=== PATIENT | female | born 1945 | race Caucasian/White ===

== ENCOUNTER 2019-05-12 12:49 | Emergency (ER) | payer MEDICARE, MEDICAID, SELFPAY ==
[2019-05-12 12:55] VITALS: BP 156/82; PULSE 95; RESP 18; TEMP 36.6; O2SAT 99; BMI 17.7
--- NOTE | 2019-05-12 12:56 | ED_ITS ---
Entered by Misty Chavez, acting as scribe for Alek Carrizales DO HPI - Extremity Injury (Lower) General: Chief Complaint: Extremity Injury, Lower Stated Complaint: hip pain Time Seen by Provider: 05/12/19 12:55 Source: patient Mode of arrival: ambulatory Limitations: no limitations History of Present Illness: HPI Narrative: 74 yo Female presents to ED with c omplaint of right hip pain. Pt states that she has had a few falls during the winter. Pt states that her pain started 3-4 months ago. Pt states that her pain is in her lower back down to her knee. Pt states that she is not on blood thinners. MD complaint: hip injury Onset (ago): month(s) (3) Injury: Right: hip and knee Place: home Relieving factors: nothing Exacerbating factors: nothing Context: fall Other symptoms: none Review of Systems General: Reports: 10 or more systems reviewed and unremarkable except in HPI and below Const: Reports: body aches; Denies: fever or chills Eyes: Denies: change in vision, blurry vision or blind spots ENMT: Denies: throat pain, enlarged tonsils, painful swallowing, hoarseness or mouth pain Card: Denies: chest pain, palpitations, irregular heart rhythm, edema or sw elling of feet/ankles Resp: Denies: shortness of breath, productive cough or non-productive cough GI: Denies: abdominal pain, nausea or vomiting : Denies: flank pain, difficulty urinating, painful urination or urinary frequency Musc: Reports: back pain, extremity pain and joint pain; Denies: neck pain, extremity swelling, joint swelling or redness Skin/Breast: Denies: rash, itching or redness Neuro: Denies: headache, numbness in extremities or weakness in extremities Endo: Denies: excessive urination, excessive thirst or tired all the time Zaid/Lymph: Denies: easy bruising or easy bleeding PFSH ED PFSH: Statuses (acute, chronic, etc) shown below reflect problem list status as previously entered and may not be historically accurate Surgical History History of breast biopsy (Acute) History of heart artery stent (Acute) History of hysterectomy (Acute) Social History (Reviewed 05/12/19 @ 13:43 by MERCEDEZ Fitch Smoking and tobacco status: current every day smoker Physical Exam Const: COMMON NORMALS: no apparent distress, average body habitus, oriented x3, no limitations, healthy appearing, alert and well nourished HENMT: COMMON NORMALS: normocephalic, head/scalp atraumatic, hearing grossly normal bilaterally, external ears normal, EAC's normal, TM's normal bilaterally, external nose normal, nasal mucous membranes and turbinates normal, moist oral mucous membranes, oropharynx normal, dentition normal and gingiva normal HEAD & SCALP: normocephalic and atraumatic NOSE: external nose normal and nasal mucous membranes and turbinates normal EXTERNAL EAR: Yes external ears normal EXTERNAL AUDITORY CANAL: EAC's normal TYMPANIC MEMBRANE: TM's normal bilaterally Eye: COMMON NORMALS: PERRL, EOMs intact bilaterally, conjunctivae normal, no scleral icterus, no papilledema, normal visual batres by confrontation and fundi normal bilaterally CONJUNCTIVA: Yes conjunctivae normal PUPIL: Yes PERRL DIRECT OPHTHALMOSCOPY: Yes no papilledema and Yes fundi normal bilaterally Neck/C-Spine: COMMON NORMALS: full ROM, no lymphadenopathy, supple, no meni ngeal signs, no JVD, thyroid normal and no carotid bruits THYROID: thyroid normal Chest: COMMONS NORMALS: inspection of chest normal and palpation of chest normal Resp: COMMON NORMALS: normal respiratory effort, no retractions, no use of accessory muscles, clear to auscultation bilaterally and percussion normal AUSCULTATION: clear to auscultation bilaterally PERCUSSION: percussion normal Cardio: COMMON NORMALS: no JVD, regular rate, regular rhythm, S1 normal heart sound, S2 normal heart sound, no gallops, no clicks, no murmurs, no rub and peripheral pulses 2+ throughout RATE: regular rate RHYTHM: regular rhythm HEART SOUNDS: S1 normal and S2 normal PERIPHERAL PULSES: pulses 2+ throughout GI: COMMON NORMALS: normal to inspection, nondistended, normoactive bowel sounds, soft to palpation, non-tender, no hepatosplenomegaly, no masses and no bruits PALPATION: Yes soft and Yes no hepatosplenomegaly : COMMON NORMALS: Yes no CVA tenderness and Yes external appearance normal BLADDER/KIDNEY EXAM: Yes no CVA tenderness Back/Pelvis: COMMON NORMALS: no CVA tenderness, thoracic and lumbar spine normal to inspection, no thoracic nor lumbar tenderness, thoraco-lumbar ROM normal and straight leg raise negative bilaterally Extremity: COMMON NORMALS: full ROM, normal capillary refill, no joint enlargement, no clubbing, cyanosis or edema, no calf tenderness and no pedal edema; negative for normal to inspection GENERAL: Yes normal exam except as noted and Yes weight-bearing difficulty RIGHT LOWER EXTREMITY: Yes hip joint (tenderness) Neuro: COMMON NORMALS: oriented x3 SENSORIUM/ORIENTATION: Yes alert MENINGEAL SIGNS: Yes no meningeal signs Skin: COMMON NORMALS: no rashes or lesions noted, no wounds, skin turgor normal, no jaundice, no petechiae and no mottling GENERAL SKIN EXAM: no rashes or lesions noted and turgor normal Course Vital Signs: Vital signs: Vital Signs Temperature 97.9 F 05/12/19 12:55 Pulse Rate 86 05/12/19 13:00 Respiratory Rate 18 05/12/19 12:55 Blood Pressure 156/82 05/12/19 12:55 Pulse Oximetry 99 05/12/19 12:55 MDM - Extremity Injury (Lower) Imaging Data^: Pelvis: My impression: subacute right pubic rami fx Coding Level of Care Code ED 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
[2019-05-12 13:00] VITALS: PULSE 86
--- NOTE | 2019-05-12 13:02 | XRR_ITS ---
PROCEDURE INFORMATION: Exam: XR Right Femur Exam date and time: 05/12/2019 1:39 PM Age: 74 years old Clinical indication: Pain; Hip; Right; Additional info: Falls TECHNIQUE: Imaging protocol: XR Right femur. Views: 2 views. COMPARISON: CT examination abdomen and pelvis 06/29/2018 FINDINGS: Bones/joints: Last there is generalized osteopenia present. Irregular decreased bone density is seen in the anterior ramus of the right pubic bone this finding appears different than prior examination. Consideration for localized pathologic bone lesion should be ruled out. Consider nuclear medicine bone scan is recommended. No acute fracture. Soft tissues: Unremarkable. XR/XR femur RT min 2V* [id number] IMPRESSION: Lytic appearing bone changes in the right pubic bone rule out pathologic process nuclear medicine bone scan is recommended Otherwise negative examination
--- NOTE | 2019-05-12 13:02 | XRR_ITS ---
PROCEDURE INFORMATION: Exam: XR Lumbosacral Spine, 2 or 3 Views Exam date and time: 05/12/2019 1:37 PM Age: 74 years old Clinical indication: Low back pain; Additional info: Falls TECHNIQUE: Imaging protocol: XR of the lumbosacral spine, 2 or 3 views. COMPARISON: CTA Abdomen/Pelvis [id number] 06/29/2018 1:33 PM FINDINGS: Vertebrae: There is decreased vertebral height, and sclerotic densities present in the L1 vertebral body. Sclerotic densities also seen S1 vertebral body. These findings were present on prior examination and appears similar. There is generalized osteopenia and osteoarthritis seen. No acute bone abnormalities is seen. Soft tissues: The aorta is calcified there is aneurysmal dilatation of the aorta anterior to L2 and L3 vertebral body. The aorta at this level measures 32.7 mm. This finding was documented on prior CT examination and appears similar. A calyceal stone is seen in the central collecting system of the right kidney measuring 9 mm x 9 mm this finding was stable since prior. XR/XR lumbar spine 2-3V* [id number] IMPRESSION: 1. Compression fractures and sclerotic density L1 vertebral body 2. Sclerotic densities S1 vertebral body 3. Calcified abdominal aorta with proximal abdominal aortic aneurysm stable since prior 4. There is a calcified right kidney 9 mm caliceal stone stable since prior 5. Osteopenia and osteoarthritis of the lumbar spine.
--- NOTE | 2019-05-12 13:02 | XRR_ITS ---
PROCEDURE INFORMATION: Exam: XR Pelvis Exam date and time: 05/12/2019 1:31 PM Age: 74 years old Clinical indication: Pelvic pain; Additional info: Falls TECHNIQUE: Imaging protocol: XR pelvis. Views: 1 or 2 view. COMPARISON: CTA Abdomen/Pelvis [id number] 06/29/2018 1:33 PM FINDINGS: Bones/joints: Laminectomy defect Dom lower lumbar spine. No acute fracture. Chronic sclerotic density is seen in the greater trochanter of the left hip Soft tissues: Unremarkable. XR/XR pelvis 1-2V* [id number] IMPRESSION: No acute findings. Laminectomy defect lower lumbar spine
[2019-05-12] MEDS: HYDROcodone-acetaminophen 5-325 mg Tablet 1 TAB PO (13:53)
[2019-05-12 13:55] VITALS: BP 173/76; PULSE 90; RESP 16; TEMP 36.6; O2SAT 98
== END 2019-05-12 14:01 | disposition home or self-care (01) ==
PROVIDERS: Emergency Provider Family Medicine; Family Provider Family Medicine; PCP Family Medicine
DX: S32.591A Other specified fracture of right pubis, initial encounter for closed fracture (principal); W19.XXXA Unspecified fall, initial encounter; Y92.009 Unspecified place in unspecified non-institutional (private) residence as the place of occurrence of the external cause; F17.210 Nicotine dependence, cigarettes, uncomplicated
CPT/HCPCS: 72100; 72170; 73552; 99281

== ENCOUNTER 2019-05-25 07:44 | Outpatient (CLI) | payer MEDICARE, MEDICAID, SELFPAY ==
--- NOTE | 2019-05-25 07:54 | NM_ITS ---
WS: [id number] Nuclear medicine whole body bone scan, 05/25/2019 Clinical Data: PELVIS RAMUS LESION Comparison: Lumbar spine , 05/12/2019, pelvis, 05/12/2019, right femur, 05/12/2019. Findings: After the intravenous injection of 25.3 mCi of technetium 99m HDP anterior and posterior wh ole body images were obtained. Additional lateral imaging of the cervical spine and skull was perform ed. There are areas of increased activity in the right pubic symphysis, right pelvis, right sacrum, left femoral head and left greater trochanter. There is also increased activity in the L1 and L4 vertebral bodies. Increased activity in the anterior lower right and left ribs is seen and also in the posteri or left fifth rib. There is slight increase in activity in the T2 and T3 vertebral bodies and also in the C7 vertebral body. Increased activity in the anterior and posterior skull is noted. The right re nal pelvis is dilated. NM/NM bone scan whole body* [id number] Impression: 1. Multiple areas of increased activity in the skull, cervical spine, thoracic spine, ribs, lumbar spine, pelvis, sacrum and both hips most consistent with di ffuse metastatic disease. 2. Right renal pelvic dilatation.
== END 2019-05-25 07:45 | disposition home or self-care (01) ==
LOC: RAD 07:45
PROVIDERS: Family Provider Family Medicine; PCP Family Medicine; Visit Provider Family Medicine
DX: M89.9 Disorder of bone, unspecified (principal)
CPT/HCPCS: 78306; A9561

== ENCOUNTER 2019-06-04 09:34 | Outpatient (CLI) | payer MEDICARE, MEDICAID, SELFPAY ==
[2019-06-04 11:56] LABS: Basophils % 0.3 %; Eosinophils % 0.5 %; Hemoglobin 12.9 g/dL (11.5-15.3); Lymphocytes # 2.4 10^3/uL (0.8-4.8); Lymphocytes % 32.4 %; Mean Corpuscular HGB Conc 32.3 g/dL (30.0-36.0); Mean Corpuscular Hemoglobin 27.7 pg (28.0-34.0); Mean Platelet Volume 10.6 fL (7.4-10.4); Monocytes # 0.9 10^3/uL (0.2-0.9); Monocytes % 11.8 %; Neutrophils # 4.1 10^3/uL (1.8-7.7); Neutrophils % 54.7 %; Nucleated Red Blood Cells % 0 %; Platelet Count 238 10^3/cmm (130-400); Red Blood Count 4.65 10^6/uL (4.1-5.3); Red Cell Distribution Width 13.8 % (12.1-15.1); White Blood Count 7.5 10^3/uL (4.0-10.0)
[2019-06-04 12:31] LABS: Alanine Aminotransferase 8 U/L (0-33); Albumin Level 3.8 g/dL (3.5-5.2); Alkaline Phosphatase 138 IU/L (35-105); Anion Gap 15.6 (5-19); Aspartate Amino Transferase 27 U/L (0-32); Blood Urea Nitrogen 21 mg/dL (8-23); Calcium 10.1 mg/dL (8.5-10.5); Carbon Dioxide 28 mmol/L (22-29); Chloride 99 mmol/L (98-107); Globulin 3.3 g/dL (1.3-4.6); Glucose 103 mg/dL (65-115); Potassium 3.6 mmol/L (3.5-5.1); Sodium 139 mmol/L (136-145); Total Bilirubin 0.3 mg/dL (0.15-1.2); Total Protein 7.1 g/dL (6.6-8.7)
[2019-06-04 14:28] LABS: 25 Hydroxy Vitamin D 49 ng/mL (30-100)
--- NOTE | 2019-06-04 18:23 | ONC CON_ITS ---
Dr. Agrawal New Patient Note Patient: Lorelei Saunders Unit #: [id number]: [id number] Dicatated By: Paul Agrawal M.D.Date of Visit: Jun 04, 2019 Onc MED New Patient/Consult Referring Physician: Chief Complaint: Breast cancer/bone metastases. History of Present Illness: This is a 74 year-old woman with grade 2 infiltrating ductal carcinoma of the right breast, ER/GA positive and HER-2/alf negative. She now has evidence of bony metastatic disease. Her breast cancer was stage IIA (T2, N0, M0) at initial diagnosis in October 2008. Her Oncotype DX showed a recurrence score of 16, which was low risk. Her treatment included lumpectomy and axillary sentinel lymph node biopsy followed by radiation to the right breast, which she completed in February 2009. She was given adjuvant hormonal therapy with anastrozole. It was stopped in October 2012 when she came in with worsening joint pain. Bone scan in November 2012 showed no evidence of metastatic disease. She received no further adjuvant therapy, as she had then failed to return for follow-up. Her other medical illnesses include atherosclerotic cardiovascular disease, degenerative arthritis, osteoporosis, and hypothyroidism. She had evidence of a 3 cm infrarenal abdominal aortic aneurysm on CT angiogram in June 2018. That study also showed arterial stenosis had multiple sites including the proximal SMA, the right renal artery, and left renal artery. Extensive calcifications were noted through the common iliac arteries bilaterally. She underwent right carotid endarterectomy in 2017. She had undergone hysterectomy/BSO in 1994. She has a history of smoking 1 pack of cigarettes daily for close to 60 years. She cut down about a year ago. INTERIM HISTORY: On 05/12/2019 she was seen in the emergency room with pain in the right hip area. The pain has been getting progressively worse over a period of several months. X-rays of the lumbar spine, pelvis, and right femur showed evidence of sclerotic lesions in the L1 and S1 vertebral bodies as well as lytic appearing bone changes in the right pubic bone. There was no fracture reported. Further evaluation with bone scan on 05/25/2019 showed multiple areas of uptake including the calvarium, cervical spine, thoracic spine, ribs, lumbar spine, pelvis, sacrum, and both hips most consistent with diffuse metastatic disease. Also noted was right renal pelvic dilatation. She is seen now for further management. She is having generalized pain, but the worst is in her right buttock area. The pain gets worse with coughing, and it does limit her activity. She is ambulating some with a walker. She is still trying to do light work. Her ECOG score is 2. Her appetite has not been good, and her weight is down at least 20 pounds. She does not have fever, night sweats, or hot flashes. She says her breathing is not too good. She has cough productive of bubbly sputum. She has had no chest pain or hemoptysis. She has very minimal smoking now. She does report having some acid reflux and she has had some constipation, though she says her bowels are pretty good as long as she eats enough. She has urinary frequency with urgency/incontinence. She does not complain of headache. She does have some lightheadedness when she first gets up in the morning. She has numbness/tingling in her left hand. Past Medical History: Her medical history includes breast cancer, carotid stenosis, degenerative arthritis, goiter, hypothyroidism, renal artery stenosis, and osteoporosis. She has a known abdominal aortic aneurysm. Past Surgical History: Her surgical/procedural history includes knee surgery, knot removal from back, right carotid endartarectomy in 2018, right breast lumpectomy with axillary sentinel lymph node biopsy in 2008, and hysterectomy/bilateral salpingo-oophorectomy in 1994. Medications: Aspirin 1 Tablet (of 81 mg) Oral daily, Hydrocodone-Acetaminophen 1 Tablet (of 5-325 mg) Oral q 6 hours PRN, Levothyroxine Sodium 1 Tablet (of 50 mcg) Oral daily Allergies: Fluticasone Furoate Social History: Ms. Saunders is . She has a history of smoking 1 pack of cigarettes daily for close to 60 years. She cut down about a year ago and she now has only minimal smoking. She had alcohol use in the past but she quit drinking at least 35 or 40 years ago. Family History: Her father and a sister of lung cancer. One brother had esophageal cancer and another brother was treated for kidney cancer. Her mother of heart attack. A son with a drug overdose. Review Of Symptoms: Constitutional - She is up and around some with a walker. Her appetite is not good. She has lost about 20 pounds since getting sick. No fever. She has hot flashes and sweating. ECOG score is 2, Eyes - No change in vision, ENMT - She has hearing loss and tinnitus. No sinus congestion/drainage. No mouth sores. No sore throat or difficulty swallowing, Hematologic/Lymphatic - She bruises easily, Respiratory - She has shortness of breath with activity. She has a productive cough. No pleuritic pain or hemoptysis. She continues to smoke some days, but she has cut down since a year ago, Cardiovascular - No angina pain. No palpitations, Gastrointestinal - No nausea or vomiting. She has occasional heartburn. No diarrhea or constipation. No blood in the stool or black stools, Genitourinary (F) - No dysuria or hematuria. She has urinary frequency and urgency. She has incontinence, Musculoskeletal - She has generalized pain. The worst is in her her right buttock area, Integumentary - No skin complications, Neurologic - No headache. She has dizziness in the morning when she first gets up. She has numbness and tingling in her left hand, Psychiatric - No anxiety or depression. She is not sleeping well at night due to the pain. Vital Signs: Performed on Jun 04, 2019 11:01: 4, 16.83 (LOW), 1.37 sq.m, 62.00 in, 99 %, 106 /min (HIGH), 16 /min, 123/68 mm(hg), 98.3 F (LOW), and 92.0 lbs (LOW). Physical Examination: Constitutional - She has limited mobility, but she does not appear acutely ill, Eyes - Sclerae nonicteric. Conjunctivae clear, ENMT - No lesions noted in the oral cavity, Neck - No mass or thyromegaly, Hematologic/Lymphatic - No cervical or clavicular adenopathy, Respiratory - Lungs are clear with diminished air movement bilaterally, Cardiovascular - Heart rhythm is regular. There is no murmur, gallop, or rub noted, Breasts - The right breast is generally indurated, there is no mass palpable. The left breast shows no mass. There is no axillary adenopathy noted, Abdomen - Soft. There is mild tenderness in the epigastric area. Liver and spleen are not enlarged. There is no abdominal mass or ascites noted and there is no inguinal adenopathy, Back/Spine - No significant bony tenderness in the spine or ribs, Extremities - No edema. Pedal pulses are palpable bilaterally, Integumentary - No rashes. No suspicious skin lesions noted, Neurologic - No focal neurologic deficits noted. Impression: 1. Patient with evidence of widespread bony metastatic disease by bone scan on 05/25/2019. This is most likely due to to metastatic breast cancer. 2. She has known grade 2 infiltrating ductal carcinoma of the right breast, ER/GA positive and HER-2/alf negative, stage IIA (T2, N0, M0) at initial diagnosis in October 2008. Her treatment included lumpectomy and radiation, completed in February 2009. 3. She was given adjuvant hormonal therapy with anastrozole. It was stopped in October 2012 due to worsening musculoskeletal pain. Bone scan at that time showed no evidence of metastatic disease. She received no further adjuvant therapy. Her other medical illnesses include: 4. Degenerative arthritis. 5. COPD. 6. Hypothyroidism. 7. Atherosclerotic cardiovascular disease including carotid stenosis and renal artery stenosis. 8. She has known abdominal aortic aneurysm. Plan: The findings on the imaging studies were reviewed with the patient, and we discussed the clinical implications. She clearly has evidence of widespread bony metastatic disease. The probability is very high that this is due to metastatic breast cancer despite the interval from her diagnosis/treatment. However, she will be scheduled for a PET/CT not only to complete her staging evaluation but also to screen for any other potential source for primary malignancy. If she has disease which is accessible for biopsy, confirmation with tissue diagnosis would be preferable. I also will check laboratory studies today to include CBC, comprehensive metabolic profile, CA-27-29 level, and a 25-hydroxy vitamin D level. I will review the imaging with Dr. Kenny, as I feel she would potentially benefit with palliative radiation. Assuming there is no evidence for other primary malignancy, she would then be eligible for treatment with a second line hormonal agent in combination with a CDK4/6 inhibitor. Signed By: Paul Agrawal M.D. <<Signature on File>>
== END 2019-06-04 09:35 | disposition home or self-care (01) ==
PROVIDERS: Family Provider Family Medicine; PCP Family Medicine; Referring Provider Family Medicine; Visit Provider Internal Medicine Medical Oncology
DX: C79.51 Secondary malignant neoplasm of bone (principal); Z85.3 Personal history of malignant neoplasm of breast; G89.3 Neoplasm related pain (acute) (chronic); I25.10 Atherosclerotic heart disease of native coronary artery without angina pectoris; M19.90 Unspecified osteoarthritis, unspecified site; M81.0 Age-related osteoporosis without current pathological fracture; F17.210 Nicotine dependence, cigarettes, uncomplicated; I71.4 Abdominal aortic aneurysm, without rupture; E03.9 Hypothyroidism, unspecified; Z17.0 Estrogen receptor positive status [ER+]; Z79.82 Long term (current) use of aspirin; Z79.891 Long term (current) use of opiate analgesic; Z92.3 Personal history of irradiation; Z92.23 Personal history of estrogen therapy
CPT/HCPCS: 80053; 82306; 85025; 86300; 99205

== ENCOUNTER 2019-06-13 10:12 | Outpatient (CLI) | payer MEDICARE, MEDICAID, SELFPAY ==
--- NOTE | 2019-06-13 13:55 | N.ONRAD NP_ITS ---
Radiation Oncology New Patient Visit Patient: Lorelei Saunders MR#: [id number] : 1945> Age: 74> Sex: Female> Dictated by: Dr. Jacob Kenny Date of Service: 06/13/2019 Referring Physician(s) : Paul Agrawal M.D. Primary Diagnosis: Z17.0 - estrogen receptor positive status [er+], Diagnosed 06/04/2019 (active), C50.411 - malignant neoplasm of upper-outer quadrant of right female breast, Diagnosed 06/04/2019 (active), stage iv, t2, n0, m1, g2, her2 neg, er pos, pr pos and C79.51 - secondary malignant neoplasm of bone, Diagnosed 06/04/2019 (active). 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 She received lumpectomy and axillary sentinel lymph nodes biopsy followed by adjuvant radiation therapy to the right breast and 4 years of adjuvant hormonal therapy with anastrozole. Recently the patient presented to the ER with severe pain in the right hip and lower back on May 12, 2019. X-ray of the lumbar spine and pelvis showed sclerotic lesions in the L1 and S1 vertebral bodies as well as lytic lesions in the right pubic bone. Bone scan on May 25, 2019 showed multiple areas of increased activity in the skull, cervical spine, thoracic spine, ribs, lumbar spine, pelvis, sacrum and both hips most consistent with diffuse metastatic disease. Subsequently she underwent a PET/CT on June 09, 2019. It showed FDG avid left thyroid mass, hypermetabolic right cervical and mediastinal lymphadenopathy, a unifocal hepatic metastatic disease and multifocal osseous metastatic disease as shown in bone scan. The patient notes pain all over but the most severe pain is in the right hip/lower back area and right lateral rib cage. She describes it as constant aching pain that can be relieved by pain medication. The patient will be scheduled for biopsy of right hip lesion by Dr. Agrawal. Current Medications: Aspirin, hydrocodone-Acetaminophen, hydrocodone-Acetaminophen, levothyroxine Sodium. Allergies: Fluticasone Furoate. Medical History: - Abdominal aortic aneurysm, - breast cancer, - carotid stenosis, - degenerative arthritis, - goiter, - hypothyroidism, - osteoporosis on 06/09/2009, - renal artery stenosis. No history of collagen vascular disease. No previous radiation therapy. Surgical History: Breast biopsy on 11/11/2008, hysterectomy/bilateral salpingo-oophorectomy in 1994, knee surgery, knot removal from back, right breast lumpectomy with axillary sentinel lymph node biopsy on 12/05/2008 and right carotid endarterectomy on 09/27/2017. Family History: Father is having experienced lung cancer. Mother is having experienced heart disease. Brother is . Brother is alive having experienced esophagus cancer. Brother is alive having experienced kidney cancer. Sister is at age 63. Sister is at age 67 having experienced lung cancer. Social History: Last screened on 06/13/2019 - Current every day smoker 1.0 pack/day for 60 years (60 pack years). Last screened on 06/13/2019 - Past drinker. Review of Systems: Constitutional - Complains of no appetite. Complains of moderate fatigue. Complains of change in weight has lost 4 lbs. since last week. Denies fever and night sweats. Eyes - Denies blurred vision. ENMT - Complains of problems with hearing and altered taste. Denies dysphagia and also had odynophagia that started last night, ear pain, mouth dryness and stomatitis. Neck - Complains of neck pain. Integumentary - Denies rash. Breasts - Complains of pain in the right breast which happens once in awhile. Cardiovascular - Denies arrhythmias and chest pain. Respiratory - Complains of a mild cough which is productive. Complains of chronic dyspnea. Complains of wheezing. Denies hemoptysis. Gastrointestinal - Complains of abdominal pain that is intermittent which is in the periumbilical region. Complains of intermittent constipation. Complains of heartburn / dyspepsia occasionally. Denies diarrhea, melena / GI bleeding, nausea and vomiting. Genitourinary (F) - Complains of nocturia 1-3 time/night. Denies dysuria, frequency and urgency. Musculoskeletal - Complains of arthritis, bone pain generalized all over and joint pain in the shoulders and right hip. Neurologic - Complains of intermittent dizziness that occurs upon sitting to standing. Complains of abnormal gait. Denies headaches. Endocrine - Complains of thyroid disease. Denies diabetes. Hematologic/Lymphatic - Denies tender or enlarged lymph nodes.. Vital Signs: Performed on 06/13/2019 10:56 AM BMI - 16.242 kg/m2 (low), Height - 62.00 in, Weight - 88.8 lbs, Temperature - 97.8 f, Pulse - 94, Respiration - 18, O2 Sat - 98 %, Pain - 0 and BP - 131/ 82 mm(hg). Physical Exam: Pertinent to diagnosis and treatment. General: Alert and oriented x 3. No acute distress. HEENT: Normocephalic, atraumatic. EOMI ( Extraocular Movements Intact), PERRLA ( Pupils Equal, Round, Reactive to Light and Accommodation), Sclerae anicteric. Oral cavity is clear without lesions, masses or ulcers. NECK: Supple without supraclavicular or jugular lymphadenopathy. LUNGS: Clear to auscultation bilaterally without rales, rhonchi or wheeze. HEART: Regular rate and rhythm, normal S1 and S2 without murmur, gallop or rub. MUSCULOSKELETAL: Tenderness over the lower back and right hip areas. ABDOMEN: Soft, nontender, nondistended without masses or organomegaly. Bowel sounds are present. EXTREMITIES: No peripheral edema is identified. Limited motor and sensory examination are grossly intact and symmetric bilaterally. NEUROLOGIC: Cranial nerves II ???XII are grossly intact. Normal sensation, strength 5/5 in all extremities, normal gait, no ataxia. Performance Status: 2 - Ambulatory/capable of all self-care, unable to perform any work activities. Up and about more than 50% of waking hours. (ECOG) Pathology: grade 2 infiltrating ductal carcinoma involving the right breast ER/OK positive and HER-2/alf negative Lab: Test performed on 06/04/2019 11:46 AM MCH - 27.7 pg (low), MPV - 10.6 fl (high), Cr Clearance (Est) - 45.04 ml/min (low) and Alkaline Phosphatase - 138 iu/l (high). Imaging: See HPI Impression: This is a 74-year-old woman who most likely developed a stage IV breast cancer with diffuse metastases including bony metastasis involving the spine, ribs and bilateral hips/pelvis causing significant pain in the right hip/lower back area and right lateral rib cage. Plan: I recommended palliative radiation therapy to the lower back/right hip area and right rib metastatic lesions to relieve pain. I went over the procedure for radiation therapy to the rib, lower back and the right hip/pelvis with the patient. The benefit, risks and potential side effects of radiotherapy were explained to the patient. The potential side effects include but not limited to fatigue, skin reaction, diarrhea, nausea, vomiting, dysuria, urgency, radiation hepatitis, damages to liver, bones, bowels and spinal cord/nerves. Ms Saunders expressed good understanding and decided to proceed with the recommended treatment. The patient has signed an informed consent for radiotherapy. She will come back for CT simulation after the biopsy. Signed by: 06/13/2019 1:54:47 PM <<Signature on File>> CPT Code: CPT Code: Signed By: Dr. Jacob Kenny, 06/13/2019 1:54:48 PM <<Signature on File>>
== END 2019-06-13 10:13 | disposition home or self-care (01) ==
LOC: ONCMED 10:16
PROVIDERS: Family Provider Family Medicine; PCP Family Medicine; Visit Provider Radiology Radiation Oncology
DX: C79.51 Secondary malignant neoplasm of bone (principal); C50.411 Malignant neoplasm of upper-outer quadrant of right female breast; Z17.0 Estrogen receptor positive status [ER+]; G89.3 Neoplasm related pain (acute) (chronic); C78.7 Secondary malignant neoplasm of liver and intrahepatic bile duct; I71.4 Abdominal aortic aneurysm, without rupture; M19.90 Unspecified osteoarthritis, unspecified site; M81.0 Age-related osteoporosis without current pathological fracture; E03.9 Hypothyroidism, unspecified; F17.210 Nicotine dependence, cigarettes, uncomplicated; Z79.891 Long term (current) use of opiate analgesic
CPT/HCPCS: 99205

== ENCOUNTER → 2019-06-26 08:18 | Day surgery (SDC) | payer MEDICARE, MEDICAID, SELFPAY ==
[2019-06-25 08:47] VITALS: BMI 16.8
[2019-06-26] VITALS (10 sets, daily range): BP systolic 95–189; BP diastolic 59–106; PULSE 75–92; RESP 16–18; TEMP 36.9; O2SAT 96–100
--- NOTE | 2019-06-26 09:04 | CT_ITS ---
NOTE: Report was unsigned for reason: Order was edited. Original Signature date and time was: 06/26/19 1232 WS: [id number] CT lab see of the right ilium., 06/26/2019 Clinical Data: SUSPECTED CANCER Comparison: PET scan, 06/09/2019. DLP: 643.[address] scans at [facility] use at least one of these dose optimization techniques: automated exposure control; mA and/or kV adjustment per patient size (includes targeted exams where dose is matched to clinical indication); or iterative reconstruction. Findings: With the usual technique the patient's skin was cleansed with alcohol. Then 4 mL of 1% lidocaine were injected via a 25-gauge needle to anesthetize the skin and underlying subcutaneous tissue. A small incision was made into the skin. Then an 18-gauge biopsy device was placed into the right ilium to sample the tissue within the right ilium at the level of the SI joint. 5 samples were obtained. The patient had no complications and had no pain. [facility] CT/CT guided biopsy [id number] Impression: Satisfactory CT guided biopsy of right ilium.
[2019-06-26] MEDS: sodium chloride 0.9% 1,000 ML 30 ML (09:09)
[2019-06-26 10:20] LABS: INR 1.09 (0.8-1.2)
[2019-06-26 10:32] LABS: Partial Thromboplastin Time 27.1 SECONDS (23.9-36.7)
[2019-06-26] MEDS: midazolam 1 mg/mL INJ 5 ML IVP ×3 (11:35→11:44)
--- NOTE | 2019-06-26 12:00 | SUR.PHASEII ---
Addendum entered by Valarie Gonzalez 06/26/19 12:48: CORRECTION: FENTANYL 25MCG WERE WASTED AND WITNESSED BY A JESSE RN Original Note: MELVA WASTED 50MCG FENTANYL AND 2MG OF VERSED. WITNESSED BY THIS NURSE.
--- NOTE | 2019-06-26 12:05 | SUR.PHASEII ---
PATIENT'S GLASSES GIVEN TO HER FAMILY MEMBER.
[2019-07-04 13:15] LABS: Miscellaneous Test See Scanned Lab Rpt
== END | disposition home or self-care (01) ==
PROVIDERS: Radiology Diagnostic Radiology; Family Provider Family Medicine; PCP Family Medicine; Visit Provider Internal Medicine Medical Oncology
DX: C79.51 Secondary malignant neoplasm of bone (principal); Z85.3 Personal history of malignant neoplasm of breast
CPT/HCPCS: 20225; 36415; 77012; 85610; 85730; 88307; 88361; 88374; 96374; 96375; J2001; J2250; J3010; J7030

== ENCOUNTER 2019-07-17 05:52 | Outpatient (RCR) | payer MEDICARE, MEDICAID, SELFPAY ==
--- NOTE | 2019-06-28 | CT_ITS ---
Radiation Therapy Planning CT images; total exam DLP: 347.62 mGy-cm MTDD
--- NOTE | 2019-06-30 12:15 | ONCRAD EPV_ITS ---
Radiation Oncology Established Patient Visit Patient: Kb MR#: [id number] : 1945> Age: 74> Sex: Female> Dictated by: Dr. Jacob Kenny Date of Service: 06/28/2019 Referring Physician(s) : Paul Agrawal M.D. Diagnosis: Z17.0 - Estrogen receptor positive status [ER+], Diagnosed 06/04/2019 (Active) C50.411 - Malignant neoplasm of upper-outer quadrant of right female breast, Diagnosed 06/04/2019 (Active) Stage IV, T2, N0, M1, G2, HER2 Neg, ER Pos, CA Pos C79.51 - Secondary malignant neoplasm of bone, Diagnosed 06/04/2019 (Active) Chief Complaint / History of Present Illness: This is a 74-year-old woman who most likely developed a stage IV breast cancer with diffuse metastases including bony metastasis involving the spine, ribs and bilateral hips/pelvis causing significant pain in the right hip/lower back area and right lateral rib cage. During the interval, the patient underwent a CT-guided core needle biopsy of the right iliac bone lesion on June 26, 2019. Pathology showed metastatic adenocarcinoma most consistent with breast primary. She notes intermittent severe pain in the right hip and the right lateral rib cage which is not controlled by pain medication. Current Medications: Aspirin, hydrocodone-Acetaminophen, hydrocodone-Acetaminophen, levothyroxine Sodium. Allergies: Fluticasone Furoate. Current Complaints / Review of Systems: Constitutional - Complains of a poor appetite. Complains of mild fatigue. Denies fever, night sweats and change in weight. Eyes - Complains of blurred vision in both eyes and happened this morning. Denies double vision. ENMT - Complains of altered taste. Denies dysphagia, ear pain, mouth dryness and stomatitis. Neck - Denies neck pain. Integumentary - Denies rash. Breasts - Denies pain. Cardiovascular - Denies chest pain. Respiratory - Complains of a moderate cough which is productive. Complains of dyspnea associated with normal activity. Complains of wheezing. Denies hemoptysis. Gastrointestinal - Complains of intermittent constipation. Complains of intermittent diarrhea. Denies abdominal pain, heartburn / dyspepsia, nausea and vomiting. Genitourinary (F) - Complains of nocturia gets up about 2 times per night and urgency. Denies dysuria, frequency, vaginal discharge / bleeding and vaginal spotting. Musculoskeletal - Complains of generalized muscle weakness. Has complains of rib pain down to the hip. Pain is on both sides but at different times. Neurologic - Complains of intermittent dizziness that occurs upon sitting to standing. Denies headaches. Endocrine - Complains of thyroid disease. Denies diabetes. Hematologic/Lymphatic - Denies tender or enlarged lymph nodes. Vital Signs: Performed on 06/28/2019 12:57 PM BMI - 15.949 kg/m2 (low), Height - 62.00 in, Weight - 87.2 lbs, Temperature - 98.8 f, Pulse - 98, Respiration - 20, O2 Sat - 98 %, Pain - 6 and BP - 137/ 85 mm(hg). Physical Exam: General: Alert and oriented x 3. No acute distress. HEENT: Normocephalic, atraumatic. Extraocular Movements Intact: Pupils Equal, Round, Reactive to Light and Accommodation: Sclerae anicteric. Oral cavity is clear without lesions, masses or ulcers. NECK: Supple without supraclavicular or jugular lymphadenopathy. LUNGS: Clear to auscultation bilaterally without rales, rhonchi or wheeze. HEART: Regular rate and rhythm, normal S1 and S2 without murmur, gallop or rub. MUSCULOSKELETAL: Tenderness over the right hip/pelvic bone. ABDOMEN: Soft, nontender, nondistended without masses or organomegaly. Bowel sounds are present. EXTREMITIES: No peripheral edema is identified. Limited motor and sensory examination are grossly intact and symmetric bilaterally. NEUROLOGIC: Cranial nerves II ???XII are grossly intact. Normal sensation, strength 5/5 in all extremities, normal gait, no ataxia. Performance Status: 2 - Ambulatory/capable of all self-care, unable to perform any work activities. Up and about more than 50% of waking hours. (ECOG) Lab: Test performed on 06/26/2019 9:03 AM PT - 14.50 sec (high), INR - 1.09 (low) and PTT - 27.1 sec (low). Pathology: metastatic adenocarcinoma most consistent with breast primary Imaging: See HPI Impression: This is a 74-year-old woman who developed a biopsy proven metastatic breast cancer with diffuse bony metastasis involving the spine, ribs and bilateral hips/ilium causing significant pain in the right hip/sacrum area and right lateral rib cage. Plan: I recommended palliative radiation therapy to the bony metastatic lesions at right iliac / sacral area and right rib to relieve pain. I went over the procedure for radiation therapy to the rib, sacrum and the right hip/pelvis with the patient. The benefit, risks and potential side effects of radiotherapy were explained to the patient. The potential side effects include but not limited to fatigue, skin reaction, diarrhea, nausea, vomiting, dysuria, urgency, radiation hepatitis, damages to liver, bones, bowels and spinal cord/nerves. Ms Saunders expressed good understanding and decided to proceed with the recommended treatment. The patient has signed an informed consent for radiotherapy. She will undergo CT simulation today. Signed by: 06/30/2019 12:13:29 PM <<Signature on File>> CPT Code: CPT Code:
--- NOTE | 2019-07-10 15:15 | ONCRAD TMN_ITS ---
Radiation Oncology Weekly Treatment Management Patient: Lorelei Saunders MR#: [id number] : 1945> Age: 74> Sex: Female Dictated by: Dr. Roshan Mcbride Date of Service: 07/10/2019 Referring Physician(s) : Paul Agrawal M.D. Primary Diagnosis: Z17.0 - Estrogen receptor positive status [ER+], Diagnosed 06/04/2019 (Active) C50.411 - Malignant neoplasm of upper-outer quadrant of right female breast, Diagnosed 06/04/2019 (Active) Stage IV, T2, N0, M1, G2, HER2 Neg, ER Pos, ME Pos C79.51 - Secondary malignant neoplasm of bone, Diagnosed 06/04/2019 (Active) Radiotherapy to date: Course: [facility] 2019, Treatment Site: RT Hip 30Gy, Ref. ID: RT Hip 30Gy, Energy: 15X, Dose/Fx (cGy): 300, #Fx: 5 / 10, Dose Correction (cGy): 0, Total Dose (cGy): 1,500, Start Date: 07/04/2019, Elapsed Days: 6, Treatment Site: RT Rib, Ref. ID: RT Rib 30Gy, Energy: 6X, Dose/Fx (cGy): 300, #Fx: 5 / 10, Dose Correction (cGy): 0, Total Dose (cGy): 1,500, Start Date: 07/04/2019, Elapsed Days: 6 Current Complaints/Interval History: The patient's pain in both the hip and rib has improved. She is still taking about 3 pain pills per day. Between the fatigue caused by treatment and taking the pain medication, she is sleeping more during the day. She feels that that has affected her ability to eat. Her appetite is down and she has lost 4 ounces in the past week. We discussed diet and supplements. She is already taking Ensure and she will attempt to eat small amounts through the day to avoid further weight loss. Thus far no side effects from treatment have developed. She is complimentary of the staff. No questions about the treatment process. Continue as planned. Current Medications: Aspirin, hydrocodone-Acetaminophen, hydrocodone-Acetaminophen, levothyroxine Sodium. Allergies: Fluticasone Furoate. Vital Signs: Physical Exam: Appears stable, no skin erythema or desquamation. Performance Status: 2 - Ambulatory/capable of all self-care, unable to perform any work activities. Up and about more than 50% of waking hours. (ECOG) Lab: None pending in Radiation Oncology. Test performed on 06/04/2019 11:46 AM MCH - 27.7 pg (low), MPV - 10.6 fl (high), Cr Clearance (Est) - 45.04 ml/min (low), Alkaline Phosphatase - 138 iu/l (high), Test performed on 06/26/2019 9:03 AM PT - 14.50 sec (high), INR - 1.09 (low) and PTT - 27.1 sec (low). Imaging: No new diagnostic imaging was performed since the last weekly treatment visit. All radiation therapy related imaging (including but not limited to kV, MV, and CBCT generated images) was reviewed. Appropriate changes, if any, were made to assure accurate target localization. Impression/Plan: Tolerating treatment well with expected side effects. Continue treatment as planned. CPT: 69404 Signed by: Dr. Pepe Mcbride>07/10/2019 3:14:17 PM <<Signature on File>>
--- NOTE | 2019-07-17 16:29 | ONCRAD TMN_ITS ---
Radiation Oncology Weekly Treatment Management/Treatment Summary Patient: Lorelei Saunders MR#: [id number] : 1945> Age: 74> Sex: Female Dictated by: Dr. Pepe Mcbride Date of Service: 07/17/2019 Referring Physician(s) : Paul Agrawal M.D. Primary Diagnosis: Z17.0 - Estrogen receptor positive status [ER+], Diagnosed 06/04/2019 (Active) C50.411 - Malignant neoplasm of upper-outer quadrant of right female breast, Diagnosed 06/04/2019 (Active) Stage IV, T2, N0, M1, G2, HER2 Neg, ER Pos, DE Pos C79.51 - Secondary malignant neoplasm of bone, Diagnosed 06/04/2019 (Active) Radiotherapy to date: Course: 2019, Treatment Site: RT Hip 30Gy, Ref. ID: RT Hip 30Gy, Energy: 15X, Dose/Fx (cGy): 300, #Fx: 10 / 10, Dose Correction (cGy): 0, Total Dose (cGy): 3,000, Start Date: 07/04/2019, End Date: 07/17/2019, Elapsed Days: 13 2019, Treatment Site: RT Rib, Ref. ID: RT Rib 30Gy, Energy: 6X, Dose/Fx (cGy): 300, #Fx: 10 10, Dose Correction (cGy): 0, Total Dose (cGy): 3,000, Start Date: 07/04/2019, End Date: 07/17/2019, Elapsed Days: 13 Current Complaints/Interval History: She completes treatment today. She no longer has any pain in the rib. Her hip pain persists, though it is improved since beginning treatment. I discussed with her that it often takes longer to get pain relief in a weight-bearing bone compared to a small bone such as the ribs. She is tolerated treatment well. She denies skin reaction. She complains of a gnawing pain in the umbilical area. She has had no true pain. She says it is like a hunger pain, but she is not hungry. She is not on any antacids or acid reducers. Exam of the abdomen reveals no distention. There is no mass to palpation. She is mildly tender over her aortic aneurysm. She has no significant tenderness at the above that level in the epigastrium. I verified that she is getting regular follow-up on the aneurysm. She actually has a follow-up for that later this week. I discussed if the discomfort that she is experiencing continues that she try an antacid for a time. Follow-up in about 6 weeks. Current Medications: Aspirin, hydrocodone-Acetaminophen, hydrocodone-Acetaminophen, levothyroxine Sodium. Allergies: Fluticasone Furoate. Vital Signs: Physical Exam: Appears stable, no skin erythema or desquamation. Performance Status: 2 - Ambulatory/capable of all self-care, unable to perform any work activities. Up and about more than 50% of waking hours. (ECOG) Lab: None pending in Radiation Oncology. Test performed on 06/04/2019 11:46 AM MCH - 27.7 pg (low), MPV - 10.6 fl (high), Cr Clearance (Est) - 45.04 ml/min (low), Alkaline Phosphatase - 138 iu/l (high), Test performed on 06/26/2019 9:03 AM PT - 14.50 sec (high), INR - 1.09 (low) and PTT - 27.1 sec (low). Imaging: No new diagnostic imaging was performed since the last weekly treatment visit. All radiation therapy related imaging (including but not limited to kV, MV, and CBCT generated images) was reviewed. Appropriate changes, if any, were made to assure accurate target localization. Impression/Plan: Tolerating treatment well with expected side effects. Continue treatment as planned. CPT: 20147 Signed by: Dr. Pepe Mcbride>07/17/2019 4:28:18 PM <<Signature on File>>
== END 2019-07-24 23:59 | disposition home or self-care (01) ==
LOC: ONCMED 05:52
PROVIDERS: Family Provider Family Medicine; PCP Family Medicine; Visit Provider Specialist
DX: C79.51 Secondary malignant neoplasm of bone (principal); C50.411 Malignant neoplasm of upper-outer quadrant of right female breast; G89.3 Neoplasm related pain (acute) (chronic); Z17.0 Estrogen receptor positive status [ER+]; I71.4 Abdominal aortic aneurysm, without rupture; Z79.82 Long term (current) use of aspirin
CPT/HCPCS: 77290; 77295; 77300; 77334; 77336; 77387; 77412; 99214

== ENCOUNTER 2019-07-23 08:35 | Outpatient (CLI) | payer MEDICARE, MEDICAID, SELFPAY ==
--- NOTE | 2019-07-23 08:42 | USCV_ITS ---
Lorelei Saunders Age: 74 Gender: F : 1945 Exam Date: 07/23/2019 08:50 Ordering Phys: Pedro Owen MD (Andy) ([email or web address]) Technologist: Mariama Borden [place] [facility] [place]: AAA HISTORY: AAA ON CT Diameter (cm) AP x Transverse x Length Velocity (cm/s) Waveform Prox Aorta: 1.86 x 1.90 x 54.30 Mid Aorta: 2.58 x 2.50 x 41.20 Distal Aorta: 2.95 x 3.06 x 3.92 55.50 Right Iliac Prox: 1.29 x 1.63 x 39.40 Left Iliac Prox: 0.81 x 0.91 x 31.60 Stent Prox Landing x x Aneurysmal Sac Max x x Lt Lat Sac Dim Rt Lat Sac Dim Stent Dist Landing x x Right Iliac Stent x x Left Iliac Stent x x Right Renal Art Left Renal Art FINDINGS: Comparison: none available. Ectatic abdominal aorta with evidence of atherosclerotic plaque noted. Mild aneurysmal dilatation to a maximum of 3.1 cm.there is evidence of atherosclerotic plaque no significan stenosis in the right common iliac artery. There is evidence of atherosclerotic plaque no significan stenosis in the left common iliac artery. CONCLUSIONS Mild AAA 3.1 cm diameter. Mild diffuse atherosclerosis. Dr. Tiffani Sotelo DO (Electronically Signed) Final Date: 23 July 2019 09:39 S
== END 2019-07-23 08:36 | disposition home or self-care (01) ==
LOC: RAD 08:36
PROVIDERS: Family Provider Family Medicine; PCP Family Medicine; Visit Provider Thoracic Surgery (Cardiothoracic Vascular Surgery)
DX: I71.4 Abdominal aortic aneurysm, without rupture (principal); I70.90 Unspecified atherosclerosis
CPT/HCPCS: 93978

== ENCOUNTER 2019-07-26 12:56 | Outpatient (CLI) | payer MEDICARE, MEDICAID, SELFPAY ==
--- NOTE | 2019-07-26 13:30 | USCV_ITS ---
Lorelei Saunders Age: 74 Gender: F : 1945 Exam Date: 07/26/2019 13:19 Ordering Phys: Pedro Owen MD (Andy) ([email or web address] [email or web address]) Technologist: Katherine Sage Exam Location: [facility] [place] Indication: Carotid Artery Stenosis Risk Factors: Previous Vascular Surgery: Right Brachial BP: / Left Brachial BP: / Right Left Velocity (cm/s) Spectral Plaque Velocity (cm/s) Spectral Plaque Syst/Diast Broadening Syst/Diast Broadening 163.10/46.60 Prox CCA 89.30 / 21.00 50.50/ 14.00 Mid CCA 74.60 / 17.90 59.80/ 17.10 Distal CCA 99.10 / 27.30 42.70/ 15.10 Prox ICA 223.20/ 54.30 63.80/ 26.90 Mid ICA 189.00/ 32.20 65.70/ 28.30 Distal ICA 111.70/ 35.50 74.60 ECA 136.70 1.30 ICA/CCA 2.99 Retrograde Vertebral Antegrade 16.30/ 4.70 cm/s 74.90/ 22.30 cm/s Bi Subclavian Bi 51.30 94.80 FINDINGS Comparison 01/05/19 CONCLUSIONS Right ICA stenosis <50%. Moderate atheromatous plaque righ CCA, carotid bulb/ICA. Prior Right CEA Left ICA stenosis 70-99% at the lower end of the range. Heterogeneous bulky atheromatous plaque left distal CCA, carotid bulb/ICA. Left ICA velocities progressed since 2019 Normal antegrade Doppler flow noted in the left vertebral artery. Retrograde Doppler flow noted in the right vertebral artery suspicious for subclavian steal Lacho John MD (Electronically Signed) Final Date: 27 July 2019 09:47 S
== END 2019-07-26 12:57 | disposition home or self-care (01) ==
LOC: RAD 13:00 → RADWPI 13:01
PROVIDERS: Family Provider Family Medicine; PCP Family Medicine; Visit Provider Thoracic Surgery (Cardiothoracic Vascular Surgery)
DX: I65.23 Occlusion and stenosis of bilateral carotid arteries (principal)
CPT/HCPCS: 93880

== ENCOUNTER 2019-08-02 10:23 | Outpatient (CLI) | payer MEDICARE, MEDICAID, SELFPAY ==
--- NOTE | 2019-08-02 11:00 | CT_ITS ---
WS: [id number] CT ANGIOGRAM CAROTID ARTERIES HISTORY: left carotid stenosis by duplex TECHNIQUE: CT angiogram is performed of the carotid arteries. During arterial injection imaging is ob tained from the skull base to the aortic arch in 1.25 mm imaging. Coronal and sagittal reformats are submitted, MIP imaging also reviewed. Additional multiplanar reformats of the carotid arteries are clay bmitted. NASCET criteria utilized. All CT scans at [facility] use at least one of these d ose optimization techniques: automated exposure control; mA and/or kV adjustment per patient size (in cludes targeted exams where dose is matched to clinical indication); or iterative reconstruction. CONTRAST: Omnipaque 350; 95 mL IV. DLP: 686.99 mGycm COMPARISON: Carotid ultrasound 07/26/2019, CT neck 09/07/2017 Right carotid: Common carotid artery: Abnormal common carotid artery. Multifocal areas of stenosis throughout the co mmon carotid artery although it is patent. Mild dilatation at the bifurcation. In the mid RIGHT commo n carotid there is soft tissue extending into the lumen an oblique angle. Focal dissection or ulcerat ing plaque. Only extends over a short distance. Distally the caliber becomes more normal. Internal carotid artery: Patent with only mild atherosclerosis. External carotid artery: Patent. Left carotid: Common carotid artery: Small amount of calcified plaque at the origin. Internal carotid artery: Mild narrowing of the origin of the ICA to 40%. Scattered calcified plaque a nd intimal thickening. External carotid artery: Patent. Right vertebral artery: Very small caliber RIGHT vertebral artery. Artery is intermittently visualize d. Left vertebral artery: Unremarkable. Arises normally from the left subclavian artery. Subclavian arteries: Extensive calcifications in the RIGHT subclavian and proximal axillary artery. S tenosis probably approaching 50% at the junction of the subclavian and axillary artery. . Calcificati on without stenosis in the LEFT subclavian artery. There is dilatation of the proximal LEFT subclavia n artery which appears aneurysmal. Thrombus and calcification in the wall of the proximal LEFT subcla vian measuring up to 1.5 cm. Small amount of contrast extends into the thrombus consistent with an ul cerated plaque or small pseudoaneurysm measuring 4 mm. This was probably present on the prior study b ut better seen on today's study. Upper thorax: Emphysematous changes. Focal area of pleural thickening and soft tissue at the RIGHT ap ex measures 3.0 x 3.8 cm. Similar findings but to a lesser extent on the LEFT. Not changed. Thyroid gland: LEFT thyroid nodule measures 2.5 x 2.4 cm. Hypervascular nodule with a few scattered c alcifications. No change since the prior study. Osseous structures: Abnormal density throughout the C7 vertebral body. Sclerotic changes in several o f the cervical and upper thoracic vertebral bodies and additional lucencies. Metastatic disease was n oted on a prior bone scan. Skull base: No obvious destruction. RIGHT cervical adenopathy was recently described on a PET/CT. Lymph nodes are better visualized on th e prior PET/CT. CT/CT angio neck [id number] IMPRESSION: 1. Diffuse abnormal RIGHT common carotid artery. Multiple areas of stenoses an d atherosclerotic disease. Proximal stenosis measuring 78%. 2. Mid RIGHT common carotid artery ulcerated plaque or focal dissection. 3. No RIGHT ICA stenosis. 4. LEFT ICA stenosis 40%. 5. Extensive atherosclerosis in the RIGHT subclavian artery and axillary arter y with stenosis near 50%. 6. Small caliber and intermittently visualized RIGHT vertebral artery. 7. Enhancing LEFT thyroid nodule is noted to be positive on a recent PET/CT. 8. Emphysema with biapical pleural thickening and scarring. 9. Mixed sclerotic lytic lesions in the cervical and upper thoracic spine. Bon e scan recently positive for metastatic disease.
[2019-08-02 11:50] LABS: Blood Urea Nitrogen 21 mg/dL (8-23)
[2019-08-02] MEDS: iohexol 350 mg/mL 100 mL Btl IV (12:07)
== END 2019-08-02 10:24 | disposition home or self-care (01) ==
LOC: RADWPI 10:28
PROVIDERS: Family Provider Family Medicine; PCP Family Medicine; Visit Provider Thoracic Surgery (Cardiothoracic Vascular Surgery)
DX: I65.22 Occlusion and stenosis of left carotid artery (principal); I70.8 Atherosclerosis of other arteries; E04.1 Nontoxic single thyroid nodule; J43.9 Emphysema, unspecified
CPT/HCPCS: 70498; 82565; 84520

== ENCOUNTER 2019-08-21 12:54 | Outpatient (RCR) | payer MEDICARE, MEDICAID, SELFPAY ==
[2019-08-07 13:57] LABS: Bilirubin Urine Neg (NEGATIVE); Blood Urine 2+ (Negative); Glucose Urine UA Norm (Normal); Ketones Urine Negative (Negative); Nitrate Urine Negative (Negative); Protein Urine Neg (Negative); Urine Appearance Clear (CLEAR); Urine Color Yellow (Yellow); Urobilinogen Urine Norm (Negative); pH Urine 5 (5-7)
[2019-08-07 13:58] LABS: Add Urine Culture? Yes; Add Urine Microscopic? YES; Bacteria Urine 1+; Leukocyte Esterase Urine Trace (Negative); RBC Urine 15-25 /hpf (0-2); Squamous Epithelial Cell Urine 0-4 (0-5)
--- NOTE | 2019-08-08 11:57 | ONC FU_ITS ---
Dr. Agrawal Patient Follow-Up Note Patient: Lorelei Saunders Unit #: [id number]: 1945 Dicatated By: Paul Agrawal M.D.Date of Visit:Aug 07, 2019 Onc Med Follow-up/Prog Note Chief Complaint: Breast cancer/bone metastases. History of Present Illness: This is a 74 year-old woman with grade 2 infiltrating ductal carcinoma of the right breast, ER/ND positive and HER-2/alf negative, stage IV, with biopsy proven metastatic bone involvement. Her breast cancer was stage IIA (T2, N0, M0) at initial diagnosis in October 2008. Her Oncotype DX showed a recurrence score of 16, which was low risk. Her treatment included lumpectomy and axillary sentinel lymph node biopsy followed by radiation to the right breast, which she completed in February 2009. She was given adjuvant hormonal therapy with anastrozole. It was stopped in October 2012 when she came in with worsening joint pain. Bone scan in November 2012 showed no evidence of metastatic disease. She received no further adjuvant therapy, as she had then failed to return for follow-up. On 05/12/2019 she was seen in the emergency room with pain in the right hip area. The pain has been getting progressively worse over a period of several months. X-rays of the lumbar spine, pelvis, and right femur showed evidence of sclerotic lesions in the L1 and S1 vertebral bodies as well as lytic appearing bone changes in the right pubic bone. There was no fracture reported. Further evaluation with bone scan on 05/25/2019 showed multiple areas of uptake including the calvarium, cervical spine, thoracic spine, ribs, lumbar spine, pelvis, sacrum, and both hips most consistent with diffuse metastatic disease. Also noted was right renal pelvic dilatation. I had seen her for a follow-up visit on 06/04/2019. Staging PET/CT on 06/09/2019 showed an intensely hypermetabolic left thyroid mass measuring 2.7 x 3.0 cm with SUV 16.9, appearance of which was felt to be most consistent with a primary thyroid malignancy. A right level III/IV cervical lymph node had elevated SUV of 8.0 and multiple mediastinal lymph nodes were FDG positive, consistent with metastases. And hepatic segment IVb lesion measuring 4.3 x 1.9 x 1.9 cm with SUV 5.9 appeared consistent with unifocal hepatic metastatic disease. A right paravertebral pleural implant at the right lung base measuring 2.0 x 1.7 cm had SUV 10.7. There was evidence of widespread osseous metastatic disease, as expected. I have reviewed that study with the radiologist. As none of the metastatic lesions were very accessible for biopsy, we opted to proceed with CT directed core needle biopsy of her right iliac bone lesion. Pathology showed metastatic adenocarcinoma most consistent with breast primary. The breast prognostic profile showed ER positive at 91% and ND positive at 5%. It was negative for overexpression of HER-2/alf, 0 by IHC and amplification ratio by FISH of 0.9 with 2.4 HER-2 copies/cell. With those findings, she was referred to Dr. Kenny. She underwent palliative radiation to the right hip and to the right rib cage, completed on 07/17/2019. Both sites were treated to a total dose of 3000 cGy. Her other medical illnesses include atherosclerotic cardiovascular disease, degenerative arthritis, osteoporosis, and hypothyroidism. She had evidence of a 3 cm infrarenal abdominal aortic aneurysm on CT angiogram in June 2018. That study also showed arterial stenosis had multiple sites including the proximal SMA, the right renal artery, and left renal artery. Extensive calcifications were noted through the common iliac arteries bilaterally. She underwent right carotid endarterectomy in 2017. She had undergone hysterectomy/BSO in 1995. She has a history of smoking 1 pack of cigarettes daily for close to 60 years. She cut down about a year ago. INTERIM HISTORY: She is seen for a follow-up visit. She says she is feeling pretty good, though her energy is really not too good. If she is able to do light work. ECOG score is 1. Her appetite is better, but she complains that she is not been able to gain weight. She has not had fever. She has a little bit of hot flashes/sweating. She has shortness of breath with activity. She has cough, but not as much. She does not complain of chest pain. She has no GI complaints. She is having urinary frequency with urgency and incontinence. She still has some pain in her right hip and thigh, and she recently started having some pain in the left groin area. She has some numbness/tingling in her left arm and hand. Medications: Aspirin 1 Tablet (of 81 mg) Tablet Oral daily, Hydrocodone-Acetaminophen 1 Tablet (of 5-325 mg) Tablet Oral q 6 hours PRN, Levothyroxine Sodium 1 Tablet (of 50 mcg) Oral daily Allergies: Fluticasone Furoate Review of Systems: Constitutional - Her energy level is not too good. She does some light house work. Her appetite has improved and her weight is stable. No fever or chills. She is having occasional hot flashes with sweating. ECOG score is 1, ENMT - She is having persistant sinus congestion/drainage. No mouth sores. She complains of a sore throat. No difficulty swallowing, Hematologic/Lymphatic - She brusies easily, Respiratory - She has shortness of breath with activity. Her cough is improved. No pleuritic pain or hemoptysis, Cardiovascular - No angina pain. No palpitations, Gastrointestinal - No nausea or vomiting. No heartburn or acid reflux. No diarrhea or constipation. No blood in the stool or black stools, Genitourinary (F) - No dysuria or hematuria. She has urinary frequency with incontience, Musculoskeletal - She continues to have pain in her right rib and hip. She has new pain to her left groin/hip, Integumentary - No skin complications, Neurologic - No headache or dizziness. She has numbness and tingling in her left arm, Psychiatric - No anxiety or depression. She has insomnia. Vital Signs: Performed on Aug 07, 2019 11:54 Height - 62.00 in Weight - 86.8 lbs (LOW) BSA - 1.34 sq.m BMI - 15.88 (LOW) Temperature - 97.9 F (LOW) Pulse - 95 /min Respiration - 18 /min BP - 147/83 mm(hg) (HIGH) O2 Sat - 99 % Pain - 6 Physical Examination: Constitutional - She looks pretty good generally, Eyes - Sclerae nonicteric. Conjunctivae clear, ENMT - No lesions noted in the oral cavity, Hematologic/Lymphatic - No cervical, clavicular, or axillary adenopathy, Respiratory - Lungs are clear with diminished air movement bilaterally, Cardiovascular - Heart rhythm is regular. There is no murmur, gallop, or rub noted, Abdomen - Soft. Liver and spleen are not enlarged. There is no abdominal mass or ascites noted and there is no inguinal adenopathy, Extremities - No edema, Neurologic - No focal neurologic deficits noted. Lab/Imaging: Test performed on Jun 26, 2019 09:03 PTT 27.1 sec PT 14.50 sec INR 1.09 Test performed on Jun 04, 2019 11:46 Sodium 139 mmol/L Vitamin D (25-Hydroxy), Total 49 ng/mL Potassium 3.6 mmol/L Chloride 99 mmol/L CO2 28 mmol/L Anion Gap 15.6 BUN 21 mg/dL Creatinine 0.7 mg/dL Cr Clearance (Est) 45.04 mL/min Glucose 103 mg/dL Calcium 10.1 mg/dL Protein, Total 7.1 g/dL Albumin 3.8 g/dL Globulin 3.3 g/dL Bilirubin, Total 0.3 mg/dL ALT (SGPT) 8 U/L AST (SGOT) 27 U/L Alkaline Phosphatase 138 IU/L WBC 7.5 10 3/uL RBC 4.65 10 6/uL HGB 12.9 g/dL HCT 40.0 % MCV 86.0 fL MCH 27.7 pg MCHC 32.3 g/dL RDW 13.8 % Platelet Count 238 10 3/cmm MPV 10.6 fL Neutrophils 4.1 10 3/uL Lymphocytes 2.4 10 3/uL Monocytes 0.9 10 3/uL Eosinophils 0.0 10 3/uL Basophils 0.0 10 3/uL Neutrophil % 54.7 % Lymphocyte % 32.4 % Monocyte % 11.8 % Eosinophil % 0.5 % Basophils % 0.3 % Impression: 1. 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 Her disease was stage IIA (T2, N0, M0) at initial diagnosis in October 2008. She now has progression to stage IV with multiple sites of metastatic involvement including extensive bony metastatic disease. 2. Her initial treatment included lumpectomy and radiation, completed in February 2009. 3. She was given adjuvant hormonal therapy with anastrozole. It was stopped in October 2012 due to worsening musculoskeletal pain. Bone scan at that time showed no evidence of metastatic disease. She received no further adjuvant therapy. Her other medical illnesses include: 4. Degenerative arthritis. 5. COPD. 6. Hypothyroidism. 7. Atherosclerotic cardiovascular disease including carotid stenosis and renal artery stenosis. 8. She has known abdominal aortic aneurysm. She underwent CT directed core needle biopsy of a right iliac bone lesion on 06/26/2019. Pathology confirmed metastatic adenocarcinoma consistent with breast primary, ER/ND positive and HER-2/alf negative. With that finding, she underwent palliative radiation to the right hip and to the right rib cage, completed on 07/17/2019, both sites to a total dose of 3000 cGy. She continues to have pain in the right hip area and she also now has new pain in the left groin area. Plan: The PET/CT findings and pathology results were reviewed with the patient. We discussed the clinical implications. She is recommended to begin systemic therapy with letrozole combination with palbociclib, subject to verification of insurance coverage/availability of the medications. I reviewed anticipated side effects, including the potential for musculoskeletal pain with the aromatase inhibitor. She also will need to start denosumab injections for the metastatic bone involvement. At some point the issue of the thyroid nodule will need to be addressed, that will depend on her response to the treatment for the breast cancer. Signed By: Paul Agrawal M.D. <<Signature on File>>
--- NOTE | 2019-08-16 17:38 | ONCRAD EPV_ITS ---
Radiation Oncology Established Patient Visit Patient: Kb MR#: [id number] : 1945> Age: 74> Sex: Female> Dictated by: Dr. Adama Su Date of Service: 08/16/2019 Referring Physician(s) : Paul Agrawal M.D. Diagnosis: Z17.0 - Estrogen receptor positive status [ER+], Diagnosed 06/04/2019 (Active) C50.411 - Malignant neoplasm of upper-outer quadrant of right female breast, Diagnosed 06/04/2019 (Active) Stage IV, T2, N0, M1, G2, HER2 Neg, ER Pos, IL Pos C79.51 - Secondary malignant neoplasm of bone, Diagnosed 06/04/2019 (Active) Radiotherapy to Date: Chief Complaint / History of Present Illness: She now returns 1 month following palliative radiation treatment. She notes that she is sleeping more than in the past. Her pain is markedly improved in the right groin region. She continues to take her analgesic medication 3 times a day. She notes right hip pain only occurring when ambulating it is now absent at rest. Overall she is satisfied with this improvement. Her appetite is good. She denies any nausea vomiting or headache. She has ongoing follow-up with Dr. Agrawal and had a follow-up with him last week. Current Medications: Aspirin, hydrocodone-Acetaminophen, hydrocodone-Acetaminophen, letrozole, letrozole, levothyroxine Sodium. Allergies: Fluticasone Furoate. Current Complaints / Review of Systems: Constitutional - Complains of severe fatigue. Denies lack of appetite, fever, night sweats and change in weight. Eyes - Denies blurred vision. ENMT - Complains of mouth dryness. Denies dysphagia, stomatitis and altered taste. Neck - Denies neck pain. Integumentary - Complains of rash on the right flank and has been present for about 2 weeks. Does not itch. Breasts - Denies pain. Cardiovascular - Denies arrhythmias, chest pain and edema. Respiratory - Complains of a mild cough which is productive. Complains of chronic dyspnea. Denies wheezing. Gastrointestinal - Denies abdominal pain, constipation, diarrhea, heartburn / dyspepsia, nausea and vomiting. Genitourinary (F) - Complains of nocturia gets up about 3 times per night. Denies dysuria, frequency, urgency, vaginal discharge / bleeding and vaginal spotting. Musculoskeletal - Complains of joint pain right upper leg. Complains of generalized muscle weakness. Denies bone pain. Neurologic - Complains of frequent dizziness that occurs upon sitting to standing. Denies headaches. Endocrine - Complains of thyroid disease. Denies diabetes. Hematologic/Lymphatic - Denies tender or enlarged lymph nodes.. Vital Signs: Performed on 08/16/2019 1:35 PM BMI - 15.986 kg/m2 (low), Height - 62.00 in, Weight - 87.4 lbs, Temperature - 98.6 f, Pulse - 89, Respiration - 20, O2 Sat - 98 %, Pain - 0 and BP - 125/ 73 mm(hg). Physical Exam: General: Alert and oriented x 3. No acute distress. She had no percussion or palpation tenderness in the right hip or groin region. There was a geographic rash noted just below her right breast along the anterior lateral right chest wall which by report was resolving. Her gait remains antalgic outside of this there were no other significant findings at this time. Performance Status: Lab: None pending. Test performed on 06/04/2019 11:46 AM MCH - 27.7 pg (low), MPV - 10.6 fl (high), Cr Clearance (Est) - 45.04 ml/min (low), Alkaline Phosphatase - 138 iu/l (high), Test performed on 06/26/2019 9:03 AM PT - 14.50 sec (high), INR - 1.09 (low) and PTT - 27.1 sec (low). Pathology: Primary, z17.0 - estrogen receptor positive status [er+], Diagnosed 06/04/2019 (active), Primary, c50.411 - malignant neoplasm of upper-outer quadrant of right female breast, Diagnosed 06/04/2019 (active) stage iv, t2, n0, m1, g2, her2 neg, er pos, pr pos, Primary, c79.51 - secondary malignant neoplasm of bone, Diagnosed 06/04/2019 (active), Secondary, 733.00 - osteoporosis, unspecified, Diagnosed 05/19/2012 (active), Secondary, 174.4 - malignant neoplasm of upper-outer quadrant of female breast, Diagnosed 11/11/2008 (active) stage iia, t2, n0, m0, g2, Secondary, 240.9 - goiter, unspecified, Diagnosed 04/25/1799 (active) and Secondary, v13.4 - personal history of arthritis, Diagnosed 04/25/1799 (active). Imaging: See HPI Impression: Metastatic adenocarcinoma of the breast with involved osseous metastatic disease now improved following palliative radiation therapy she will now return to Dr. Agrawal for ongoing systemic care we have not scheduled additional follow-up here. Certainly in the event she has cyst symptomatic disease progression we are happy to see her anytime in the future. Signed by: 08/16/2019 5:36:25 PM <<Signature on File>> Time spent with patient: CPT Code: CPT Code:
[2019-08-21] MEDS: denosumab 120 mg SDV SUBCUT (13:22)
== END 2019-08-23 23:59 | disposition home or self-care (01) ==
LOC: ONCMED 12:54
PROVIDERS: Internal Medicine Medical Oncology; Family Provider Family Medicine; PCP Family Medicine; Visit Provider Nurse Practitioner
DX: C79.51 Secondary malignant neoplasm of bone (principal); C50.411 Malignant neoplasm of upper-outer quadrant of right female breast; Z17.0 Estrogen receptor positive status [ER+]; M19.90 Unspecified osteoarthritis, unspecified site; J44.9 Chronic obstructive pulmonary disease, unspecified; E03.9 Hypothyroidism, unspecified; I25.10 Atherosclerotic heart disease of native coronary artery without angina pectoris; I65.23 Occlusion and stenosis of bilateral carotid arteries; I70.1 Atherosclerosis of renal artery; I71.4 Abdominal aortic aneurysm, without rupture; R10.31 Right lower quadrant pain; E04.9 Nontoxic goiter, unspecified; Z90.11 Acquired absence of right breast and nipple; Z92.3 Personal history of irradiation; Z79.818 Long term (current) use of other agents affecting estrogen receptors and estrogen levels; Z79.52 Long term (current) use of systemic steroids
CPT/HCPCS: 81001; 87086; 96372; 99214; J0897

== ENCOUNTER 2019-09-20 06:45 | Outpatient (RCR) | payer MEDICARE, MEDICAID, SELFPAY ==
[2019-09-12 12:23] LABS: Basophils % 0.6 %; Eosinophils % 1.2 %; Hematocrit 38.8 % (37.0-47.0); Hemoglobin 12.3 g/dL (11.5-15.3); Lymphocytes # 0.9 10^3/uL (0.8-4.8); Lymphocytes % 52.4 %; Mean Corpuscular HGB Conc 31.7 g/dL (30.0-36.0); Mean Corpuscular Hemoglobin 28.3 pg (28.0-34.0); Mean Corpuscular Volume 89.4 fL (81-99); Monocytes # 0.1 10^3/uL (0.2-0.9); Monocytes % 7.8 %; Nucleated Red Blood Cells % 0 %; Platelet Count 83 10^3/cmm (130-400); Red Blood Count 4.34 10^6/uL (4.1-5.3); White Blood Count 1.7 10^3/uL (4.0-10.0)
[2019-09-12 12:31] LABS: Neutrophils # 0.6 10^3/uL (1.8-7.7)
[2019-09-12 13:02] LABS: Alanine Aminotransferase 10 U/L (0-33); Albumin Level 4.2 g/dL (3.5-5.2); Alkaline Phosphatase 111 IU/L (35-105); Anion Gap 13.6 (5-19); Aspartate Amino Transferase 24 U/L (0-32); Blood Urea Nitrogen 23 mg/dL (8-23); Calcium 9.7 mg/dL (8.5-10.5); Carbon Dioxide 27 mmol/L (22-29); Chloride 103 mmol/L (98-107); Globulin 3.2 g/dL (1.3-4.6); Glucose 80 mg/dL (65-115); Osmolality Calculated 284 mOsm/kg (285-295); Potassium 4.6 mmol/L (3.5-5.1); Sodium 139 mmol/L (136-145); Thyroid Stimulating Hormone 4.34 uIU/mL (0.27-4.20); Total Bilirubin 0.3 mg/dL (0.15-1.2); Total Protein 7.4 g/dL (6.6-8.7)
[2019-09-20 12:04] LABS: Basophils % 0.6 %; Hemoglobin 11.4 g/dL (11.5-15.3); Lymphocytes # 0.7 10^3/uL (0.8-4.8); Lymphocytes % 42.1 %; Mean Corpuscular HGB Conc 31.7 g/dL (30.0-36.0); Mean Corpuscular Hemoglobin 28.6 pg (28.0-34.0); Mean Corpuscular Volume 90.2 fL (81-99); Mean Platelet Volume 10.1 fL (7.4-10.4); Monocytes # 0.3 10^3/uL (0.2-0.9); Monocytes % 18.3 %; Neutrophils % 38.4 %; Nucleated Red Blood Cells % 0 %; Platelet Count 105 10^3/cmm (130-400); Red Blood Count 3.99 10^6/uL (4.1-5.3); Red Cell Distribution Width 16.2 % (12.1-15.1); White Blood Count 1.6 10^3/uL (4.0-10.0)
[2019-09-20 12:19] LABS: Alanine Aminotransferase 10 U/L (0-33); Alkaline Phosphatase 104 IU/L (35-105); Anion Gap 16.5 (5-19); Aspartate Amino Transferase 20 U/L (0-32); Blood Urea Nitrogen 22 mg/dL (8-23); Calcium 9.3 mg/dL (8.5-10.5); Carbon Dioxide 22 mmol/L (22-29); Chloride 104 mmol/L (98-107); Globulin 3.5 g/dL (1.3-4.6); Glucose 91 mg/dL (65-115); Osmolality Calculated 284 mOsm/kg (285-295); Potassium 3.5 mmol/L (3.5-5.1); Sodium 139 mmol/L (136-145); Total Bilirubin 0.3 mg/dL (0.15-1.2); Total Protein 7.5 g/dL (6.6-8.7)
[2019-09-20 12:43] LABS: Neutrophils # 0.6 10^3/uL (1.8-7.7)
[2019-09-20] MEDS: denosumab 120 mg SDV SUBCUT (14:10)
--- NOTE | 2019-09-24 13:40 | ONC FU_ITS ---
[facility] Patient Note Patient: Lorelei Saunders Unit #: [id number]: 1945 Dictated By: Ozzy RamirezDate of Visit: September 20, 2019 Onc MED Follow-Up/Prog Note Chief Complaint: Breast cancer/bone metastases. History of Present Illness: Ms Saunders is a 74 year-old woman with grade 2 infiltrating ductal carcinoma of the right breast, ER/VA positive and HER-2/alf negative, stage IV, with biopsy proven metastatic bone involvement. Her breast cancer was stage IIA (T2, N0, M0) at initial diagnosis in October 2008. Her Oncotype DX showed a recurrence score of 16, which was low risk. Her treatment included lumpectomy and axillary sentinel lymph node biopsy followed by radiation to the right breast, which she completed in February 2009. She was given adjuvant hormonal therapy with anastrozole. It was stopped in October 2012 when she came in with worsening joint pain. Bone scan in November 2012 showed no evidence of metastatic disease. She received no further adjuvant therapy, as she had then failed to return for follow-up. On 05/12/2019 she was seen in the emergency room with pain in the right hip area. The pain has been getting progressively worse over a period of several months. X-rays of the lumbar spine, pelvis, and right femur showed evidence of sclerotic lesions in the L1 and S1 vertebral bodies as well as lytic appearing bone changes in the right pubic bone. There was no fracture reported. Further evaluation with bone scan on 05/25/2019 showed multiple areas of uptake including the calvarium, cervical spine, thoracic spine, ribs, lumbar spine, pelvis, sacrum, and both hips most consistent with diffuse metastatic disease. Also noted was right renal pelvic dilatation. Dr Agrawal had seen her for a follow-up visit on 06/04/2019. Staging PET/CT on 06/09/2019 showed an intensely hypermetabolic left thyroid mass measuring 2.7 x 3.0 cm with SUV 16.9, appearance of which was felt to be most consistent with a primary thyroid malignancy. A right level III/IV cervical lymph node had elevated SUV of 8.0 and multiple mediastinal lymph nodes were FDG positive, consistent with metastases. And hepatic segment IVb lesion measuring 4.3 x 1.9 x 1.9 cm with SUV 5.9 appeared consistent with unifocal hepatic metastatic disease. A right paravertebral pleural implant at the right lung base measuring 2.0 x 1.7 cm had SUV 10.7. There was evidence of widespread osseous metastatic disease, as expected. I have reviewed that study with the radiologist. As none of the metastatic lesions were very accessible for biopsy, we opted to proceed with CT directed core needle biopsy of her right iliac bone lesion. Pathology showed metastatic adenocarcinoma most consistent with breast primary. The breast prognostic profile showed ER positive at 91% and VA positive at 5%. It was negative for overexpression of HER-2/alf, 0 by IHC and amplification ratio by FISH of 0.9 with 2.4 HER-2 copies/cell. With those findings, she was referred to Dr. Kenny. She underwent palliative radiation to the right hip and to the right rib cage, completed on 07/17/2019. Both sites were treated to a total dose of 3000 cGy. Her other medical illnesses include atherosclerotic cardiovascular disease, degenerative arthritis, osteoporosis, and hypothyroidism. She had evidence of a 3 cm infrarenal abdominal aortic aneurysm on CT angiogram in June 2018. That study also showed arterial stenosis had multiple sites including the proximal SMA, the right renal artery, and left renal artery. Extensive calcifications were noted through the common iliac arteries bilaterally. She underwent right carotid endarterectomy in 2017. She had undergone hysterectomy/BSO in 1995. She has a history of smoking 1 pack of cigarettes daily for close to 60 years. She cut down over a year ago. INTERIM HISTORY: Mrs Saunders began treatment with Ibrance/letrozole and Xgeva on 08/21/2019. She is here today for followup. She states overall she is doing ok except she has developed Left shoulder pain and rib pain. She states she has had some right shoulder blade pain, but the left side is more bothersome. She denies any fever or chills or any signs of infection. She has had some hot flashes off-and-on. She states her are getting worse but they are not getting any better. She states intermittent sinus drainage and occasional cough. She states the sinus drainage has been discolored. She states she usually she gets a little bit of sinus infection with the season changes. She has not had any fever as of yet. She states her appetite is really poor. She is just does not want to eat. She denies diarrhea or constipation. She is had no mouth sores sore throat or difficulty swallowing. She denies any bruising or bleeding. She denies any symptoms or concerns. Her ECOG is 2. Past Medical History: Abdominal aortic aneurysm Breast cancer Carotid stenosis Degenerative arthritis Goiter Hypothyroidism Renal artery stenosis Osteoporosis in 2009 (Treated) Past Surgical History: Knee surgery Knot removal from back Right carotid endarterectomy in 2018 Right breast lumpectomy with axillary sentinel lymph node biopsy in 2008 Breast biopsy in 2008 Hysterectomy/bilateral salpingo-oophorectomy in 1994 Allergies: Fluticasone Furoate Medications: Aspirin 1 Tablet (of 81 mg) Tablet Oral daily Hydrocodone-Acetaminophen 1 Tablet (of 5-325 mg) Tablet Oral q 6 hours PRN Letrozole 1 Tablet (of 2.5 mg) Oral daily Levothyroxine Sodium 1 Tablet (of 50 mcg) Oral daily Family History: Ms. Saunders's mother is : heart disease. Ms. Saunders's father is : lung cancer. Ms. Saunders has 3 brothers: 2 alive, 1 . Ms. Saunders's first brother's kidney cancer. Another brother's esophagus cancer. She has 2 sisters: 2 . Ms. Saunders's first sister's lung cancer. Her father and a sister of lung cancer. One brother had esophageal cancer and another brother was treated for kidney cancer. Her mother of heart attack. A son with a drug overdose. Social History: Ms. Saunders is . She is an occasional smoker who has smoked 1.0 pack/day for 60 years. She is a former drinker. She has a history of smoking 1 pack of cigarettes daily for close to 60 years. She cut down about a year ago and she now has only minimal smoking. She had alcohol use in the past but she quit drinking at least 35 or 40 years ago. Review Of Symptoms: Constitutional Denies fevers, chills, night sweats, excessive fatigue. She has had weight loss. Appetite is poor Eyes Denies significant visual changes. No diplopia. No amaurosis. ENMT Denies changes in hearing, sore throat, mouth sores, difficulty or changes in swallowing ability. She states she has had increased sinus drainage and states this is what starts the whole process of me getting sick . Discolored exudate from nose-no blood. Endocrine No diabetes, thyroid disease or hormone replacement. Denies hot flashes or night sweats. Hematologic/Lymphatic Denies easy bruising or bleeding. The patient denies any tender or palpable lymph nodes. Respiratory Denies dyspnea on exertion, chest pain, cough or hemoptysis. Cardiovascular Denies anginal chest pain, palpitations or orthopnea. Gastrointestinal Denies nausea, vomiting, diarrhea, GI bleeding, or constipation. Denies change in bowel habits and/or stool color, no heartburn or early satiety. Genitourinary (F) Denies abnormal genital masses. No hematuria, hesitancy, incontinence, vaginal bleeding, discharge or other problems with urination. Musculoskeletal She is now complaining of left shoulder pain and rib pain. She states that it is been there for a week or so but is getting worse. She also has right shoulder blade pain that has been there for a few weeks. Integumentary Denies chronic rashes, inflammation, ulcerations or skin changes. Neurologic Denies headache, blurred vision, and no areas of focal weakness or numbness. Normal gait. No sensory problems. Psychiatric Denies insomnia, depression, ailin or mood swings. Vital Signs: Performed on September 20, 2019 13:21 Height - 62.00 in Weight - 81.8 lbs (LOW) BSA - 1.31 sq.m BMI - 14.96 (LOW) Temperature - 97.6 F (LOW) Pulse - 94 /min Respiration - 16 /min BP - 159/76 mm(hg) (HIGH) O2 Sat - 99 % Pain - 0,1 - No physically strenuous activity, but ambulatory and able to carry out light or sedentary work (e.g. office work, light house work). (ECOG) Physical Examination: Constitutional Alert, oriented, no acute distress. Skin pink, warm and dry. Head Normocephalic; atraumatic. Eyes Conjunctivae and sclerae are clear and without icterus. Pupils are reactive and equal. Neck Supple without masses or thyromegaly. No jugular venous distension. Hematologic/Lymphatic No petechiae or purpura. No tender or palpable lymph nodes in the cervical, supraclavicular, or axillary area. Respiratory Lungs are clear to auscultation without rhonchi or wheezing. Cardiovascular Regular rate and rhythm of heart without murmurs,clicks, gallops or rubs. Abdomen Non-tender, non-distended, no masses, ascites or hepatosplenomegaly .Good bowel sounds noted in all quads. No guarding or rebound tenderness. No pulsatile masses. Back/Spine Non-tender to palpation. Extremities No visible deformities, no cyanosis, clubbing or edema. Musculoskeletal No tenderness or swelling, normal range of motion without obvious weakness. Integumentary No rashes or lesions. Neurologic No sensory or motor deficits, normal cerebellar function, normal gait, cranial nerves intact. Psychiatric Alert and oriented times three. Coherent speech. Verbalizes understanding of our discussions today. Laboratory:Test performed on September 20, 2019 11:22 Sodium 139 mmol/L Potassium 3.5 mmol/L Chloride 104 mmol/L CO2 22 mmol/L Anion Gap 16.5 BUN 22 mg/dL Creatinine 0.6 mg/dL Cr Clearance (Est) 46.72 mL/min Glucose 91 mg/dL Calcium 9.3 mg/dL Protein, Total 7.5 g/dL Albumin 4.0 g/dL Globulin 3.5 g/dL Bilirubin, Total 0.3 mg/dL ALT (SGPT) 10 U/L AST (SGOT) 20 U/L Alkaline Phosphatase 104 IU/L WBC 1.6 10 3/uL RBC 3.99 10 6/uL HGB 11.4 g/dL HCT 36.0 % MCV 90.2 fL MCH 28.6 pg MCHC 31.7 g/dL RDW 16.2 % Platelet Count 105 10 3/cmm MPV 10.1 fL Neutrophils 0.6 10 3/uL Lymphocytes 0.7 10 3/uL Monocytes 0.3 10 3/uL Eosinophils 0.0 10 3/uL Basophils 0.0 10 3/uL Neutrophil % 38.4 % Lymphocyte % 42.1 % Monocyte % 18.3 % Eosinophil % 0.0 % Basophils % 0.6 % Test performed on Aug 07, 2019 12:30 Ua Micro: WBC 10-15 /hpf Ua Micro: RBC 15-25 /hpf Ua Micro: Squam Epith Cells 0-4 Ua Micro: Bacteria 1+ Test performed on Jun 26, 2019 09:03 PTT 27.1 sec PT 14.50 sec INR 1.09 Test performed on Jun 04, 2019 11:46 Vitamin D (25-Hydroxy), Total 49 ng/mL Impression: 1. Patient with grade 2 infiltrating ductal carcinoma of the right breast, ER/VA positive and HER-2/alf negative. Her disease was stage IIA (T2, N0, M0) at initial diagnosis in October 2008. She now has progression to stage IV with multiple sites of metastatic involvement including extensive bony metastatic disease. 2. Her initial treatment included lumpectomy and radiation, completed in February 2009. 3. She was given adjuvant hormonal therapy with anastrozole. It was stopped in October 2012 due to worsening musculoskeletal pain. Bone scan at that time showed no evidence of metastatic disease. She received no further adjuvant therapy. Her other medical illnesses include: 4. Degenerative arthritis. 5. COPD. 6. Hypothyroidism. 7. Atherosclerotic cardiovascular disease including carotid stenosis and renal artery stenosis. 8. She has known abdominal aortic aneurysm. She underwent CT directed core needle biopsy of a right iliac bone lesion on 06/26/2019. Pathology confirmed metastatic adenocarcinoma consistent with breast primary, ER/VA positive and HER-2/alf negative. With that finding, she underwent palliative radiation to the right hip and to the right rib cage, completed on 07/17/2019, both sites to a total dose of 3000 cGy. She continued to have pain in the right hip area and she also now has new pain in the left groin area. The PET/CT findings and pathology results were reviewed with the patient per Dr Agrawal. She was recommended to begin systemic therapy with letrozole combination with palbociclib, Catie also will need to start denosumab injections for the metastatic bone involvement. At some point the issue of the thyroid nodule will need to be addressed, that will depend on her response to the treatment for the breast cancer. Plan: 1. I put her Ibrance on hold due to neutropenia. Continue letrozole. 2. Also requested a plain film of the right shoulder and ribs due to rib/shoulder pain 3. I have requested a CBC CMP in 1 week. She will be due to be seen back in 2 weeks with CBC CMP and CA-27-29. She will be due for cycle 4 at that time. 4. Labs from today were reviewed in detail and discussed with Ms. Saunders and a copy was given to her. The WBC 1.6 hemoglobin 11.4 platelets 105,000 ANC 600 chemistry is unremarkable. 5 Continue weekly CBCs. We will plan to see her back in 1 to 2 weeks. Sitting CBC CMP and tumor marker at that time. Also asked her to try Paxil 5- 10 mg at at bedtime to see if this will help with her appetite. It may also help with hot flashes. If this isn't successful, we many need to fget the She was given a prescription for Zithromax to have on hand in the event that she runs a fever greater than 100.4 or shows any signs of infection.. Signed By: Ozzy Ramirez <<Signature on File>>
== END 2019-09-20 15:00 | disposition home or self-care (01) ==
LOC: ONCMED 06:45
PROVIDERS: PCP Family Medicine; Visit Provider Nurse Practitioner
DX: Z51.11 Encounter for antineoplastic chemotherapy (principal); C50.411 Malignant neoplasm of upper-outer quadrant of right female breast; Z17.0 Estrogen receptor positive status [ER+]; C79.51 Secondary malignant neoplasm of bone; I71.4 Abdominal aortic aneurysm, without rupture; I65.23 Occlusion and stenosis of bilateral carotid arteries; M19.90 Unspecified osteoarthritis, unspecified site; E04.9 Nontoxic goiter, unspecified; E03.9 Hypothyroidism, unspecified; M81.0 Age-related osteoporosis without current pathological fracture; I70.1 Atherosclerosis of renal artery; J44.9 Chronic obstructive pulmonary disease, unspecified; I25.10 Atherosclerotic heart disease of native coronary artery without angina pectoris; Z79.899 Other long term (current) drug therapy; C50.919 Malignant neoplasm of unspecified site of unspecified female breast; M19.011 Primary osteoarthritis, right shoulder; S22.31XA Fracture of one rib, right side, initial encounter for closed fracture; X58.XXXA Exposure to other specified factors, initial encounter
CPT/HCPCS: 36415; 71100; 73030; 80053; 84439; 84443; 85025; 96372; 99214; J0897

== ENCOUNTER 2019-09-20 14:31 | Outpatient (CLI) | payer MEDICARE, MEDICAID, SELFPAY ==
--- NOTE | 2019-09-20 | XRR_ITS ---
PROCEDURE INFORMATION: Exam: XR Right Ribs Exam date and time: 09/20/2019 2:54 PM Age: 74 years old Clinical indication: Condition or disease; Other: Metastatic breast cancer, see pet may 2019 TECHNIQUE: Imaging protocol: XR Right ribs. Views: 2 views. COMPARISON: CR Chest 2 views* [id number] 01/11/2019 2:58 PM FINDINGS: Bones/joints: Subacute to chronic appearing fracture of the right anterior 8th rib with questionable underlying sclerosis. No dislocation. Alignment tonic. Dense sclerosis of the L2 vertebral body, consistent with metastatic disease. Soft tissues: Grossly unremarkable. XR/XR ribs RT 2V* [id number] IMPRESSION: 1. Subacute to chronic appearing fracture of the right anterior 8th rib with questionable underlying sclerosis. 2. Dense sclerosis of the L2 vertebral body, consistent with metastatic disease.
--- NOTE | 2019-09-20 14:47 | XRR_ITS ---
PROCEDURE INFORMATION: Exam: XR Right Shoulder Exam date and time: 09/20/2019 2:54 PM Age: 74 years old Clinical indication: Condition or disease; Other: Metastatic breast cancer, see pet may 2019 TECHNIQUE: Imaging protocol: XR Right shoulder. Views: 2 or more views. COMPARISON: No relevant prior studies available. FINDINGS: Bones/joints: Osteopenia. No radiographic evidence of acute fracture or dislocation. Alignment anatomic. Mild glenohumeral and acromioclavicular osteoarthrosis. Soft tissues: Grossly unremarkable. XR/XR shoulder RT min 2V* [id number] IMPRESSION: Mild glenohumeral and acromioclavicular osteoarthrosis.
== END 2019-09-20 14:32 | disposition home or self-care (01) ==
LOC: RADWPI 14:36
PROVIDERS: PCP Family Medicine; Visit Provider Nurse Practitioner
DX: C50.919 Malignant neoplasm of unspecified site of unspecified female breast (principal); M19.011 Primary osteoarthritis, right shoulder; S22.31XA Fracture of one rib, right side, initial encounter for closed fracture; X58.XXXA Exposure to other specified factors, initial encounter
CPT/HCPCS: 71100; 73030

== ENCOUNTER → 2019-09-26 08:31 | Outpatient (BNVA) | payer MEDICARE, MEDICAID, SELFPAY | PROVIDERS: PCP Family Medicine; Visit Provider Internal Medicine Medical Oncology | DX: C50.411 Malignant neoplasm of upper-outer quadrant of right female breast (principal) | CPT/HCPCS: 85025 ==

== ENCOUNTER → 2019-09-27 09:50 | Outpatient (BNVA) | payer MEDICARE, MEDICAID, SELFPAY | PROVIDERS: PCP Family Medicine; Visit Provider Internal Medicine Medical Oncology | DX: C50.411 Malignant neoplasm of upper-outer quadrant of right female breast (principal) | CPT/HCPCS: 80053; 86300 ==

== ENCOUNTER → 2019-10-02 08:39 | Outpatient (BNVA) | payer MEDICARE, MEDICAID, SELFPAY | PROVIDERS: PCP Family Medicine; Visit Provider Internal Medicine Medical Oncology | DX: C50.411 Malignant neoplasm of upper-outer quadrant of right female breast (principal) | CPT/HCPCS: 85025 ==

== ENCOUNTER 2019-10-03 07:32 | Outpatient (RCR) | payer MEDICARE, MEDICAID, SELFPAY ==
--- NOTE | 2019-10-03 19:13 | ONC FU_ITS ---
Dr. Agrawal Patient Follow-Up Note Patient: Lorelei Saunders Unit #: [id number]: [id number] Dicatated By: Paul Agrawal M.D.Date of Visit:Oct 03, 2019 Onc Med Follow-up/Prog Note Chief Complaint: Breast cancer/bone metastases. History of Present Illness: This is a 74 year-old woman with grade 2 infiltrating ductal carcinoma of the right breast, ER/NJ positive and HER-2/alf negative, stage IV, with biopsy proven metastatic bone involvement. Her breast cancer was stage IIA (T2, N0, M0) at initial diagnosis in October 2008. Her Oncotype DX showed a recurrence score of 16, which was low risk. Her treatment included lumpectomy and axillary sentinel lymph node biopsy followed by radiation to the right breast, which she completed in February 2009. She was given adjuvant hormonal therapy with anastrozole. It was stopped in October 2012 when she came in with worsening joint pain. Bone scan in November 2012 showed no evidence of metastatic disease. She received no further adjuvant therapy, as she had then failed to return for follow-up. On 05/12/2019 she was seen in the emergency room with pain in the right hip area. The pain has been getting progressively worse over a period of several months. X-rays of the lumbar spine, pelvis, and right femur showed evidence of sclerotic lesions in the L1 and S1 vertebral bodies as well as lytic appearing bone changes in the right pubic bone. There was no fracture reported. Further evaluation with bone scan on 05/25/2019 showed multiple areas of uptake including the calvarium, cervical spine, thoracic spine, ribs, lumbar spine, pelvis, sacrum, and both hips most consistent with diffuse metastatic disease. Also noted was right renal pelvic dilatation. I had seen her for a follow-up visit on 06/04/2019. Staging PET/CT on 06/09/2019 showed an intensely hypermetabolic left thyroid mass measuring 2.7 x 3.0 cm with SUV 16.9, appearance of which was felt to be most consistent with a primary thyroid malignancy. A right level III/IV cervical lymph node had elevated SUV of 8.0 and multiple mediastinal lymph nodes were FDG positive, consistent with metastases. And hepatic segment IVb lesion measuring 4.3 x 1.9 x 1.9 cm with SUV 5.9 appeared consistent with unifocal hepatic metastatic disease. A right paravertebral pleural implant at the right lung base measuring 2.0 x 1.7 cm had SUV 10.7. There was evidence of widespread osseous metastatic disease, as expected. I have reviewed that study with the radiologist. As none of the metastatic lesions were very accessible for biopsy, we opted to proceed with CT directed core needle biopsy of her right iliac bone lesion. Pathology showed metastatic adenocarcinoma most consistent with breast primary. The breast prognostic profile showed ER positive at 91% and NJ positive at 5%. It was negative for overexpression of HER-2/alf, 0 by IHC and amplification ratio by FISH of 0.9 with 2.4 HER-2 copies/cell. With those findings, she was referred to Dr. Kenny. She underwent palliative radiation to the right hip and to the right rib cage, completed on 07/17/2019. Both sites were treated to a total dose of 3000 cGy. Her other medical illnesses include atherosclerotic cardiovascular disease, degenerative arthritis, osteoporosis, and hypothyroidism. She had evidence of a 3 cm infrarenal abdominal aortic aneurysm on CT angiogram in June 2018. That study also showed arterial stenosis had multiple sites including the proximal SMA, the right renal artery, and left renal artery. Extensive calcifications were noted through the common iliac arteries bilaterally. She underwent right carotid endarterectomy in 2017. She had undergone hysterectomy/BSO in 1994. She has a history of smoking 1 pack of cigarettes daily for close to 60 years. She cut down about a year ago. INTERIM HISTORY: She began cycle 1 of systemic therapy palbociclib 125 mg daily on a 21/28-day schedule together with letrozole 2.5 mg daily. She also started monthly denosumab injections for the metastatic bone involvement. As of her follow-up visit on 09/20/2019 the pelvis cycle was put on hold due to neutropenia. She is seen for a follow-up visit. She says she is good, though she does not have good energy, and her activity has been very limited. ECOG score is 2. She has good appetite. She has not had fever. She does have hot flashes/sweating. She has had no mouth sores. She is complaining of shortness of breath and cough. She occasionally has pain in the midsternal area. She has not been having any nausea. She does complain of constipation, and she has having some pain in the mid abdominal area. She has urinary frequency/urgency and incontinence. She has pain in her lower back. She also has some pain in the upper back just below the shoulder blades. She has no focal neurologic symptoms. Medications: Aspirin 1 Tablet (of 81 mg) Tablet Oral daily, Hydrocodone-Acetaminophen 1 Tablet (of 5-325 mg) Tablet Oral q 6 hours PRN, Letrozole 1 Tablet (of 2.5 mg) Oral daily, Levothyroxine Sodium 1 Tablet (of 50 mcg) Oral daily Allergies: Fluticasone Furoate Review of Systems: Constitutional - Her energy continues to very low. She is unable to do any activity. Her appetite is good and weight is stable. No fever. She has occasional night sweats. No hot flashes. ECOG score is 2, ENMT - No sinus congestion/drainage. No mouth sores. No sore throat or difficulty swallowing, Hematologic/Lymphatic - She bruises easily, Respiratory - No shortness of breath. She has a cough. No pleuritic pain or hemoptysis, Cardiovascular - She has intermittent substernal pain. No palpitations, Gastrointestinal - No nausea or vomiting. No heartburn or acid reflux. No diarrhea. She has constipation, but she has not been taking anything for it. No blood in the stool or black stools, Genitourinary (F) - No dysuria or hematuria. She has urinary frequency with urgency. She has incontinence, Musculoskeletal - She has pain in her lower back and pain up between her shoulders, Integumentary - No skin complications, Neurologic - No headache or dizziness. No numbness or tingling. No other focal neurologic symptoms, Psychiatric - No anxiety or depression. No insomnia. Vital Signs: Performed on Oct 03, 2019 11:11 Height - 62.00 in Weight - 81.6 lbs (LOW) BSA - 1.31 sq.m BMI - 14.92 (LOW) Temperature - 97.9 F (LOW) Pulse - 98 /min Respiration - 26 /min BP - 141/69 mm(hg) (HIGH) O2 Sat - 98 % Pain - 0 Physical Examination: Constitutional - She appears somewhat weak generally, Eyes - Sclerae nonicteric. Conjunctivae clear, ENMT - No lesions noted in the oral cavity, Hematologic/Lymphatic - No cervical, clavicular, or axillary adenopathy, Respiratory - Lungs show diminished air movement bilaterally. There are mild expiratory rhonchi, Cardiovascular - Heart rhythm is regular. There is no murmur, gallop, or rub noted, Abdomen - Soft. There is mild abdominal tenderness. Liver and spleen are not enlarged. There is no abdominal mass or ascites noted and there is no inguinal adenopathy, Extremities - No edema, Neurologic - No focal neurologic deficits noted. Lab/Imaging: Test performed on Oct 02, 2019 08:39 WBC 3.7 10^9/L RBC 4.21 10^12/L HGB 12.0 g/dL HCT 36.9 % MCV 87.7 fl MCH 28.6 pg MCHC 32.6 g/dL RDW 18.9 % Platelet Count 321 10^9/L MPV 7.8 fL Neutrophils (Gran) 1.8 10^9/L Lymphocytes 1.5 10^9/L Monocytes 0.4 10^9/L Manual Lymphocytes 41.5 % Manual Monocytes 9.8 % Test performed on Sep 27, 2019 09:50 Glucose 89 mg/dL BUN 17 mg/dL Creatinine 0.5 mg/dL Cr Clearance (Est) 55.9300 mL/min Sodium 137 mmol/L Potassium 3.8 mmol/L Chloride 99 mmol/L CO2 23 mmol/L Calcium 9.2 mg/dL Protein, Total 6.7 g/dL Albumin 4.1 g/dL Globulin 2.6 g/dL Bilirubin, Total 0.3 mg/dL Alkaline Phosphatase 110 IU/L AST (SGOT) 21 IU/L ALT (SGPT) 10 IU/L CA 27.29 375 Units/mL Impression: 1. Patient with grade 2 infiltrating ductal carcinoma of the right breast, ER/NJ positive and HER-2/alf negative. Her disease was stage IIA (T2, N0, M0) at initial diagnosis in October 2008. She now has progression to stage IV with multiple sites of metastatic involvement including extensive bony metastatic disease. 2. Her initial treatment included lumpectomy and radiation, completed in February 2009. 3. She was given adjuvant hormonal therapy with anastrozole. It was stopped in October 2012 due to worsening musculoskeletal pain. Bone scan at that time showed no evidence of metastatic disease. She received no further adjuvant therapy. Her other medical illnesses include: 4. Degenerative arthritis. 5. COPD. 6. Hypothyroidism. 7. Atherosclerotic cardiovascular disease including carotid stenosis and renal artery stenosis. 8. She has known abdominal aortic aneurysm. She underwent CT directed core needle biopsy of a right iliac bone lesion on 06/26/2019. Pathology confirmed metastatic adenocarcinoma consistent with breast primary, ER/NJ positive and HER-2/laf negative. With that finding, she underwent palliative radiation to the right hip and to the right rib cage, completed on 07/17/2019, both sites to a total dose of 3000 cGy. On 08/21/2019 she began systemic therapy with palbociclib 125 mg daily on a 21/28-day schedule together with letrozole 2.5 mg daily. She also started monthly denosumab injections for the metastatic bone involvement. As of her follow-up visit on 09/20/2019 the palbociclib was put on hold due to neutropenia. At this point she is showing recovery. She continues, though, to have fairly marginal performance status. Plan: She will continue letrozole 2.5 mg daily. I will have her try restarting palbociclib 125 mg every other day for the next 21 days. If she is able to tolerate that, the palbociclib dosage will be adjusted to 100 mg daily for 21 days with her next cycle. Signed By: Paul Agrawal M.D. <<Signature on File>>
== END 2019-10-23 23:59 | disposition home or self-care (01) ==
LOC: ONCMED 07:32
PROVIDERS: PCP Family Medicine; Visit Provider Internal Medicine Medical Oncology
DX: C50.411 Malignant neoplasm of upper-outer quadrant of right female breast (principal); Z17.0 Estrogen receptor positive status [ER+]; C79.51 Secondary malignant neoplasm of bone; M19.90 Unspecified osteoarthritis, unspecified site; J44.9 Chronic obstructive pulmonary disease, unspecified; E03.9 Hypothyroidism, unspecified; I25.10 Atherosclerotic heart disease of native coronary artery without angina pectoris; I71.4 Abdominal aortic aneurysm, without rupture; Z92.21 Personal history of antineoplastic chemotherapy; Z79.818 Long term (current) use of other agents affecting estrogen receptors and estrogen levels
CPT/HCPCS: 99214

== ENCOUNTER 2019-10-03 12:09 | Outpatient (CLI) | payer MEDICARE, MEDICAID, SELFPAY ==
--- NOTE | 2019-10-03 12:29 | XR_ITS ---
WS: [id number] CHEST 2 VIEWS HISTORY: BREAST CANCER/SHORTNESS OF BREATH COMPARISON: 09/20/2019 Lungs: Hyperinflated lungs with biapical pleural thickening. No pneumonia. No pulmonary nodule or mas s. No pleural effusion. Cardiac size: Normal. Mediastinum/Aorta: Mild atherosclerosis aorta. Chronic emphysema with no acute cardiopulmonary diseas e. Bones: Normal. XR/XR chest 2V* [id number] IMPRESSION: Normal chest.
== END 2019-10-03 12:10 | disposition home or self-care (01) ==
PROVIDERS: PCP Family Medicine; Visit Provider Internal Medicine Medical Oncology
DX: C50.919 Malignant neoplasm of unspecified site of unspecified female breast (principal); R06.02 Shortness of breath
CPT/HCPCS: 71046

== ENCOUNTER 2019-11-05 14:00 | Outpatient (RCR) | payer MEDICARE, MEDICAID, SELFPAY ==
--- NOTE | 2019-11-05 13:43 | CT_ITS ---
WS: [id number] CTA scan of the chest with IV contrast. Additional two-dimensional coronal and sagittal reconstructio n and MIP images was performed. 11/05/2019 Clinical Data: SHORTNESS OF BREATH, BREAST CANCER Comparison: CT chest, 07/26/2017 DLP: 728.[address] scans at [facility] use at least one of these dose optimization techniques: automat ed exposure control; mA and/or kV adjustment per patient size (includes targeted exams where dose is matched to clinical indication); or iterative reconstruction. Findings: The central pulmonary arteries and peripheral pulmonary arteries fill normally with no evidence of in termittent luminal filling defects. No pulmonary embolic disease is noted. No nodules, masses or effusions are seen. Apical pleural scarring is present. There is enlargement of the left thyroid gland which deviates the trachea from left to right. There are changes of chronic o bstructive pulmonary disease. The heart size is normal with no pericardial effusion. The pulmonary ar terial system and thoracic aorta demonstrate no abnormalities or dilatations. There is no axillary or significant mediastinal adenopathy. There is bilateral breast skin thickening The trachea bifurcates into the bronchi. The upper abdomen shows a lesion before. The visualized liver, spleen, pancreas, gallbladder, adrenal glands and superior poles of the kidneys are not remarkable. There is still a small splenic artery a neurysm. There are osteoblastic changes in the lower cervical, most of the thoracic vertebral bodies and most conspicuously in the L1 vertebral body. CT/CT angio chest PE protcl [id number] Impression: 1. Osteoblastic changes of the cervical, thoracic and lumbar vertebral bodies m ost consistent with metastatic disease. 2. Negative for pulmonary embolic disease. 3. Enlarged left lobe of the thyroid unchanged. 4. Chronic obstructive pulmonary disease.
[2019-11-05 13:58] LABS: Basophils % 0.7 %; Eosinophils % 0.3 %; Hematocrit 36.7 % (37.0-47.0); Hemoglobin 11.8 g/dL (11.5-15.3); Lymphocytes % 35.4 %; Mean Corpuscular HGB Conc 32.2 g/dL (30.0-36.0); Mean Corpuscular Hemoglobin 29.6 pg (28.0-34.0); Mean Platelet Volume 9.7 fL (7.4-10.4); Monocytes # 0.6 10^3/uL (0.2-0.9); Monocytes % 20.3 %; Neutrophils # 1.26 10^3/uL (1.8-7.7); Neutrophils % 43.3 %; Nucleated Red Blood Cells % 0 %; Platelet Count 178 10^3/cmm (130-400); Red Blood Count 3.99 10^6/uL (4.1-5.3); Red Cell Distribution Width 17.4 % (12.1-15.1); White Blood Count 2.9 10^3/uL (4.0-10.0)
[2019-11-05 14:16] LABS: Alanine Aminotransferase 10 U/L (0-33); Albumin Level 4.5 g/dL (3.5-5.2); Alkaline Phosphatase 94 IU/L (35-105); Anion Gap 14.1 (5-19); Aspartate Amino Transferase 21 U/L (0-32); Blood Urea Nitrogen 19 mg/dL (8-23); Calcium 9.6 mg/dL (8.5-10.5); Carbon Dioxide 27 mmol/L (22-29); Chloride 104 mmol/L (98-107); Globulin 2.5 g/dL (1.3-4.6); Glucose 81 mg/dL (65-115); Osmolality Calculated 288 mOsm/kg (285-295); Potassium 4.1 mmol/L (3.5-5.1); Sodium 141 mmol/L (136-145); Total Bilirubin 0.3 mg/dL (0.15-1.2)
[2019-11-05] MEDS: iohexol 350 mg/mL 100 mL Btl IV (14:24)
[2019-11-06 13:35] LABS: CA 27.29 281 U/mL (<38)
--- NOTE | 2019-11-09 12:54 | ONC FU_ITS ---
Dr. Agrawal Patient Follow-Up Note Patient: Lorelei Saunders Unit #: [id number]: 1945 Dicatated By: Paul Agrawal M.D.Date of Visit:Nov 05, 2019 Onc Med Follow-up/Prog Note Chief Complaint: Breast cancer/bone metastases. 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 Her breast cancer was stage IIA (T2, N0, M0) at initial diagnosis in October 2008. Her Oncotype DX showed a recurrence score of 16, which was low risk. Her treatment included lumpectomy and axillary sentinel lymph node biopsy followed by radiation to the right breast, which she completed in February 2009. She was given adjuvant hormonal therapy with anastrozole. It was stopped in October 2012 when she came in with worsening joint pain. Bone scan in November 2012 showed no evidence of metastatic disease. She received no further adjuvant therapy, as she had then failed to return for follow-up. On 05/12/2019 she was seen in the emergency room with pain in the right hip area. The pain has been getting progressively worse over a period of several months. X-rays of the lumbar spine, pelvis, and right femur showed evidence of sclerotic lesions in the L1 and S1 vertebral bodies as well as lytic appearing bone changes in the right pubic bone. There was no fracture reported. Further evaluation with bone scan on 05/25/2019 showed multiple areas of uptake including the calvarium, cervical spine, thoracic spine, ribs, lumbar spine, pelvis, sacrum, and both hips most consistent with diffuse metastatic disease. Also noted was right renal pelvic dilatation. I had seen her for a follow-up visit on 06/04/2019. Staging PET/CT on 06/09/2019 showed an intensely hypermetabolic left thyroid mass measuring 2.7 x 3.0 cm with SUV 16.9, appearance of which was felt to be most consistent with a primary thyroid malignancy. A right level III/IV cervical lymph node had elevated SUV of 8.0 and multiple mediastinal lymph nodes were FDG positive, consistent with metastases. And hepatic segment IVb lesion measuring 4.3 x 1.9 x 1.9 cm with SUV 5.9 appeared consistent with unifocal hepatic metastatic disease. A right paravertebral pleural implant at the right lung base measuring 2.0 x 1.7 cm had SUV 10.7. There was evidence of widespread osseous metastatic disease, as expected. I have reviewed that study with the radiologist. As none of the metastatic lesions were very accessible for biopsy, we opted to proceed with CT directed core needle biopsy of her right iliac bone lesion. Pathology showed metastatic adenocarcinoma most consistent with breast primary. The breast prognostic profile showed ER positive at 91% and RI positive at 5%. It was negative for overexpression of HER-2/alf, 0 by IHC and amplification ratio by FISH of 0.9 with 2.4 HER-2 copies/cell. With those findings, she was referred to Dr. Kenny. She underwent palliative radiation to the right hip and to the right rib cage, completed on 07/17/2019. Both sites were treated to a total dose of 3000 cGy. Her other medical illnesses include atherosclerotic cardiovascular disease, degenerative arthritis, osteoporosis, and hypothyroidism. She had evidence of a 3 cm infrarenal abdominal aortic aneurysm on CT angiogram in June 2018. That study also showed arterial stenosis had multiple sites including the proximal SMA, the right renal artery, and left renal artery. Extensive calcifications were noted through the common iliac arteries bilaterally. She underwent right carotid endarterectomy in 2017. She had undergone hysterectomy/BSO in 1994. She has a history of smoking 1 pack of cigarettes daily for close to 60 years. She cut down about a year ago. INTERIM HISTORY: On 08/25/2019 she began cycle 1 of systemic therapy palbociclib 125 mg daily on a 21/28-day schedule together with letrozole 2.5 mg daily. She also started monthly denosumab injections for the metastatic bone involvement. As of 09/12/2019 the palbociclib was put on hold due to neutropenia. She then continued wit cycle 2 of palbociclib on 10/03/2019 with the dose reduced to 125 mg every other day for 21 days. She is seen for a follow-up visit. She complains that she has no energy at all, and she is getting short of breath with any activity. She is still able to do light work, and her ECOG score is 1. However, she does feel that her breathing is getting worse. She still has cough, but not as much. She has good appetite. She has not had fever. She does have hot flashes and sweating. She does not complain of chest pain. She has no GI complaints. In particular, she has had no diarrhea. She has frequent urination. She has been hurting in her rib cage on both sides, and she also has back pain. It is being managed adequately with her medication. She has some numbness in her left arm. Medications: Aspirin 1 Tablet (of 81 mg) Tablet Oral daily, Hydrocodone-Acetaminophen 1 Tablet (of 5-325 mg) Tablet Oral q 6 hours PRN, Ibrance 1 Tablet (of 100 mg) Oral daily, Letrozole 1 Tablet (of 2.5 mg) Oral daily, Levothyroxine Sodium 1 Tablet (of 50 mcg) Oral daily Allergies: Fluticasone Furoate Review of Systems: Constitutional - She is no energy. She is able to do some light houswork, but she has activity restriction related to her respiratory status. Her appetite is good and weight is stable. No fevers. She is having hot flashes and night sweats. ECOG score is 1, ENMT - No sinus congestion/drainage. No mouth sores. No sore throat or difficulty swallowing, Hematologic/Lymphatic - She bruises easily, Respiratory - Her shortness of breath has worsened. She has a cough. No pleuritic pain or hemoptysis, Cardiovascular - No angina pain. No palpitations, Gastrointestinal - No nausea or vomiting. No heartburn or acid reflux. No diarrhea or constipation. No blood in the stool or black stools, Genitourinary (F) - No dysuria or hematuria. She has urinary frequency both day and night. No urgency or incontinence, Musculoskeletal - No joint or bone pain, Integumentary - No skin complications, Neurologic - No headaches. She has dizziness with positional changes. She has numbness and tingling in her left arm. No other focal neurologic symptoms, Psychiatric - No anxiety or depression. She does not sleep well. Vital Signs: Performed on Nov 05, 2019 12:39 Height - 62.00 in Weight - 81.4 lbs (LOW) BSA - 1.30 sq.m BMI - 14.89 (LOW) Temperature - 98.1 F (LOW) Pulse - 89 /min Respiration - 26 /min BP - 158/106 mm(hg) (HIGH) O2 Sat - 97 % Pain - 5 Physical Examination: Constitutional - She appears short of breath with effort, Eyes - Sclerae nonicteric. Conjunctivae clear, ENMT - No lesions noted in the oral cavity, Hematologic/Lymphatic - No cervical, clavicular, or axillary adenopathy, Respiratory - Lungs show diminished air movement bilaterally. There are mild rhonchi on inspiration and expiration, Cardiovascular - Heart rhythm is regular. There is no murmur, gallop, or rub noted, Abdomen - Soft. Liver and spleen are not enlarged. There is no abdominal mass or ascites noted and there is no inguinal adenopathy, Extremities - No edema. There are purpuric lesions on both arms, Neurologic - No focal neurologic deficits noted. Lab/Imaging: Test performed on Nov 05, 2019 13:30 Sodium 141 mmol/L Potassium 4.1 mmol/L Chloride 104 mmol/L CO2 27 mmol/L Anion Gap 14.1 BUN 19 mg/dL Creatinine 0.6 mg/dL Cr Clearance (Est) 46.5000 mL/min Glucose 81 mg/dL Calcium 9.6 mg/dL Protein, Total 7.0 g/dL Albumin 4.5 g/dL Globulin 2.5 g/dL Bilirubin, Total 0.3 mg/dL ALT (SGPT) 10 U/L AST (SGOT) 21 U/L Alkaline Phosphatase 94 IU/L WBC 2.9 10 3/uL RBC 3.99 10 6/uL HGB 11.8 g/dL HCT 36.7 % MCV 92.0 fL MCH 29.6 pg MCHC 32.2 g/dL RDW 17.4 % Platelet Count 178 10 3/cmm MPV 9.7 fL Neutrophils 1.26 10 3/uL Lymphocytes 1.0 10 3/uL Monocytes 0.6 10 3/uL Eosinophils 0.0 10 3/uL Basophils 0.0 10 3/uL Neutrophil % 43.3 % Lymphocyte % 35.4 % Monocyte % 20.3 % Eosinophil % 0.3 % Basophils % 0.7 % NRBC % 0 % Impression: 1. 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 Her disease was stage IIA (T2, N0, M0) at initial diagnosis in October 2008. She now has progression to stage IV with multiple sites of metastatic involvement including extensive bony metastatic disease. 2. Her initial treatment included lumpectomy and radiation, completed in February 2009. 3. She was given adjuvant hormonal therapy with anastrozole. It was stopped in October 2012 due to worsening musculoskeletal pain. Bone scan at that time showed no evidence of metastatic disease. She received no further adjuvant therapy. Her other medical illnesses include: 4. Degenerative arthritis. 5. COPD. 6. Hypothyroidism. 7. Atherosclerotic cardiovascular disease including carotid stenosis and renal artery stenosis. 8. She has known abdominal aortic aneurysm. She underwent CT directed core needle biopsy of a right iliac bone lesion on 06/26/2019. Pathology confirmed metastatic adenocarcinoma consistent with breast primary, ER/RI positive and HER-2/alf negative. With that finding, she underwent palliative radiation to the right hip and to the right rib cage, completed on 07/17/2019, both sites to a total dose of 3000 cGy. On 08/21/2019 she began systemic therapy with palbociclib 125 mg daily on a 2128-day schedule together with letrozole 2.5 mg daily. She also started monthly denosumab injections for the metastatic bone involvement. As of 09/12/2019 the palbociclib was put on hold due to neutropenia. She had adequate recovery, and she then continued with cycle 2 of palbociclib on 10/03/2019 with the dosage reduced to 125 mg every other day for 21 days. At this point she is still having significant fatigue and her shortness of breath seems to be getting worse. Her bone pain, though, is adequately managed with her medication. She has had adequate recovery of her blood counts. Plan: She will continue letrozole 2.5 mg daily. She will be scheduled for CT pulmonary angiogram. In the absence of any acute findings, she will proceed with cycle 3 of palbociclib with the dosage adjusted to 100 mg daily for 21 days. She will be scheduled for a 1-month interval follow-up visit. Signed By: Paul Agrawal M.D. <<Signature on File>>
== END 2019-11-23 23:59 | disposition home or self-care (01) ==
LOC: ONCMED 14:00
PROVIDERS: PCP Family Medicine; Visit Provider Internal Medicine Medical Oncology
DX: C79.51 Secondary malignant neoplasm of bone (principal); C73 Malignant neoplasm of thyroid gland; C77.8 Secondary and unspecified malignant neoplasm of lymph nodes of multiple regions; C78.7 Secondary malignant neoplasm of liver and intrahepatic bile duct; Z85.3 Personal history of malignant neoplasm of breast; R06.02 Shortness of breath; Z17.0 Estrogen receptor positive status [ER+]; I25.10 Atherosclerotic heart disease of native coronary artery without angina pectoris; M19.90 Unspecified osteoarthritis, unspecified site; I70.1 Atherosclerosis of renal artery; M81.0 Age-related osteoporosis without current pathological fracture; E03.9 Hypothyroidism, unspecified; I71.4 Abdominal aortic aneurysm, without rupture; J44.9 Chronic obstructive pulmonary disease, unspecified; F17.210 Nicotine dependence, cigarettes, uncomplicated; Z79.899 Other long term (current) drug therapy; Z79.811 Long term (current) use of aromatase inhibitors; Z79.82 Long term (current) use of aspirin; Z79.891 Long term (current) use of opiate analgesic; Z92.3 Personal history of irradiation
CPT/HCPCS: 36415; 71275; 80053; 85025; 86300; 99214; Q9967

== ENCOUNTER → 2019-11-19 12:24 | Outpatient (BNVA) | payer MEDICARE, MEDICAID, SELFPAY | PROVIDERS: PCP Family Medicine; Visit Provider Internal Medicine Medical Oncology | DX: C50.411 Malignant neoplasm of upper-outer quadrant of right female breast (principal); C79.51 Secondary malignant neoplasm of bone; Z17.0 Estrogen receptor positive status [ER+]; C50.419 Malignant neoplasm of upper-outer quadrant of unspecified female breast; E04.9 Nontoxic goiter, unspecified | CPT/HCPCS: 80053; 85025; 86300 ==

== ENCOUNTER 2019-12-10 09:04 | Outpatient (RCR) | payer MEDICARE, MEDICAID, SELFPAY ==
--- NOTE | 2019-12-10 09:08 | XR_ITS ---
WS: [id number] EXAM: Chest: PA and lateral DATE OF EXAMINATION: 12/10/2019, 0916 hours COMPARISON: Chest x-ray from 10/03/2019 and 12/06/2018 HISTORY: Patient is 74 years old with follow-up breast cancer with bone metastases. FINDINGS: The heart size is normal. The mediastinal contours are are similar. Calcified plaque in the aorta. Pulmonary vascularity is within normal limits. Chronic lung changes demonstrated. Lungs are clear of consolidative infiltrate. Appears slightly hyperinflated. Surgical clips are seen in the right side o f the neck. Apical capping bilaterally. Arterial atelectatic plaque formation. Abnormal appearance to the anterior and anterior lateral right T8 rib with what appears to be periosteal reaction and scler osis suggesting progressive metastatic involvement in this rib. Sclerotic appearance L1 vertebrae sug gesting metastatic disease appears to have progressed in the interim as well. I now question metastat ic disease within the posterior lateral to anterior aspect of the right T10 rib. No effusion, or pneu mothorax. Decreased XR/XR chest 2V* [id number] IMPRESSION: Chronic lung changes. NO ACUTE PULMONARY DISEASE. Findings suggesting progressive bony metastases as described.
[2019-12-10 10:03] LABS: Basophils # 0.1 10^3/uL (0.0-0.1); Basophils % 1.9 %; Eosinophils % 0.7 %; Hematocrit 37.8 % (37.0-47.0); Hemoglobin 12.2 g/dL (11.5-15.3); Lymphocytes # 0.7 10^3/uL (0.8-4.8); Mean Corpuscular HGB Conc 32.3 g/dL (30.0-36.0); Mean Corpuscular Hemoglobin 30.8 pg (28.0-34.0); Mean Corpuscular Volume 95.5 fL (81-99); Mean Platelet Volume 9.6 fL (7.4-10.4); Monocytes # 0.3 10^3/uL (0.2-0.9); Monocytes % 10.9 %; Neutrophils # 1.58 10^3/uL (1.8-7.7); Neutrophils % 59.1 %; Nucleated Red Blood Cells % 0 %; Platelet Count 280 10^3/cmm (130-400); Red Blood Count 3.96 10^6/uL (4.1-5.3); Red Cell Distribution Width 16.8 % (12.1-15.1); White Blood Count 2.7 10^3/uL (4.0-10.0)
[2019-12-10 10:04] LABS: Add Urine Microscopic? NO
[2019-12-10] MEDS: denosumab 120 mg SDV SUBCUT (10:30)
[2019-12-10 10:34] LABS: Bilirubin Urine Neg (NEGATIVE); Blood Urine Neg (Negative); Glucose Urine UA Norm (Normal); Ketones Urine Negative (Negative); Leukocyte Esterase Urine Negative (Negative); Nitrate Urine Negative (Negative); Protein Urine Neg (Negative); Specific Gravity, Urine 1.005 (1.005-1.030); Urine Appearance Clear (CLEAR); Urine Color Straw (Yellow); Urobilinogen Urine Norm (Negative); pH Urine 7 (5-7)
[2019-12-10 10:36] LABS: Alanine Aminotransferase 13 U/L (0-33); Albumin Level 4.5 g/dL (3.5-5.2); Alkaline Phosphatase 94 IU/L (35-105); Aspartate Amino Transferase 25 U/L (0-32); Blood Urea Nitrogen 19 mg/dL (8-23); Calcium 9.2 mg/dL (8.5-10.5); Carbon Dioxide 28 mmol/L (22-29); Chloride 103 mmol/L (98-107); Globulin 3.4 g/dL (1.3-4.6); Glucose 91 mg/dL (65-115); Osmolality Calculated 284 mOsm/kg (285-295); Sodium 139 mmol/L (136-145); Total Bilirubin 0.3 mg/dL (0.15-1.2); Total Protein 7.9 g/dL (6.6-8.7)
--- NOTE | 2019-12-10 18:34 | ONC FU_ITS ---
Dr. Agrawal Patient Follow-Up Note Patient: Lorelei Saunders Unit #: [id number]: 1945 Dicatated By: Paul Agrawal M.D.Date of Visit:Dec 10, 2019 Onc Med Follow-up/Prog Note Chief Complaint: Breast cancer/bone metastases. History of Present Illness: This is a 74 year-old woman with grade 2 infiltrating ductal carcinoma of the right breast, ER/VT positive and HER-2/alf negative, stage IV, with biopsy proven metastatic bone involvement. Her breast cancer was stage IIA (T2, N0, M0) at initial diagnosis in October 2008. Her Oncotype DX showed a recurrence score of 16, which was low risk. Her treatment included lumpectomy and axillary sentinel lymph node biopsy followed by radiation to the right breast, which she completed in February 2009. She was given adjuvant hormonal therapy with anastrozole. It was stopped in October 2012 when she came in with worsening joint pain. Bone scan in November 2012 showed no evidence of metastatic disease. She received no further adjuvant therapy, as she had then failed to return for follow-up. On 05/12/2019 she was seen in the emergency room with pain in the right hip area. The pain has been getting progressively worse over a period of several months. X-rays of the lumbar spine, pelvis, and right femur showed evidence of sclerotic lesions in the L1 and S1 vertebral bodies as well as lytic appearing bone changes in the right pubic bone. There was no fracture reported. Further evaluation with bone scan on 05/25/2019 showed multiple areas of uptake including the calvarium, cervical spine, thoracic spine, ribs, lumbar spine, pelvis, sacrum, and both hips most consistent with diffuse metastatic disease. Also noted was right renal pelvic dilatation. I had seen her for a follow-up visit on 06/04/2019. Staging PET/CT on 06/09/2019 showed an intensely hypermetabolic left thyroid mass measuring 2.7 x 3.0 cm with SUV 16.9, appearance of which was felt to be most consistent with a primary thyroid malignancy. A right level III/IV cervical lymph node had elevated SUV of 8.0 and multiple mediastinal lymph nodes were FDG positive, consistent with metastases. And hepatic segment IVb lesion measuring 4.3 x 1.9 x 1.9 cm with SUV 5.9 appeared consistent with unifocal hepatic metastatic disease. A right paravertebral pleural implant at the right lung base measuring 2.0 x 1.7 cm had SUV 10.7. There was evidence of widespread osseous metastatic disease, as expected. I have reviewed that study with the radiologist. As none of the metastatic lesions were very accessible for biopsy, we opted to proceed with CT directed core needle biopsy of her right iliac bone lesion. Pathology showed metastatic adenocarcinoma most consistent with breast primary. The breast prognostic profile showed ER positive at 91% and VT positive at 5%. It was negative for overexpression of HER-2/alf, 0 by IHC and amplification ratio by FISH of 0.9 with 2.4 HER-2 copies/cell. With those findings, she was referred to Dr. Kenny. She underwent palliative radiation to the right hip and to the right rib cage, completed on 07/17/2019. Both sites were treated to a total dose of 3000 cGy. Her other medical illnesses include atherosclerotic cardiovascular disease, degenerative arthritis, osteoporosis, and hypothyroidism. She had evidence of a 3 cm infrarenal abdominal aortic aneurysm on CT angiogram in June 2018. That study also showed arterial stenosis had multiple sites including the proximal SMA, the right renal artery, and left renal artery. Extensive calcifications were noted through the common iliac arteries bilaterally. She underwent right carotid endarterectomy in 2017. She had undergone hysterectomy/BSO in 1994. She has a history of smoking 1 pack of cigarettes daily for close to 60 years. She cut down about a year ago. INTERIM HISTORY: On 08/25/2019 she began cycle 1 of systemic therapy palbociclib 125 mg daily on a 21/28-day schedule together with letrozole 2.5 mg daily. She also started monthly denosumab injections for the metastatic bone involvement. As of 09/12/2019 the palbociclib was put on hold due to neutropenia. She then continued with cycle 2 on 10/03/2019 with the palbociclib dosage reduced to 125 mg every other day for 21 days. At her follow-up visit on 11/05/2019 she complained of severe fatigue and shortness of breath. Her CT pulmonary angiogram showed evidence of COPD, and there were osteoblastic changes consistent with metastatic disease. There was no evidence, though, for pulmonary embolism or other acute pathology. There had been some decline in the CA-27-29 level. With those findings, she continued with cycle 3 of palbociclib and letrozole, but with the palbociclib dosed at 100 mg daily on a -day schedule. She is seen for a follow-up visit. She says she has been feeling pretty good except that she has difficulty getting up and around in the mornings. She is able to do light work. ECOG score is 1. Her appetite has been good, and her weight is up a few pounds. She has not had fever. She does report having some hot flashes and sweating. Her breathing is still not very good. She says she has trouble getting air in. She has cough, but not like she did. It is nonproductive. She does not complain of chest pain. She has no GI complaints other than occasional heartburn. She has had no diarrhea. She has urinary frequency with some urgency and incontinence. Her bone pain is being managed adequately with her medication. She does not complain of headache. She says she is dizzy quite often, and she has blurry vision with it. She has numbness in her left arm and hand which comes and goes. She has developed a mild skin eruption in the facial area. Medications: Aspirin 1 Tablet (of 81 mg) Tablet Oral daily, Hydrocodone-Acetaminophen 1 Tablet (of 5-325 mg) Tablet Oral q 6 hours PRN, Ibrance 1 Tablet (of 100 mg) Oral daily, Letrozole 1 Tablet (of 2.5 mg) Oral daily, Levothyroxine Sodium 1 Tablet (of 50 mcg) Oral daily Allergies: Fluticasone Furoate Review of Systems: Constitutional - She has trouble getting up and around in the mornings. She is keeping up with housework. Appetite is good and weight is up a few pounds. No fever. She is having night sweats and hot flashes. ECOG score is 1, ENMT - She has sinus congestion/drainage. No mouth sores. No sore throat or difficulty swallowing, Hematologic/Lymphatic - She bruises easily, Respiratory - She has shortness of breath. She has a nonproductive cough. No pleuritic pain or hemoptysis, Cardiovascular - No angina pain. No palpitations, Gastrointestinal - No nausea or vomiting. She has a little heartburn. No diarrhea or constipation. No blood in the stool or black stools, Genitourinary (F) - No dysuria or hematuria. She has urinary frequency with urgency/ incontinence, Musculoskeletal - No joint or bone pain, Integumentary - She has a skin rash on her face, Neurologic - No headache. She has intermittent dizziness. She has intermittent numbness and tingling in her left arm and hand. No other focal neurologic symptoms, Psychiatric - No anxiety or depression. No insomnia. Vital Signs: Performed on Dec 10, 2019 08:21 Height - 62.00 in Weight - 85.6 lbs (HIGH) BSA - 1.33 sq.m BMI - 15.66 (LOW) Temperature - 97.3 F (LOW) Pulse - 88 /min Respiration - 26 /min BP - 195/87 mm(hg) (HIGH) O2 Sat - 100 % Pain - 0 Physical Examination: Constitutional - She appears short of breath, Eyes - Sclerae nonicteric. Conjunctivae clear, ENMT - No lesions noted in the oral cavity, Hematologic/Lymphatic - No cervical, clavicular, or axillary adenopathy, Respiratory - Lungs show some decrease in air movement bilaterally. There are coarse upper airway rhonchi on inspiration and expiration, Cardiovascular - Heart rhythm is regular. There is no murmur, gallop, or rub noted, Abdomen - Soft. Liver and spleen are not enlarged. There is no abdominal mass or ascites noted and there is no inguinal adenopathy, Extremities - No edema, Integumentary - There is some patchy erythema in the facial area, mainly around the mouth, Neurologic - No focal neurologic deficits noted. Lab/Imaging: Test performed on Dec 10, 2019 09:26 Sodium 139 mmol/L Potassium 4.0 mmol/L Chloride 103 mmol/L CO2 28 mmol/L Anion Gap 12.0 BUN 19 mg/dL Creatinine 0.6 mg/dL Cr Clearance (Est) 48.8900 mL/min Glucose 91 mg/dL Calcium 9.2 mg/dL Protein, Total 7.9 g/dL Albumin 4.5 g/dL Globulin 3.4 g/dL Bilirubin, Total 0.3 mg/dL ALT (SGPT) 13 U/L AST (SGOT) 25 U/L Alkaline Phosphatase 94 IU/L WBC 2.7 10 3/uL RBC 3.96 10 6/uL HGB 12.2 g/dL HCT 37.8 % MCV 95.5 fL MCH 30.8 pg MCHC 32.3 g/dL RDW 16.8 % Platelet Count 280 10 3/cmm MPV 9.6 fL Neutrophils 1.58 10 3/uL Lymphocytes 0.7 10 3/uL Monocytes 0.3 10 3/uL Eosinophils 0.0 10 3/uL Basophils 0.1 10 3/uL Neutrophil % 59.1 % Lymphocyte % 27.0 % Monocyte % 10.9 % Eosinophil % 0.7 % Basophils % 1.9 % NRBC % 0 % Impression: 1. Patient with grade 2 infiltrating ductal carcinoma of the right breast, ER/VT positive and HER-2/alf negative. Her disease was stage IIA (T2, N0, M0) at initial diagnosis in October 2008. She now has progression to stage IV with multiple sites of metastatic involvement including extensive bony metastatic disease. 2. Her initial treatment included lumpectomy and radiation, completed in February 2009. 3. She was given adjuvant hormonal therapy with anastrozole. It was stopped in October 2012 due to worsening musculoskeletal pain. Bone scan at that time showed no evidence of metastatic disease. She received no further adjuvant therapy. Her other medical illnesses include: 4. Degenerative arthritis. 5. COPD. 6. Hypothyroidism. 7. Atherosclerotic cardiovascular disease including carotid stenosis and renal artery stenosis. 8. She has known abdominal aortic aneurysm. She underwent CT directed core needle biopsy of a right iliac bone lesion on 06/26/2019. Pathology confirmed metastatic adenocarcinoma consistent with breast primary, ER/VT positive and HER-2/alf negative. With that finding, she underwent palliative radiation to the right hip and to the right rib cage, completed on 07/17/2019, both sites to a total dose of 3000 cGy. On 08/21/2019 she began systemic therapy with palbociclib 125 mg daily on a 21-day schedule together with letrozole 2.5 mg daily. She also started monthly denosumab injections for the metastatic bone involvement. As of 09/12/2019 the palbociclib was put on hold due to neutropenia. She had adequate recovery, and she then continued with cycle 2 of palbociclib on 10/03/2019 with the dosage reduced to 125 mg every other day for 21 days. At her follow-up visit on 11/05/2019 she complained of increased fatigue and shortness of breath. There was no evidence for pulmonary embolism or other acute pathology on a CT pulmonary angiogram. At that point she had shown some decline in her CA-27-29 level. With those findings she continued with her 3rd cycle of treatment with palbociclib dosed at 100 mg daily on a 21/28-day schedule together with letrozole 2.5 mg daily. At this point she continues to have shortness of breath, but with no acute findings on her chest x-ray. The x-ray did show increased sclerosis at multiple sites in the bone. The report suggested progression of metastatic disease, but it may just reflect a response to her treatment. She does appear to be tolerating her treatment with acceptable toxicity at the current dosages. She has developed a mild skin eruption, but that may just be a reaction to her face mask. Plan: She will continue with cycle 4 of palbociclib/letrozole. The dosages will remain the same. She will be given denosumab 120 mg by subcutaneous injection for the metastatic bone involvement. She returns in 1 month. Signed By: Paul Agrawal M.D. <<Signature on File>>
[2019-12-13 10:29] LABS: CA 27.29 226 U/mL (<38)
== END 2019-12-24 23:59 | disposition home or self-care (01) ==
LOC: ONCMED 09:04
PROVIDERS: PCP Family Medicine; Visit Provider Internal Medicine Medical Oncology
DX: Z51.11 Encounter for antineoplastic chemotherapy (principal); C50.811 Malignant neoplasm of overlapping sites of right female breast; Z17.0 Estrogen receptor positive status [ER+]; C79.51 Secondary malignant neoplasm of bone; M19.90 Unspecified osteoarthritis, unspecified site; J44.9 Chronic obstructive pulmonary disease, unspecified; E03.9 Hypothyroidism, unspecified; I25.10 Atherosclerotic heart disease of native coronary artery without angina pectoris; I65.23 Occlusion and stenosis of bilateral carotid arteries; I70.1 Atherosclerosis of renal artery; I71.4 Abdominal aortic aneurysm, without rupture; R35.0 Frequency of micturition; R39.15 Urgency of urination; Z92.3 Personal history of irradiation; Z79.818 Long term (current) use of other agents affecting estrogen receptors and estrogen levels; Z79.899 Other long term (current) drug therapy
CPT/HCPCS: 36415; 71046; 80053; 81003; 85025; 86300; 87086; 96372; 99214; J0897

== ENCOUNTER → 2020-01-08 07:34 | Outpatient (BNVA) | payer MEDICARE, MEDICAID, SELFPAY | PROVIDERS: PCP Family Medicine; Visit Provider Nurse Practitioner | DX: C50.411 Malignant neoplasm of upper-outer quadrant of right female breast (principal); C79.51 Secondary malignant neoplasm of bone; Z17.0 Estrogen receptor positive status [ER+]; E04.9 Nontoxic goiter, unspecified; M81.0 Age-related osteoporosis without current pathological fracture | CPT/HCPCS: 80053; 85025; 86300 ==

== ENCOUNTER 2020-01-10 05:51 | Outpatient (RCR) | payer MEDICARE, MEDICAID, SELFPAY ==
--- NOTE | 2020-01-18 10:58 | ONC FU_ITS ---
[facility] Patient Note Patient: Lorelei Saunders Unit #: [id number]: [id number] Dictated By: Ozzy RamirezDate of Visit: Jan 10, 2020 Onc MED Follow-Up/Prog Note Chief Complaint: Breast cancer/bone metastases. History of Present Illness: Ms Saunders is a 74 year-old woman with grade 2 infiltrating ductal carcinoma of the right breast, ER/IA positive and HER-2/alf negative, stage IV, with biopsy proven metastatic bone involvement. Her breast cancer was stage IIA (T2, N0, M0) at initial diagnosis in October 2008. Her Oncotype DX showed a recurrence score of 16, which was low risk. Her treatment included lumpectomy and axillary sentinel lymph node biopsy followed by radiation to the right breast, which she completed in February 2009. She was given adjuvant hormonal therapy with anastrozole. It was stopped in October 2012 when she came in with worsening joint pain. Bone scan in November 2012 showed no evidence of metastatic disease. She received no further adjuvant therapy, as she had then failed to return for follow-up. On 05/12/2019 she was seen in the emergency room with pain in the right hip area. The pain has been getting progressively worse over a period of several months. X-rays of the lumbar spine, pelvis, and right femur showed evidence of sclerotic lesions in the L1 and S1 vertebral bodies as well as lytic appearing bone changes in the right pubic bone. There was no fracture reported. Further evaluation with bone scan on 05/25/2019 showed multiple areas of uptake including the calvarium, cervical spine, thoracic spine, ribs, lumbar spine, pelvis, sacrum, and both hips most consistent with diffuse metastatic disease. Also noted was right renal pelvic dilatation. Dr Agrawal had seen her for a follow-up visit on 06/04/2019. Staging PET/CT on 06/09/2019 showed an intensely hypermetabolic left thyroid mass measuring 2.7 x 3.0 cm with SUV 16.9, appearance of which was felt to be most consistent with a primary thyroid malignancy. A right level III/IV cervical lymph node had elevated SUV of 8.0 and multiple mediastinal lymph nodes were FDG positive, consistent with metastases. And hepatic segment IVb lesion measuring 4.3 x 1.9 x 1.9 cm with SUV 5.9 appeared consistent with unifocal hepatic metastatic disease. A right paravertebral pleural implant at the right lung base measuring 2.0 x 1.7 cm had SUV 10.7. There was evidence of widespread osseous metastatic disease, as expected. Dr Agrawal reviewed that study with the radiologist. As none of the metastatic lesions were very accessible for biopsy, we opted to proceed with CT directed core needle biopsy of her right iliac bone lesion. Pathology showed metastatic adenocarcinoma most consistent with breast primary. The breast prognostic profile showed ER positive at 91% and IA positive at 5%. It was negative for overexpression of HER-2/alf, 0 by IHC and amplification ratio by FISH of 0.9 with 2.4 HER-2 copies/cell. With those findings, she was referred to Dr. Kenny. She underwent palliative radiation to the right hip and to the right rib cage, completed on 07/17/2019. Both sites were treated to a total dose of 3000 cGy. Her other medical illnesses include atherosclerotic cardiovascular disease, degenerative arthritis, osteoporosis, and hypothyroidism. She had evidence of a 3 cm infrarenal abdominal aortic aneurysm on CT angiogram in June 2018. That study also showed arterial stenosis had multiple sites including the proximal SMA, the right renal artery, and left renal artery. Extensive calcifications were noted through the common iliac arteries bilaterally. She underwent right carotid endarterectomy in 2017. She had undergone hysterectomy/BSO in 1994. She has a history of smoking 1 pack of cigarettes daily for close to 60 years. She cut down about a year ago. INTERIM HISTORY: On 08/25/2019 she began cycle 1 of systemic therapy palbociclib 125 mg daily on a 21/28-day schedule together with letrozole 2.5 mg daily. She also started monthly denosumab injections for the metastatic bone involvement. As of 09/12/2019 the palbociclib was put on hold due to neutropenia. She then continued with cycle 2 on 10/03/2019 with the palbociclib dosage reduced to 125 mg every other day for 21 days. At her follow-up visit on 11/05/2019 she complained of severe fatigue and shortness of breath. Her CT pulmonary angiogram showed evidence of COPD, and there were osteoblastic changes consistent with metastatic disease. There was no evidence, though, for pulmonary embolism or other acute pathology. There had been some decline in the CA-27-29 level. With those findings, she continued with cycle 3 of palbociclib and letrozole, but with the palbociclib dosed at 100 mg daily on a 21/28-day schedule. Ms. Saunders is here today for follow-up. She is due for monthly Xgeva as well. She continues on her palbociclib and letrozole. She states she has a week and 3 days left on her current prescription. She continues at 100 mg daily on the palbociclib. She has no new concerns today. She states that she thinks her medications make her a little tired and sleepy. She has not tried taking them at bedtime yet and after our discussion states that she will try this. Her appetite is better. Her energy is fair. She has no new concerns today. She denies any new pain. She denies any fever or chills. She denies any COVID symptoms. She denies any known COVID exposure or any pending or positive testing personally. She states her bowels and bladder are normal for her. Her ECOG is 0. Past Medical History: Abdominal aortic aneurysm Breast cancer Carotid stenosis Degenerative arthritis Goiter Hypothyroidism Renal artery stenosis Osteoporosis in 2009 (Treated) Past Surgical History: Knee surgery Knot removal from back Right carotid endarterectomy in 2018 Right breast lumpectomy with axillary sentinel lymph node biopsy in 2008 Breast biopsy in 2008 Hysterectomy/bilateral salpingo-oophorectomy in 1994 Allergies: Fluticasone Furoate Medications: Aspirin 1 Tablet (of 81 mg) Tablet Oral daily Hydrocodone-Acetaminophen 1 Tablet (of 5-325 mg) Tablet Oral q 6 hours PRN Ibrance 1 Tablet (of 100 mg) Oral daily Letrozole 1 Tablet (of 2.5 mg) Oral daily Levothyroxine Sodium 1 Tablet (of 50 mcg) Oral daily Family History: Ms. Saunders's mother is : heart disease. Ms. Saunders's father is : lung cancer. Ms. Saunders has 3 brothers: 2 alive, 1 . Ms. Saunders's first brother's kidney cancer. Another brother's esophagus cancer. She has 2 sisters: 2 . Ms. Saunders's first sister's lung cancer. Her father and a sister of lung cancer. One brother had esophageal cancer and another brother was treated for kidney cancer. Her mother of heart attack. A son with a drug overdose. Social History: Ms. Saunders is . She is a daily smoker who has smoked 1.0 pack/day for 60 years. She is a former drinker. She has a history of smoking 1 pack of cigarettes daily for close to 60 years. She cut down about a year ago and she now has only minimal smoking. She had alcohol use in the past but she quit drinking at least 35 or 40 years ago. pt states she quit smoking for 3 weeks and 3 days. Review Of Symptoms: Constitutional Denies fevers, chills, night sweats, excessive fatigue. She has had weight gain and her appetite is better overall. Allergic/Immunologic No reactions. Eyes Denies significant visual changes. No diplopia. No amaurosis. ENMT Denies changes in hearing, sore throat, mouth sores, difficulty or changes in swallowing ability. Hematologic/Lymphatic Denies easy bruising or bleeding. The patient denies any tender or palpable lymph nodes. Respiratory Denies dyspnea on exertion, chest pain, cough or hemoptysis. Cardiovascular Denies anginal chest pain, palpitations or orthopnea. Gastrointestinal Denies nausea, vomiting, diarrhea, GI bleeding, or constipation. Denies change in bowel habits and/or stool color, no heartburn or early satiety. Genitourinary (F) Denies abnormal genital masses. No hematuria, hesitancy, incontinence, vaginal bleeding, discharge or other problems with urination. Musculoskeletal She is now complaining of left shoulder pain and rib pain. She states that it is been there for a week or so but is getting worse. She also has right shoulder blade pain that has been there for a few weeks. Integumentary Denies chronic rashes, inflammation, ulcerations or skin changes. Neurologic Denies headache, blurred vision, and no areas of focal weakness or numbness. Normal gait. No sensory problems. Psychiatric Denies insomnia, depression, ailin or mood swings. Vital Signs: Performed on Jan 10, 2020 09:28 Height - 62.00 in Weight - 86.4 lbs (HIGH) BSA - 1.34 sq.m BMI - 15.80 (LOW) Temperature - 97.8 F (LOW) Pulse - 91 /min Respiration - 20 /min BP - 159/89 mm(hg) (HIGH) O2 Sat - 100 % Pain - 0,0 - Fully active, able to carry on all predisease activities without restrictions. (ECOG) Physical Examination: Constitutional Alert, oriented, no acute distress. Skin pink, warm and dry. Head Normocephalic; atraumatic. Eyes Conjunctivae and sclerae are clear and without icterus. Pupils are reactive and equal. ENMT Sinuses are nontender. No oral exudates, ulcers, masses, thrush or mucositis. Oropharynx clear. Tongue normal. Neck Supple without masses or thyromegaly. No jugular venous distension. Hematologic/Lymphatic No petechiae or purpura. No tender or palpable lymph nodes in the cervical, supraclavicular, or axillary area. Respiratory Lungs are clear to auscultation without rhonchi or wheezing. Cardiovascular Regular rate and rhythm of heart without murmurs,clicks, gallops or rubs. Abdomen Non-tender, non-distended, no masses, ascites or hepatosplenomegaly .Good bowel sounds noted in all quads. No guarding or rebound tenderness. No pulsatile masses. Back/Spine Non-tender to palpation. Extremities No visible deformities, no cyanosis, clubbing or edema. Musculoskeletal No tenderness or swelling, normal range of motion without obvious weakness. Integumentary No rashes or lesions. Neurologic No sensory or motor deficits, normal cerebellar function, normal gait, cranial nerves intact. Psychiatric Alert and oriented times three. Coherent speech. Verbalizes understanding of our discussions today. Laboratory: Test performed on Jan 08, 2020 16:28 WBC 2.7 10^9/L RBC 3.76 10^12/L HGB 11.5 g/dL HCT 36.2 % MCV 96.4 fl MCH 30.6 pg MCHC 31.8 g/dL RDW 15.9 % Platelet Count 268 10^9/L Neutrophils (Gran) 1.9494 10^9/L Lymphocytes 0.6291 10^9/L Monocytes 0.1215 10^9/L Test performed on Jan 08, 2020 08:42 Glucose 101 mg/dL BUN 23 mg/dL Creatinine 0.7 mg/dL Cr Clearance (Est) 41.91 mL/min Sodium 137 mmol/L Potassium 4.5 mmol/L Chloride 99 mmol/L CO2 21 mmol/L Calcium 8.3 mg/dL Protein, Total 7.1 g/dL Albumin 4.3 g/dL Globulin 2.8 g/dL Bilirubin, Total 0.3 mg/dL Alkaline Phosphatase 84 IU/L AST (SGOT) 20 IU/L ALT (SGPT) 10 IU/L Test performed on Dec 10, 2019 09:26 Anion Gap 12.0 MPV 9.6 fL Eosinophils 0.0 10 3/uL Basophils 0.1 10 3/uL Neutrophil % 59.1 % Lymphocyte % 27.0 % Monocyte % 10.9 % Eosinophil % 0.7 % Basophils % 1.9 % NRBC % 0 % CA 27.29 226 U/mL Impression: 1. 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 Her disease was stage IIA (T2, N0, M0) at initial diagnosis in October 2008. She now has progression to stage IV with multiple sites of metastatic involvement including extensive bony metastatic disease. 2. Her initial treatment included lumpectomy and radiation, completed in February 2009. 3. She was given adjuvant hormonal therapy with anastrozole. It was stopped in October 2012 due to worsening musculoskeletal pain. Bone scan at that time showed no evidence of metastatic disease. She received no further adjuvant therapy. Her other medical illnesses include: 4. Degenerative arthritis. 5. COPD. 6. Hypothyroidism. 7. Atherosclerotic cardiovascular disease including carotid stenosis and renal artery stenosis. 8. She has known abdominal aortic aneurysm. She underwent CT directed core needle biopsy of a right iliac bone lesion on 06/26/2019. Pathology confirmed metastatic adenocarcinoma consistent with breast primary, ER/IA positive and HER-2/alf negative. With that finding, she underwent palliative radiation to the right hip and to the right rib cage, completed on 07/17/2019, both sites to a total dose of 3000 cGy. On 08/21/2019 she began systemic therapy with palbociclib 125 mg daily on a -day schedule together with letrozole 2.5 mg daily. She also started monthly denosumab injections for the metastatic bone involvement. As of 09/12/2019 the palbociclib was put on hold due to neutropenia. She had adequate recovery, and she then continued with cycle 2 of palbociclib on 10/03/2019 with the dosage reduced to 125 mg every other day for 21 days. At her follow-up visit on 11/05/2019 she complained of increased fatigue and shortness of breath. There was no evidence for pulmonary embolism or other acute pathology on a CT pulmonary angiogram. At that point she had shown some decline in her CA-27-29 level. With those findings she continued with her 3rd cycle of treatment with palbociclib dosed at 100 mg daily on a 21/28-day schedule together with letrozole 2.5 mg daily. At this point she continues to have shortness of breath, but with no acute findings on her chest x-ray. The x-ray did show increased sclerosis at multiple sites in the bone. The report suggested progression of metastatic disease, but it may just reflect a response to her treatment. She does appear to be tolerating her treatment with acceptable toxicity at the current dosages. She developed a mild skin eruption, but that may have just be a reaction to her face mask. It is currently resolved. She continues to tolerate treatment well overall. Plan: 1. continue palbociclib 100 mg daily 21 of 28 days. 2. Continue letrozole 2.5 mg daily. 3. Continue with Xgeva today as scheduled 120 mg monthly. 4. Labs from January 08, 2020 were reviewed in detail and discussed with Ms. Saunders and a copy was given to her. WBC is 2.7, hemoglobin 11.5, platelets 268,000 ANC is 1900 which is stable. Creatinine 0.7 random glucose 101 LFTs are normal her last 2729 was on December 10, 2019 and was reported at 226 which was declining. It was 375 in September 2019. 5. We will plan to see her back in 1 month with CBC CMP CA-27-29. She will be due for Xgeva at that time as well. 6. Mrs. Saunders is been instructed to contact us in interim should questions or problems arise. Signed By: Ozzy Ramirez-LUZ, AOANTHONYP Paul Agrawal MD <<Signature on File>>
== END 2020-01-23 23:59 | disposition home or self-care (01) ==
LOC: ONCMED 05:51
PROVIDERS: PCP Family Medicine; Visit Provider Internal Medicine Medical Oncology
DX: C50.411 Malignant neoplasm of upper-outer quadrant of right female breast (principal); Z17.0 Estrogen receptor positive status [ER+]; C79.51 Secondary malignant neoplasm of bone; M19.90 Unspecified osteoarthritis, unspecified site; J44.9 Chronic obstructive pulmonary disease, unspecified; E03.9 Hypothyroidism, unspecified; I25.10 Atherosclerotic heart disease of native coronary artery without angina pectoris; I65.23 Occlusion and stenosis of bilateral carotid arteries; I70.1 Atherosclerosis of renal artery; I71.4 Abdominal aortic aneurysm, without rupture; Z79.818 Long term (current) use of other agents affecting estrogen receptors and estrogen levels
CPT/HCPCS: 96372; 99214; J0897

== ENCOUNTER → 2020-02-05 15:40 | Outpatient (BNVA) | payer MEDICARE, MEDICAID, SELFPAY | PROVIDERS: PCP Family Medicine; Visit Provider Internal Medicine Medical Oncology | DX: C50.411 Malignant neoplasm of upper-outer quadrant of right female breast (principal) | CPT/HCPCS: 36415; 80053; 85025; 86300 ==

== ENCOUNTER 2020-02-11 05:53 | Outpatient (RCR) | payer MEDICARE, MEDICAID, SELFPAY ==
[2020-02-11] MEDS: denosumab 120 mg SDV SUBCUT (09:40)
--- NOTE | 2020-02-15 14:02 | ONC FU_ITS ---
Dr. Agrawal Patient Follow-Up Note Patient: Lorelei Suanders Unit #: [id number]: 1945 Dicatated By: Paul Agrawal M.D.Date of Visit:Feb 11, 2020 Onc Med Follow-up/Prog Note Chief Complaint: Breast cancer/bone metastases. History of Present Illness: This is a 74 year-old woman with grade 2 infiltrating ductal carcinoma of the right breast, ER/NC positive and HER-2/alf negative, stage IV, with biopsy proven metastatic bone involvement. Her breast cancer was stage IIA (T2, N0, M0) at initial diagnosis in October 2008. Her Oncotype DX showed a recurrence score of 16, which was low risk. Her treatment included lumpectomy and axillary sentinel lymph node biopsy followed by radiation to the right breast, which she completed in February 2009. She was given adjuvant hormonal therapy with anastrozole. It was stopped in October 2012 when she came in with worsening joint pain. Bone scan in November 2012 showed no evidence of metastatic disease. She received no further adjuvant therapy, as she had then failed to return for follow-up. On 05/12/2019 she was seen in the emergency room with pain in the right hip area. The pain has been getting progressively worse over a period of several months. X-rays of the lumbar spine, pelvis, and right femur showed evidence of sclerotic lesions in the L1 and S1 vertebral bodies as well as lytic appearing bone changes in the right pubic bone. There was no fracture reported. Further evaluation with bone scan on 05/25/2019 showed multiple areas of uptake including the calvarium, cervical spine, thoracic spine, ribs, lumbar spine, pelvis, sacrum, and both hips most consistent with diffuse metastatic disease. Also noted was right renal pelvic dilatation. I had seen her for a follow-up visit on 06/04/2019. Staging PET/CT on 06/09/2019 showed an intensely hypermetabolic left thyroid mass measuring 2.7 x 3.0 cm with SUV 16.9, appearance of which was felt to be most consistent with a primary thyroid malignancy. A right level III/IV cervical lymph node had elevated SUV of 8.0 and multiple mediastinal lymph nodes were FDG positive, consistent with metastases. And hepatic segment IVb lesion measuring 4.3 x 1.9 x 1.9 cm with SUV 5.9 appeared consistent with unifocal hepatic metastatic disease. A right paravertebral pleural implant at the right lung base measuring 2.0 x 1.7 cm had SUV 10.7. There was evidence of widespread osseous metastatic disease, as expected. I have reviewed that study with the radiologist. As none of the metastatic lesions were very accessible for biopsy, we opted to proceed with CT directed core needle biopsy of her right iliac bone lesion. Pathology showed metastatic adenocarcinoma most consistent with breast primary. The breast prognostic profile showed ER positive at 91% and NC positive at 5%. It was negative for overexpression of HER-2/alf, 0 by IHC and amplification ratio by FISH of 0.9 with 2.4 HER-2 copies/cell. With those findings, she was referred to Dr. Kenny. She underwent palliative radiation to the right hip and to the right rib cage, completed on 07/17/2019. Both sites were treated to a total dose of 3000 cGy. Her other medical illnesses include atherosclerotic cardiovascular disease, degenerative arthritis, osteoporosis, and hypothyroidism. She had evidence of a 3 cm infrarenal abdominal aortic aneurysm on CT angiogram in June 2018. That study also showed arterial stenosis had multiple sites including the proximal SMA, the right renal artery, and left renal artery. Extensive calcifications were noted through the common iliac arteries bilaterally. She underwent right carotid endarterectomy in 2017. She had undergone hysterectomy/BSO in 1994. She has a history of smoking 1 pack of cigarettes daily for close to 60 years. She cut down about a year ago. INTERIM HISTORY: On 08/25/2019 she began cycle 1 of systemic therapy palbociclib 125 mg daily on a 21/28-day schedule together with letrozole 2.5 mg daily. She also started monthly denosumab injections for the metastatic bone involvement. As of 09/12/2019 the palbociclib was put on hold due to neutropenia. She then continued with cycle 2 on 10/03/2019 with the palbociclib dosage reduced to 125 mg every other day for 21 days. At her follow-up visit on 11/05/2019 she complained of severe fatigue and shortness of breath. Her CT pulmonary angiogram showed evidence of COPD, and there were osteoblastic changes consistent with metastatic disease. There was no evidence, though, for pulmonary embolism or other acute pathology. There had been some decline in the CA-27-29 level. With those findings, she continued with cycle 3 of palbociclib and letrozole, but with the palbociclib dosed at 100 mg daily on a -day schedule. She is seen for a follow-up visit. She has been feeling pretty good generally. Her main complaint is that she has persistent skin rash in the facial area, though does not really bother her. Her energy is getting better. Her ECOG score is 1. She has good appetite and her weight is stable. She has no fever. She does have some hot flashes/sweating. She still has some shortness of breath, but her breathing is better. She does not have cough and she does not complain of chest pain. She has no GI or complaints. She still has some pain on her left side, but it is managed adequately with her pain medication. She does not complain of headache. She has some numbness in her left hand. Medications: Aspirin 1 Tablet (of 81 mg) Tablet Oral daily, Hydrocodone-Acetaminophen 1 Tablet (of 5-325 mg) Tablet Oral q 6 hours PRN, Ibrance 1 Tablet (of 100 mg) Oral daily, Letrozole 1 Tablet (of 2.5 mg) Oral daily, Levothyroxine Sodium 1 Tablet (of 50 mcg) Oral daily Allergies: Fluticasone Furoate Review of Systems: Constitutional - Her energy is getting better. Her appetite is good and her weight is stable. No fevers. She has hot flashes with sweating. ECOG score is 1, ENMT - No sinus congestion/drainage. No mouth sores. No sore throat or difficulty swallowing, Hematologic/Lymphatic - She bruises easily, Respiratory - She gets short of breath with activity. No cough. No pleuritic pain or hemoptysis, Cardiovascular - No angina pain. No palpitations, Gastrointestinal - No nausea or vomiting. No heartburn or acid reflux. No diarrhea or constipation. No blood in the stool or black stools, Genitourinary (F) - No dysuria or hematuria. No urinary frequency. No urgency or incontinence, Musculoskeletal - She still has some pain on her left side. It is adequately managed with medication, Integumentary - She has a scattered rash to her face, Neurologic - No headache or dizziness. No numbness or tingling. No other focal neurologic symptoms, Psychiatric - No anxiety. She occasionally has depression. She has occasional difficulty sleeping. Vital Signs: Performed on Feb 11, 2020 09:11 Height - 62.00 in Weight - 85.4 lbs (LOW) BSA - 1.33 sq.m BMI - 15.62 (LOW) Temperature - 98.3 F (LOW) Pulse - 95 /min Respiration - 16 /min BP - 122/80 mm(hg) O2 Sat - 99 % Pain - 0 Physical Examination: Constitutional - She looks pretty good generally, Eyes - Sclerae nonicteric. Conjunctivae clear, ENMT - No lesions noted in the oral cavity, Hematologic/Lymphatic - No cervical, clavicular, or axillary adenopathy, Respiratory - Lungs sound clear with some decrease in air movement bilaterally, Cardiovascular - Heart rhythm is regular. There is no murmur, gallop, or rub noted, Abdomen - Soft. Liver and spleen are not enlarged. There is no abdominal mass or ascites noted and there is no inguinal adenopathy, Extremities - No edema, Integumentary - There is patchy erythema in the facial area, mainly around the mouth and cheek area, Neurologic - No focal neurologic deficits noted. Lab/Imaging: CBC shows hemoglobin 12.0 g, white blood cell count 2700, and platelet count 245,000. Comprehensive metabolic profile is unremarkable. There has been further decrease in the CA 27-29 level, now to 186 U/mL. Impression: 1. 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 Her disease was stage IIA (T2, N0, M0) at initial diagnosis in October 2008. She now has progression to stage IV with multiple sites of metastatic involvement including extensive bony metastatic disease. 2. Her initial treatment included lumpectomy and radiation, completed in February 2009. 3. She was given adjuvant hormonal therapy with anastrozole. It was stopped in October 2012 due to worsening musculoskeletal pain. Bone scan at that time showed no evidence of metastatic disease. She received no further adjuvant therapy. Her other medical illnesses include: 4. Degenerative arthritis. 5. COPD. 6. Hypothyroidism. 7. Atherosclerotic cardiovascular disease including carotid stenosis and renal artery stenosis. 8. She has known abdominal aortic aneurysm. She underwent CT directed core needle biopsy of a right iliac bone lesion on 06/26/2019. Pathology confirmed metastatic adenocarcinoma consistent with breast primary, ER/NC positive and HER-2/alf negative. With that finding, she underwent palliative radiation to the right hip and to the right rib cage, completed on 07/17/2019, both sites to a total dose of 3000 cGy. On 08/21/2019 she began systemic therapy with palbociclib 125 mg daily on a 21/28-day schedule together with letrozole 2.5 mg daily. She also started monthly denosumab injections for the metastatic bone involvement. As of 09/12/2019 the palbociclib was put on hold due to neutropenia. She had adequate recovery, and she then continued with cycle 2 of palbociclib on 10/03/2019 with the dosage reduced to 125 mg every other day for 21 days. At her follow-up visit on 11/05/2019 she complained of increased fatigue and shortness of breath. There was no evidence for pulmonary embolism or other acute pathology on a CT pulmonary angiogram. At that point she had shown some decline in her CA-27-29 level. With those findings she continued treatment with palbociclib dosed at 100 mg daily on a 21/28-day schedule together with letrozole 2.5 mg daily. During follow-up she has had gradual improvement in her energy/activity tolerance. She has developed persistent skin eruption in the facial area, which I suspect is treatment related, possibly to the denosumab. The rash does not really bother her, though, and she otherwise appears to be tolerating treatment very well. She does appear to be showing a good clinical response. Plan: She will continue treatment with palbociclib/letrozole. The dosages will remain the same. She will be given denosumab 120 mg by subcutaneous injection for the metastatic bone involvement. She returns in 1 month. Signed By: Paul Agrawal M.D. <<Signature on File>>
== END 2020-02-23 23:59 | disposition home or self-care (01) ==
LOC: ONCMED 05:53
PROVIDERS: PCP Family Medicine; Visit Provider Internal Medicine Medical Oncology
DX: C50.411 Malignant neoplasm of upper-outer quadrant of right female breast (principal); C79.51 Secondary malignant neoplasm of bone; R21 Rash and other nonspecific skin eruption; M81.0 Age-related osteoporosis without current pathological fracture; M19.90 Unspecified osteoarthritis, unspecified site; J44.9 Chronic obstructive pulmonary disease, unspecified; E03.9 Hypothyroidism, unspecified; I25.10 Atherosclerotic heart disease of native coronary artery without angina pectoris; I70.1 Atherosclerosis of renal artery; I71.4 Abdominal aortic aneurysm, without rupture; F17.210 Nicotine dependence, cigarettes, uncomplicated; Z17.0 Estrogen receptor positive status [ER+]; Z79.899 Other long term (current) drug therapy; Z92.3 Personal history of irradiation
CPT/HCPCS: 96372; 99214; J0897

== ENCOUNTER → 2020-03-06 09:00 | Outpatient (BNVA) | payer MEDICARE, MEDICAID, SELFPAY | PROVIDERS: PCP Family Medicine; Visit Provider Internal Medicine Medical Oncology | DX: C50.411 Malignant neoplasm of upper-outer quadrant of right female breast (principal) | CPT/HCPCS: 80053; 85025; 86300 ==

== ENCOUNTER 2020-03-10 05:53 | Outpatient (RCR) | payer MEDICARE, MEDICAID, SELFPAY ==
[2020-03-10] MEDS: denosumab 120 mg SDV SUBCUT (12:08)
--- NOTE | 2020-03-16 20:28 | ONC FU_ITS ---
[facility] Patient Note Patient: Lorelei Saunders Unit #: [id number]: 1945 Dictated By: Ozzy RamirezDate of Visit: Mar 10, 2020 Onc MED Follow-Up/Prog Note Chief Complaint: Breast cancer/bone metastases. History of Present Illness: Ms Saunders is a 74 year-old woman with grade 2 infiltrating ductal carcinoma of the right breast, ER/NH positive and HER-2/alf negative, stage IV, with biopsy proven metastatic bone involvement. Her breast cancer was stage IIA (T2, N0, M0) at initial diagnosis in October 2008. Her Oncotype DX showed a recurrence score of 16, which was low risk. Her treatment included lumpectomy and axillary sentinel lymph node biopsy followed by radiation to the right breast, which she completed in February 2009. She was given adjuvant hormonal therapy with anastrozole. It was stopped in October 2012 when she came in with worsening joint pain. Bone scan in November 2012 showed no evidence of metastatic disease. She received no further adjuvant therapy, as she had then failed to return for follow-up. On 05/12/2019 she was seen in the emergency room with pain in the right hip area. The pain has been getting progressively worse over a period of several months. X-rays of the lumbar spine, pelvis, and right femur showed evidence of sclerotic lesions in the L1 and S1 vertebral bodies as well as lytic appearing bone changes in the right pubic bone. There was no fracture reported. Further evaluation with bone scan on 05/25/2019 showed multiple areas of uptake including the calvarium, cervical spine, thoracic spine, ribs, lumbar spine, pelvis, sacrum, and both hips most consistent with diffuse metastatic disease. Also noted was right renal pelvic dilatation. Dr Agrawal had seen her for a follow-up visit on 06/04/2019. Staging PET/CT on 06/09/2019 showed an intensely hypermetabolic left thyroid mass measuring 2.7 x 3.0 cm with SUV 16.9, appearance of which was felt to be most consistent with a primary thyroid malignancy. A right level III/IV cervical lymph node had elevated SUV of 8.0 and multiple mediastinal lymph nodes were FDG positive, consistent with metastases. A hepatic segment IVb lesion measuring 4.3 x 1.9 x 1.9 cm with SUV 5.9 appeared consistent with unifocal hepatic metastatic disease. A right paravertebral pleural implant at the right lung base measuring 2.0 x 1.7 cm had SUV 10.7. There was evidence of widespread osseous metastatic disease, as expected. As none of the metastatic lesions were very accessible for biopsy, it was opted to proceed with CT directed core needle biopsy of her right iliac bone lesion. Pathology showed metastatic adenocarcinoma most consistent with breast primary. The breast prognostic profile showed ER positive at 91% and NH positive at 5%. It was negative for overexpression of HER-2/alf, 0 by IHC and amplification ratio by FISH of 0.9 with 2.4 HER-2 copies/cell. With those findings, she was referred to Dr. Kenny. She underwent palliative radiation to the right hip and to the right rib cage, completed on 07/17/2019. Both sites were treated to a total dose of 3000 cGy. Her other medical illnesses include atherosclerotic cardiovascular disease, degenerative arthritis, osteoporosis, and hypothyroidism. She had evidence of a 3 cm infrarenal abdominal aortic aneurysm on CT angiogram in June 2018. That study also showed arterial stenosis had multiple sites including the proximal SMA, the right renal artery, and left renal artery. Extensive calcifications were noted through the common iliac arteries bilaterally. She underwent right carotid endarterectomy in 2017. She had undergone hysterectomy/BSO in 1994. She has a history of smoking 1 pack of cigarettes daily for close to 60 years. She cut down about a year ago. INTERIM HISTORY: On 08/25/2019 she began cycle 1 of systemic therapy palbociclib 125 mg daily on a 21/28-day schedule together with letrozole 2.5 mg daily. She also started monthly denosumab injections for the metastatic bone involvement. As of 09/12/2019, the palbociclib was put on hold due to neutropenia. She then continued with cycle 2 on 10/03/2019 with the palbociclib dosage reduced to 125 mg every other day for 21 days. At her follow-up visit on 11/05/2019 she complained of severe fatigue and shortness of breath. Her CT pulmonary angiogram showed evidence of COPD, and there were osteoblastic changes consistent with metastatic disease. There was no evidence, though, for pulmonary embolism or other acute pathology. There had been some decline in the CA-27-29 level. With those findings, she continued with cycle 3 of palbociclib and letrozole, but with the palbociclib dosed at 100 mg daily on a 21/28-day schedule. Ms Saunders is here today for followup. [facility]. She states overall she seems to be doing pretty good. However she has developed some new shortness of breath and wheezing over the last week or so. She states is not getting better on its own. She has had some cough but states really not been productive. She denies any fever or chills. She denies any known Covid exposure or pending test. She denies any nausea or vomiting. She denies diarrhea, constipation or any urinary problems. She states her appetite is good and her energy is fair. She states she has not had any bone pain. She denies any lower extremity edema or shortness of breath other than the acute as above. She states she remains active around the house as able to take care of herself without any assistance. Her ECOG is 1. Past Medical History: Abdominal aortic aneurysm Breast cancer Carotid stenosis Degenerative arthritis Goiter Hypothyroidism Renal artery stenosis Osteoporosis in 2009 (Treated) Past Surgical History: Knee surgery Knot removal from back Right carotid endarterectomy in 2018 Right breast lumpectomy with axillary sentinel lymph node biopsy in 2008 Breast biopsy in 2008 Hysterectomy/bilateral salpingo-oophorectomy in 1994 Allergies: Fluticasone Furoate Medications: Aspirin 1 Tablet (of 81 mg) Tablet Oral daily Hydrocodone-Acetaminophen 1 Tablet (of 5-325 mg) Tablet Oral q 6 hours PRN Ibrance 1 Tablet (of 100 mg) Oral daily Letrozole 1 Tablet (of 2.5 mg) Oral daily Levothyroxine Sodium 1 Tablet (of 50 mcg) Oral daily Family History: Ms. Saunders's mother is : heart disease. Ms. Saunders's father is : lung cancer. Ms. Saunders has 3 brothers: 2 alive, 1 . Ms. Saunders's first brother's kidney cancer. Another brother's esophagus cancer. She has 2 sisters: 2 . Ms. Saunders's first sister's lung cancer. Her father and a sister of lung cancer. One brother had esophageal cancer and another brother was treated for kidney cancer. Her mother of heart attack. A son with a drug overdose. Social History: Ms. Saunders is . She is a daily smoker who has smoked 1.0 pack/day for 61 years. She is a former drinker. She has a history of smoking 1 pack of cigarettes daily for close to 60 years. She cut down about a year ago and she now has only minimal smoking. She had alcohol use in the past but she quit drinking at least 35 or 40 years ago. pt states she is trying to quit smoking and doesn't smoke much anymore. Review Of Symptoms: Constitutional Denies fevers, chills, night sweats, excessive fatigue. She states she feels pretty good except for recent breathing issues-see above. Eyes Denies significant visual changes. No diplopia. No amaurosis. ENMT Denies changes in hearing, sore throat, mouth sores, difficulty or changes in swallowing ability. Hematologic/Lymphatic Denies easy bruising or bleeding. The patient denies any tender or palpable lymph nodes. Breasts no concerns. Respiratory Denies chest pain, cough or hemoptysis. Cardiovascular Denies anginal chest pain, palpitations or orthopnea. Gastrointestinal Denies nausea, vomiting, diarrhea, GI bleeding, or constipation. Denies change in bowel habits and/or stool color, no heartburn or early satiety. Genitourinary (F) No hematuria, hesitancy, incontinence, vaginal bleeding, discharge or other problems with urination. Musculoskeletal Denies joint pain, swelling or redness. No decreased range of motion. Integumentary persistent mild rash on her face, neck and upper chest. She states it is better overall and does not bother her. Neurologic Denies headache, blurred vision, and no areas of focal weakness or numbness. Normal gait. No sensory problems. Psychiatric Denies insomnia, depression, ailin or mood swings. Vital Signs: Performed on Mar 10, 2020 11:28 Height - 62.00 in Weight - 84.6 lbs (LOW) BSA - 1.33 sq.m BMI - 15.47 (LOW) Temperature - 97.7 F (LOW) Pulse - 83 /min Respiration - 20 /min BP - 165/98 mm(hg) (HIGH) O2 Sat - 98 % Pain - 7,1 - No physically strenuous activity, but ambulatory and able to carry out light or sedentary work (e.g. office work, light house work). (ECOG) Physical Examination: Constitutional Alert, oriented, no acute distress. Skin pink, warm and dry. Head Normocephalic; atraumatic. Eyes Conjunctivae and sclerae are clear and without icterus. Pupils are reactive and equal. Neck Supple without masses or thyromegaly. No jugular venous distension. Hematologic/Lymphatic No petechiae or purpura. No tender or palpable lymph nodes in the cervical, supraclavicular, or axillary area. Respiratory Lung auscultation is without rhonchi but faint scattered wheezing bilaterally. Cardiovascular Regular rate and rhythm of heart with soft systolic murmur but no clicks, gallops or rubs. Abdomen Non-tender, non-distended, no masses, ascites or hepatosplenomegaly .Good bowel sounds noted in all quads. No guarding or rebound tenderness. No pulsatile masses. Back/Spine Non-tender to palpation. Extremities No visible deformities, no cyanosis, clubbing or edema. Musculoskeletal No tenderness or swelling, normal range of motion without obvious weakness. Integumentary No rashes or lesions. Neurologic No sensory or motor deficits, normal cerebellar function, normal gait. Psychiatric Alert and oriented times three. Coherent speech. Verbalizes understanding of our discussions today. Laboratory:Test performed on Mar 06, 2020 10:30 Glucose 56 mg/dL BUN 19 mg/dL Creatinine 0.7 mg/dL Cr Clearance (Est) 40.7700 mL/min Sodium 139 mmol/L Potassium 4.3 mmol/L Chloride 103 mmol/L CO2 25 mmol/L Calcium 8.8 mg/dL Protein, Total 6.1 g/dL Albumin 4.0 g/dL Globulin 2.1 g/dL Bilirubin, Total 0.2 mg/dL Alkaline Phosphatase 62 IU/L AST (SGOT) 19 IU/L ALT (SGPT) 11 IU/L WBC 2.0 10^9/L RBC 3.21 10^12/L HGB 10.3 g/dL HCT 31.8 % MCV 98.9 fl MCH 32.2 pg MCHC 32.5 g/dL RDW 16.2 % Platelet Count 222 10^9/L Neutrophils (Gran) 1.1 10^9/L Lymphocytes 0.7 10^9/L Monocytes 0.2 10^9/L CA 27.29 180 Units/mL Impression: 1. Patient with grade 2 infiltrating ductal carcinoma of the right breast, ER/NH positive and HER-2/alf negative. Her disease was stage IIA (T2, N0, M0) at initial diagnosis in October 2008. She had progression to stage IV with multiple sites of metastatic involvement including extensive bony metastatic disease in June 2019. 2. Her initial treatment included lumpectomy and radiation, completed in February 2009. 3. She was given adjuvant hormonal therapy with anastrozole. It was stopped in October 2012 due to worsening musculoskeletal pain. Bone scan at that time showed no evidence of metastatic disease. She received no further adjuvant therapy. Her other medical illnesses include: 4. Degenerative arthritis. 5. COPD. 6. Hypothyroidism. 7. Atherosclerotic cardiovascular disease including carotid stenosis and renal artery stenosis. 8. She has known abdominal aortic aneurysm. She underwent CT directed core needle biopsy of a right iliac bone lesion on 06/26/2019. Pathology confirmed metastatic adenocarcinoma consistent with breast primary, ER/NH positive and HER-2/alf negative. With that finding, she underwent palliative radiation to the right hip and to the right rib cage, completed on 07/17/2019, both sites to a total dose of 3000 cGy. On 08/21/2019 she began systemic therapy with palbociclib 125 mg daily on a 21/28-day schedule together with letrozole 2.5 mg daily. She also started monthly denosumab injections for the metastatic bone involvement. As of 09/12/2019 the palbociclib was put on hold due to neutropenia. She had adequate recovery, and she then continued with cycle 2 of palbociclib on 10/03/2019 with the dosage reduced to 125 mg every other day for 21 days. At her follow-up visit on 11/05/2019 she complained of increased fatigue and shortness of breath. There was no evidence for pulmonary embolism or other acute pathology on a CT pulmonary angiogram. At that point she had shown some decline in her CA-27-29 level. With those findings she continued treatment with palbociclib dosed at 100 mg daily on a 21/28-day schedule together with letrozole 2.5 mg daily. During follow-up she has had gradual improvement in her energy/activity tolerance. She has developed persistent skin eruption in the facial area, which is suspected to be treatment related, possibly to the denosumab. The rash does not really bother her, though, and she otherwise appears to be tolerating treatment very well. She does appear to be showing a good clinical response. She states the rash doesn't bother her and she isn't interested in seeing a advertising internship right now. Plan: 1. She will continue treatment with palbociclib/letrozole. The dosages will remain the same. However, I have asked her to stop her palbociclib for now. She states she finishes this week and then is off week. Her ANC from 03/06/2020 was 1100. Her white count was 2.0. She is showing signs of respiratory infection with her shortness of breath and wheezing. She will resume the palbociclib as scheduled after her break next week. 2. She will continue the letrozole and refill be sent to [facility] in [place]. 3. I will also send in a [facility] as she states this generally works well for her respiratory infections. This will also be sent to [facility]. 4. Labs from 03/06/2020 were reviewed in detail and discussed with Ms. Saunders and a copy was given to her. WBC is 2.0, hemoglobin 10.3, platelets 222,000 ANC is 1100 potassium 4.3 random glucose was 56 creatinine 0.7 LFTs were normal and her CA 27-29 was down to 180. It was 226 on December 10, 2019. 5. We will plan to check a CBC CMP her on March 24 at the [facility]. We will plan to see her back here the week of April 21 with CBC CMP CA 27 29 and TSH. 6. Ms Saunders was encouraged to call us in the interim if questions or concerns arise. Signed By: Ozzy Ramirez-, AOCNAdrian Agrawal MD <<Signature on File>>
== END 2020-03-24 23:59 | disposition home or self-care (01) ==
LOC: ONCMED 05:53
PROVIDERS: PCP Family Medicine; Visit Provider Nurse Practitioner
DX: Z51.11 Encounter for antineoplastic chemotherapy (principal); C50.411 Malignant neoplasm of upper-outer quadrant of right female breast; Z17.0 Estrogen receptor positive status [ER+]; C79.51 Secondary malignant neoplasm of bone; M19.90 Unspecified osteoarthritis, unspecified site; J44.9 Chronic obstructive pulmonary disease, unspecified; E03.9 Hypothyroidism, unspecified; I25.10 Atherosclerotic heart disease of native coronary artery without angina pectoris; I65.23 Occlusion and stenosis of bilateral carotid arteries; I70.1 Atherosclerosis of renal artery; I71.4 Abdominal aortic aneurysm, without rupture; Z79.899 Other long term (current) drug therapy
CPT/HCPCS: 96372; 99214; J0897

== ENCOUNTER → 2020-03-24 09:32 | Outpatient (BNVA) | payer MEDICARE, MEDICAID, SELFPAY | PROVIDERS: PCP Family Medicine; Visit Provider Nurse Practitioner Family | DX: C50.411 Malignant neoplasm of upper-outer quadrant of right female breast (principal) | CPT/HCPCS: 36415; 80053; 85025 ==

== ENCOUNTER → 2020-04-21 09:00 | Outpatient (BNVA) | payer MEDICARE, MEDICAID, SELFPAY | PROVIDERS: PCP Family Medicine; Visit Provider Internal Medicine Medical Oncology | DX: C50.411 Malignant neoplasm of upper-outer quadrant of right female breast (principal); Z79.899 Other long term (current) drug therapy | CPT/HCPCS: 80053; 84443; 85025; 86300 ==

== ENCOUNTER 2020-04-23 06:11 | Outpatient (RCR) | payer MEDICARE, MEDICAID, SELFPAY ==
[2020-04-23] MEDS: denosumab 120 mg SDV SUBCUT (15:30)
--- NOTE | 2020-04-29 21:46 | ONC FU_ITS ---
[facility] Patient Note Patient: Lorelei Saunders Unit #: [id number]: 1945 Dictated By: Ozzy RamirezDate of Visit: Apr 23, 2020 Onc MED Follow-Up/Prog Note Chief Complaint: Breast cancer/bone metastases. History of Present Illness: Ms Saunders is a 74 year-old woman with grade 2 infiltrating ductal carcinoma of the right breast, ER/AR positive and HER-2/alf negative, stage IV, with biopsy proven metastatic bone involvement. Her breast cancer was stage IIA (T2, N0, M0) at initial diagnosis in October 2008. Her Oncotype DX showed a recurrence score of 16, which was low risk. Her treatment included lumpectomy and axillary sentinel lymph node biopsy followed by radiation to the right breast, which she completed in February 2009. She was given adjuvant hormonal therapy with anastrozole. It was stopped in October 2012 when she came in with worsening joint pain. Bone scan in November 2012 showed no evidence of metastatic disease. She received no further adjuvant therapy, as she had then failed to return for follow-up. On 05/12/2019 she was seen in the emergency room with pain in the right hip area. The pain has been getting progressively worse over a period of several months. X-rays of the lumbar spine, pelvis, and right femur showed evidence of sclerotic lesions in the L1 and S1 vertebral bodies as well as lytic appearing bone changes in the right pubic bone. There was no fracture reported. Further evaluation with bone scan on 05/25/2019 showed multiple areas of uptake including the calvarium, cervical spine, thoracic spine, ribs, lumbar spine, pelvis, sacrum, and both hips most consistent with diffuse metastatic disease. Also noted was right renal pelvic dilatation. Dr Agrawal had seen her for a follow-up visit on 06/04/2019. Staging PET/CT on 06/09/2019 showed an intensely hypermetabolic left thyroid mass measuring 2.7 x 3.0 cm with SUV 16.9, appearance of which was felt to be most consistent with a primary thyroid malignancy. A right level III/IV cervical lymph node had elevated SUV of 8.0 and multiple mediastinal lymph nodes were FDG positive, consistent with metastases. A hepatic segment IVb lesion measuring 4.3 x 1.9 x 1.9 cm with SUV 5.9 appeared consistent with unifocal hepatic metastatic disease. A right paravertebral pleural implant at the right lung base measuring 2.0 x 1.7 cm had SUV 10.7. There was evidence of widespread osseous metastatic disease, as expected. As none of the metastatic lesions were very accessible for biopsy, it was opted to proceed with CT directed core needle biopsy of her right iliac bone lesion. Pathology showed metastatic adenocarcinoma most consistent with breast primary. The breast prognostic profile showed ER positive at 91% and AR positive at 5%. It was negative for overexpression of HER-2/alf, 0 by IHC and amplification ratio by FISH of 0.9 with 2.4 HER-2 copies/cell. With those findings, she was referred to Dr. Kenny. She underwent palliative radiation to the right hip and to the right rib cage, completed on 07/17/2019. Both sites were treated to a total dose of 3000 cGy. Her other medical illnesses include atherosclerotic cardiovascular disease, degenerative arthritis, osteoporosis, and hypothyroidism. She had evidence of a 3 cm infrarenal abdominal aortic aneurysm on CT angiogram in June 2018. That study also showed arterial stenosis had multiple sites including the proximal SMA, the right renal artery, and left renal artery. Extensive calcifications were noted through the common iliac arteries bilaterally. She underwent right carotid endarterectomy in 2017. She had undergone hysterectomy/BSO in 1994. She has a history of smoking 1 pack of cigarettes daily for close to 60 years. She cut down about a year ago. INTERIM HISTORY: On 08/25/2019 she began cycle 1 of systemic therapy palbociclib 125 mg daily on a 21/28-day schedule together with letrozole 2.5 mg daily. She also started monthly denosumab injections for the metastatic bone involvement. As of 09/12/2019, the palbociclib was put on hold due to neutropenia. She then continued with cycle 2 on 10/03/2019 with the palbociclib dosage reduced to 125 mg every other day for 21 days. At her follow-up visit on 11/05/2019 she complained of severe fatigue and shortness of breath. Her CT pulmonary angiogram showed evidence of COPD, and there were osteoblastic changes consistent with metastatic disease. There was no evidence, though, for pulmonary embolism or other acute pathology. There had been some decline in the CA-27-29 level. With those findings, she continued with cycle 3 of palbociclib and letrozole, but with the palbociclib dosed at 100 mg daily on a 21/28-day schedule. Ms Saunders is here today for followup. She is due for [facility] denosumab today. She continues with palbociclib and letrozole. She states she is been back on her palbociclib lip for almost a week now. She denies any new concerns. She denies any fever or chills. She states her breathing is better than her last visit although she still wheezes at times. She does not have any productive cough. She states that her appetite is good her energy is the same. She denies any new pain. She has had no complaints of diarrhea or constipation. She states her bladder function is normal for her. She denies any mouth sores, sore throat or difficulty swallowing. She states her rash is the same and is not bothering her she still does not want to see the rn case manager. Her ECOG is 1. Past Medical History: Abdominal aortic aneurysm Breast cancer Carotid stenosis Degenerative arthritis Goiter Hypothyroidism Renal artery stenosis Osteoporosis in 2009 (Treated) Past Surgical History: Knee surgery Knot removal from back Right carotid endarterectomy in 2018 Right breast lumpectomy with axillary sentinel lymph node biopsy in 2008 Breast biopsy in 2008 Hysterectomy/bilateral salpingo-oophorectomy in 1994 Allergies: Fluticasone Furoate Medications: Aspirin 1 Tablet (of 81 mg) Tablet Oral daily Hydrocodone-Acetaminophen 1 Tablet (of 5-325 mg) Tablet Oral q 6 hours PRN Ibrance 1 Tablet (of 100 mg) Oral daily Letrozole 1 Tablet (of 2.5 mg) Oral daily Levothyroxine Sodium 1 Tablet (of 50 mcg) Oral daily Family History: Ms. Saunders's mother is : heart disease. Ms. Saunders's father is : lung cancer. Ms. Saunders has 3 brothers: 2 alive, 1 . Ms. Saunders's first brother's kidney cancer. Another brother's esophagus cancer. She has 2 sisters: 2 . Ms. Saunders's first sister's lung cancer. Her father and a sister of lung cancer. One brother had esophageal cancer and another brother was treated for kidney cancer. Her mother of heart attack. A son with a drug overdose. Social History: Ms. Saunders is . She is a daily smoker who has smoked 0.5 packs/day for 61 years. She is a former drinker. She has a history of smoking 1 pack of cigarettes daily for close to 60 years. She cut down about a year ago and she now has only minimal smoking. She had alcohol use in the past but she quit drinking at least 35 or 40 years ago. Review Of Symptoms: Constitutional Denies fevers, chills, night sweats, excessive fatigue. She states she feels pretty good except overall. Her breathing is better than last visit. Allergic/Immunologic No reactions. Eyes Denies significant visual changes. No diplopia. No amaurosis. ENMT Denies changes in hearing, sore throat, mouth sores, difficulty or changes in swallowing ability. Hematologic/Lymphatic Denies easy bruising or bleeding. The patient denies any tender or palpable lymph nodes. Breasts no concerns. Respiratory Denies chest pain, cough or hemoptysis. Cardiovascular Denies anginal chest pain, palpitations or orthopnea. Gastrointestinal Denies nausea, vomiting, diarrhea, GI bleeding, or constipation. Denies change in bowel habits and/or stool color, no heartburn or early satiety. Genitourinary (F) No hematuria, hesitancy, incontinence, vaginal bleeding, discharge or other problems with urination. Musculoskeletal Denies joint pain, swelling or redness. No decreased range of motion. Integumentary persistent mild rash on her face, neck and upper chest. She states it is better overall and does not bother her. Neurologic Denies headache, blurred vision, and no areas of focal weakness or numbness. Normal gait. No sensory problems. Psychiatric Denies insomnia, depression, ailin or mood swings. Vital Signs: Performed on Apr 23, 2020 15:12 Height - 62.00 in Weight - 84.2 lbs (LOW) BSA - 1.32 sq.m BMI - 15.40 (LOW) Temperature - 97.9 F (LOW) Pulse - 99 /min Respiration - 17 /min BP - 176/74 mm(hg) (HIGH) O2 Sat - 99 % Pain - 0,1 - No physically strenuous activity, but ambulatory and able to carry out light or sedentary work (e.g. office work, light house work). (ECOG) Physical Examination: Constitutional Alert, oriented, no acute distress. Skin pink, warm and dry. Head Normocephalic; atraumatic. Eyes Conjunctivae and sclerae are clear and without icterus. Pupils are reactive and equal. ENMT Sinuses are nontender. No oral exudates, ulcers, masses, thrush or mucositis. Oropharynx clear. Tongue normal. Neck Supple without masses or thyromegaly. No jugular venous distension. Hematologic/Lymphatic No petechiae or purpura. No tender or palpable lymph nodes in the cervical, supraclavicular, or axillary area. Respiratory Lung auscultation is without rhonchi but faint scattered wheezing bilaterally. Cardiovascular Regular rate and rhythm of heart with soft systolic murmur but no clicks, gallops or rubs. Abdomen Non-tender, non-distended, no masses or ascites. Good bowel sounds noted in all quads. No guarding or rebound tenderness. No pulsatile masses. Back/Spine Non-tender to palpation. Extremities No visible deformities, no cyanosis, clubbing or edema. Musculoskeletal No tenderness or swelling, normal range of motion without obvious weakness. Integumentary No rashes or lesions. Neurologic No sensory or motor deficits, normal cerebellar function, normal gait. Psychiatric Alert and oriented times three. Coherent speech. Verbalizes understanding of our discussions today. Laboratory:Test performed on Mar 06, 2020 10:30 Glucose 56 mg/dL BUN 19 mg/dL Creatinine 0.7 mg/dL Cr Clearance (Est) 40.7700 mL/min Sodium 139 mmol/L Potassium 4.3 mmol/L Chloride 103 mmol/L CO2 25 mmol/L Calcium 8.8 mg/dL Protein, Total 6.1 g/dL Albumin 4.0 g/dL Globulin 2.1 g/dL Bilirubin, Total 0.2 mg/dL Alkaline Phosphatase 62 IU/L AST (SGOT) 19 IU/L ALT (SGPT) 11 IU/L WBC 2.0 10^9/L RBC 3.21 10^12/L HGB 10.3 g/dL HCT 31.8 % MCV 98.9 fl MCH 32.2 pg MCHC 32.5 g/dL RDW 16.2 % Platelet Count 222 10^9/L Neutrophils (Gran) 1.1 10^9/L Lymphocytes 0.7 10^9/L Monocytes 0.2 10^9/L CA 27.29 180 Units/mL Test performed on Jan 10, 2020 09:59 Ua Color Cancelled via OM: Doctor's Order Ua Appearance Cancelled via OM: Doctor's Order Ua Glucose Cancelled via OM: Doctor's Order Ua Bilirubin Cancelled via OM: Doctor's Order Ua Ketones Cancelled via OM: Doctor's Order Ua Blood Cancelled via OM: Doctor's Order Ua Protein Cancelled via OM: Doctor's Order Ua Nitrites Cancelled via OM: Doctor's Order Ua Leukocyte Esterase Cancelled via OM: Doctor's Order Test performed on Dec 10, 2019 09:50 Urine Culture NO GROWTH AFTER 2 DAYS Test performed on Dec 10, 2019 09:26 Anion Gap 12.0 Osmolality - Calculated 284 mOsm/kg MPV 9.6 fL Eosinophils 0.0 10 3/uL Basophils 0.1 10 3/uL Neutrophil % 59.1 % Lymphocyte % 27.0 % Monocyte % 10.9 % Eosinophil % 0.7 % Basophils % 1.9 % NRBC % 0 % Impression: 1. Patient with grade 2 infiltrating ductal carcinoma of the right breast, ER/AR positive and HER-2/alf negative. Her disease was stage IIA (T2, N0, M0) at initial diagnosis in October 2008. She had progression to stage IV with multiple sites of metastatic involvement including extensive bony metastatic disease in June 2019. 2. Her initial treatment included lumpectomy and radiation, completed in February 2009. 3. She was given adjuvant hormonal therapy with anastrozole. It was stopped in October 2012 due to worsening musculoskeletal pain. Bone scan at that time showed no evidence of metastatic disease. She received no further adjuvant therapy. Her other medical illnesses include: 4. Degenerative arthritis. 5. COPD. 6. Hypothyroidism. 7. Atherosclerotic cardiovascular disease including carotid stenosis and renal artery stenosis. 8. She has known abdominal aortic aneurysm. She underwent CT directed core needle biopsy of a right iliac bone lesion on 06/26/2019. Pathology confirmed metastatic adenocarcinoma consistent with breast primary, ER/AR positive and HER-2/alf negative. With that finding, she underwent palliative radiation to the right hip and to the right rib cage, completed on 07/17/2019, both sites to a total dose of 3000 cGy. On 08/21/2019 she began systemic therapy with palbociclib 125 mg daily on a 21/28-day schedule together with letrozole 2.5 mg daily. She also started monthly denosumab injections for the metastatic bone involvement. As of 09/12/2019 the palbociclib was put on hold due to neutropenia. She had adequate recovery, and she then continued with cycle 2 of palbociclib on 10/03/2019 with the dosage reduced to 125 mg every other day for 21 days. At her follow-up visit on 11/05/2019 she complained of increased fatigue and shortness of breath. There was no evidence for pulmonary embolism or other acute pathology on a CT pulmonary angiogram. At that point she had shown some decline in her CA-27-29 level. With those findings she continued treatment with palbociclib dosed at 100 mg daily on a 21/28-day schedule together with letrozole 2.5 mg daily. During follow-up she has had gradual improvement in her energy/activity tolerance. She has developed persistent skin eruption in the facial area, which is suspected to be treatment related, possibly to the denosumab. The rash does not really bother her, though, and she otherwise appears to be tolerating treatment very well. She does appear to be showing a good clinical response. She states the rash doesn't bother her and she isn't interested in seeing a rn case manager right now. She presents today for followup and is noted to have an ANC of 900 and platelet count of 89,000. Plan: 1. She will continue treatment with palbociclib/letrozole. The dosages will remain the same. However, I have asked her to stop her palbociclib for now due to an ANC of 900 on 04/21/2020. She is prone to lower respiratory infections. 2. She will continue the letrozole 3. I will also send in a [facility] as she states this generally works well for her respiratory infections in the event symptoms arise with her neutropenia. This will also be sent to [facility]. 4. Labs from 04/21/2020 were reviewed in detail and discussed with Ms. Saunders and a copy was given to her. WBC 1.9, hemoglobin 10.5, platelets 89,000 ANC is 900. Potassium 4.1 calcium 8.8 creatinine 0.9 LFTs are normal TSH is 6.60. Her CA 27-29 was 201. It was 226 on December 10, 2019. 5. We will plan to check a CBC CMP in 2 weeks for followup of the neutropenia at the [facility]. We will determine at that time is she can resume the palbociclib. We will plan to see her back here in 4 weeks with CBC CMP CA 27 29 and TSH. I have increased her Levothyroxine to 75 mcg daily due to elevated TSH. A script will be sent to [facility] in [place]. 6. Ms Saunders was encouraged to call us in the interim if questions or concerns arise. Signed By: Ozzy Ramirez-, AOCNP Paul Agrawal MD <<Signature on File>>
== END 2020-04-24 23:59 | disposition home or self-care (01) ==
LOC: ONCMED 06:11
PROVIDERS: PCP Family Medicine; Visit Provider Nurse Practitioner
DX: C50.411 Malignant neoplasm of upper-outer quadrant of right female breast (principal); C79.51 Secondary malignant neoplasm of bone; Z17.0 Estrogen receptor positive status [ER+]; D70.1 Agranulocytosis secondary to cancer chemotherapy; T45.1X5A Adverse effect of antineoplastic and immunosuppressive drugs, initial encounter; E03.9 Hypothyroidism, unspecified; M19.90 Unspecified osteoarthritis, unspecified site; J44.9 Chronic obstructive pulmonary disease, unspecified; I25.10 Atherosclerotic heart disease of native coronary artery without angina pectoris; I70.1 Atherosclerosis of renal artery; I71.4 Abdominal aortic aneurysm, without rupture; Z79.899 Other long term (current) drug therapy
CPT/HCPCS: 96372; 99214; J0897

== ENCOUNTER → 2020-05-06 09:00 | Outpatient (BNVA) | payer MEDICARE, MEDICAID, SELFPAY | PROVIDERS: PCP Family Medicine; Visit Provider Internal Medicine Medical Oncology | DX: C50.411 Malignant neoplasm of upper-outer quadrant of right female breast (principal) | CPT/HCPCS: 80053; 85025 ==

== ENCOUNTER → 2020-05-19 09:00 | Outpatient (BNVA) | payer MEDICARE, MEDICAID, SELFPAY | PROVIDERS: PCP Family Medicine; Visit Provider Internal Medicine Medical Oncology | DX: C50.411 Malignant neoplasm of upper-outer quadrant of right female breast (principal); C79.51 Secondary malignant neoplasm of bone; E04.9 Nontoxic goiter, unspecified; M81.0 Age-related osteoporosis without current pathological fracture; Z17.0 Estrogen receptor positive status [ER+] | CPT/HCPCS: 80053; 85025; 86300 ==

== ENCOUNTER 2020-05-21 12:00 | Outpatient (RCR) | payer MEDICARE, MEDICAID, SELFPAY ==
--- NOTE | 2020-05-21 11:30 | CT_ITS ---
WS: [id number] CT CHEST WITH INTRAVENOUS CONTRAST HISTORY: THROAT Tightness, shortness OF Breath, breast CANCER TECHNIQUE: Contiguous 5 mm axial imaging performed on the thorax. Coronal and sagittal reformats are submitted. All CT scans at [facility] use at least one of these dose optimization techniq ues: automated exposure control; mA and/or kV adjustment per patient size (includes targeted exams wh ere dose is matched to clinical indication); or iterative reconstruction. CONTRAST: Omnipaque 300; 40 mL IV. DLP: 580.05 mGycm COMPARISON: 11/05/2019 Lungs and central airway: Hyperexpanded lungs. Ill-defined groundglass and interstitial reticulations in the posterior RIGHT lower lobe. Additional more vague opacifications and groundglass attenuation the periphery of the LEFT lower lobe. There is mild peripheral interstitial thickening in the upper l darrell batres. No suspicious mass or pneumonia. Pleura: No pleural effusion. There is pleural thickening in the medial RIGHT lower lobe which was als o present on 11/05/2019 without change. Heart and pericardium: Moderately enlarged heart. No pericardial effusion. Extensive calcification in the [place] coronary arteries. Mediastinum and heather: No mediastinum or hilar adenopathy. Vessels: Moderate atherosclerosis aorta. Heavy calcification and intimal thickening around the proxim al LEFT subclavian artery. Additional calcifications continue into the upper abdominal aorta with air is heavy calcified plaque at the origin of the renal arteries, celiac axis and SMA. Chest wall and lower neck: Substernal goiter on the LEFT thyroid. Causing slight deviation of the tra keith to the RIGHT. Upper abdomen: Bilateral renal cysts. Low-attenuation lesion in the spleen is probably a cyst. Osseous structures: Osteoblastic lesions within the visualized cervical, thoracic and upper lumbar sp ine. There is been an increase in the osteoblastic changes in the spine and sternum since 11/05/2019. No pathological fractures are identified. There is also significant involvement of the posterior [place] ents at several levels most significant at T12 and L1 and also T3. Additional lesions within the ribs . Some of these may be healed fractures. CT/CT chest w con* [id number] IMPRESSION: 1. No pulmonary nodules or masses. 2. Severe emphysema. 3. New areas of groundglass attenuation in the lower lungs. 4. Progression of osteoblastic metastatic disease within the spine and ribs an d sternum since 11/04/2019. 5. LEFT substernal goiter.
--- NOTE | 2020-05-21 11:30 | CT_ITS ---
WS: [id number] CT NECK WITH CONTRAST HISTORY: THROAT TIGHTNESS,SHORTNESS OF BREATH,BREAST CANCER TECHNIQUE: Contiguous 5 mm axial images are performed through the neck with intravenous contrast. Sag ittal and coronal reformats are also submitted. All CT scans at [facility] use at least o ne of these dose optimization techniques: automated exposure control; mA and/or kV adjustment per pat ient size (includes targeted exams where dose is matched to clinical indication); or iterative recons truction. CONTRAST: CONTRAST: Omnipaque 300; 40 mL IV. DLP: 984.96 mGycm COMPARISON: 11/15/2018 Nasopharynx and oropharynx are normal. Superficial nodule at the RIGHT tongue base is not evident tod ay. There is asymmetry of the larynx. At the level of the vocal cords and the subglottic region there is deviation of the central structures to the RIGHT of midline. In part this is due to increasing ca lcific burden in the LEFT cricoid and thyroid cartilage along with increasing size of the LEFT thyroi d. No mass identified. No lymphadenopathy. Enlarged LEFT thyroid extends substernal as seen on the prior studies. Consistent with a goiter. Submandibular and parotid glands are normal. Atherosclerotic plaque with intimal thic kening and intracranial and extracranial carotid arteries. This study is not adequate to evaluate the arterial system. There is probably at least moderate stenosis on the RIGHT involving the distal comm on carotid artery. Small caliber and intermittently intermittently visualized RIGHT carotid artery. Visualized paranasal sinuses and mastoid air cells are normal. Lung apices are clear. CT/CT neck w con* [id number] IMPRESSION: 1. No central neck mass or adenopathy. 2. Deviation of the larynx to the RIGHT due to combination of enlarged LEFT th yroid consistent with goiter and increasing calcific burden in the LEFT cricoid cartilage and LEFT thyroid cartilage. Similar findings seen on the prior studi es to with mild progression. No mass is identified. 3. Atherosclerotic disease within the carotid arteries. There is at least mode rate stenosis involving the distal RIGHT common carotid artery.
[2020-05-21] MEDS: iohexol 300 mg/mL 100 mL Btl IV ×2 (12:02→12:09)
--- NOTE | 2020-05-21 18:05 | ONC FU_ITS ---
Dr. Agrawal Patient Follow-Up Note Patient: Lorelei Saunders Unit #: [id number]: 1945 Dicatated By: Paul Agrawal M.D.Date of Visit:May 21, 2020 Onc Med Follow-up/Prog Note Chief Complaint: Breast cancer/bone metastases. History of Present Illness: This is a 74 year-old woman with grade 2 infiltrating ductal carcinoma of the right breast, ER/UT positive and HER-2/alf negative, stage IV, with biopsy proven metastatic bone involvement. Her breast cancer was stage IIA (T2, N0, M0) at initial diagnosis in October 2008. Her Oncotype DX showed a recurrence score of 16, which was low risk. Her treatment included lumpectomy and axillary sentinel lymph node biopsy followed by radiation to the right breast, which she completed in February 2009. She was given adjuvant hormonal therapy with anastrozole. It was stopped in October 2012 when she came in with worsening joint pain. Bone scan in November 2012 showed no evidence of metastatic disease. She received no further adjuvant therapy, as she had then failed to return for follow-up. On 05/12/2019 she was seen in the emergency room with pain in the right hip area. The pain has been getting progressively worse over a period of several months. X-rays of the lumbar spine, pelvis, and right femur showed evidence of sclerotic lesions in the L1 and S1 vertebral bodies as well as lytic appearing bone changes in the right pubic bone. There was no fracture reported. Further evaluation with bone scan on 05/25/2019 showed multiple areas of uptake including the calvarium, cervical spine, thoracic spine, ribs, lumbar spine, pelvis, sacrum, and both hips most consistent with diffuse metastatic disease. Also noted was right renal pelvic dilatation. I had seen her for a follow-up visit on 06/04/2019. Staging PET/CT on 06/09/2019 showed an intensely hypermetabolic left thyroid mass measuring 2.7 x 3.0 cm with SUV 16.9, appearance of which was felt to be most consistent with a primary thyroid malignancy. A right level III/IV cervical lymph node had elevated SUV of 8.0 and multiple mediastinal lymph nodes were FDG positive, consistent with metastases. And hepatic segment IVb lesion measuring 4.3 x 1.9 x 1.9 cm with SUV 5.9 appeared consistent with unifocal hepatic metastatic disease. A right paravertebral pleural implant at the right lung base measuring 2.0 x 1.7 cm had SUV 10.7. There was evidence of widespread osseous metastatic disease, as expected. I have reviewed that study with the radiologist. As none of the metastatic lesions were very accessible for biopsy, we opted to proceed with CT directed core needle biopsy of her right iliac bone lesion. Pathology showed metastatic adenocarcinoma most consistent with breast primary. The breast prognostic profile showed ER positive at 91% and UT positive at 5%. It was negative for overexpression of HER-2/alf, 0 by IHC and amplification ratio by FISH of 0.9 with 2.4 HER-2 copies/cell. With those findings, she was referred to Dr. Kenny. She underwent palliative radiation to the right hip and to the right rib cage, completed on 07/17/2019. Both sites were treated to a total dose of 3000 cGy. Her other medical illnesses include atherosclerotic cardiovascular disease, degenerative arthritis, osteoporosis, and hypothyroidism. She had evidence of a 3 cm infrarenal abdominal aortic aneurysm on CT angiogram in June 2018. That study also showed arterial stenosis had multiple sites including the proximal SMA, the right renal artery, and left renal artery. Extensive calcifications were noted through the common iliac arteries bilaterally. She underwent right carotid endarterectomy in 2017. She had undergone hysterectomy/BSO in 1995. She has a history of smoking 1 pack of cigarettes daily for close to 60 years. She cut down about a year ago. INTERIM HISTORY: On 08/25/2019 she began cycle 1 of systemic therapy palbociclib 125 mg daily on a 21/28-day schedule together with letrozole 2.5 mg daily. She also started monthly denosumab injections for the metastatic bone involvement. As of 09/12/2019 the palbociclib was put on hold due to neutropenia. She then continued with cycle 2 on 10/03/2019 with the palbociclib dosage reduced to 125 mg every other day for 21 days. At her follow-up visit on 11/05/2019 she complained of severe fatigue and shortness of breath. Her CT pulmonary angiogram showed evidence of COPD, and there were osteoblastic changes consistent with metastatic disease. There was no evidence, though, for pulmonary embolism or other acute pathology. There had been some decline in the CA-27-29 level. With those findings, she continued treatment with palbociclib and letrozole, but with the palbociclib dosed at 100 mg daily on a 21/28-day schedule. As of her follow-up in February 2020 her CA 27-29 level had further decreased to 180 U/mL compared to 375 in September 2019, and as of her follow-up visit in March 2020 she appeared stable clinically. She is seen for a follow-up visit. She has not been feeling as good generally. Her main complaint is that for the past 2 weeks she has been having problems breathing. She has been having some pain in the left upper back area and in her left side. She has somewhat limited activity, but she is still able to do housework. ECOG score is 1. She has good appetite but she complains that she cannot gain weight. She has not had fever. She does have hot flashes and night sweating. She has not had sore throat or difficulty swallowing. She does not complain of cough or chest pain. She has no GI or complaints. She does not complain of headache. She sometimes has dizziness. She has no focal neurologic symptoms. Medications: Aspirin 1 Tablet (of 81 mg) Tablet Oral daily, Hydrocodone-Acetaminophen 1 Tablet (of 5-325 mg) Tablet Oral q 6 hours PRN, Ibrance 1 Tablet (of 100 mg) Oral daily, Letrozole 1 Tablet (of 2.5 mg) Oral daily, Levothyroxine Sodium 1 Tablet (of 50 mcg) Oral daily Allergies: Fluticasone Furoate Vital Signs: Performed on May 21, 2020 10:19 Height - 62.00 in Weight - 81.8 lbs (LOW) BSA - 1.31 sq.m BMI - 14.96 (LOW) Temperature - 98.1 F (LOW) Pulse - 106 /min (HIGH) Respiration - 18 /min BP - 133/80 mm(hg) O2 Sat - 96 % Pain - 4 Physical Examination: Constitutional - She appears to have some difficulty breathing, though it is intermittent, Eyes - Sclerae nonicteric. Conjunctivae clear, ENMT - No lesions noted in the oral cavity, Hematologic/Lymphatic - No cervical, clavicular, or axillary adenopathy, Respiratory - Lungs show some decrease in air movement bilaterally. She intermittently has coarse breath sounds associate with upper airway turbulence, Cardiovascular - Heart rhythm is regular. There is no murmur, gallop, or rub noted, Abdomen - Soft. Liver and spleen are not enlarged. There is no abdominal mass or ascites noted and there is no inguinal adenopathy, Extremities - No edema, Integumentary - There is patchy erythema in the facial area, mainly around the mouth and cheek area, Neurologic - No focal neurologic deficits noted. Lab/Imaging: Test performed on May 19, 2020 09:00 Glucose 84 mg/dL BUN 16 mg/dL Creatinine 0.7 mg/dL Cr Clearance (Est) 39.42 mL/min Sodium 141 mmol/L Potassium 4.0 mmol/L Chloride 104 mmol/L CO2 27 mmol/L Calcium 10.9 mg/dL Protein, Total 6.4 g/dL Albumin 4.1 g/dL Globulin 2.3 g/dL Bilirubin, Total 0.2 mg/dL Alkaline Phosphatase 65 IU/L AST (SGOT) 19 IU/L ALT (SGPT) 8 IU/L WBC 2.0 10^9/L RBC 3.16 10^12/L HGB 10.4 g/dL HCT 32.1 % MCV 101.7 fl MCH 32.8 pg MCHC 32.3 g/dL RDW 17.2 % Platelet Count 107 10^9/L MPV 7.2 fL Neutrophils (Gran) 0.8 10^9/L Lymphocytes 0.9 10^9/L Monocytes 0.3 10^9/L Manual Lymphocytes 44.1 % Manual Monocytes 14.5 % CA 27.29 214 Units/mL Problem List: 1. Grade 2 infiltrating ductal carcinoma of the right breast, ER/UT positive and HER-2/alf negative. Her disease was stage IIA (T2, N0, M0) at initial diagnosis in October 2008. She had progression to stage IV with multiple sites of metastatic involvement including extensive bony metastatic disease. CT directed core needle biopsy of a right iliac bone lesion on 06/26/2019 confirmed metastatic adenocarcinoma consistent with breast primary, ER/UT positive and HER-2/alf negative. 2. Degenerative arthritis. 3. COPD. 4. Hypothyroidism. 5. Atherosclerotic cardiovascular disease including carotid stenosis and renal artery stenosis. 6. She has known abdominal aortic aneurysm. Problems Addressed with this Encounter and Plan: 1. Grade 2 infiltrating ductal carcinoma of the right breast, ER/UT positive and HER-2/alf negative. Her disease was stage IIA (T2, N0, M0) at initial diagnosis in October 2008. She had progression to stage IV with multiple sites of metastatic involvement including extensive bony metastatic disease. CT directed core needle biopsy of a right iliac bone lesion on 06/26/2019 confirmed metastatic adenocarcinoma consistent with breast primary, ER/UT positive and HER-2/alf negative. She initially underwent palliative radiation to the right hip and to the right rib cage, completed on 07/17/2019, both sites to a total dose of 3000 cGy. On 08/21/2019 she began systemic therapy with palbociclib 125 mg daily on a -day schedule together with letrozole 2.5 mg daily. She also started monthly denosumab injections for the metastatic bone involvement. She required a dose reduction in the palbociclib to 100 mg. However, she did have evidence of response with CA 27-29 level decreased to 180 U/mL compared to 375 U/mL in September 2019. She comes in now with 2-week history of increased shortness of breath. She has been having more pain in the left upper back and in her left side. The cause is uncertain. There has been a slight increase in her CA 27-29 level. As yet the clinical significance of that is uncertain. At least for now her will be put on hold pending evaluation. 2. Shortness of breath with symptoms suggestive of possible upper airway obstruction. She will be scheduled for CT of the neck and chest, and she will have further evaluation as indicated. Signed By: Paul Agrawal M.D. <<Signature on File>>
== END 2020-05-25 23:59 | disposition home or self-care (01) ==
LOC: RADWPI 12:00
PROVIDERS: PCP Family Medicine; Visit Provider Internal Medicine Medical Oncology
DX: C50.411 Malignant neoplasm of upper-outer quadrant of right female breast (principal); C79.51 Secondary malignant neoplasm of bone; R06.02 Shortness of breath; R97.0 Elevated carcinoembryonic antigen [CEA]; M54.6 Pain in thoracic spine; J43.9 Emphysema, unspecified; E04.9 Nontoxic goiter, unspecified; Z17.0 Estrogen receptor positive status [ER+]; Z92.3 Personal history of irradiation
CPT/HCPCS: 70491; 71260; 99214; Q9967

== ENCOUNTER 2020-06-19 08:19 | Outpatient (RCR) | payer MEDICARE, MEDICAID, SELFPAY ==
[2020-06-19] MEDS: denosumab 120 mg SDV SUBCUT (16:03)
[2020-06-19 16:14] LABS: Basophils % 0.5 %; Eosinophils % 0.5 %; Hematocrit 31.2 % (37.0-47.0); Hemoglobin 10.1 g/dL (11.5-15.3); Lymphocytes # 0.9 10^3/uL (0.8-4.8); Lymphocytes % 21.5 %; Mean Corpuscular HGB Conc 32.4 g/dL (30.0-36.0); Mean Corpuscular Hemoglobin 32.1 pg (28.0-34.0); Mean Platelet Volume 10.4 fL (7.4-10.4); Monocytes # 0.8 10^3/uL (0.2-0.9); Monocytes % 17.7 %; Neutrophils # 2.51 10^3/uL (1.8-7.7); Neutrophils % 59.3 %; Nucleated Red Blood Cells % 0 %; Platelet Count 205 10^3/cmm (130-400); Red Blood Count 3.15 10^6/uL (4.1-5.3); Red Cell Distribution Width 13.1 % (12.1-15.1); White Blood Count 4.2 10^3/uL (4.0-10.0)
[2020-06-19 16:45] LABS: Alanine Aminotransferase 9 U/L (0-33); Albumin Level 3.5 g/dL (3.5-5.2); Alkaline Phosphatase 59 IU/L (35-105); Anion Gap 12.2 (5-19); Aspartate Amino Transferase 17 U/L (0-32); Blood Urea Nitrogen 23 mg/dL (8-23); Carbon Dioxide 29 mmol/L (22-29); Chloride 103 mmol/L (98-107); Free T4 Free Thyroxine 1.72 ng/dL (0.82-1.77); Globulin 2.7 g/dL (1.3-4.6); Glucose 85 mg/dL (65-115); Osmolality Calculated 293 mOsm/kg (285-295); Potassium 4.2 mmol/L (3.5-5.1); Sodium 140 mmol/L (136-145); Thyroid Stimulating Hormone 0.07 uIU/mL (0.27-4.20); Total Bilirubin 0.2 mg/dL (0.15-1.2); Total Protein 6.2 g/dL (6.6-8.7)
[2020-06-20 14:42] LABS: CA 27.29 180 U/mL (<38)
--- NOTE | 2020-06-22 09:45 | ONC FU_ITS ---
Dr. Agrawal Patient Follow-Up Note Patient: Lorelei Saunders Unit #: [id number]: [id number] Dicatated By: Paul Agrawal M.D.Date of Visit:Jun 19, 2020 Onc Med Follow-up/Prog Note Chief Complaint: Breast cancer/bone metastases. History of Present Illness: This is a 74 year-old woman with grade 2 infiltrating ductal carcinoma of the right breast, ER/ID positive and HER-2/alf negative, stage IV, with biopsy proven metastatic bone involvement. Her breast cancer was stage IIA (T2, N0, M0) at initial diagnosis in October 2008. Her Oncotype DX showed a recurrence score of 16, which was low risk. Her treatment included lumpectomy and axillary sentinel lymph node biopsy followed by radiation to the right breast, which she completed in February 2009. She was given adjuvant hormonal therapy with anastrozole. It was stopped in October 2012 when she came in with worsening joint pain. Bone scan in November 2012 showed no evidence of metastatic disease. She received no further adjuvant therapy, as she had then failed to return for follow-up. On 05/12/2019 she was seen in the emergency room with pain in the right hip area. The pain has been getting progressively worse over a period of several months. X-rays of the lumbar spine, pelvis, and right femur showed evidence of sclerotic lesions in the L1 and S1 vertebral bodies as well as lytic appearing bone changes in the right pubic bone. There was no fracture reported. Further evaluation with bone scan on 05/25/2019 showed multiple areas of uptake including the calvarium, cervical spine, thoracic spine, ribs, lumbar spine, pelvis, sacrum, and both hips most consistent with diffuse metastatic disease. Also noted was right renal pelvic dilatation. I had seen her for a follow-up visit on 06/04/2019. Staging PET/CT on 06/09/2019 showed an intensely hypermetabolic left thyroid mass measuring 2.7 x 3.0 cm with SUV 16.9, appearance of which was felt to be most consistent with a primary thyroid malignancy. A right level III/IV cervical lymph node had elevated SUV of 8.0 and multiple mediastinal lymph nodes were FDG positive, consistent with metastases. And hepatic segment IVb lesion measuring 4.3 x 1.9 x 1.9 cm with SUV 5.9 appeared consistent with unifocal hepatic metastatic disease. A right paravertebral pleural implant at the right lung base measuring 2.0 x 1.7 cm had SUV 10.7. There was evidence of widespread osseous metastatic disease, as expected. I have reviewed that study with the radiologist. As none of the metastatic lesions were very accessible for biopsy, we opted to proceed with CT directed core needle biopsy of her right iliac bone lesion. Pathology showed metastatic adenocarcinoma most consistent with breast primary. The breast prognostic profile showed ER positive at 91% and ID positive at 5%. It was negative for overexpression of HER-2/alf, 0 by IHC and amplification ratio by FISH of 0.9 with 2.4 HER-2 copies/cell. With those findings, she was referred to Dr. Kenny. She underwent palliative radiation to the right hip and to the right rib cage, completed on 07/17/2019. Both sites were treated to a total dose of 3000 cGy. Her other medical illnesses include atherosclerotic cardiovascular disease, degenerative arthritis, osteoporosis, and hypothyroidism. She had evidence of a 3 cm infrarenal abdominal aortic aneurysm on CT angiogram in June 2018. That study also showed arterial stenosis had multiple sites including the proximal SMA, the right renal artery, and left renal artery. Extensive calcifications were noted through the common iliac arteries bilaterally. She underwent right carotid endarterectomy in 2017. She had undergone hysterectomy/BSO in 1995. She has a history of smoking 1 pack of cigarettes daily for close to 60 years. She cut down about a year ago. INTERIM HISTORY: On 08/25/2019 she began cycle 1 of systemic therapy palbociclib 125 mg daily on a 21/28-day schedule together with letrozole 2.5 mg daily. She also started monthly denosumab injections for the metastatic bone involvement. As of 09/12/2019 the palbociclib was put on hold due to neutropenia. She then continued with cycle 2 on 10/03/2019 with the palbociclib dosage reduced to 125 mg every other day for 21 days. At her follow-up visit on 11/05/2019 she complained of severe fatigue and shortness of breath. Her CT pulmonary angiogram showed evidence of COPD, and there were osteoblastic changes consistent with metastatic disease. There was no evidence, though, for pulmonary embolism or other acute pathology. There had been some decline in the CA-27-29 level. With those findings, she continued treatment with palbociclib and letrozole, but with the palbociclib dosed at 100 mg daily on a /-day schedule. As of her follow-up in February 2020 her CA 27-29 level had further decreased to 180 U/mL compared to 375 in September 2019, and as of her follow-up visit in March 2020 she appeared stable clinically. At her follow-up visit on 05/21/2020 she appeared to be having difficulty breathing. On clinical evaluation I was concerned about the possibility of upper airway obstruction. 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 There was evidence for severe emphysema, but there were no pulmonary nodules noted and are no other acute findings. There did appear to be progression of osteoblastic metastatic disease within the spine and sternum. She had ENT consultation with Dr. Warner on 05/26/2020. Her fiberoptic laryngoscopy showed evidence of vocal cord paralysis on the right. There apparently was no evidence for airway obstruction. He recommended referral to endocrinology for management of the goiter. She is seen for a follow-up visit. She says she is feeling pretty good. She says her breathing is a lot better now compared to her last visit. She did quit smoking 2 weeks ago. She has pretty good energy/activity tolerance. ECOG score is 1. She has good appetite. She has not had fever. She does have some hot flashes/sweating. She sometimes has sinus drainage. She reports having some difficulty swallowing, and she says that food sometimes does not want to go down. She still has some shortness of breath. She does not complain of cough, and she has not been having chest pain. She has no GI or complaints. She has some pain in her back and she has pain on both sides. She does not complain of headache or dizziness. She has no focal neurologic symptoms. Medications: Aspirin 1 Tablet (of 81 mg) Tablet Oral daily, Hydrocodone-Acetaminophen 1 Tablet (of 5-325 mg) Tablet Oral q 6 hours PRN, Ibrance 1 Tablet (of 100 mg) Oral daily, Letrozole 1 Tablet (of 2.5 mg) Oral daily, Levothyroxine Sodium 1 Tablet (of 50 mcg) Oral daily Allergies: Fluticasone Furoate Vital Signs: Performed on Jun 19, 2020 15:03 Height - 62.00 in Weight - 83.2 lbs (HIGH) BSA - 1.32 sq.m BMI - 15.22 (LOW) Temperature - 98.1 F (LOW) Pulse - 92 /min Respiration - 18 /min BP - 130/81 mm(hg) O2 Sat - 97 % Pain - 0 Fatigue - 0 Physical Examination: Constitutional - She does not appear acutely ill, but she still intermittently appears to have difficulty breathing, Eyes - Sclerae nonicteric. Conjunctivae clear, ENMT - No lesions noted in the oral cavity, Hematologic/Lymphatic - No cervical, clavicular, or axillary adenopathy, Respiratory - Lungs show some decrease in air movement bilaterally. She intermittently has coarse airway sounds on both inspiration and expiration, Cardiovascular - Heart rhythm is regular. There is no murmur, gallop, or rub noted, Abdomen - Soft. Liver and spleen are not enlarged. There is no abdominal mass or ascites noted and there is no inguinal adenopathy, Extremities - No edema, Neurologic - No focal neurologic deficits noted. Lab/Imaging: Test performed on Jun 19, 2020 16:00 Sodium 140 mmol/L T4, Free 1.72 ng/dL TSH 0.07 uIU/mL Potassium 4.2 mmol/L Chloride 103 mmol/L CO2 29 mmol/L Anion Gap 12.2 BUN 23 mg/dL Creatinine 0.8 mg/dL Cr Clearance (Est) 35.0900 mL/min Glucose 85 mg/dL Osmolality - Calculated 293 mOsm/kg Calcium 8.0 mg/dL Protein, Total 6.2 g/dL Albumin 3.5 g/dL Globulin 2.7 g/dL Bilirubin, Total 0.2 mg/dL ALT (SGPT) 9 U/L AST (SGOT) 17 U/L Alkaline Phosphatase 59 IU/L WBC 4.2 10 3/uL RBC 3.15 10 6/uL HGB 10.1 g/dL HCT 31.2 % MCV 99.0 fL MCH 32.1 pg MCHC 32.4 g/dL RDW 13.1 % Platelet Count 205 10 3/cmm MPV 10.4 fL Neutrophils 2.51 10 3/uL Lymphocytes 0.9 10 3/uL Monocytes 0.8 10 3/uL Eosinophils 0.0 10 3/uL Basophils 0.0 10 3/uL Neutrophil % 59.3 % Lymphocyte % 21.5 % Monocyte % 17.7 % Eosinophil % 0.5 % Basophils % 0.5 % NRBC % 0 % CA 27.29 180 U/mL Problem List: 1. Grade 2 infiltrating ductal carcinoma of the right breast, ER/ID positive and HER-2/alf negative. Her disease was stage IIA (T2, N0, M0) at initial diagnosis in October 2008. She had progression to stage IV with multiple sites of metastatic involvement including extensive bony metastatic disease. CT directed core needle biopsy of a right iliac bone lesion on 06/26/2019 confirmed metastatic adenocarcinoma consistent with breast primary, ER/ID positive and HER-2/alf negative. 2. Degenerative arthritis. 3. COPD. 4. Hypothyroidism. 5. Atherosclerotic cardiovascular disease including carotid stenosis and renal artery stenosis. 6. She has known abdominal aortic aneurysm. Problems Addressed with this Encounter and Plan: 1. Grade 2 infiltrating ductal carcinoma of the right breast, ER/ID positive and HER-2/alf negative. Her disease was stage IIA (T2, N0, M0) at initial diagnosis in October 2008. She had progression to stage IV with multiple sites of metastatic involvement including extensive bony metastatic disease. CT directed core needle biopsy of a right iliac bone lesion on 06/26/2019 confirmed metastatic adenocarcinoma consistent with breast primary, ER/ID positive and HER-2/alf negative. She initially underwent palliative radiation to the right hip and to the right rib cage, completed on 07/17/2019, both sites to a total dose of 3000 cGy. On 08/21/2019 she began systemic therapy with palbociclib 125 mg daily on a 21/28-day schedule together with letrozole 2.5 mg daily. She also started monthly denosumab injections for the metastatic bone involvement. She required a dose reduction in the palbociclib to 100 mg. However, she did have evidence of response with CA 27-29 level decreased to 180 U/mL compared to 375 U/mL in September 2019. She comes in now with 2-week history of increased shortness of breath. She has been having more pain in the left upper back and in her left side. The cause is uncertain. There has been a slight increase in her CA 27-29 level. As yet the clinical significance of that is uncertain. Her recent CT scans did report worsening of osteoblastic disease in the spine and sternum, but that can be difficult to assess, as healing metastatic disease can look the same. As such, I am going to schedule her for restaging PET/CT. For the time being she will continue letrozole 2.5 mg daily. The palbociclib will remain on hold pending the CT results. 2. She has metastatic bone involvement. She will be given denosumab 120 mg by subcutaneous injection. 3. She has had shortness of breath and she had clinical findings which were suspicious for upper airway obstruction. 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 Her fiberoptic laryngoscopy, though, did not show any definite airway obstruction. There was evidence for right vocal cord paralysis. It appears more likely that her shortness of breath is associated with the underlying COPD. She will be seeing endocrinology for management of the goiter. Signed By: Paul Agrawal M.D. <<Signature on File>>
== END 2020-06-22 23:59 | disposition home or self-care (01) ==
LOC: ONCMED 08:19
PROVIDERS: PCP Family Medicine; Visit Provider Internal Medicine Medical Oncology
DX: Z51.12 Encounter for antineoplastic immunotherapy (principal); C79.51 Secondary malignant neoplasm of bone; C50.411 Malignant neoplasm of upper-outer quadrant of right female breast; E03.9 Hypothyroidism, unspecified; R97.0 Elevated carcinoembryonic antigen [CEA]; R06.02 Shortness of breath; M54.89 Other dorsalgia; E04.9 Nontoxic goiter, unspecified; J38.01 Paralysis of vocal cords and larynx, unilateral; Z79.899 Other long term (current) drug therapy; Z17.0 Estrogen receptor positive status [ER+]; Z92.3 Personal history of irradiation
CPT/HCPCS: 36415; 80053; 84439; 84443; 85025; 86300; 96372; 99214; J0897

== ENCOUNTER 2020-07-23 08:23 | Outpatient (CLI) | payer MEDICARE, MEDICAID, SELFPAY ==
[2020-07-23 09:17] LABS: Basophils % 1.4 %; Eosinophils % 0.7 %; Hematocrit 33.9 % (37.0-47.0); Hemoglobin 11.1 g/dL (11.5-15.3); Lymphocytes # 0.8 10^3/uL (0.8-4.8); Mean Corpuscular HGB Conc 32.7 g/dL (30.0-36.0); Mean Corpuscular Hemoglobin 31.4 pg (28.0-34.0); Mean Corpuscular Volume 95.8 fL (81-99); Mean Platelet Volume 10.3 fL (7.4-10.4); Monocytes # 0.1 10^3/uL (0.2-0.9); Monocytes % 7.2 %; Neutrophils % 36.7 %; Nucleated Red Blood Cells % 0 %; Platelet Count 81 10^3/cmm (130-400); Red Blood Count 3.54 10^6/uL (4.1-5.3); Red Cell Distribution Width 13.7 % (12.1-15.1); White Blood Count 1.4 10^3/uL (4.0-10.0)
[2020-07-23 09:40] LABS: Alanine Aminotransferase 16 U/L (0-33); Albumin Level 4.1 g/dL (3.5-5.2); Alkaline Phosphatase 66 IU/L (35-105); Anion Gap 10.8 (5-19); Aspartate Amino Transferase 21 U/L (0-32); Blood Urea Nitrogen 23 mg/dL (8-23); Calcium 9.1 mg/dL (8.5-10.5); Carbon Dioxide 30 mmol/L (22-29); Chloride 101 mmol/L (98-107); Glucose 83 mg/dL (65-115); Osmolality Calculated 289 mOsm/kg (285-295); Potassium 3.8 mmol/L (3.5-5.1); Sodium 138 mmol/L (136-145); Total Bilirubin 0.4 mg/dL (0.15-1.2); Total Protein 7.1 g/dL (6.6-8.7)
[2020-07-23 09:58] LABS: Neutrophils # 0.51 10^3/uL (1.8-7.7); Slide Review Slide Review Perform
[2020-07-23] MEDS: denosumab 120 mg SDV SUBCUT (11:15)
--- NOTE | 2020-07-27 08:19 | ONC FU_ITS ---
Dr. Agrawal Patient Follow-Up Note Patient: Lorelei Saunders Unit #: [id number]: [id number] Dicatated By: Paul Agrawal M.D.Date of Visit:Jul 23, 2020 Onc Med Follow-up/Prog Note Chief Complaint: Breast cancer/bone metastases. History of Present Illness: This is a 75 year-old woman with grade 2 infiltrating ductal carcinoma of the right breast, ER/DE positive and HER-2/alf negative, stage IV, with biopsy proven metastatic bone involvement. Her breast cancer was stage IIA (T2, N0, M0) at initial diagnosis in October 2008. Her Oncotype DX showed a recurrence score of 16, which was low risk. Her treatment included lumpectomy and axillary sentinel lymph node biopsy followed by radiation to the right breast, which she completed in February 2009. She was given adjuvant hormonal therapy with anastrozole. It was stopped in October 2012 when she came in with worsening joint pain. Bone scan in November 2012 showed no evidence of metastatic disease. She received no further adjuvant therapy, as she had then failed to return for follow-up. On 05/12/2019 she was seen in the emergency room with pain in the right hip area. The pain has been getting progressively worse over a period of several months. X-rays of the lumbar spine, pelvis, and right femur showed evidence of sclerotic lesions in the L1 and S1 vertebral bodies as well as lytic appearing bone changes in the right pubic bone. There was no fracture reported. Further evaluation with bone scan on 05/25/2019 showed multiple areas of uptake including the calvarium, cervical spine, thoracic spine, ribs, lumbar spine, pelvis, sacrum, and both hips most consistent with diffuse metastatic disease. Also noted was right renal pelvic dilatation. I had seen her for a follow-up visit on 06/04/2019. Staging PET/CT on 06/09/2019 showed an intensely hypermetabolic left thyroid mass measuring 2.7 x 3.0 cm with SUV 16.9, appearance of which was felt to be most consistent with a primary thyroid malignancy. A right level III/IV cervical lymph node had elevated SUV of 8.0 and multiple mediastinal lymph nodes were FDG positive, consistent with metastases. And hepatic segment IVb lesion measuring 4.3 x 1.9 x 1.9 cm with SUV 5.9 appeared consistent with unifocal hepatic metastatic disease. A right paravertebral pleural implant at the right lung base measuring 2.0 x 1.7 cm had SUV 10.7. There was evidence of widespread osseous metastatic disease, as expected. I have reviewed that study with the radiologist. As none of the metastatic lesions were very accessible for biopsy, we opted to proceed with CT directed core needle biopsy of her right iliac bone lesion. Pathology showed metastatic adenocarcinoma most consistent with breast primary. The breast prognostic profile showed ER positive at 91% and DE positive at 5%. It was negative for overexpression of HER-2/alf, 0 by IHC and amplification ratio by FISH of 0.9 with 2.4 HER-2 copies/cell. With those findings, she was referred to Dr. Kenny. She underwent palliative radiation to the right hip and to the right rib cage, completed on 07/17/2019. Both sites were treated to a total dose of 3000 cGy. Her other medical illnesses include atherosclerotic cardiovascular disease, degenerative arthritis, osteoporosis, and hypothyroidism. She had evidence of a 3 cm infrarenal abdominal aortic aneurysm on CT angiogram in June 2018. That study also showed arterial stenosis had multiple sites including the proximal SMA, the right renal artery, and left renal artery. Extensive calcifications were noted through the common iliac arteries bilaterally. She underwent right carotid endarterectomy in 2017. She had undergone hysterectomy/BSO in 1995. She has a history of smoking 1 pack of cigarettes daily for close to 60 years. She cut down about a year ago. INTERIM HISTORY: On 08/25/2019 she began cycle 1 of systemic therapy palbociclib 125 mg daily on a 21/28-day schedule together with letrozole 2.5 mg daily. She also started monthly denosumab injections for the metastatic bone involvement. As of 09/12/2019 the palbociclib was put on hold due to neutropenia. She then continued with cycle 2 on 10/03/2019 with the palbociclib dosage reduced to 125 mg every other day for 21 days. At her follow-up visit on 11/05/2019 she complained of severe fatigue and shortness of breath. Her CT pulmonary angiogram showed evidence of COPD, and there were osteoblastic changes consistent with metastatic disease. There was no evidence, though, for pulmonary embolism or other acute pathology. There had been some decline in the CA-27-29 level. With those findings, she continued treatment with palbociclib and letrozole, but with the palbociclib dosed at 100 mg daily on a 21/28-day schedule. As of her follow-up in February 2020 her CA 27-29 level had further decreased to 180 U/mL compared to 375 in September 2019, and as of her follow-up visit in March 2020 she appeared stable clinically. At her follow-up visit on 05/21/2020 she appeared to be having difficulty breathing. On clinical evaluation I was concerned about the possibility of upper airway obstruction. 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 There was evidence for severe emphysema, but there were no pulmonary nodules noted and are no other acute findings. There did appear to be progression of osteoblastic metastatic disease within the spine and sternum. She had ENT consultation with Dr. Deleon on 05/26/2020. Her fiberoptic laryngoscopy showed evidence of vocal cord paralysis on the right. There apparently was no evidence for airway obstruction. He recommended referral to endocrinology for management of the goiter. A restaging PET/CT on 06/28/2020 showed questionable improvement in the right thyroid mass measuring 2.5 cm with SUV 16.0. There was improvement in the mediastinal adenopathy. The right paravertebral pleural implant was not significantly changed. There was improvement in the hepatic metastatic lesion. There was a mixed response of osseous metastatic disease with the pelvic lesion having become sclerotic and FDG negative but with new lesions noted at T11 and at T8. She is seen for a follow-up visit. She has continued her treatment with palbociclib at the reduced dosage in combination with letrozole. She has had moderately severe neutropenia with the palbociclib, that she tolerates it well otherwise. Her main complaint is that she continues to have shortness of breath. She also complains that her breathing is noisy. She has limited activity tolerance, but she is able to do light work. ECOG score is 1. She has good appetite. She has not had fever. She does have hot flashes and sweating. She reports having sinus drainage all the time. She was having sore throat, but that is getting better. She does not complain of cough and she has not been having chest pain. She has had diarrhea intermittently, not recently. She has no other GI or complaints. She has just occasional pain in her left side and back. She has no other joint or bone pain. She does not complain of headache. She does have some dizziness. She has no focal neurologic symptoms. Medications: Aspirin 1 Tablet (of 81 mg) Tablet Oral daily, Hydrocodone-Acetaminophen 1 Tablet (of 5-325 mg) Tablet Oral q 6 hours PRN, Ibrance 1 Tablet (of 100 mg) Oral daily, Letrozole 1 Tablet (of 2.5 mg) Oral daily, Levothyroxine Sodium 1 Tablet (of 50 mcg) Oral daily Allergies: Fluticasone Furoate Vital Signs: Performed on Jul 23, 2020 10:27 Height - 62.00 in Weight - 81.9 lbs (LOW) BSA - 1.31 sq.m BMI - 14.98 (LOW) Temperature - 98.1 F (LOW) Pulse - 81 /min Respiration - 17 /min BP - 152/84 mm(hg) (HIGH) O2 Sat - 99 % Pain - 0 Physical Examination: Constitutional - She looks pretty good generally, but she still has some shortness of breath, Eyes - Sclerae nonicteric. Conjunctivae clear, ENMT - No lesions noted in the oral cavity, Hematologic/Lymphatic - No cervical, clavicular, or axillary adenopathy, Respiratory - Lungs show some decrease in air movement bilaterally. She has coarse airway sounds on both inspiration and expiration, consistent with upper airway obstruction, Cardiovascular - Heart rhythm is regular. There is no murmur, gallop, or rub noted, Abdomen - Soft. Liver and spleen are not enlarged. There is no abdominal mass or ascites noted and there is no inguinal adenopathy, Extremities - No edema, Neurologic - No focal neurologic deficits noted. Lab/Imaging: Test performed on Jul 23, 2020 08:35 Sodium 138 mmol/L Potassium 3.8 mmol/L Chloride 101 mmol/L CO2 30 mmol/L Anion Gap 10.8 BUN 23 mg/dL Creatinine 0.7 mg/dL Cr Clearance (Est) 39.47 mL/min Glucose 83 mg/dL Osmolality - Calculated 289 mOsm/kg Calcium 9.1 mg/dL Protein, Total 7.1 g/dL Albumin 4.1 g/dL Globulin 3.0 g/dL Bilirubin, Total 0.4 mg/dL ALT (SGPT) 16 U/L AST (SGOT) 21 U/L Alkaline Phosphatase 66 IU/L WBC 1.4 10 3/uL RBC 3.54 10 6/uL HGB 11.1 g/dL HCT 33.9 % MCV 95.8 fL MCH 31.4 pg MCHC 32.7 g/dL RDW 13.7 % Platelet Count 81 10 3/cmm MPV 10.3 fL Neutrophils 0.51 10 3/uL Lymphocytes 0.8 10 3/uL Monocytes 0.1 10 3/uL Eosinophils 0.0 10 3/uL Basophils 0.0 10 3/uL Neutrophil % 36.7 % Lymphocyte % 54.0 % Monocyte % 7.2 % Eosinophil % 0.7 % Basophils % 1.4 % NRBC % 0 % CBC Slide Review Slide Review Perform SLIDE REVIEW AGREES WITH AUTOMATED RESULTS ST Problem List: 1. Grade 2 infiltrating ductal carcinoma of the right breast, ER/DE positive and HER-2/alf negative. Her disease was stage IIA (T2, N0, M0) at initial diagnosis in October 2008. She had progression to stage IV with multiple sites of metastatic involvement including extensive bony metastatic disease. CT directed core needle biopsy of a right iliac bone lesion on 06/26/2019 confirmed metastatic adenocarcinoma consistent with breast primary, ER/DE positive and HER-2/alf negative. 2. She had PET/CT evidence an FDG avid left thyroid mass, and she also was found on CT to have evidence of a large substernal goiter. 3. Degenerative arthritis. 4. COPD. 5. Hypothyroidism. 6. Atherosclerotic cardiovascular disease including carotid stenosis and renal artery stenosis. 7. She has known abdominal aortic aneurysm. Problems Addressed with this Encounter and Plan: 1. Grade 2 infiltrating ductal carcinoma of the right breast, ER/DE positive and HER-2/alf negative. Her disease was stage IIA (T2, N0, M0) at initial diagnosis in October 2008. She had progression to stage IV with multiple sites of metastatic involvement including extensive bony metastatic disease. CT directed core needle biopsy of a right iliac bone lesion on 06/26/2019 confirmed metastatic adenocarcinoma consistent with breast primary, ER/DE positive and HER-2/alf negative. She initially underwent palliative radiation to the right hip and to the right rib cage, completed on 07/17/2019, both sites to a total dose of 3000 cGy. On 08/21/2019 she began systemic therapy with palbociclib 125 mg daily on a 21/28-day schedule together with letrozole 2.5 mg daily. She required a dose reduction in the palbociclib to 100 mg. However, she did have evidence of response with CA 27-29 level decreased to 180 U/mL compared to 375 U/mL in September 2019. During followup she has had further decline in her granulocyte count, but she has otherwise tolerated treatment well. Her restaging PET/CT on 07/03/2020 showed mixed response with some areas of improvement but with evidence of new bone lesions at T8 and T11 vertebral bodies. His knees are not overtly symptomatic, I will have her continue treatment with letrozole and palbociclib. However, with further decline in the neutrophil count, she will have an additional reduction in the palbociclib dosage to 75 mg administered on a 21/28-day schedule. She will have a follow-up visit in 1 month. 2. During followup she complained of ncreased shortness of breath. She had PET/CT evidence an FDG avid left thyroid mass, and she also was found on CT to have evidence of a large substernal goiter. She has associated upper airway symptoms, but her ENT exam reportedly showed no actual airway obstruction. She was recommended to have endocrinology referral for management of the goiter, and I will make sure now that it is scheduled. I also will arrange for pulmonary consultation. 3. She has metastatic bone involvement. She will be given denosumab 120 mg by subcutaneous injection. Signed By: Paul Agrawal M.D. <<Signature on File>>
== END 2020-07-23 08:24 | disposition home or self-care (01) ==
PROVIDERS: PCP Family Medicine; Visit Provider Internal Medicine Medical Oncology
DX: Z51.11 Encounter for antineoplastic chemotherapy (principal); C50.411 Malignant neoplasm of upper-outer quadrant of right female breast; Z17.0 Estrogen receptor positive status [ER+]; C79.51 Secondary malignant neoplasm of bone; E04.1 Nontoxic single thyroid nodule; J44.9 Chronic obstructive pulmonary disease, unspecified; E03.9 Hypothyroidism, unspecified; I25.10 Atherosclerotic heart disease of native coronary artery without angina pectoris; I70.1 Atherosclerosis of renal artery; I71.4 Abdominal aortic aneurysm, without rupture; Z79.899 Other long term (current) drug therapy
CPT/HCPCS: 36415; 80053; 85025; 96372; 99215; J0897

== ENCOUNTER → 2020-08-20 10:35 | Outpatient (BNVA) | payer MEDICARE, MEDICAID, SELFPAY | PROVIDERS: PCP Family Medicine | DX: J44.9 Chronic obstructive pulmonary disease, unspecified (principal) | CPT/HCPCS: 87635 ==

== ENCOUNTER 2020-08-21 11:16 | Outpatient (CLI) | payer MEDICARE, MEDICAID, SELFPAY ==
[2020-08-21 12:08] LABS: Basophils % 1.3 %; Hematocrit 32.9 % (37.0-47.0); Hemoglobin 10.6 g/dL (11.5-15.3); Lymphocytes # 0.7 10^3/uL (0.8-4.8); Lymphocytes % 47.1 %; Mean Corpuscular HGB Conc 32.2 g/dL (30.0-36.0); Mean Corpuscular Hemoglobin 30.9 pg (28.0-34.0); Mean Corpuscular Volume 95.9 fL (81-99); Mean Platelet Volume 9.7 fL (7.4-10.4); Monocytes # 0.2 10^3/uL (0.2-0.9); Monocytes % 10.3 %; Neutrophils % 40.7 %; Nucleated Red Blood Cells % 0 %; Platelet Count 103 10^3/cmm (130-400); Red Blood Count 3.43 10^6/uL (4.1-5.3); Red Cell Distribution Width 15.5 % (12.1-15.1); White Blood Count 1.6 10^3/uL (4.0-10.0)
[2020-08-21 12:36] LABS: Alanine Aminotransferase 12 U/L (0-33); Albumin Level 4.5 g/dL (3.5-5.2); Alkaline Phosphatase 56 IU/L (35-105); Anion Gap 11.5 (5-19); Aspartate Amino Transferase 23 U/L (0-32); Blood Urea Nitrogen 31 mg/dL (8-23); Calcium 9.2 mg/dL (8.5-10.5); Carbon Dioxide 29 mmol/L (22-29); Chloride 98 mmol/L (98-107); Globulin 2.6 g/dL (1.3-4.6); Glucose 68 mg/dL (65-115); Osmolality Calculated 283 mOsm/kg (285-295); Potassium 4.5 mmol/L (3.5-5.1); Sodium 134 mmol/L (136-145); Total Bilirubin 0.3 mg/dL (0.15-1.2); Total Protein 7.1 g/dL (6.6-8.7)
[2020-08-21 13:10] LABS: Slide Review Slide Review Perform
[2020-08-21 13:13] LABS: Neutrophils # 0.63 10^3/uL (1.8-7.7)
[2020-08-21] MEDS: denosumab 120 mg SDV SUBCUT (13:57)
[2020-08-22 13:08] LABS: CA 27.29 252 U/mL (<38)
--- NOTE | 2020-09-02 14:27 | ONC FU_ITS ---
[facility] Patient Note Patient: Lorelei Saunders Unit #: [id number]: 1945 Dictated By: Ozzy RamirezDate of Visit: Aug 21, 2020 Onc MED Follow-Up/Prog Note Chief Complaint: Breast cancer/bone metastases. History of Present Illness: Ms Saunders is a 75 year-old woman with grade 2 infiltrating ductal carcinoma of the right breast, ER/AR positive and HER-2/alf negative, stage IV, with biopsy proven metastatic bone involvement. Her breast cancer was stage IIA (T2, N0, M0) at initial diagnosis in October 2008. Her Oncotype DX showed a recurrence score of 16, which was low risk. Her treatment included lumpectomy and axillary sentinel lymph node biopsy followed by radiation to the right breast, which she completed in February 2009. She was given adjuvant hormonal therapy with anastrozole. It was stopped in October 2012 when she came in with worsening joint pain. Bone scan in November 2012 showed no evidence of metastatic disease. She received no further adjuvant therapy, as she had then failed to return for follow-up. On 05/12/2019 she was seen in the emergency room with pain in the right hip area. The pain has been getting progressively worse over a period of several months. X-rays of the lumbar spine, pelvis, and right femur showed evidence of sclerotic lesions in the L1 and S1 vertebral bodies as well as lytic appearing bone changes in the right pubic bone. There was no fracture reported. Further evaluation with bone scan on 05/25/2019 showed multiple areas of uptake including the calvarium, cervical spine, thoracic spine, ribs, lumbar spine, pelvis, sacrum, and both hips most consistent with diffuse metastatic disease. Also noted was right renal pelvic dilatation. Dr Agrawal had seen her for a follow-up visit on 06/04/2019. Staging PET/CT on 06/09/2019 showed an intensely hypermetabolic left thyroid mass measuring 2.7 x 3.0 cm with SUV 16.9, appearance of which was felt to be most consistent with a primary thyroid malignancy. A right level III/IV cervical lymph node had elevated SUV of 8.0 and multiple mediastinal lymph nodes were FDG positive, consistent with metastases. And hepatic segment IVb lesion measuring 4.3 x 1.9 x 1.9 cm with SUV 5.9 appeared consistent with unifocal hepatic metastatic disease. A right paravertebral pleural implant at the right lung base measuring 2.0 x 1.7 cm had SUV 10.7. There was evidence of widespread osseous metastatic disease, as expected. Dr Agrawal reviewed that study with the radiologist. As none of the metastatic lesions were very accessible for biopsy, it was opted to proceed with CT directed core needle biopsy of her right iliac bone lesion. Pathology showed metastatic adenocarcinoma most consistent with breast primary. The breast prognostic profile showed ER positive at 91% and AR positive at 5%. It was negative for overexpression of HER-2/alf, 0 by IHC and amplification ratio by FISH of 0.9 with 2.4 HER-2 copies/cell. With those findings, she was referred to Dr. Kenny. She underwent palliative radiation to the right hip and to the right rib cage, completed on 07/17/2019. Both sites were treated to a total dose of 3000 cGy. Her other medical illnesses include atherosclerotic cardiovascular disease, degenerative arthritis, osteoporosis, and hypothyroidism. She had evidence of a 3 cm infrarenal abdominal aortic aneurysm on CT angiogram in June 2018. That study also showed arterial stenosis had multiple sites including the proximal SMA, the right renal artery, and left renal artery. Extensive calcifications were noted through the common iliac arteries bilaterally. She underwent right carotid endarterectomy in 2017. She had undergone hysterectomy/BSO in 1995. She has a history of smoking 1 pack of cigarettes daily for close to 60 years. She cut down about a year ago. INTERIM HISTORY: On 08/25/2019 she began cycle 1 of systemic therapy palbociclib 125 mg daily on a 21/28-day schedule together with letrozole 2.5 mg daily. She also started monthly denosumab injections for the metastatic bone involvement. As of 09/12/2019 the palbociclib was put on hold due to neutropenia. She then continued with cycle 2 on 10/03/2019 with the palbociclib dosage reduced to 125 mg every other day for 21 days. At her follow-up visit on 11/05/2019 she complained of severe fatigue and shortness of breath. Her CT pulmonary angiogram showed evidence of COPD, and there were osteoblastic changes consistent with metastatic disease. There was no evidence, though, for pulmonary embolism or other acute pathology. There had been some decline in the CA-27-29 level. With those findings, she continued treatment with palbociclib and letrozole, but with the palbociclib dosed at 100 mg daily on a 21/28-day schedule. As of her follow-up in February 2020 her CA 27-29 level had further decreased to 180 U/mL compared to 375 in September 2019, and as of her follow-up visit in March 2020 she appeared stable clinically. At her follow-up visit on 05/21/2020 she appeared to be having difficulty breathing. On clinical evaluation, Dr Agrawal was concerned about the possibility of upper airway obstruction. 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 There was evidence for severe emphysema, but there were no pulmonary nodules noted and are no other acute findings. There did appear to be progression of osteoblastic metastatic disease within the spine and sternum. She had ENT consultation with Dr. Deleon on 05/26/2020. Her fiberoptic laryngoscopy showed evidence of vocal cord paralysis on the right. There apparently was no evidence for airway obstruction. He recommended referral to endocrinology for management of the goiter. A restaging PET/CT on 06/28/2020 showed questionable improvement in the right thyroid mass measuring 2.5 cm with SUV 16.0. There was improvement in the mediastinal adenopathy. The right paravertebral pleural implant was not significantly changed. There was improvement in the hepatic metastatic lesion. There was a mixed response of osseous metastatic disease with the pelvic lesion having become sclerotic and FDG negative but with new lesions noted at T11 and at T8. She has continued with Xgeva/palbociclib and letrozole. She has had significant neutropenia with the palbociclib but thus far has been asymptomatic. She continues to deny fever or chills or any signs or symptoms of infection. She has had follow-up with pulmonology regarding her noisy breathing . She was started on Symbicort and states this is helped her breathing tremendously. She states overall she feels much better. She states her breathing is easier. She has coughing less. She is had no hemoptysis. She denies any orthopnea. She has had no chest pain or palpitations. She denies any nausea or vomiting. She states her bowels and bladder are normal for her. She denies any bone pain. Her ECOG is 1. Past Medical History: Abdominal aortic aneurysm Breast cancer Carotid stenosis Degenerative arthritis Goiter Hypothyroidism Renal artery stenosis Osteoporosis in 2009 (Treated) Past Surgical History: Knee surgery Knot removal from back Right carotid endarterectomy in 2018 Right breast lumpectomy with axillary sentinel lymph node biopsy in 2008 Breast biopsy in 2008 Hysterectomy/bilateral salpingo-oophorectomy in 1994 Allergies: Fluticasone Furoate Medications: Aspirin 1 Tablet (of 81 mg) Tablet Oral daily Budesonide (0.5 mg/2mL) Suspension Inhalation b.i.d. Hydrocodone-Acetaminophen 1 Tablet (of 5-325 mg) Tablet Oral q 6 hours PRN Ibrance 1 Tablet (of 100 mg) Oral daily Letrozole 1 Tablet (of 2.5 mg) Oral daily Levothyroxine Sodium 1 Tablet (of 50 mcg) Oral daily Family History: Ms. Saunders's mother is : heart disease. Ms. Saunders's father is : lung cancer. Ms. Saunders has 3 brothers: 2 alive, 1 . Ms. Saunders's first brother's kidney cancer. Another brother's esophagus cancer. She has 2 sisters: 2 . Ms. Saunders's first sister's lung cancer. Her father and a sister of lung cancer. One brother had esophageal cancer and another brother was treated for kidney cancer. Her mother of heart attack. A son with a drug overdose. Social History: Ms. Saunders is . She is a daily smoker who has smoked 0.5 packs/day for 61 years. She is a former drinker. She has a history of smoking 1 pack of cigarettes daily for close to 60 years. She cut down about a year ago and she now has only minimal smoking. She had alcohol use in the past but she quit drinking at least 35 or 40 years ago. Review Of Symptoms: <See Above> Vital Signs: Performed on Aug 21, 2020 13:13 Height - 62.00 in Weight - 91.8 lbs (HIGH) BSA - 1.37 sq.m BMI - 16.79 (LOW) Temperature - 96.2 F (LOW) Pulse - 88 /min Respiration - 18 /min BP - 134/75 mm(hg) O2 Sat - 99 % Pain - 7 Fatigue - 0,1 - No physically strenuous activity, but ambulatory and able to carry out light or sedentary work (e.g. office work, light house work). (ECOG) Physical Examination: Constitutional Alert, oriented, no acute distress. Skin pink, warm and dry. Head Normocephalic; atraumatic. Eyes Conjunctivae and sclerae are clear and without icterus. Pupils are reactive and equal. ENMT Sinuses are nontender. No oral exudates, ulcers, masses, thrush or mucositis. Oropharynx clear. Tongue normal. Neck Supple without masses or thyromegaly. No jugular venous distension. Hematologic/Lymphatic No petechiae or purpura. No tender or palpable lymph nodes in the cervical, supraclavicular, or axillary area. Respiratory Lung auscultation is without rhonchi but faint scattered wheezing bilaterally. Cardiovascular Regular rate and rhythm of heart with soft systolic murmur but no clicks, gallops or rubs. Abdomen Non-tender, non-distended, no masses or ascites. Good bowel sounds noted in all quads. No guarding or rebound tenderness. No pulsatile masses. Back/Spine Non-tender to palpation. Extremities No visible deformities, no cyanosis, clubbing or edema. Musculoskeletal No tenderness or swelling, normal range of motion without obvious weakness. Integumentary No rashes or lesions. Neurologic No sensory or motor deficits, normal cerebellar function, normal gait. Psychiatric Alert and oriented times three. Coherent speech. Verbalizes understanding of our discussions today. Laboratory:Test performed on Aug 21, 2020 11:45 Sodium 134 mmol/L Potassium 4.5 mmol/L Chloride 98 mmol/L CO2 29 mmol/L Anion Gap 11.5 BUN 31 mg/dL Creatinine 0.9 mg/dL Cr Clearance (Est) 34.41 mL/min Glucose 68 mg/dL Osmolality - Calculated 283 mOsm/kg Calcium 9.2 mg/dL Protein, Total 7.1 g/dL Albumin 4.5 g/dL Globulin 2.6 g/dL Bilirubin, Total 0.3 mg/dL ALT (SGPT) 12 U/L AST (SGOT) 23 U/L Alkaline Phosphatase 56 IU/L WBC 1.6 10 3/uL RBC 3.43 10 6/uL HGB 10.6 g/dL HCT 32.9 % MCV 95.9 fL MCH 30.9 pg MCHC 32.2 g/dL RDW 15.5 % Platelet Count 103 10 3/cmm MPV 9.7 fL Neutrophils 0.63 10 3/uL Lymphocytes 0.7 10 3/uL Monocytes 0.2 10 3/uL Eosinophils 0.0 10 3/uL Basophils 0.0 10 3/uL Neutrophil % 40.7 % Lymphocyte % 47.1 % Monocyte % 10.3 % Eosinophil % 0.0 % Basophils % 1.3 % NRBC % 0 % CBC Slide Review Slide Review Perform SLIDE REVIEW AGREES WITH AUTOMATED RESULTS CA 27.29 252 U/mL Test performed on Jun 19, 2020 16:00 T4, Free 1.72 ng/dL TSH 0.07 uIU/mL Impression: 1. Grade 2 infiltrating ductal carcinoma of the right breast, ER/AR positive and HER-2/alf negative. Her disease was stage IIA (T2, N0, M0) at initial diagnosis in October 2008. She had progression to stage IV with multiple sites of metastatic involvement including extensive bony metastatic disease. CT directed core needle biopsy of a right iliac bone lesion on 06/26/2019 confirmed metastatic adenocarcinoma consistent with breast primary, ER/AR positive and HER-2/alf negative. 2. She had PET/CT evidence an FDG avid left thyroid mass, and she also was found on CT to have evidence of a large substernal goiter. 3. Degenerative arthritis. 4. COPD. 5. Hypothyroidism. 6. Atherosclerotic cardiovascular disease including carotid stenosis and renal artery stenosis. 7. She has known abdominal aortic aneurysm. Plan/Problems Addressed at this Visit: 1. Grade 2 infiltrating ductal carcinoma of the right breast, ER/AR positive and HER-2/alf negative. Her disease was stage IIA (T2, N0, M0) at initial diagnosis in October 2008. She had progression to stage IV with multiple sites of metastatic involvement including extensive bony metastatic disease. CT directed core needle biopsy of a right iliac bone lesion on 06/26/2019 confirmed metastatic adenocarcinoma consistent with breast primary, ER/AR positive and HER-2/alf negative. She initially underwent palliative radiation to the right hip and to the right rib cage, completed on 07/17/2019, both sites to a total dose of 3000 cGy. On 08/21/2019 she began systemic therapy with palbociclib 125 mg daily on a 21/28-day schedule together with letrozole 2.5 mg daily. She required a dose reduction in the palbociclib to 100 mg. However, she did have evidence of response with CA 27-29 level decreased to 180 U/mL compared to 375 U/mL in September 2019. During followup she has had further decline in her granulocyte count, but she has otherwise tolerated treatment well. Her restaging PET/CT on 07/03/2020 showed mixed response with some areas of improvement but with evidence of new bone lesions at T8 and T11 vertebral bodies. A. Hold Ibrance due to ANC of 630. Yesterday was her last dose of 100 mg (she had not had decrease to the 75 mg yet for unknown reasons). I have instructed her to HOLD the Ibrance until we tell her to resume it. B. Recheck CBC in 1 week to determine if she is starting to recover. C. When she does resume will resume her dose at 75 mg 21 out of 28 days. D. She will continue the letrozole 2.5 mg daily. Her last dose of the denosumab was on July 23, 2020. She will be due for that today. E. Today's labs reviewed in detail and discussed with Ms. Saunders and a copy was given to her. WBC 1.6, hemoglobin 10.6 platelets 103,000 ANC is 630. Potassium 4.5 random glucose 68 creatinine 0.9 her LFTs are normal. Her CA 27-29 is noted to be 252 today. F. We will plan for follow-up in 4 weeks with CBC, CMP, TSH, free T4 and CA 27-29. G. She will be due for Xgeva at that time as well. H. A new prescription for Ibrance 75 mg days 1 through 21 and offer 7 was written on August 12, 2020. Mrs. Saunders has been advised not to resume and to RACHEL however follow-up blood counts are doing. I. Mrs. Saunders was encouraged to contact us in interim should questions or problems arise. J. She reports that she stopped smoking 3 months ago. K. We did discuss neutropenic precautions and a copy of our written neutropenic precautions was given to her. She is encouraged to call us if she has any signs or symptoms of infection or any fever greater than 100.4. 2. During followup she complained of ncreased shortness of breath. She had PET/CT evidence an FDG avid left thyroid mass, and she also was found on CT to have evidence of a large substernal goiter. She has associated upper airway symptoms, but her ENT exam reportedly showed no actual airway obstruction. A. She has been referred to endocrinology referral for management of the goiter. B. She has been evaluated in pulmonology and started on Symbicort and states she is feeling much better. 3. She has metastatic bone involvement. A. Her last dose was on July 23, 2020. She is due for her next dose today. B. She is receiving denosumab 120 mg monthly. Signed By: Ozzy Ramirez-, AOCNP Paul Agrawal MD <<Signature on File>>
== END 2020-08-21 11:17 | disposition home or self-care (01) ==
LOC: ONCMED 11:19
PROVIDERS: Internal Medicine Medical Oncology; PCP Family Medicine; Visit Provider Nurse Practitioner
DX: Z51.11 Encounter for antineoplastic chemotherapy (principal); C50.411 Malignant neoplasm of upper-outer quadrant of right female breast; Z17.0 Estrogen receptor positive status [ER+]; C79.51 Secondary malignant neoplasm of bone; D70.1 Agranulocytosis secondary to cancer chemotherapy; T45.1X5A Adverse effect of antineoplastic and immunosuppressive drugs, initial encounter; M81.0 Age-related osteoporosis without current pathological fracture; E04.1 Nontoxic single thyroid nodule; I65.23 Occlusion and stenosis of bilateral carotid arteries; E03.9 Hypothyroidism, unspecified; Z79.899 Other long term (current) drug therapy
CPT/HCPCS: 36415; 80053; 85025; 86300; 96372; 99215; J0897

== ENCOUNTER 2020-08-25 12:14 | Outpatient (CLI) | payer MEDICARE, MEDICAID, SELFPAY ==
--- NOTE | 2020-08-25 12:48 | PFTS_ITS ---
Date of Study:08/25/20 Date of Dictation: MECHANICS: Forced vital capacity (FVC) is reduced. Forced expiratory volume in one second (FEV1) is reduced. FEV1/FVC is normal. FLOW VOLUME LOOP: Reduced flow at all lung volumes without any significant scooping. LUNG VOLUMES: Total lung capacity (TLC) is normal. Residual volume (RV) is normal. DIFFUSING CAPACITY FOR CARBON MONOXIDE: Moderately reduced. INTERPRETATION: The postbronchodilator spirometry is consistent with mild restriction. There is no significant postbronchodilator response. The lung volumes are normal. The constellation of these findings would be consistent with nonspecific ventilatory limitation. This is likely secondary to a combined obstructive and restrictive ventilatory defect. Gas exchange (DLCO) is moderately reduced. MTDD
== END 2020-08-25 12:15 | disposition home or self-care (01) ==
LOC: RT 12:17
PROVIDERS: PCP Family Medicine; Visit Provider Internal Medicine Pulmonary Disease
DX: J44.9 Chronic obstructive pulmonary disease, unspecified (principal)
CPT/HCPCS: 94060; 94618; 94726; 94729; J7611

== ENCOUNTER 2020-09-18 10:55 | Outpatient (CLI) | payer MEDICARE, MEDICAID, SELFPAY ==
[2020-09-18 12:46] LABS: Basophils % 1.1 %; Hematocrit 34.4 % (37.0-47.0); Hemoglobin 11.2 g/dL (11.5-15.3); Lymphocytes # 0.5 10^3/uL (0.8-4.8); Lymphocytes % 26.3 %; Mean Corpuscular HGB Conc 32.6 g/dL (30.0-36.0); Mean Corpuscular Hemoglobin 31.1 pg (28.0-34.0); Mean Corpuscular Volume 95.6 fL (81-99); Mean Platelet Volume 10.4 fL (7.4-10.4); Monocytes # 0.2 10^3/uL (0.2-0.9); Monocytes % 11.1 %; Neutrophils # 1.17 10^3/uL (1.8-7.7); Neutrophils % 61.5 %; Nucleated Red Blood Cells % 0 %; Platelet Count 129 10^3/cmm (130-400); White Blood Count 1.9 10^3/uL (4.0-10.0)
[2020-09-18 13:04] LABS: Alanine Aminotransferase 12 U/L (0-33); Albumin Level 4.5 g/dL (3.5-5.2); Alkaline Phosphatase 54 IU/L (35-105); Anion Gap 13.8 (5-19); Aspartate Amino Transferase 20 U/L (0-32); Blood Urea Nitrogen 24 mg/dL (8-23); Calcium 8.8 mg/dL (8.5-10.5); Carbon Dioxide 27 mmol/L (22-29); Chloride 103 mmol/L (98-107); Free T4 Free Thyroxine 1.86 ng/dL (0.82-1.77); Globulin 2.3 g/dL (1.3-4.6); Glucose 75 mg/dL (65-115); Osmolality Calculated 291 mOsm/kg (285-295); Potassium 4.8 mmol/L (3.5-5.1); Sodium 139 mmol/L (136-145); Thyroid Stimulating Hormone 0.06 uIU/mL (0.27-4.20); Total Bilirubin 0.3 mg/dL (0.15-1.2); Total Protein 6.8 g/dL (6.6-8.7)
[2020-09-18 13:14] LABS: Slide Review Slide Review Perform
[2020-09-18] MEDS: denosumab 120 mg SDV SUBCUT (14:24)
[2020-09-19 11:07] LABS: CA 27.29 275 U/mL (<38)
--- NOTE | 2020-09-21 13:57 | ONC FU_ITS ---
Dr. Agrawal Patient Follow-Up Note Patient: Lorelei Saunders Unit #: [id number]: [id number] Dicatated By: Paul Agrawal M.D.Date of Visit:September 18, 2020 Onc Med Follow-up/Prog Note Chief Complaint: Breast cancer/bone metastases. History of Present Illness: This is a 75 year-old woman with grade 2 infiltrating ductal carcinoma of the right breast, ER/GA positive and HER-2/alf negative, stage IV, with biopsy proven metastatic bone involvement. Her breast cancer was stage IIA (T2, N0, M0) at initial diagnosis in October 2008. Her Oncotype DX showed a recurrence score of 16, which was low risk. Her treatment included lumpectomy and axillary sentinel lymph node biopsy followed by radiation to the right breast, which she completed in February 2009. She was given adjuvant hormonal therapy with anastrozole. It was stopped in October 2012 when she came in with worsening joint pain. Bone scan in November 2012 showed no evidence of metastatic disease. She received no further adjuvant therapy, as she had then failed to return for follow-up. On 05/12/2019 she was seen in the emergency room with pain in the right hip area. The pain has been getting progressively worse over a period of several months. X-rays of the lumbar spine, pelvis, and right femur showed evidence of sclerotic lesions in the L1 and S1 vertebral bodies as well as lytic appearing bone changes in the right pubic bone. There was no fracture reported. Further evaluation with bone scan on 05/25/2019 showed multiple areas of uptake including the calvarium, cervical spine, thoracic spine, ribs, lumbar spine, pelvis, sacrum, and both hips most consistent with diffuse metastatic disease. Also noted was right renal pelvic dilatation. I had seen her for a follow-up visit on 06/04/2019. Staging PET/CT on 06/09/2019 showed an intensely hypermetabolic left thyroid mass measuring 2.7 x 3.0 cm with SUV 16.9, appearance of which was felt to be most consistent with a primary thyroid malignancy. A right level III/IV cervical lymph node had elevated SUV of 8.0 and multiple mediastinal lymph nodes were FDG positive, consistent with metastases. And hepatic segment IVb lesion measuring 4.3 x 1.9 x 1.9 cm with SUV 5.9 appeared consistent with unifocal hepatic metastatic disease. A right paravertebral pleural implant at the right lung base measuring 2.0 x 1.7 cm had SUV 10.7. There was evidence of widespread osseous metastatic disease, as expected. I have reviewed that study with the radiologist. As none of the metastatic lesions were very accessible for biopsy, we opted to proceed with CT directed core needle biopsy of her right iliac bone lesion. Pathology showed metastatic adenocarcinoma most consistent with breast primary. The breast prognostic profile showed ER positive at 91% and GA positive at 5%. It was negative for overexpression of HER-2/alf, 0 by IHC and amplification ratio by FISH of 0.9 with 2.4 HER-2 copies/cell. With those findings, she was referred to Dr. Kenny. She underwent palliative radiation to the right hip and to the right rib cage, completed on 07/17/2019. Both sites were treated to a total dose of 3000 cGy. Her other medical illnesses include atherosclerotic cardiovascular disease, degenerative arthritis, osteoporosis, and hypothyroidism. She had evidence of a 3 cm infrarenal abdominal aortic aneurysm on CT angiogram in June 2018. That study also showed arterial stenosis had multiple sites including the proximal SMA, the right renal artery, and left renal artery. Extensive calcifications were noted through the common iliac arteries bilaterally. She underwent right carotid endarterectomy in 2017. She had undergone hysterectomy/BSO in 1995. She has a history of smoking 1 pack of cigarettes daily for close to 60 years. She cut down about a year ago. INTERIM HISTORY: On 08/25/2019 she began cycle 1 of systemic therapy palbociclib 125 mg daily on a 21/28-day schedule together with letrozole 2.5 mg daily. She also started monthly denosumab injections for the metastatic bone involvement. As of 09/12/2019 the palbociclib was put on hold due to neutropenia. She then continued with cycle 2 on 10/03/2019 with the palbociclib dosage reduced to 125 mg every other day for 21 days. At her follow-up visit on 11/05/2019 she complained of severe fatigue and shortness of breath. Her CT pulmonary angiogram showed evidence of COPD, and there were osteoblastic changes consistent with metastatic disease. There was no evidence, though, for pulmonary embolism or other acute pathology. There had been some decline in the CA-27-29 level. With those findings, she continued treatment with palbociclib and letrozole, but with the palbociclib dosed at 100 mg daily on a 21/28-day schedule. As of her follow-up in February 2020 her CA 27-29 level had further decreased to 180 U/mL compared to 375 in September 2019, and as of her follow-up visit in March 2020 she appeared stable clinically. At her follow-up visit on 05/21/2020 she appeared to be having difficulty breathing. On clinical evaluation I was concerned about the possibility of upper airway obstruction. 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 There was evidence for severe emphysema, but there were no pulmonary nodules noted and are no other acute findings. There did appear to be progression of osteoblastic metastatic disease within the spine and sternum. She had ENT consultation with Dr. Deleon on 05/26/2020. Her fiberoptic laryngoscopy showed evidence of vocal cord paralysis on the right. There apparently was no evidence for airway obstruction. He recommended referral to endocrinology for management of the goiter. A restaging PET/CT on 06/28/2020 showed questionable improvement in the right thyroid mass measuring 2.5 cm with SUV 16.0. There was improvement in the mediastinal adenopathy. The right paravertebral pleural implant was not significantly changed. There was improvement in the hepatic metastatic lesion. There was a mixed response of osseous metastatic disease with the pelvic lesion having become sclerotic and FDG negative but with new lesions noted at T11 and at T8. With those findings, she continued treatment with palbociclib/letrozole and she also continued monthly denosumab injections for the metastatic bone involvement. She is seen for a follow-up visit. She says she has been feeling pretty good generally. She does have some fatigue, but she is still doing light work. ECOG score is 1. She has good appetite. She has not had fever. She does report having some hot flashes and sweating. She has had some blisters in her mouth associated with her dentures. She continues to complain that her breathing is not good. She is not having cough or chest pain. She had some nausea this morning. She has no other GI or complaints. She is not having any significant joint or bone pain. She has occasional headache. She is having problems with dysequilibrium. She has no numbness/paresthesia or other focal neurologic symptoms. Medications: Aspirin 1 Tablet (of 81 mg) Tablet Oral daily, Budesonide (0.5 mg/2mL) Suspension Inhalation b.i.d., Formoterol Fumarate (20 mcg/2mL) Nebulization solution Inhalation b.i.d., Hydrocodone-Acetaminophen 1 Tablet (of 5-325 mg) Tablet Oral q 6 hours PRN, Ibrance 1 Tablet (of 100 mg) Oral daily, Letrozole 1 Tablet (of 2.5 mg) Oral daily, Levothyroxine Sodium 1 Tablet (of 50 mcg) Oral daily, Pulmicort Suspension Inhalation b.i.d., Revefenacin (175 mcg/3mL) Solution Inhalation daily Allergies: Fluticasone Furoate Vital Signs: Performed on September 18, 2020 15:16 Height - 62.00 in Weight - 80.6 lbs (LOW) BSA - 1.30 sq.m BMI - 14.74 (LOW) Temperature - 98.0 F (LOW) Pulse - 91 /min Respiration - 18 /min BP - 132/75 mm(hg) O2 Sat - 98 % Pain - 0 Fatigue - 0 Physical Examination: Constitutional - She looks pretty good generally, but she appears short of breath with effort, Eyes - Sclerae nonicteric. Conjunctivae clear, ENMT - No lesions noted in the oral cavity, Hematologic/Lymphatic - No cervical, clavicular, or axillary adenopathy, Respiratory - Lungs show some decrease in air movement bilaterally. She has coarse upper airway sounds on both inspiration and expiration, Cardiovascular - Heart rhythm is regular. There is no murmur, gallop, or rub noted, Abdomen - Soft. Liver and spleen are not enlarged. There is no abdominal mass or ascites noted and there is no inguinal adenopathy, Extremities - No edema, Neurologic - No focal neurologic deficits noted. Lab/Imaging: Test performed on September 18, 2020 12:15 Sodium 139 mmol/L T4, Free 1.86 ng/dL TSH 0.06 uIU/mL Potassium 4.8 mmol/L Chloride 103 mmol/L CO2 27 mmol/L Anion Gap 13.8 BUN 24 mg/dL Creatinine 0.7 mg/dL Cr Clearance (Est) 38.85 mL/min Glucose 75 mg/dL Osmolality - Calculated 291 mOsm/kg Calcium 8.8 mg/dL Protein, Total 6.8 g/dL Albumin 4.5 g/dL Globulin 2.3 g/dL Bilirubin, Total 0.3 mg/dL ALT (SGPT) 12 U/L AST (SGOT) 20 U/L Alkaline Phosphatase 54 IU/L WBC 1.9 10 3/uL RBC 3.60 10 6/uL HGB 11.2 g/dL HCT 34.4 % MCV 95.6 fL MCH 31.1 pg MCHC 32.6 g/dL RDW 17.0 % Platelet Count 129 10 3/cmm MPV 10.4 fL Neutrophils 1.17 10 3/uL Lymphocytes 0.5 10 3/uL Monocytes 0.2 10 3/uL Eosinophils 0.0 10 3/uL Basophils 0.0 10 3/uL Neutrophil % 61.5 % Lymphocyte % 26.3 % Monocyte % 11.1 % Eosinophil % 0.0 % Basophils % 1.1 % NRBC % 0 % CBC Slide Review Slide Review Perform SLIDE REVIEW AGREES WITH AUTOMATED RESULTS CA 27.29 275 U/mL Problem List: 1. Grade 2 infiltrating ductal carcinoma of the right breast, ER/GA positive and HER-2/alf negative. Her disease was stage IIA (T2, N0, M0) at initial diagnosis in October 2008. She had progression to stage IV with multiple sites of metastatic involvement including extensive bony metastatic disease. CT directed core needle biopsy of a right iliac bone lesion on 06/26/2019 confirmed metastatic adenocarcinoma consistent with breast primary, ER/GA positive and HER-2/alf negative. 2. She had PET/CT evidence an FDG avid left thyroid mass, and she also was found on CT to have evidence of a large substernal goiter. 3. Degenerative arthritis. 4. COPD. 5. Hypothyroidism. 6. Atherosclerotic cardiovascular disease including carotid stenosis and renal artery stenosis. 7. She has known abdominal aortic aneurysm. Problems Addressed with this Encounter and Plan: 1. 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 Her disease was stage IIA (T2, N0, M0) at initial diagnosis in October 2008. She had progression to stage IV with multiple sites of metastatic involvement including extensive bony metastatic disease. CT directed core needle biopsy of a right iliac bone lesion on 06/26/2019 confirmed metastatic adenocarcinoma consistent with breast primary, ER/GA positive and HER-2/alf negative. She initially underwent palliative radiation to the right hip and to the right rib cage, completed on 07/17/2019, both sites to a total dose of 3000 cGy. On 08/21/2019 she began systemic therapy with palbociclib 125 mg daily on a 21/28-day schedule together with letrozole 2.5 mg daily. She required a dose reduction in the palbociclib to 100 mg. However, she did have evidence of response with CA 27-29 level decreased to 180 U/mL compared to 375 U/mL in September 2019. Her restaging PET/CT on 07/03/2020 showed mixed response with some areas of improvement but with evidence of new bone lesions at T8 and T11 vertebral bodies. As she was not overtly symptomatic, she continued treatment with letrozole and palbociclib. Due to a further decline in her neutrophil count, she was given an additional reduction in the palbociclib dosage to 75 mg administered on a 21/28-day schedule. Over the past 3 months there has been a gradual increase in her CA 27-29 level, which is somewhat concerning, particularly in view of the PET/CT findings. In addition, despite the further reduction in the palbociclib dosage, she continues to have moderately severe neutropenia. At this point she is recommended to delay her next cycle of palbociclib, but she will continue letrozole 2.5 mg daily. She will be scheduled for a follow-up visit at a 1 month interval from her next palbociclib cycle. 2. During followup she complained of ncreased shortness of breath. She had PET/CT evidence an FDG avid left thyroid mass, and she also was found on CT to have evidence of a large substernal goiter. She has associated upper airway symptoms, but her ENT exam reportedly showed no actual airway obstruction. She is now on thyroid suppression with levothyroxine, and she also is being followed by pulmonology. 3. She has metastatic bone involvement. She will be given denosumab 120 mg by subcutaneous injection. Signed By: Paul Agrawal M.D. <<Signature on File>>
== END 2020-09-18 10:56 | disposition home or self-care (01) ==
PROVIDERS: PCP Family Medicine; Visit Provider Internal Medicine Medical Oncology
DX: Z51.11 Encounter for antineoplastic chemotherapy (principal); C50.811 Malignant neoplasm of overlapping sites of right female breast; Z17.0 Estrogen receptor positive status [ER+]; C79.51 Secondary malignant neoplasm of bone; M19.90 Unspecified osteoarthritis, unspecified site; J44.9 Chronic obstructive pulmonary disease, unspecified; E03.9 Hypothyroidism, unspecified; I25.10 Atherosclerotic heart disease of native coronary artery without angina pectoris; I65.23 Occlusion and stenosis of bilateral carotid arteries; I70.1 Atherosclerosis of renal artery; I71.4 Abdominal aortic aneurysm, without rupture; Z79.899 Other long term (current) drug therapy
CPT/HCPCS: 36415; 80053; 84439; 84443; 85025; 86300; 96372; 99214; J0897

== ENCOUNTER 2020-10-20 09:07 | Outpatient (CLI) | payer MEDICARE, MEDICAID, SELFPAY ==
[2020-10-20 09:57] LABS: Basophils % 0.5 %; Eosinophils # 0.1 10^3/uL (0.0-0.8); Eosinophils % 1.6 %; Hematocrit 38.3 % (37.0-47.0); Hemoglobin 12.5 g/dL (11.5-15.3); Lymphocytes % 22.1 %; Mean Corpuscular HGB Conc 32.6 g/dL (30.0-36.0); Mean Corpuscular Hemoglobin 31.5 pg (28.0-34.0); Mean Corpuscular Volume 96.5 fL (81-99); Mean Platelet Volume 10.1 fL (7.4-10.4); Monocytes # 0.7 10^3/uL (0.2-0.9); Monocytes % 14.9 %; Neutrophils # 2.66 10^3/uL (1.8-7.7); Neutrophils % 59.8 %; Nucleated Red Blood Cells % 0 %; Platelet Count 247 10^3/cmm (130-400); Red Blood Count 3.97 10^6/uL (4.1-5.3); Red Cell Distribution Width 15.3 % (12.1-15.1); White Blood Count 4.4 10^3/uL (4.0-10.0)
[2020-10-20 10:17] LABS: Alanine Aminotransferase 11 U/L (0-33); Albumin Level 4.2 g/dL (3.5-5.2); Alkaline Phosphatase 64 IU/L (35-105); Anion Gap 15.2 (5-19); Aspartate Amino Transferase 22 U/L (0-32); Blood Urea Nitrogen 19 mg/dL (8-23); Calcium 9.7 mg/dL (8.5-10.5); Carbon Dioxide 29 mmol/L (22-29); Chloride 100 mmol/L (98-107); Globulin 2.8 g/dL (1.3-4.6); Glucose 88 mg/dL (65-115); Osmolality Calculated 292 mOsm/kg (285-295); Potassium 4.2 mmol/L (3.5-5.1); Sodium 140 mmol/L (136-145); Total Bilirubin 0.3 mg/dL (0.15-1.2)
[2020-10-20] MEDS: denosumab 120 mg SDV SUBCUT (12:15)
[2020-10-22 03:23] LABS: CA 27.29 342 U/mL (<38)
--- NOTE | 2020-10-29 02:34 | ONC FU_ITS ---
[facility] Patient Note Patient: Lorelei Saunders Unit #: [id number]: 1945 Dictated By: Ozzy RamirezDate of Visit: Oct 20, 2020 Onc MED Follow-Up/Prog Note Chief Complaint: Breast cancer/bone metastases. History of Present Illness: Ms Saunders is a 75 year-old woman with grade 2 infiltrating ductal carcinoma of the right breast, ER/IL positive and HER-2/alf negative, stage IV, with biopsy proven metastatic bone involvement. Her breast cancer was stage IIA (T2, N0, M0) at initial diagnosis in October 2008. Her Oncotype DX showed a recurrence score of 16, which was low risk. Her treatment included lumpectomy and axillary sentinel lymph node biopsy followed by radiation to the right breast, which she completed in February 2009. She was given adjuvant hormonal therapy with anastrozole. It was stopped in October 2012 when she came in with worsening joint pain. Bone scan in November 2012 showed no evidence of metastatic disease. She received no further adjuvant therapy, as she had then failed to return for follow-up. On 05/12/2019 she was seen in the emergency room with pain in the right hip area. The pain has been getting progressively worse over a period of several months. X-rays of the lumbar spine, pelvis, and right femur showed evidence of sclerotic lesions in the L1 and S1 vertebral bodies as well as lytic appearing bone changes in the right pubic bone. There was no fracture reported. Further evaluation with bone scan on 05/25/2019 showed multiple areas of uptake including the calvarium, cervical spine, thoracic spine, ribs, lumbar spine, pelvis, sacrum, and both hips most consistent with diffuse metastatic disease. Also noted was right renal pelvic dilatation. Dr Agrawal had seen her for a follow-up visit on 06/04/2019. Staging PET/CT on 06/09/2019 showed an intensely hypermetabolic left thyroid mass measuring 2.7 x 3.0 cm with SUV 16.9, appearance of which was felt to be most consistent with a primary thyroid malignancy. A right level III/IV cervical lymph node had elevated SUV of 8.0 and multiple mediastinal lymph nodes were FDG positive, consistent with metastases. And hepatic segment IVb lesion measuring 4.3 x 1.9 x 1.9 cm with SUV 5.9 appeared consistent with unifocal hepatic metastatic disease. A right paravertebral pleural implant at the right lung base measuring 2.0 x 1.7 cm had SUV 10.7. There was evidence of widespread osseous metastatic disease, as expected. Dr Agrawal reviewed that study with the radiologist. As none of the metastatic lesions were very accessible for biopsy, we opted to proceed with CT directed core needle biopsy of her right iliac bone lesion. Pathology showed metastatic adenocarcinoma most consistent with breast primary. The breast prognostic profile showed ER positive at 91% and IL positive at 5%. It was negative for overexpression of HER-2/alf, 0 by IHC and amplification ratio by FISH of 0.9 with 2.4 HER-2 copies/cell. With those findings, she was referred to Dr. Kenny. She underwent palliative radiation to the right hip and to the right rib cage, completed on 07/17/2019. Both sites were treated to a total dose of 3000 cGy. Her other medical illnesses include atherosclerotic cardiovascular disease, degenerative arthritis, osteoporosis, and hypothyroidism. She had evidence of a 3 cm infrarenal abdominal aortic aneurysm on CT angiogram in June 2018. That study also showed arterial stenosis had multiple sites including the proximal SMA, the right renal artery, and left renal artery. Extensive calcifications were noted through the common iliac arteries bilaterally. She underwent right carotid endarterectomy in 2017. She had undergone hysterectomy/BSO in 1995. She has a history of smoking 1 pack of cigarettes daily for close to 60 years. She cut down about a few years ago. INTERIM HISTORY: On 08/25/2019 she began cycle 1 of systemic therapy palbociclib 125 mg daily on a 21/28-day schedule together with letrozole 2.5 mg daily. She also started monthly denosumab injections for the metastatic bone involvement. As of 09/12/2019 the palbociclib was put on hold due to neutropenia. She then continued with cycle 2 on 10/03/2019 with the palbociclib dosage reduced to 125 mg every other day for 21 days. At her follow-up visit on 11/05/2019 she complained of severe fatigue and shortness of breath. Her CT pulmonary angiogram showed evidence of COPD, and there were osteoblastic changes consistent with metastatic disease. There was no evidence, though, for pulmonary embolism or other acute pathology. There had been some decline in the CA-27-29 level. With those findings, she continued treatment with palbociclib and letrozole, but with the palbociclib dosed at 100 mg daily on a 21/28-day schedule. As of her follow-up in February 2020 her CA 27-29 level had further decreased to 180 U/mL compared to 375 in September 2019, and as of her follow-up visit in March 2020 she appeared stable clinically. At her follow-up visit on 05/21/2020 she appeared to be having difficulty breathing. On clinical evaluation I was concerned about the possibility of upper airway obstruction. 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 There was evidence for severe emphysema, but there were no pulmonary nodules noted and are no other acute findings. There did appear to be progression of osteoblastic metastatic disease within the spine and sternum. She had ENT consultation with Dr. Dleeon on 05/26/2020. Her fiberoptic laryngoscopy showed evidence of vocal cord paralysis on the right. There apparently was no evidence for airway obstruction. He recommended referral to endocrinology for management of the goiter. A restaging PET/CT on 06/28/2020 showed questionable improvement in the right thyroid mass measuring 2.5 cm with SUV 16.0. There was improvement in the mediastinal adenopathy. The right paravertebral pleural implant was not significantly changed. There was improvement in the hepatic metastatic lesion. There was a mixed response of osseous metastatic disease with the pelvic lesion having become sclerotic and FDG negative but with new lesions noted at T11 and at T8. With those findings, she continued treatment with palbociclib/letrozole and she also continued monthly denosumab injections for the metastatic bone involvement. Mrs. Saunders is here today for follow-up. She has no new concerns. She denies any fever or chills. She denies any mouth sores, sore throat or difficulty swallowing. She states that her breathing overall is some better. She denies any new bone pain. Her energy is fair. Her appetite is good for her. She states she has been taking the Ibrance regularly and states her dose is 75 mg daily 21 out of 28 days. Her ECOG is 1. She denies any neuropathy. She denies any orthopnea or lower extremity edema. She is had no diarrhea or constipation. Past Medical History: Abdominal aortic aneurysm Breast cancer Carotid stenosis Degenerative arthritis Goiter Hypothyroidism Renal artery stenosis Osteoporosis in 2009 (Treated) Past Surgical History: Knee surgery Knot removal from back Right carotid endarterectomy in 2018 Right breast lumpectomy with axillary sentinel lymph node biopsy in 2008 Breast biopsy in 2008 Hysterectomy/bilateral salpingo-oophorectomy in 1994 Allergies: Fluticasone Furoate Medications: Aspirin 1 Tablet (of 81 mg) Tablet Oral daily Budesonide (0.5 mg/2mL) Suspension Inhalation b.i.d. Formoterol Fumarate (20 mcg/2mL) Nebulization solution Inhalation b.i.d. Hydrocodone-Acetaminophen 1 Tablet (of 5-325 mg) Tablet Oral q 6 hours PRN Ibrance 1 Tablet (of 100 mg) Oral daily Letrozole 1 Tablet (of 2.5 mg) Oral daily Levothyroxine Sodium 1 Tablet (of 50 mcg) Oral daily Pulmicort Suspension Inhalation b.i.d. Revefenacin (175 mcg/3mL) Solution Inhalation daily Family History: Ms. Saunders's mother is : heart disease. Ms. Saunders's father is : lung cancer. Ms. Saunders has 3 brothers: 2 alive, 1 . Ms. Saunders's first brother's kidney cancer. Another brother's esophagus cancer. She has 2 sisters: 2 . Ms. Saunders's first sister's lung cancer. Her father and a sister of lung cancer. One brother had esophageal cancer and another brother was treated for kidney cancer. Her mother of heart attack. A son with a drug overdose. Social History: Ms. Saunders is . She is a daily smoker who has smoked 0.5 packs/day for 61 years. She is a former drinker. She has a history of smoking 1 pack of cigarettes daily for close to 60 years. She cut down about a year ago and she now has only minimal smoking. She had alcohol use in the past but she quit drinking at least 35 or 40 years ago. Review Of Symptoms: <See Above> Vital Signs: Performed on Oct 20, 2020 11:43 Height - 62.00 in Weight - 78.4 lbs (LOW) BSA - 1.28 sq.m BMI - 14.34 (LOW) Temperature - 97.4 F (LOW) Pulse - 90 /min Respiration - 18 /min BP - 120/60 mm(hg) O2 Sat - 99 % Pain - 0 Fatigue - 0,1 - No physically strenuous activity, but ambulatory and able to carry out light or sedentary work (e.g. office work, light house work). (ECOG) Physical Examination: Constitutional Alert, oriented, no acute distress. Skin pink, warm and dry. Head Normocephalic; atraumatic. Eyes Conjunctivae and sclerae are clear and without icterus. Pupils are reactive and equal. ENMT Sinuses are nontender. No oral exudates, ulcers, masses, thrush or mucositis. Oropharynx clear. Tongue normal. Neck Supple without masses or thyromegaly. No jugular venous distension. Hematologic/Lymphatic No petechiae or purpura. No tender or palpable lymph nodes in the cervical, supraclavicular, or axillary area. Respiratory Lung auscultation is without rhonchi but faint scattered wheezing bilaterally. Cardiovascular Regular rate and rhythm of heart with soft systolic murmur but no clicks, gallops or rubs. Chest Chest is symmetric without chest wall deformities. Abdomen Non-tender, non-distended, no masses or ascites. Good bowel sounds noted in all quads. No guarding or rebound tenderness. No pulsatile masses. Back/Spine Non-tender to palpation. Extremities No visible deformities, no cyanosis, clubbing or edema. Musculoskeletal No tenderness or swelling, normal range of motion without obvious weakness. Integumentary No rashes or lesions. Neurologic No sensory or motor deficits, normal cerebellar function, normal gait. Psychiatric Alert and oriented times three. Coherent speech. Verbalizes understanding of our discussions today. Laboratory:Test performed on Oct 20, 2020 09:26 Sodium 140 mmol/L Potassium 4.2 mmol/L Chloride 100 mmol/L CO2 29 mmol/L Anion Gap 15.2 BUN 19 mg/dL Creatinine 0.7 mg/dL Cr Clearance (Est) 37.78 mL/min Glucose 88 mg/dL Osmolality - Calculated 292 mOsm/kg Calcium 9.7 mg/dL Protein, Total 7.0 g/dL Albumin 4.2 g/dL Globulin 2.8 g/dL Bilirubin, Total 0.3 mg/dL ALT (SGPT) 11 U/L AST (SGOT) 22 U/L Alkaline Phosphatase 64 IU/L WBC 4.4 10 3/uL RBC 3.97 10 6/uL HGB 12.5 g/dL HCT 38.3 % MCV 96.5 fL MCH 31.5 pg MCHC 32.6 g/dL RDW 15.3 % Platelet Count 247 10 3/cmm MPV 10.1 fL Neutrophils 2.66 10 3/uL Lymphocytes 1.0 10 3/uL Monocytes 0.7 10 3/uL Eosinophils 0.1 10 3/uL Basophils 0.0 10 3/uL Neutrophil % 59.8 % Lymphocyte % 22.1 % Monocyte % 14.9 % Eosinophil % 1.6 % Basophils % 0.5 % NRBC % 0 % CA 27.29 342 U/mL Test performed on September 18, 2020 12:15 T4, Free 1.86 ng/dL TSH 0.06 uIU/mL CBC Slide Review Slide Review Perform SLIDE REVIEW AGREES WITH AUTOMATED RESULTS Test performed on May 19, 2020 09:00 Manual Lymphocytes 44.1 % Manual Monocytes 14.5 % Impression: 1. Grade 2 infiltrating ductal carcinoma of the right breast, ER/IL positive and HER-2/alf negative. Her disease was stage IIA (T2, N0, M0) at initial diagnosis in October 2008. She had progression to stage IV with multiple sites of metastatic involvement including extensive bony metastatic disease. CT directed core needle biopsy of a right iliac bone lesion on 06/26/2019 confirmed metastatic adenocarcinoma consistent with breast primary, ER/IL positive and HER-2/alf negative. 2. She had PET/CT evidence an FDG avid left thyroid mass, and she also was found on CT to have evidence of a large substernal goiter. 3. Degenerative arthritis. 4. COPD. 5. Hypothyroidism. 6. Atherosclerotic cardiovascular disease including carotid stenosis and renal artery stenosis. 7. She has known abdominal aortic aneurysm. Plan/Problems Addressed at this Visit: 1. Grade 2 infiltrating ductal carcinoma of the right breast, ER/IL positive and HER-2/alf negative. Her disease was stage IIA (T2, N0, M0) at initial diagnosis in October 2008. She had progression to stage IV with multiple sites of metastatic involvement including extensive bony metastatic disease. CT directed core needle biopsy of a right iliac bone lesion on 06/26/2019 confirmed metastatic adenocarcinoma consistent with breast primary, ER/IL positive and HER-2/alf negative. She initially underwent palliative radiation to the right hip and to the right rib cage, completed on 07/17/2019, both sites to a total dose of 3000 cGy. On 08/21/2019 she began systemic therapy with palbociclib 125 mg daily on a 21/28-day schedule together with letrozole 2.5 mg daily. She required a dose reduction in the palbociclib to 100 mg. However, she did have evidence of response with CA 27-29 level decreased to 180 U/mL compared to 375 U/mL in September 2019. Her restaging PET/CT on 07/03/2020 showed mixed response with some areas of improvement but with evidence of new bone lesions at T8 and T11 vertebral bodies. As she was not overtly symptomatic, she continued treatment with letrozole and palbociclib. Due to a further decline in her neutrophil count, she was given an additional reduction in the palbociclib dosage to 75 mg administered on a 21/28-day schedule. Over the past 3 months there has been a gradual increase in her CA 27-29 level, which is somewhat concerning, particularly in view of the PET/CT findings. In addition, despite the further reduction in the palbociclib dosage, she continues to have moderately severe neutropenia. A. She is on the smallest recommended dose of Ibrance currently. Her ANC today is 2660. We will have her continue 75 mg daily 21 of 28 days. B. Today's labs were reviewed in detail discussed with Ms. Saunders and a copy was given to her. WBC 4.4, hemoglobin 12.5, platelets 247,000, ANC is 2660. Potassium 4.2 creatinine 0.7 and her LFTs are normal. Her CA 27-29 is pending today but was noted to be 275 on 09/18/2020. On review of the CA 27-29 from today is found to be 342. C. We will plan to see her back in 1 month with CBC CMP and repeat CA 27-29. She is currently tolerating this therapy well and has no obvious signs of disease progression. 2. During followup she complained of increased shortness of breath. She had PET/CT evidence an FDG avid left thyroid mass, and she also was found on CT to have evidence of a large substernal goiter. She has associated upper airway symptoms, but her ENT exam reportedly showed no actual airway obstruction. She is now on thyroid suppression with levothyroxine, and she also is being followed by pulmonology. A. She did not have follow-up thyroid studies today but her TSH on 09/18/2020 was 0.06. We discussed her thyroid she states she is not taking thyroid medication in several days . She states she has been out of for at least a week as she was waiting for refills. She has been advised to resume it at her previous dosing. 3. She has metastatic bone involvement. A. She will be given denosumab 120 mg by subcutaneous injection today. 4. Follow-up plan A. We will plan to see her back in 1 month. I have asked for CBC CMP and CA 27-29 at that visit. B. She will be due for monthly denosumab 120 mg. C. For now she will stay on Ibrance 75 mg 21 out of 28 days. D. Mrs. Saunders was instructed to contact us in interim should questions or problems arise. Signed By: Ozzy Ramirez-, AOCNP Paul Agrawal MD <<Signature on File>>
== END 2020-10-20 09:08 | disposition home or self-care (01) ==
LOC: ONCMED 09:12
PROVIDERS: PCP Family Medicine; Visit Provider Internal Medicine Medical Oncology
DX: C50.811 Malignant neoplasm of overlapping sites of right female breast (principal); Z17.0 Estrogen receptor positive status [ER+]; C79.51 Secondary malignant neoplasm of bone; E04.1 Nontoxic single thyroid nodule; M19.90 Unspecified osteoarthritis, unspecified site; J44.9 Chronic obstructive pulmonary disease, unspecified; E03.9 Hypothyroidism, unspecified; I25.10 Atherosclerotic heart disease of native coronary artery without angina pectoris; I65.23 Occlusion and stenosis of bilateral carotid arteries; I70.1 Atherosclerosis of renal artery; I71.4 Abdominal aortic aneurysm, without rupture; Z79.899 Other long term (current) drug therapy; Z92.21 Personal history of antineoplastic chemotherapy
CPT/HCPCS: 36415; 80053; 85025; 86300; 96372; 99214; J0897

== ENCOUNTER 2021-01-19 11:43 | Outpatient (CLI) | payer MEDICARE, MEDICAID, SELFPAY ==
[2021-01-19 12:27] LABS: Basophils % 0.9 %; Eosinophils # 0.1 10^3/uL (0.0-0.8); Eosinophils % 1.1 %; Hematocrit 40.6 % (37.0-47.0); Hemoglobin 13.1 g/dL (11.5-15.3); Lymphocytes # 1.3 10^3/uL (0.8-4.8); Lymphocytes % 28.2 %; Mean Corpuscular HGB Conc 32.3 g/dL (30.0-36.0); Mean Corpuscular Hemoglobin 29.2 pg (28.0-34.0); Mean Corpuscular Volume 90.4 fl (81-99); Mean Platelet Volume 9.9 fL (7.4-10.4); Monocytes # 0.6 10^3/uL (0.2-0.9); Monocytes % 13.8 %; Neutrophils # 2.55 10^3/uL (1.8-7.7); Neutrophils % 55.6 %; Nucleated Red Blood Cells % 0 %; Platelet Count 234 10^3/cmm (130-400); Red Blood Count 4.49 10^6/uL (4.1-5.3); Red Cell Distribution Width 12.5 % (12.1-15.1); White Blood Count 4.6 10^3/uL (4.0-10.0)
[2021-01-19 13:02] LABS: Alanine Aminotransferase 9 U/L (0-33); Albumin Level 4.1 g/dL (3.5-5.2); Alkaline Phosphatase 69 IU/L (35-105); Anion Gap 13.9 (5-19); Aspartate Amino Transferase 24 U/L (0-32); Blood Urea Nitrogen 18 mg/dL (8-23); Calcium 9.5 mg/dL (8.5-10.5); Carbon Dioxide 29 mmol/L (22-29); Chloride 100 mmol/L (98-107); Globulin 3.2 g/dL (1.3-4.6); Glucose 142 mg/dL (65-115); Osmolality Calculated 292 mOsm/kg (285-295); Potassium 3.9 mmol/L (3.5-5.1); Sodium 139 mmol/L (136-145); Thyroid Stimulating Hormone 15.45 uIU/mL (0.27-4.20); Total Bilirubin 0.3 mg/dL (0.15-1.2); Total Protein 7.3 g/dL (6.6-8.7)
[2021-01-19] MEDS: denosumab 120 mg SDV SUBCUT (14:10)
--- NOTE | 2021-01-20 06:43 | ONC FU_ITS ---
Dr. Agrawal Patient Follow-Up Note Patient: Lorelei Saunders Unit #: [id number]: 1945 Dicatated By: Paul Agrawal M.D.Date of Visit:Jan 19, 2021 Onc Med Follow-up/Prog Note Chief Complaint: Breast cancer/bone metastases. History of Present Illness: This is a 75 year-old woman with grade 2 infiltrating ductal carcinoma of the right breast, ER/MA positive and HER-2/alf negative, stage IV, with biopsy proven metastatic bone involvement. Her breast cancer was stage IIA (T2, N0, M0) at initial diagnosis in October 2008. Her Oncotype DX showed a recurrence score of 16, which was low risk. Her treatment included lumpectomy and axillary sentinel lymph node biopsy followed by radiation to the right breast, which she completed in February 2009. She was given adjuvant hormonal therapy with anastrozole. It was stopped in October 2012 when she came in with worsening joint pain. Bone scan in November 2012 showed no evidence of metastatic disease. She received no further adjuvant therapy, as she had then failed to return for follow-up. On 05/12/2019 she was seen in the emergency room with pain in the right hip area. The pain has been getting progressively worse over a period of several months. X-rays of the lumbar spine, pelvis, and right femur showed evidence of sclerotic lesions in the L1 and S1 vertebral bodies as well as lytic appearing bone changes in the right pubic bone. There was no fracture reported. Further evaluation with bone scan on 05/25/2019 showed multiple areas of uptake including the calvarium, cervical spine, thoracic spine, ribs, lumbar spine, pelvis, sacrum, and both hips most consistent with diffuse metastatic disease. Also noted was right renal pelvic dilatation. I had seen her for a follow-up visit on 06/04/2019. Staging PET/CT on 06/09/2019 showed an intensely hypermetabolic left thyroid mass measuring 2.7 x 3.0 cm with SUV 16.9, appearance of which was felt to be most consistent with a primary thyroid malignancy. A right level III/IV cervical lymph node had elevated SUV of 8.0 and multiple mediastinal lymph nodes were FDG positive, consistent with metastases. And hepatic segment IVb lesion measuring 4.3 x 1.9 x 1.9 cm with SUV 5.9 appeared consistent with unifocal hepatic metastatic disease. A right paravertebral pleural implant at the right lung base measuring 2.0 x 1.7 cm had SUV 10.7. There was evidence of widespread osseous metastatic disease, as expected. I have reviewed that study with the radiologist. As none of the metastatic lesions were very accessible for biopsy, we opted to proceed with CT directed core needle biopsy of her right iliac bone lesion. Pathology showed metastatic adenocarcinoma most consistent with breast primary. The breast prognostic profile showed ER positive at 91% and MA positive at 5%. It was negative for overexpression of HER-2/alf, 0 by IHC and amplification ratio by FISH of 0.9 with 2.4 HER-2 copies/cell. With those findings, she was referred to Dr. Kenny. She underwent palliative radiation to the right hip and to the right rib cage, completed on 07/17/2019. Both sites were treated to a total dose of 3000 cGy. Her other medical illnesses include atherosclerotic cardiovascular disease, degenerative arthritis, osteoporosis, and hypothyroidism. She had evidence of a 3 cm infrarenal abdominal aortic aneurysm on CT angiogram in June 2018. That study also showed arterial stenosis had multiple sites including the proximal SMA, the right renal artery, and left renal artery. Extensive calcifications were noted through the common iliac arteries bilaterally. She underwent right carotid endarterectomy in 2017. She had undergone hysterectomy/BSO in 1995. She has a history of smoking 1 pack of cigarettes daily for close to 60 years. She cut down about a year ago. INTERIM HISTORY: On 08/25/2019 she began cycle 1 of systemic therapy palbociclib 125 mg daily on a 21/28-day schedule together with letrozole 2.5 mg daily. She also started monthly denosumab injections for the metastatic bone involvement. As of 09/12/2019 the palbociclib was put on hold due to neutropenia. She then continued with cycle 2 on 10/03/2019 with the palbociclib dosage reduced to 125 mg every other day for 21 days. At her follow-up visit on 11/05/2019 she complained of severe fatigue and shortness of breath. Her CT pulmonary angiogram showed evidence of COPD, and there were osteoblastic changes consistent with metastatic disease. There was no evidence, though, for pulmonary embolism or other acute pathology. There had been some decline in the CA-27-29 level. With those findings, she continued treatment with palbociclib and letrozole, but with the palbociclib dosed at 100 mg daily on a /-day schedule. As of her follow-up in February 2020 her CA 27-29 level had further decreased to 180 U/mL compared to 375 in September 2019, and as of her follow-up visit in March 2020 she appeared stable clinically. At her follow-up visit on 05/21/2020 she appeared to be having difficulty breathing. On clinical evaluation I was concerned about the possibility of upper airway obstruction. 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 There was evidence for severe emphysema, but there were no pulmonary nodules noted and are no other acute findings. There did appear to be progression of osteoblastic metastatic disease within the spine and sternum. She had ENT consultation with Dr. Deleon on 05/26/2020. Her fiberoptic laryngoscopy showed evidence of vocal cord paralysis on the right. There apparently was no evidence for airway obstruction. He recommended referral to endocrinology for management of the goiter. A restaging PET/CT on 06/28/2020 showed questionable improvement in the right thyroid mass measuring 2.5 cm with SUV 16.0. There was improvement in the mediastinal adenopathy. The right paravertebral pleural implant was not significantly changed. There was improvement in the hepatic metastatic lesion. There was a mixed response of osseous metastatic disease with the pelvic lesion having become sclerotic and FDG negative but with new lesions noted at T11 and at T8. With those findings, she continued treatment with palbociclib/letrozole and she also continued monthly denosumab injections for the metastatic bone involvement. As of her follow-up visit on 10/21/2019 when she appeared stable clinically. She is seen for a follow-up visit. For some reason she had failed to return for follow-up after her September visit here. She has continued the letrozole, but not the pelvis likely. She complains that she feels tired all the time. She is still doing light work. ECOG score is 1. She has good appetite. She is not had fever. She is sometimes a little sweaty. She has had sore throat, but no difficulty swallowing. She has shortness of breath, but she says her breathing is getting better. She does not complain of cough and she has not been having chest pain. She had been having constipation, but that seems to have resolved. She continues to have frequent urination. She has been having a lot of pain in her lower back, mainly on the right side. She also complains of pain in her right shoulder. She does not have headache. She sometimes has dizziness. She has no numbness/paresthesia or other focal neurologic symptoms. Medications: Aspirin 1 Tablet (of 81 mg) Tablet Oral daily, Budesonide (0.5 mg/2mL) Suspension Inhalation b.i.d., Formoterol Fumarate (20 mcg/2mL) Nebulization solution Inhalation b.i.d., Hydrocodone-Acetaminophen 1 Tablet (of 5-325 mg) Tablet Oral q 6 hours PRN, Ibrance 1 Tablet (of 100 mg) Oral daily, Letrozole 1 Tablet (of 2.5 mg) Oral daily, Levothyroxine Sodium 1 Tablet (of 50 mcg) Oral daily, Pulmicort Suspension Inhalation b.i.d., Revefenacin (175 mcg/3mL) Solution Inhalation daily Allergies: Fluticasone Furoate Vital Signs: Performed on Jan 19, 2021 15:21 Height - 62.00 in Weight - 74.4 lbs (LOW) BSA - 1.26 sq.m BMI - 13.61 (LOW) Temperature - 97.1 F (LOW) Pulse - 103 /min (HIGH) Respiration - 20 /min BP - 146/82 mm(hg) (HIGH) O2 Sat - 98 % Pain - 0 Fatigue - 0 Physical Examination: Constitutional - She appears somewhat frail, but not acutely ill, Eyes - Sclerae nonicteric. Conjunctivae clear, ENMT - No lesions noted in the oral cavity, Hematologic/Lymphatic - No cervical, clavicular, or axillary adenopathy, Respiratory - Lungs sound clear with diminished air movement bilaterally, Cardiovascular - Heart rhythm is regular. There is no murmur, gallop, or rub noted, Abdomen - Soft. There is some tenderness in the right upper quadrant area medially. Liver and spleen are not enlarged. There is no abdominal mass or ascites noted and there is no inguinal adenopathy, Extremities - No edema, Neurologic - No focal neurologic deficits noted. Lab/Imaging: Test performed on Jan 19, 2021 12:04 Sodium 139 mmol/L TSH 15.45 uIU/mL Potassium 3.9 mmol/L Chloride 100 mmol/L CO2 29 mmol/L Anion Gap 13.9 BUN 18 mg/dL Creatinine 0.8 mg/dL Cr Clearance (Est) 31.37 mL/min Glucose 142 mg/dL Osmolality - Calculated 292 mOsm/kg Calcium 9.5 mg/dL Protein, Total 7.3 g/dL Albumin 4.1 g/dL Globulin 3.2 g/dL Bilirubin, Total 0.3 mg/dL ALT (SGPT) 9 U/L AST (SGOT) 24 U/L Alkaline Phosphatase 69 IU/L WBC 4.6 10 3/uL RBC 4.49 10 6/uL HGB 13.1 g/dL HCT 40.6 % MCV 90.4 fl MCH 29.2 pg MCHC 32.3 g/dL RDW 12.5 % Platelet Count 234 10 3/cmm MPV 9.9 fL Neutrophils 2.55 10 3/uL Lymphocytes 1.3 10 3/uL Monocytes 0.6 10 3/uL Eosinophils 0.1 10 3/uL Basophils 0.0 10 3/uL Neutrophil % 55.6 % Lymphocyte % 28.2 % Monocyte % 13.8 % Eosinophil % 1.1 % Basophils % 0.9 % NRBC % 0 % Problem List: 1. Grade 2 infiltrating ductal carcinoma of the right breast, ER/MA positive and HER-2/alf negative. Her disease was stage IIA (T2, N0, M0) at initial diagnosis in October 2008. She had progression to stage IV with multiple sites of metastatic involvement including extensive bony metastatic disease. CT directed core needle biopsy of a right iliac bone lesion on 06/26/2019 confirmed metastatic adenocarcinoma consistent with breast primary, ER/MA positive and HER-2/alf negative. 2. She had PET/CT evidence an FDG avid left thyroid mass, and she also was found on CT to have evidence of a large substernal goiter. 3. Degenerative arthritis. 4. COPD. 5. Hypothyroidism. 6. Atherosclerotic cardiovascular disease including carotid stenosis and renal artery stenosis. 7. She has known abdominal aortic aneurysm. Problems Addressed with this Encounter and Plan: 1. 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 Her disease was stage IIA (T2, N0, M0) at initial diagnosis in October 2008. She had progression to stage IV with multiple sites of metastatic involvement including extensive bony metastatic disease. CT directed core needle biopsy of a right iliac bone lesion on 06/26/2019 confirmed metastatic adenocarcinoma consistent with breast primary, ER/MA positive and HER-2/alf negative. She initially underwent palliative radiation to the right hip and to the right rib cage, completed on 07/17/2019, both sites to a total dose of 3000 cGy. On 08/21/2019 she began systemic therapy with palbociclib 125 mg daily on a 21/28-day schedule together with letrozole 2.5 mg daily. She required a dose reduction in the palbociclib to 100 mg. However, she did have evidence of response with CA 27-29 level decreased to 180 U/mL compared to 375 U/mL in September 2019. Her restaging PET/CT on 07/03/2020 showed mixed response with some areas of improvement but with evidence of new bone lesions at T8 and T11 vertebral bodies. As she was not overtly symptomatic, she continued treatment with letrozole and palbociclib. Due to a further decline in her neutrophil count, she was given an additional reduction in the palbociclib dosage to 75 mg administered on a 21/28-day schedule. As of her visit on 10/20/2020 had been a gradual increase in her CA 27-29 level, but she appeared stable clinically, and she continued treatment with letrozole in combination with palbociclib. For some reason she then failed to return for follow-up, and her treatment has been limited to just letrozole. Her current CA 27-29 results are pending. I am going to defer any decision regarding her further treatment until those are available. 2. During followup she complained of increased shortness of breath. She had PET/CT evidence an FDG avid left thyroid mass, and she also was found on CT to have evidence of a large substernal goiter. She has associated upper airway symptoms, but her ENT exam reportedly showed no actual airway obstruction. She has been on thyroid suppression with levothyroxine, and she also is being followed by pulmonology. Her TSH level has now become mildly elevated. Her levothyroxine dosage will be increased from 50 to 75 mcg daily. 3. She has metastatic bone involvement. She will be given denosumab 120 mg by subcutaneous injection. Signed By: Paul Agrawal M.D. <<Signature on File>>
[2021-01-20 12:08] LABS: CA 27.29 461 U/mL (<38)
== END 2021-01-19 11:44 | disposition home or self-care (01) ==
LOC: ONCMED 11:46
PROVIDERS: PCP Family Medicine; Visit Provider Internal Medicine Medical Oncology
DX: C79.51 Secondary malignant neoplasm of bone (principal); Z85.3 Personal history of malignant neoplasm of breast; M19.90 Unspecified osteoarthritis, unspecified site; J44.9 Chronic obstructive pulmonary disease, unspecified; E03.9 Hypothyroidism, unspecified; I65.29 Occlusion and stenosis of unspecified carotid artery; I25.10 Atherosclerotic heart disease of native coronary artery without angina pectoris; Z79.82 Long term (current) use of aspirin; Z79.899 Other long term (current) drug therapy; Z79.890 Hormone replacement therapy
CPT/HCPCS: 36415; 80053; 84443; 85025; 86300; 96372; 99215; J0897

== ENCOUNTER 2021-01-22 06:53 | Outpatient (CLI) | payer MEDICARE, MEDICAID, SELFPAY | END 2021-01-22 06:54 | disposition home or self-care (01) | LOC: ONCMED 06:54 | PROVIDERS: PCP Family Medicine; Visit Provider Internal Medicine Medical Oncology | DX: C50.411 Malignant neoplasm of upper-outer quadrant of right female breast (principal); Z17.0 Estrogen receptor positive status [ER+]; C79.51 Secondary malignant neoplasm of bone; Z79.899 Other long term (current) drug therapy | CPT/HCPCS: 36415; 99204 ==

== ENCOUNTER 2021-02-09 12:59 | Outpatient (CLI) | payer MEDICARE, MEDICAID, SELFPAY ==
--- NOTE | 2021-02-09 14:15 | USCV_ITS ---
Lorelei Saunders Age: 75 Gender: F : 1945 Exam Date: 02/09/2021 13:26 Ordering Phys: Pedro Owen MD (Andy) ([email or web address] – [place]) Technologist: Amanda Suggs Exam Location: [facility] [place] Indication: RT CEA Risk Factors: Previous Vascular Surgery: Right Brachial BP: / Left Brachial BP: / Right Left Velocity (cm/s) Spectral Plaque Velocity (cm/s) Spectral Plaque Syst/Diast Broadening Syst/Diast Broadening 370.30/119.60 Prox CCA 71.00 / 21.00 127.70/18.00 Mid CCA 68.40 / 21.70 44.00/ 15.80 Distal CCA 80.00 / 25.60 26.90/ 16.40 Prox ICA 141.40/ 40.40 36.80/ 23.00 Mid ICA 101.50/ 26.60 34.20/ 23.70 Distal ICA 97.00 / 32.00 48.00 ECA 114.40 0.84 ICA/CCA 1.77 Occluded Vertebral Antegrade / cm/s 70.60/ 25.40 cm/s Bi Subclavian Tri 45.40 70.30 CONCLUSIONS Right ICA stenosis <50%. Prior Right CEA left ICA stenosis 50-69%. Moderate calcified atheromatous plaque left carotid bulb/ICA. Right Vertebral artery is occluded Normal antegrade Doppler flow noted in the left vertebral artery. Lacho John MD (Electronically Signed) Final Date: 10 February 2021 14:16 S
== END 2021-02-09 13:00 | disposition home or self-care (01) ==
LOC: RAD 13:01
PROVIDERS: PCP Family Medicine; Visit Provider Thoracic Surgery (Cardiothoracic Vascular Surgery)
DX: I65.23 Occlusion and stenosis of bilateral carotid arteries (principal)
CPT/HCPCS: 93880

== ENCOUNTER 2021-02-17 07:42 | Outpatient (CLI) | payer MEDICARE, MEDICAID, SELFPAY ==
[2021-02-17 08:43] LABS: Basophils % 1.1 %; Eosinophils % 1.1 %; Hematocrit 35.8 % (37.0-47.0); Hemoglobin 11.8 g/dL (11.5-15.3); Lymphocytes # 0.8 10^3/uL (0.8-4.8); Lymphocytes % 44.9 %; Mean Corpuscular Hemoglobin 29.7 pg (28.0-34.0); Mean Corpuscular Volume 90.2 fl (81-99); Mean Platelet Volume 9.7 fL (7.4-10.4); Monocytes # 0.2 10^3/uL (0.2-0.9); Monocytes % 10.7 %; Neutrophils % 42.2 %; Nucleated Red Blood Cells % 0 %; Platelet Count 124 10^3/cmm (130-400); Red Blood Count 3.97 10^6/uL (4.1-5.3); Red Cell Distribution Width 13.3 % (12.1-15.1); White Blood Count 1.8 10^3/uL (4.0-10.0)
[2021-02-17 09:13] LABS: Alanine Aminotransferase 10 U/L (0-33); Albumin Level 4.2 g/dL (3.5-5.2); Alkaline Phosphatase 62 IU/L (35-105); Anion Gap 12.1 (5-19); Aspartate Amino Transferase 23 U/L (0-32); Blood Urea Nitrogen 21 mg/dL (8-23); Calcium 9.2 mg/dL (8.5-10.5); Carbon Dioxide 29 mmol/L (22-29); Chloride 102 mmol/L (98-107); Globulin 2.9 g/dL (1.3-4.6); Glucose 81 mg/dL (65-115); Osmolality Calculated 290 mOsm/kg (285-295); Potassium 4.1 mmol/L (3.5-5.1); Sodium 139 mmol/L (136-145); Total Bilirubin 0.3 mg/dL (0.15-1.2); Total Protein 7.1 g/dL (6.6-8.7)
[2021-02-17 09:16] LABS: Neutrophils # 0.75 10^3/uL (1.8-7.7)
--- NOTE | 2021-02-21 08:40 | ONC FU_ITS ---
Dr. Agrawal Patient Follow-Up Note Patient: Lorelei Saunders Unit #: [id number]: [id number] Dicatated By: Paul Agrawal M.D.Date of Visit:Feb 17, 2021 Onc Med Follow-up/Prog Note Chief Complaint: Breast cancer/bone metastases. History of Present Illness: This is a 75 year-old woman with grade 2 infiltrating ductal carcinoma of the right breast, ER/MT positive and HER-2/alf negative, stage IV, with biopsy proven metastatic bone involvement. Her breast cancer was stage IIA (T2, N0, M0) at initial diagnosis in October 2008. Her Oncotype DX showed a recurrence score of 16, which was low risk. Her treatment included lumpectomy and axillary sentinel lymph node biopsy followed by radiation to the right breast, which she completed in February 2009. She was given adjuvant hormonal therapy with anastrozole. It was stopped in October 2012 when she came in with worsening joint pain. Bone scan in November 2012 showed no evidence of metastatic disease. She received no further adjuvant therapy, as she had then failed to return for follow-up. On 05/12/2019 she was seen in the emergency room with pain in the right hip area. The pain has been getting progressively worse over a period of several months. X-rays of the lumbar spine, pelvis, and right femur showed evidence of sclerotic lesions in the L1 and S1 vertebral bodies as well as lytic appearing bone changes in the right pubic bone. There was no fracture reported. Further evaluation with bone scan on 05/25/2019 showed multiple areas of uptake including the calvarium, cervical spine, thoracic spine, ribs, lumbar spine, pelvis, sacrum, and both hips most consistent with diffuse metastatic disease. Also noted was right renal pelvic dilatation. I had seen her for a follow-up visit on 06/04/2019. Staging PET/CT on 06/09/2019 showed an intensely hypermetabolic left thyroid mass measuring 2.7 x 3.0 cm with SUV 16.9, appearance of which was felt to be most consistent with a primary thyroid malignancy. A right level III/IV cervical lymph node had elevated SUV of 8.0 and multiple mediastinal lymph nodes were FDG positive, consistent with metastases. And hepatic segment IVb lesion measuring 4.3 x 1.9 x 1.9 cm with SUV 5.9 appeared consistent with unifocal hepatic metastatic disease. A right paravertebral pleural implant at the right lung base measuring 2.0 x 1.7 cm had SUV 10.7. There was evidence of widespread osseous metastatic disease, as expected. I have reviewed that study with the radiologist. As none of the metastatic lesions were very accessible for biopsy, we opted to proceed with CT directed core needle biopsy of her right iliac bone lesion. Pathology showed metastatic adenocarcinoma most consistent with breast primary. The breast prognostic profile showed ER positive at 91% and MT positive at 5%. It was negative for overexpression of HER-2/alf, 0 by IHC and amplification ratio by FISH of 0.9 with 2.4 HER-2 copies/cell. With those findings, she was referred to Dr. Kenny. She underwent palliative radiation to the right hip and to the right rib cage, completed on 07/17/2019. Both sites were treated to a total dose of 3000 cGy. Her other medical illnesses include atherosclerotic cardiovascular disease, degenerative arthritis, osteoporosis, and hypothyroidism. She had evidence of a 3 cm infrarenal abdominal aortic aneurysm on CT angiogram in June 2018. That study also showed arterial stenosis had multiple sites including the proximal SMA, the right renal artery, and left renal artery. Extensive calcifications were noted through the common iliac arteries bilaterally. She underwent right carotid endarterectomy in 2017. She had undergone hysterectomy/BSO in 1995. She has a history of smoking 1 pack of cigarettes daily for close to 60 years. She cut down about a year ago. INTERIM HISTORY: On 08/25/2019 she began cycle 1 of systemic therapy palbociclib 125 mg daily on a 21/28-day schedule together with letrozole 2.5 mg daily. She also started monthly denosumab injections for the metastatic bone involvement. As of 09/12/2019 the palbociclib was put on hold due to neutropenia. She then continued with cycle 2 on 10/03/2019 with the palbociclib dosage reduced to 125 mg every other day for 21 days. At her follow-up visit on 11/05/2019 she complained of severe fatigue and shortness of breath. Her CT pulmonary angiogram showed evidence of COPD, and there were osteoblastic changes consistent with metastatic disease. There was no evidence, though, for pulmonary embolism or other acute pathology. There had been some decline in the CA-27-29 level. With those findings, she continued treatment with palbociclib and letrozole, but with the palbociclib dosed at 100 mg daily on a /-day schedule. As of her follow-up in February 2020 her CA 27-29 level had further decreased to 180 U/mL compared to 375 in September 2019, and as of her follow-up visit in March 2020 she appeared stable clinically. At her follow-up visit on 05/21/2020 she appeared to be having difficulty breathing. On clinical evaluation I was concerned about the possibility of upper airway obstruction. 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 There was evidence for severe emphysema, but there were no pulmonary nodules noted and are no other acute findings. There did appear to be progression of osteoblastic metastatic disease within the spine and sternum. She had ENT consultation with Dr. Deleon on 05/26/2020. Her fiberoptic laryngoscopy showed evidence of vocal cord paralysis on the right. There apparently was no evidence for airway obstruction. He recommended referral to endocrinology for management of the goiter. A restaging PET/CT on 06/28/2020 showed questionable improvement in the right thyroid mass measuring 2.5 cm with SUV 16.0. There was improvement in the mediastinal adenopathy. The right paravertebral pleural implant was not significantly changed. There was improvement in the hepatic metastatic lesion. There was a mixed response of osseous metastatic disease with the pelvic lesion having become sclerotic and FDG negative but with new lesions noted at T11 and at T8. With those findings, she continued treatment with palbociclib/letrozole and she also continued monthly denosumab injections for the metastatic bone involvement. As of her follow-up visit on 10/20/2020 she appeared stable clinically. However, during continued follow-up there was a progressive increase in her CA 27-29 level, to 342 U/mL on 10/20/2020 and to 461 U/mL on 01/19/2021. 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 With that finding, I had recommended that she transition her therapy to fulvestrant in combination with alpelisib 300 mg daily. She is seen for a follow-up visit. She has just completed another cycle of palbociclib and has yet she has not started the alpelisib. She still feels pretty good generally, though at times she has no energy. Her ECOG score is 1. Her appetite is good. She has not had fever, but she does complain that she sweats a lot. She has not had sore mouth or throat. She says her breathing is better than it was. She is not having cough and she does not complain of chest pain. For the past 3 weeks she has been having pain in the epigastric area. She has no other GI or complaints. She says she does have a lot of back pain, but it is adequately managed with her medication. She does not complain of headache. She has dizziness, not like she did previously. She has no numbness/paresthesia or other focal neurologic symptoms. Medications: Aspirin 1 Tablet (of 81 mg) Tablet Oral daily, Budesonide (0.5 mg/2mL) Suspension Inhalation b.i.d., Formoterol Fumarate (20 mcg/2mL) Nebulization solution Inhalation b.i.d., Hydrocodone-Acetaminophen 1 Tablet (of 5-325 mg) Tablet Oral q 6 hours PRN, Letrozole 1 Tablet (of 2.5 mg) Oral daily, Levothyroxine Sodium 1 Tablet (of 50 mcg) Oral daily, Piqray (300 MG Daily Dose) 1 Tablet Tablet Therapy Pack Oral daily, Pulmicort Suspension Inhalation b.i.d., Revefenacin (175 mcg/3mL) Solution Inhalation daily Allergies: Fluticasone Furoate Vital Signs: Performed on Feb 17, 2021 09:53 Height - 62.00 in Weight - 77 lbs (HIGH) BSA - 1.27 sq.m BMI - 14.08 (LOW) Temperature - 97.0 F (LOW) Pulse - 96 /min Respiration - 18 /min BP - 138/83 mm(hg) O2 Sat - 99 % Pain - 0 Fatigue - 6 Physical Examination: Constitutional - She appears somewhat frail generally, Eyes - Sclerae nonicteric. Conjunctivae clear, ENMT - No lesions noted in the oral cavity, Hematologic/Lymphatic - No cervical, clavicular, or axillary adenopathy, Respiratory - Lungs sound clear with diminished air movement bilaterally, Cardiovascular - Heart rhythm is regular. There is no murmur, gallop, or rub noted, Abdomen - Soft. There is some tenderness in the epigastric area. Liver and spleen are not enlarged. There is no abdominal mass or ascites noted and there is no inguinal adenopathy, Extremities - No edema, Neurologic - No focal neurologic deficits noted. Lab/Imaging: Test performed on Feb 17, 2021 08:25 Sodium 139 mmol/L Potassium 4.1 mmol/L Chloride 102 mmol/L CO2 29 mmol/L Anion Gap 12.1 BUN 21 mg/dL Creatinine 0.8 mg/dL Cr Clearance (Est) 31.96 mL/min Glucose 81 mg/dL Osmolality - Calculated 290 mOsm/kg Calcium 9.2 mg/dL Protein, Total 7.1 g/dL Albumin 4.2 g/dL Globulin 2.9 g/dL Bilirubin, Total 0.3 mg/dL ALT (SGPT) 10 U/L AST (SGOT) 23 U/L Alkaline Phosphatase 62 IU/L WBC 1.8 10 3/uL RBC 3.97 10 6/uL HGB 11.8 g/dL HCT 35.8 % MCV 90.2 fl MCH 29.7 pg MCHC 33.0 g/dL RDW 13.3 % Platelet Count 124 10 3/cmm MPV 9.7 fL Neutrophils 0.75 10 3/uL Lymphocytes 0.8 10 3/uL Monocytes 0.2 10 3/uL Eosinophils 0.0 10 3/uL Basophils 0.0 10 3/uL Neutrophil % 42.2 % Lymphocyte % 44.9 % Monocyte % 10.7 % Eosinophil % 1.1 % Basophils % 1.1 % NRBC % 0 % Problem List: 1. Grade 2 infiltrating ductal carcinoma of the right breast, ER/MT positive and HER-2/alf negative. Her disease was stage IIA (T2, N0, M0) at initial diagnosis in October 2008. She had progression to stage IV with multiple sites of metastatic involvement including extensive bony metastatic disease. CT directed core needle biopsy of a right iliac bone lesion on 06/26/2019 confirmed metastatic adenocarcinoma consistent with breast primary, ER/MT positive and HER-2/alf negative. 2. She had PET/CT evidence an FDG avid left thyroid mass, and she also was found on CT to have evidence of a large substernal goiter. 3. Degenerative arthritis. 4. COPD. 5. Hypothyroidism. 6. Atherosclerotic cardiovascular disease including carotid stenosis and renal artery stenosis. 7. She has known abdominal aortic aneurysm. 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 Her disease was stage IIA (T2, N0, M0) at initial diagnosis in October 2008. She had progression to stage IV with multiple sites of metastatic involvement including extensive bony metastatic disease. CT directed core needle biopsy of a right iliac bone lesion on 06/26/2019 confirmed metastatic adenocarcinoma consistent with breast primary, ER/MT positive and HER-2/alf negative. She initially underwent palliative radiation to the right hip and to the right rib cage, completed on 07/17/2019, both sites to a total dose of 3000 cGy. On 08/21/2019 she began systemic therapy with palbociclib 125 mg daily on a 21/28-day schedule together with letrozole 2.5 mg daily. She required a dose reduction in the palbociclib to 100 mg. However, she did have evidence of response with CA 27-29 level decreased to 180 U/mL compared to 375 U/mL in September 2019. Her restaging PET/CT on 07/03/2020 showed mixed response with some areas of improvement but with evidence of new bone lesions at T8 and T11 vertebral bodies. As she was not overtly symptomatic, she continued treatment with letrozole and palbociclib. Due to a further decline in her neutrophil count, she was given an additional reduction in the palbociclib dosage to 75 mg administered on a 21/28-day schedule. As of her visit on 10/20/2020 had been a gradual increase in her CA 27-29 level, but she appeared stable clinically, and she continued treatment with letrozole in combination with palbociclib. As of her follow-up visit on 01/19/2021 there was further increase in the CA 27-29 level to 461 U/mL. She was then found on next generation sequencing by liquid biopsy to harbor a PIK3CA mutation. With that finding, she was recommended to transition her treatment to fulvestrant in combination with alpelisib. She is just now completed a cycle of treatment with palbociclib, and she remains moderately neutropenic. As such, she has advised now to stop both the letrozole and the palbociclib. I will recheck a blood count and 2 weeks I will plan to have her start the fulvestrant/alpelisib as soon as she has had adequate recovery of her granulocyte count. In the meantime, with her having persistent abdominal pain, she will be scheduled for CT abdomen/pelvis. She will have further evaluation as indicated. She declines a flu shot. Signed By: Paul Agrawal M.D. <<Signature on File>>
== END 2021-02-17 07:43 | disposition home or self-care (01) ==
PROVIDERS: PCP Family Medicine; Visit Provider Internal Medicine Medical Oncology
DX: C50.411 Malignant neoplasm of upper-outer quadrant of right female breast (principal); Z17.0 Estrogen receptor positive status [ER+]; C79.51 Secondary malignant neoplasm of bone; M81.0 Age-related osteoporosis without current pathological fracture
CPT/HCPCS: 36415; 80053; 85025; 99214

== ENCOUNTER 2021-02-27 09:15 | Outpatient (CLI) | payer MEDICARE, MEDICAID, SELFPAY ==
--- NOTE | 2021-02-27 09:24 | CT_ITS ---
WS: [id number] CT scan of the abdomen and pelvis with Oral and IV contrast. Additional two-dimensional coronal and s agittal reconstruction was performed. 02/27/2021 Clinical Data: BREAST CANCER, PAIN IN EPIGASTRIC AREA Comparison: CTA abdomen and pelvis, 06/29/2018. DLP: 559.[address] scans at [facility] use at least one of these dose optimization techniques: automated e xposure control; mA and/or kV adjustment per patient size (includes targeted exams where dose is matc hed to clinical indication); or iterative reconstruction. Findings: The lower lungs show no nodules, masses or effusions. There are coronary artery calcifications. The liver, gallbladder, spleen, adrenal glands and pancreas are normal. There is minimal perihepatic fluid. The kidneys show equal bilateral contrast excretion with small bilateral cysts but no masses. There i s an inferior right renal 1.2 cm calculus. There is a prominent right extrarenal pelvis. The abdominal aorta shows a 3.0 x 3.2 x 4.0 cm infrarenal aneurysm with mural thrombosis and calcific ation of the wall. There is calcification of the distal branches of the aorta. No occlusions are seen . No appendicitis or diverticulitis is seen. Oral contrast is in the stomach, small bowel and colon and there is no bowel dilatation. No abscess, adenopathy, ascites, mass, obstruction or free air is seen . The bladder is unremarkable. The uterus is absent No inguinal hernia is seen. The bones of the lower thorax, lumbar spine, pelvis, and hips demonstrate osteoblastic metastases whi ch were not present on the previous study. CT/CT abdomen pelvis w con* [id number] Impression: 1. 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 2. No change in infrarenal abdominal aortic aneurysm. 3. No change in 1.2 cm right renal calculus. 4. No change in extrarenal pelvis on the right.
[2021-02-27] MEDS: iohexol 300 mg/mL 50 mL Btl PO (10:15)
[2021-02-27] MEDS: iohexol 300 mg/mL 100 mL Btl IV (10:59)
== END 2021-02-27 09:16 | disposition home or self-care (01) ==
PROVIDERS: PCP Family Medicine; Visit Provider Internal Medicine Medical Oncology
DX: C50.411 Malignant neoplasm of upper-outer quadrant of right female breast (principal); R10.13 Epigastric pain
CPT/HCPCS: 74177; Q9967

== ENCOUNTER 2021-03-03 07:39 | Outpatient (CLI) | payer MEDICARE, MEDICAID, SELFPAY ==
[2021-03-03 08:09] LABS: Basophils # 0.1 10^3/uL (0.0-0.1); Basophils % 1.8 %; Eosinophils % 0.4 %; Hematocrit 36.3 % (37.0-47.0); Hemoglobin 11.9 g/dL (11.5-15.3); Lymphocytes # 0.8 10^3/uL (0.8-4.8); Lymphocytes % 28.7 %; Mean Corpuscular HGB Conc 32.8 g/dL (30.0-36.0); Mean Corpuscular Hemoglobin 30.1 pg (28.0-34.0); Mean Corpuscular Volume 91.7 fl (81-99); Mean Platelet Volume 9.1 fL (7.4-10.4); Monocytes # 0.5 10^3/uL (0.2-0.9); Monocytes % 19.6 %; Neutrophils # 1.35 10^3/uL (1.8-7.7); Neutrophils % 49.1 %; Nucleated Red Blood Cells % 0 %; Platelet Count 267 10^3/cmm (130-400); Red Blood Count 3.96 10^6/uL (4.1-5.3); Red Cell Distribution Width 14.6 % (12.1-15.1); White Blood Count 2.8 10^3/uL (4.0-10.0)
[2021-03-03 08:29] LABS: Alanine Aminotransferase 8 U/L (0-33); Albumin Level 4.1 g/dL (3.5-5.2); Alkaline Phosphatase 64 IU/L (35-105); Anion Gap 11.2 (5-19); Aspartate Amino Transferase 25 U/L (0-32); Blood Urea Nitrogen 17 mg/dL (8-23); Calcium 9.4 mg/dL (8.5-10.5); Carbon Dioxide 31 mmol/L (22-29); Chloride 100 mmol/L (98-107); Glucose 96 mg/dL (65-115); Osmolality Calculated 287 mOsm/kg (285-295); Potassium 4.2 mmol/L (3.5-5.1); Sodium 138 mmol/L (136-145); Total Bilirubin 0.2 mg/dL (0.15-1.2); Total Protein 7.1 g/dL (6.6-8.7)
[2021-03-03] MEDS: fulvestrant 250 mg/5 mL Syringe 500 MG IM (10:53)
--- NOTE | 2021-03-07 11:08 | ONC FU_ITS ---
[facility] Patient Note Patient: Lorelei Saunders Unit #: [id number]: 1945 Dictated By: Ozzy RamirezDate of Visit: Mar 03, 2021 Onc MED Follow-Up/Prog Note Chief Complaint: Breast cancer/bone metastases. History of Present Illness: Ms Saunders is a 76 year-old woman with grade 2 infiltrating ductal carcinoma of the right breast, ER/GA positive and HER-2/alf negative, stage IV, with biopsy proven metastatic bone involvement. Her breast cancer was stage IIA (T2, N0, M0) at initial diagnosis in October 2008. Her Oncotype DX showed a recurrence score of 16, which was low risk. Her treatment included lumpectomy and axillary sentinel lymph node biopsy followed by radiation to the right breast, which she completed in February 2009. She was given adjuvant hormonal therapy with anastrozole. It was stopped in October 2012 when she came in with worsening joint pain. Bone scan in November 2012 showed no evidence of metastatic disease. She received no further adjuvant therapy, as she had then failed to return for follow-up. On 05/12/2019 she was seen in the emergency room with pain in the right hip area. The pain has been getting progressively worse over a period of several months. X-rays of the lumbar spine, pelvis, and right femur showed evidence of sclerotic lesions in the L1 and S1 vertebral bodies as well as lytic appearing bone changes in the right pubic bone. There was no fracture reported. Further evaluation with bone scan on 05/25/2019 showed multiple areas of uptake including the calvarium, cervical spine, thoracic spine, ribs, lumbar spine, pelvis, sacrum, and both hips most consistent with diffuse metastatic disease. Also noted was right renal pelvic dilatation. Dr Agrawal had seen her for a follow-up visit on 06/04/2019. Staging PET/CT on 06/09/2019 showed an intensely hypermetabolic left thyroid mass measuring 2.7 x 3.0 cm with SUV 16.9, appearance of which was felt to be most consistent with a primary thyroid malignancy. A right level III/IV cervical lymph node had elevated SUV of 8.0 and multiple mediastinal lymph nodes were FDG positive, consistent with metastases. And hepatic segment IVb lesion measuring 4.3 x 1.9 x 1.9 cm with SUV 5.9 appeared consistent with unifocal hepatic metastatic disease. A right paravertebral pleural implant at the right lung base measuring 2.0 x 1.7 cm had SUV 10.7. There was evidence of widespread osseous metastatic disease, as expected. Dr Agrawal reviewed that study with the radiologist. As none of the metastatic lesions were very accessible for biopsy, we opted to proceed with CT directed core needle biopsy of her right iliac bone lesion. Pathology showed metastatic adenocarcinoma most consistent with breast primary. The breast prognostic profile showed ER positive at 91% and GA positive at 5%. It was negative for overexpression of HER-2/alf, 0 by IHC and amplification ratio by FISH of 0.9 with 2.4 HER-2 copies/cell. With those findings, she was referred to Dr. Kenny. She underwent palliative radiation to the right hip and to the right rib cage, completed on 07/17/2019. Both sites were treated to a total dose of 3000 cGy. Her other medical illnesses include atherosclerotic cardiovascular disease, degenerative arthritis, osteoporosis, and hypothyroidism. She had evidence of a 3 cm infrarenal abdominal aortic aneurysm on CT angiogram in June 2018. That study also showed arterial stenosis had multiple sites including the proximal SMA, the right renal artery, and left renal artery. Extensive calcifications were noted through the common iliac arteries bilaterally. She underwent right carotid endarterectomy in 2017. She had undergone hysterectomy/BSO in 1994. She has a history of smoking 1 pack of cigarettes daily for close to 60 years. She cut down about a year ago. INTERIM HISTORY: On 08/25/2019 she began cycle 1 of systemic therapy palbociclib 125 mg daily on a 21/28-day schedule together with letrozole 2.5 mg daily. She also started monthly denosumab injections for the metastatic bone involvement. As of 09/12/2019 the palbociclib was put on hold due to neutropenia. She then continued with cycle 2 on 10/03/2019 with the palbociclib dosage reduced to 125 mg every other day for 21 days. At her follow-up visit on 11/05/2019 she complained of severe fatigue and shortness of breath. Her CT pulmonary angiogram showed evidence of COPD, and there were osteoblastic changes consistent with metastatic disease. There was no evidence, though, for pulmonary embolism or other acute pathology. There had been some decline in the CA-27-29 level. With those findings, she continued treatment with palbociclib and letrozole, but with the palbociclib dosed at 100 mg daily on a 21/-day schedule. As of her follow-up in February 2020 her CA 27-29 level had further decreased to 180 U/mL compared to 375 in September 2019, and as of her follow-up visit in March 2020 she appeared stable clinically. At her follow-up visit on 05/21/2020 she appeared to be having difficulty breathing. On clinical evaluation Dr Agrawal was concerned about the possibility of upper airway obstruction. 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 There was evidence for severe emphysema, but there were no pulmonary nodules noted and are no other acute findings. There did appear to be progression of osteoblastic metastatic disease within the spine and sternum. She had ENT consultation with Dr. Deleon on 05/26/2020. Her fiberoptic laryngoscopy showed evidence of vocal cord paralysis on the right. There apparently was no evidence for airway obstruction. He recommended referral to endocrinology for management of the goiter. A restaging PET/CT on 06/28/2020 showed questionable improvement in the right thyroid mass measuring 2.5 cm with SUV 16.0. There was improvement in the mediastinal adenopathy. The right paravertebral pleural implant was not significantly changed. There was improvement in the hepatic metastatic lesion. There was a mixed response of osseous metastatic disease with the pelvic lesion having become sclerotic and FDG negative but with new lesions noted at T11 and at T8. With those findings, she continued treatment with palbociclib/letrozole and she also continued monthly denosumab injections for the metastatic bone involvement. As of her follow-up visit on 10/20/2020 she appeared stable clinically. However, during continued follow-up there was a progressive increase in her CA 27-29 level, to 342 U/mL on 10/20/2020 and to 461 U/mL on 01/19/2021. 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 With that finding, Dr Agrawal had recommended that she transition her therapy to fulvestrant in combination with alpelisib 300 mg daily. She was seen by Dr Agrawal on 02/17/2021 for a follow-up visit. She had just completed another cycle of palbociclib and had not started the alpelisib. She was found to be neutropenic with an ANC of 750. Her platelet count was 124,000. Her treatment was all placed on hold and she is here today for reassessment and consideration of starting the alpelisib and fulvestrant. She is accompanied by her family today. She has no new complaints. She states she feels good overall. Her energy is good she is very jovial today. She denies any fever or chills. She is had no signs or symptoms of infection for at least the last 72 hours. She states that she has not had any shortness of breath orthopnea. She denies any rash. She denies mouth sores, sore throat or difficulty swallowing. She denies any chest pain or palpitations. She states her energy is good and her appetite is good. She denies any nausea or vomiting. She states she has not had any cough or hemoptysis. She denies any diarrhea or constipation. She denies any peripheral neuropathy. Her ECOG is 0. Past Medical History: Abdominal aortic aneurysm Breast cancer Carotid stenosis Degenerative arthritis Goiter Hypothyroidism Renal artery stenosis Osteoporosis in 2009 (Treated) Past Surgical History: Knee surgery Knot removal from back Right carotid endarterectomy in 2018 Right breast lumpectomy with axillary sentinel lymph node biopsy in 2008 Breast biopsy in 2008 Hysterectomy/bilateral salpingo-oophorectomy in 1994 Allergies: Fluticasone Furoate Medications: Aspirin 1 Tablet (of 81 mg) Tablet Oral daily Budesonide (0.5 mg/2mL) Suspension Inhalation b.i.d. Formoterol Fumarate (20 mcg/2mL) Nebulization solution Inhalation b.i.d. Hydrocodone-Acetaminophen 1 Tablet (of 5-325 mg) Tablet Oral q 6 hours PRN Letrozole 1 Tablet (of 2.5 mg) Oral daily Levothyroxine Sodium 1 Tablet (of 50 mcg) Oral daily Piqray (300 MG Daily Dose) 1 Tablet Tablet Therapy Pack Oral daily Pulmicort Suspension Inhalation b.i.d. Revefenacin (175 mcg/3mL) Solution Inhalation daily Family History: Ms. Saunders's mother is : heart disease. Ms. Saunders's father is : lung cancer. Ms. Saunders has 3 brothers: 2 alive, 1 . Ms. Saunders's first brother's kidney cancer. Another brother's esophagus cancer. She has 2 sisters: 2 . Ms. Saunders's first sister's lung cancer. Her father and a sister of lung cancer. One brother had esophageal cancer and another brother was treated for kidney cancer. Her mother of heart attack. A son with a drug overdose. Social History: Ms. Saunders is . She is a daily smoker who has smoked 0.5 packs/day for 62 years. She is a former drinker. She has a history of smoking 1 pack of cigarettes daily for close to 60 years. She cut down about a year ago and she now has only minimal smoking. She had alcohol use in the past but she quit drinking at least 35 or 40 years ago. Review Of Symptoms: <See Above> Vital Signs: Performed on Mar 03, 2021 09:32 Height - 62.00 in Weight - 76 lbs (LOW) BSA - 1.27 sq.m BMI - 13.90 (LOW) Temperature - 97.7 F (LOW) Pulse - 106 /min (HIGH) Respiration - 20 /min BP - 116/76 mm(hg) O2 Sat - 97 % Pain - 0 Fatigue - 8,0 - Fully active, able to carry on all predisease activities without restrictions. (ECOG) Physical Examination: Constitutional Alert, oriented, no acute distress. Skin pink, warm and dry. Head Normocephalic; atraumatic. Eyes Conjunctivae and sclerae are clear and without icterus. Pupils are reactive and equal. ENMT Sinuses are nontender. No oral exudates, ulcers, masses, thrush or mucositis. Oropharynx clear. Tongue normal. Neck Supple without masses or thyromegaly. No jugular venous distension. Hematologic/Lymphatic No petechiae or purpura. No tender or palpable lymph nodes in the cervical, supraclavicular, or axillary area. Respiratory Lungs are clear to auscultation without rhonchi or wheezing. Cardiovascular Regular rate and rhythm of heart with soft systolic murmur but no clicks, gallops or rubs. Abdomen Non-tender, non-distended, no masses or ascites. Good bowel sounds noted in all quads. No guarding or rebound tenderness. No pulsatile masses. Back/Spine Non-tender to palpation. Extremities No visible deformities, no cyanosis, clubbing or edema. Musculoskeletal No tenderness or swelling, normal range of motion without obvious weakness. Integumentary No rashes or lesions. Neurologic No sensory or motor deficits, normal cerebellar function, normal gait. Psychiatric Alert and oriented times three. Coherent speech. Verbalizes understanding of our discussions today. Laboratory:Test performed on Mar 03, 2021 08:01 Sodium 138 mmol/L Potassium 4.2 mmol/L Chloride 100 mmol/L CO2 31 mmol/L Anion Gap 11.2 BUN 17 mg/dL Creatinine 0.7 mg/dL Cr Clearance (Est) 36.05 mL/min Glucose 96 mg/dL Osmolality - Calculated 287 mOsm/kg Calcium 9.4 mg/dL Protein, Total 7.1 g/dL Albumin 4.1 g/dL Globulin 3.0 g/dL Bilirubin, Total 0.2 mg/dL ALT (SGPT) 8 U/L AST (SGOT) 25 U/L Alkaline Phosphatase 64 IU/L WBC 2.8 10 3/uL RBC 3.96 10 6/uL HGB 11.9 g/dL HCT 36.3 % MCV 91.7 fl MCH 30.1 pg MCHC 32.8 g/dL RDW 14.6 % Platelet Count 267 10 3/cmm MPV 9.1 fL Neutrophils 1.35 10 3/uL Lymphocytes 0.8 10 3/uL Monocytes 0.5 10 3/uL Eosinophils 0.0 10 3/uL Basophils 0.1 10 3/uL Neutrophil % 49.1 % Lymphocyte % 28.7 % Monocyte % 19.6 % Eosinophil % 0.4 % Basophils % 1.8 % NRBC % 0 % Test performed on Jan 19, 2021 12:04 TSH 15.45 uIU/mL Test performed on September 18, 2020 12:15 T4, Free 1.86 ng/dL CBC Slide Review Slide Review Perform SLIDE REVIEW AGREES WITH AUTOMATED RESULTS Impression: 1. Grade 2 infiltrating ductal carcinoma of the right breast, ER/GA positive and HER-2/alf negative. Her disease was stage IIA (T2, N0, M0) at initial diagnosis in October 2008. She had progression to stage IV with multiple sites of metastatic involvement including extensive bony metastatic disease. CT directed core needle biopsy of a right iliac bone lesion on 06/26/2019 confirmed metastatic adenocarcinoma consistent with breast primary, ER/GA positive and HER-2/alf negative. 2. She had PET/CT evidence an FDG avid left thyroid mass, and she also was found on CT to have evidence of a large substernal goiter. 3. Degenerative arthritis. 4. COPD. 5. Hypothyroidism. 6. Atherosclerotic cardiovascular disease including carotid stenosis and renal artery stenosis. 7. She has known abdominal aortic aneurysm. Plan/Problems Addressed at this Visit: 1. grade 2 infiltrating ductal carcinoma of the right breast, ER/GA positive and HER-2/alf negative. Her disease was stage IIA (T2, N0, M0) at initial diagnosis in October 2008. She had progression to stage IV with multiple sites of metastatic involvement including extensive bony metastatic disease. CT directed core needle biopsy of a right iliac bone lesion on 06/26/2019 confirmed metastatic adenocarcinoma consistent with breast primary, ER/GA positive and HER-2/alf negative. She initially underwent palliative radiation to the right hip and to the right rib cage, completed on 07/17/2019, both sites to a total dose of 3000 cGy. On 08/21/2019 she began systemic therapy with palbociclib 125 mg daily on a 21/28-day schedule together with letrozole 2.5 mg daily. She required a dose reduction in the palbociclib to 100 mg. However, she did have evidence of response with CA 27-29 level decreased to 180 U/mL compared to 375 U/mL in September 2019. Her restaging PET/CT on 07/03/2020 showed mixed response with some areas of improvement but with evidence of new bone lesions at T8 and T11 vertebral bodies. As she was not overtly symptomatic, she continued treatment with letrozole and palbociclib. Due to a further decline in her neutrophil count, she was given an additional reduction in the palbociclib dosage to 75 mg administered on a 21/28-day schedule. As of her visit on 10/20/2020 had been a gradual increase in her CA 27-29 level, but she appeared stable clinically, and she continued treatment with letrozole in combination with palbociclib. As of her follow-up visit on 01/19/2021 there was further increase in the CA 27-29 level to 461 U/mL. She was then found on next generation sequencing by liquid biopsy to harbor a PIK3CA mutation. With that finding, she was recommended to transition her treatment to fulvestrant in combination with alpelisib. On 02/17/2021 follow-up she had just completed a cycle of palbociclib and was neutropenic with an ANC of 750. She is here today for that reassessment. A. Today's labs reviewed in detail discussed with Ms. Saunders and her family. WBC 2.8, hemoglobin 11.9, platelets 267,000, ANC is 1350. Potassium 4.2 random glucose 96 creatinine 0.7 and LFTs are normal. Her last CA 27-29 was 461 on January 19, 2021 and was 342 on October 20, 2020. B. We will hold initiation of the alpelisib for 2 more weeks to allow time for her counts to recover. Her ANC today has improved to 1350 from 752 weeks ago. C. We will go ahead and initiate her first dose of fulvestrant 500 mg IM. D. We will plan to have her return for a CBC in 2 weeks at which time she will also be due for dose #2 fulvestrant 500 mg IM. Her last dose of Xgeva was on January 19, 2021 so that should be due about the same time. E. We will plan to see her back in 4 weeks with CBC CMP and repeat her tumor marker at that time if she is able to start the alpelisib. She will be due for dose 3 fulvestrant at that time as well. F. We discussed potential for hot flashes, bone pain, injection site tenderness redness and warmth and minimal risk for infection. She is advised to call us if she has any questions or concerns. G. We did discuss her CT of the abdomen pelvis with contrast from 02/27/2021. There were no nodules masses or effusion seen in the lower lungs. There are coronary artery calcifications. The liver, gallbladder, spleen, adrenal glands and pancreas were normal. There was minimal perihepatic fluid. The kidneys show equal contrast excretion with small bilateral cysts but no masses. The abdominal aorta shows a 3.0 x 3.2 x 4.0 cm infrarenal aneurysm with mural thrombosis and calcification of the wall. There is calcification of the distal branches of the aorta no occlusions are seen. Bladder was unremarkable. Bones of the lower thoracic, lumbar spine, pelvis and hips demonstrate osteoblastic metastasis which were not on the previous study. There was no change in the 1.2 cm right renal calculus. H. 45 minutes was spent in review of her records prior to her visit, [id number] discussion of the treatment plan review of her labs and follow-up plan as well as post visit documentation. Signed By: Ozzy Ramirez-, CNP Paul Agrawal MD <<Signature on File>>
== END 2021-03-03 07:40 | disposition home or self-care (01) ==
LOC: ONCMED 07:41
PROVIDERS: PCP Family Medicine; Visit Provider Nurse Practitioner
DX: C50.811 Malignant neoplasm of overlapping sites of right female breast (principal); Z17.0 Estrogen receptor positive status [ER+]; C79.51 Secondary malignant neoplasm of bone; E04.1 Nontoxic single thyroid nodule; M19.90 Unspecified osteoarthritis, unspecified site; J44.9 Chronic obstructive pulmonary disease, unspecified; E03.9 Hypothyroidism, unspecified; I25.10 Atherosclerotic heart disease of native coronary artery without angina pectoris; I65.23 Occlusion and stenosis of bilateral carotid arteries; I70.1 Atherosclerosis of renal artery; I71.4 Abdominal aortic aneurysm, without rupture; Z79.811 Long term (current) use of aromatase inhibitors; Z79.899 Other long term (current) drug therapy; Z92.21 Personal history of antineoplastic chemotherapy; Z92.3 Personal history of irradiation
CPT/HCPCS: 36415; 80053; 85025; 96402; 99215; J9395

== ENCOUNTER 2021-03-17 11:42 | Outpatient (CLI) | payer MEDICARE, MEDICAID, SELFPAY ==
[2021-03-17 12:48] LABS: Basophils % 0.8 %; Eosinophils # 0.1 10^3/uL (0.0-0.8); Eosinophils % 2.1 %; Hematocrit 33.7 % (37.0-47.0); Hemoglobin 11.1 g/dL (11.5-15.3); Lymphocytes % 20.7 %; Mean Corpuscular HGB Conc 32.9 g/dL (30.0-36.0); Mean Corpuscular Hemoglobin 29.8 pg (28.0-34.0); Mean Corpuscular Volume 90.6 fl (81-99); Monocytes # 0.9 10^3/uL (0.2-0.9); Monocytes % 17.8 %; Neutrophils # 2.79 10^3/uL (1.8-7.7); Neutrophils % 57.6 %; Nucleated Red Blood Cells % 0 %; Platelet Count 229 10^3/cmm (130-400); Red Blood Count 3.72 10^6/uL (4.1-5.3); Red Cell Distribution Width 14.4 % (12.1-15.1); White Blood Count 4.8 10^3/uL (4.0-10.0)
[2021-03-17] MEDS: denosumab 120 mg SDV SUBCUT (14:45)
[2021-03-17] MEDS: fulvestrant 250 mg/5 mL Syringe 500 MG IM (14:48)
== END 2021-03-17 11:43 | disposition home or self-care (01) ==
PROVIDERS: PCP Family Medicine; Visit Provider Nurse Practitioner
DX: Z51.11 Encounter for antineoplastic chemotherapy (principal); C50.411 Malignant neoplasm of upper-outer quadrant of right female breast; Z17.0 Estrogen receptor positive status [ER+]; C79.51 Secondary malignant neoplasm of bone; Z79.818 Long term (current) use of other agents affecting estrogen receptors and estrogen levels
CPT/HCPCS: 36415; 85025; 96372; 96402; J0897; J9395

== ENCOUNTER 2021-03-31 08:18 | Outpatient (CLI) | payer MEDICARE, MEDICAID, SELFPAY ==
[2021-03-31 08:44] LABS: Basophils % 0.8 %; Eosinophils # 0.3 10^3/uL (0.0-0.8); Eosinophils % 8.4 %; Hematocrit 40.4 % (37.0-47.0); Hemoglobin 13.3 g/dL (11.5-15.3); Lymphocytes # 0.9 10^3/uL (0.8-4.8); Mean Corpuscular HGB Conc 32.9 g/dL (30.0-36.0); Mean Corpuscular Hemoglobin 29.8 pg (28.0-34.0); Mean Corpuscular Volume 90.4 fl (81-99); Mean Platelet Volume 9.9 fL (7.4-10.4); Monocytes # 0.4 10^3/uL (0.2-0.9); Monocytes % 11.5 %; Neutrophils # 2.11 10^3/uL (1.8-7.7); Nucleated Red Blood Cells % 0 %; Platelet Count 224 10^3/cmm (130-400); Red Blood Count 4.47 10^6/uL (4.1-5.3); Red Cell Distribution Width 14.8 % (12.1-15.1); White Blood Count 3.8 10^3/uL (4.0-10.0)
[2021-03-31 09:09] LABS: Alanine Aminotransferase 12 U/L (0-33); Albumin Level 4.2 g/dL (3.5-5.2); Alkaline Phosphatase 70 IU/L (35-105); Anion Gap 18.5 (5-19); Aspartate Amino Transferase 23 U/L (0-32); Blood Urea Nitrogen 21 mg/dL (8-23); Calcium 9.2 mg/dL (8.5-10.5); Carbon Dioxide 25 mmol/L (22-29); Chloride 102 mmol/L (98-107); Globulin 2.8 g/dL (1.3-4.6); Glucose 91 mg/dL (65-115); Osmolality Calculated 295 mOsm/kg (285-295); Potassium 4.5 mmol/L (3.5-5.1); Sodium 141 mmol/L (136-145); Total Bilirubin 0.2 mg/dL (0.15-1.2)
[2021-03-31] MEDS: fulvestrant 250 mg/5 mL Syringe 500 MG IM (11:00)
== END 2021-03-31 08:19 | disposition home or self-care (01) ==
LOC: ONCMED 08:20
PROVIDERS: PCP Family Medicine; Visit Provider Nurse Practitioner Family
DX: C50.811 Malignant neoplasm of overlapping sites of right female breast (principal); Z17.0 Estrogen receptor positive status [ER+]; C79.51 Secondary malignant neoplasm of bone; E04.1 Nontoxic single thyroid nodule; M19.90 Unspecified osteoarthritis, unspecified site; J44.9 Chronic obstructive pulmonary disease, unspecified; E03.9 Hypothyroidism, unspecified; I25.10 Atherosclerotic heart disease of native coronary artery without angina pectoris; I65.23 Occlusion and stenosis of bilateral carotid arteries; I70.1 Atherosclerosis of renal artery; I71.4 Abdominal aortic aneurysm, without rupture; Z79.818 Long term (current) use of other agents affecting estrogen receptors and estrogen levels; Z79.899 Other long term (current) drug therapy
CPT/HCPCS: 36415; 80053; 85025; 96402; 99215; J9395

== ENCOUNTER → 2021-04-23 12:51 | Outpatient (BNVA) | payer MEDICARE, MEDICAID, SELFPAY | PROVIDERS: PCP Family Medicine; Visit Provider Internal Medicine | DX: E03.9 Hypothyroidism, unspecified (principal); R53.0 Neoplastic (malignant) related fatigue; Z87.891 Personal history of nicotine dependence | CPT/HCPCS: 36415; 84439; 84443; 99214 ==

== ENCOUNTER 2021-04-23 13:50 | Outpatient (CLI) | payer MEDICARE, MEDICAID, SELFPAY ==
[2021-04-23 14:48] LABS: Free T4 Free Thyroxine 1.62 ng/dL (0.82-1.77); Thyroid Stimulating Hormone 2.88 uIU/mL (0.27-4.20)
== END 2021-04-23 13:51 | disposition home or self-care (01) ==
LOC: LAB 13:56
PROVIDERS: PCP Family Medicine; Visit Provider Internal Medicine
DX: E03.9 Hypothyroidism, unspecified (principal)
CPT/HCPCS: 36415; 84439; 84443

== ENCOUNTER 2021-04-28 07:52 | Outpatient (CLI) | payer MEDICARE, MEDICAID, SELFPAY ==
[2021-04-28 08:19] LABS: Basophils # 0.1 10^3/uL (0.0-0.1); Eosinophils # 0.3 10^3/uL (0.0-0.8); Eosinophils % 5.2 %; Hematocrit 36.6 % (37.0-47.0); Hemoglobin 11.8 g/dL (11.5-15.3); Lymphocytes # 1.9 10^3/uL (0.8-4.8); Lymphocytes % 32.4 %; Mean Corpuscular HGB Conc 32.2 g/dL (30.0-36.0); Mean Corpuscular Hemoglobin 29.3 pg (28.0-34.0); Mean Corpuscular Volume 90.8 fl (81-99); Mean Platelet Volume 9.2 fL (7.4-10.4); Monocytes # 0.9 10^3/uL (0.2-0.9); Monocytes % 14.9 %; Neutrophils # 2.77 10^3/uL (1.8-7.7); Neutrophils % 46.2 %; Nucleated Red Blood Cells % 0 %; Platelet Count 244 10^3/cmm (130-400); Red Blood Count 4.03 10^6/uL (4.1-5.3); Red Cell Distribution Width 14.8 % (12.1-15.1)
[2021-04-28 08:46] LABS: Alanine Aminotransferase 11 U/L (0-33); Alkaline Phosphatase 57 IU/L (35-105); Anion Gap 14.1 (5-19); Aspartate Amino Transferase 21 U/L (0-32); Blood Urea Nitrogen 15 mg/dL (8-23); CA 15-3 279.1 U/mL (0-25); Calcium 8.4 mg/dL (8.5-10.5); Carbon Dioxide 26 mmol/L (22-29); Chloride 105 mmol/L (98-107); Globulin 2.4 g/dL (1.3-4.6); Glucose 96 mg/dL (65-115); Osmolality Calculated 293 mOsm/kg (285-295); Potassium 4.1 mmol/L (3.5-5.1); Sodium 141 mmol/L (136-145); Total Bilirubin 0.3 mg/dL (0.15-1.2); Total Protein 6.4 g/dL (6.6-8.7)
[2021-04-28] MEDS: fulvestrant 250 mg/5 mL Syringe 500 MG IM (10:42)
[2021-04-28] MEDS: denosumab 120 mg SDV SUBCUT (10:45)
== END 2021-04-28 07:53 | disposition home or self-care (01) ==
LOC: ONCMED 07:55
PROVIDERS: PCP Family Medicine; Visit Provider Nurse Practitioner Family
DX: Z51.11 Encounter for antineoplastic chemotherapy (principal); C50.811 Malignant neoplasm of overlapping sites of right female breast; Z17.0 Estrogen receptor positive status [ER+]; C79.51 Secondary malignant neoplasm of bone; E04.1 Nontoxic single thyroid nodule; M19.90 Unspecified osteoarthritis, unspecified site; J44.9 Chronic obstructive pulmonary disease, unspecified; E03.9 Hypothyroidism, unspecified; I25.10 Atherosclerotic heart disease of native coronary artery without angina pectoris; I65.23 Occlusion and stenosis of bilateral carotid arteries; I70.1 Atherosclerosis of renal artery; I71.4 Abdominal aortic aneurysm, without rupture; Z79.899 Other long term (current) drug therapy; Z79.818 Long term (current) use of other agents affecting estrogen receptors and estrogen levels
CPT/HCPCS: 80053; 84443; 85025; 86300; 96372; 96402; 99215; J0897; J9395

== ENCOUNTER 2021-05-12 07:59 | Outpatient (CLI) | payer MEDICARE, MEDICAID, SELFPAY ==
[2021-05-12 08:26] LABS: Basophils # 0.1 10^3/uL (0.0-0.1); Basophils % 1.1 %; Eosinophils # 0.2 10^3/uL (0.0-0.8); Eosinophils % 4.6 %; Hematocrit 31.8 % (37.0-47.0); Hemoglobin 10.1 g/dL (11.5-15.3); Lymphocytes % 22.5 %; Mean Corpuscular HGB Conc 31.8 g/dL (30.0-36.0); Mean Corpuscular Hemoglobin 29.4 pg (28.0-34.0); Mean Corpuscular Volume 92.7 fl (81-99); Mean Platelet Volume 9.2 fL (7.4-10.4); Monocytes # 0.8 10^3/uL (0.2-0.9); Neutrophils # 2.48 10^3/uL (1.8-7.7); Neutrophils % 54.1 %; Nucleated Red Blood Cells % 0 %; Platelet Count 287 10^3/cmm (130-400); Red Blood Count 3.43 10^6/uL (4.1-5.3); Red Cell Distribution Width 14.6 % (12.1-15.1); White Blood Count 4.6 10^3/uL (4.0-10.0)
[2021-05-12 08:48] LABS: Alanine Aminotransferase 15 U/L (0-33); Albumin Level 4.2 g/dL (3.5-5.2); Alkaline Phosphatase 66 IU/L (35-105); Aspartate Amino Transferase 22 U/L (0-32); Blood Urea Nitrogen 20 mg/dL (8-23); Calcium 8.3 mg/dL (8.5-10.5); Carbon Dioxide 27 mmol/L (22-29); Chloride 103 mmol/L (98-107); Glucose 81 mg/dL (65-115); Osmolality Calculated 292 mOsm/kg (285-295); Sodium 140 mmol/L (136-145); Total Bilirubin 0.3 mg/dL (0.15-1.2); Total Protein 6.2 g/dL (6.6-8.7)
--- NOTE | 2021-05-12 10:34 | ONC FU_ITS ---
Dr. Agrawal Patient Follow-Up Note Patient: Lorelei Saunders Unit #: [id number]: [id number] Dicatated By: Paul Agrawal M.D.Date of Visit:May 12, 2021 Onc Med Follow-up/Prog Note Chief Complaint: Breast cancer/bone metastases. History of Present Illness: This is a 76 year-old woman with grade 2 infiltrating ductal carcinoma of the right breast, ER/MO positive and HER-2/alf negative, stage IV, with biopsy proven metastatic bone involvement. Her breast cancer was stage IIA (T2, N0, M0) at initial diagnosis in October 2008. Her Oncotype DX showed a recurrence score of 16, which was low risk. Her treatment included lumpectomy and axillary sentinel lymph node biopsy followed by radiation to the right breast, which she completed in February 2009. She was given adjuvant hormonal therapy with anastrozole. It was stopped in October 2012 when she came in with worsening joint pain. Bone scan in November 2012 showed no evidence of metastatic disease. She received no further adjuvant therapy, as she had then failed to return for follow-up. On 05/12/2019 she was seen in the emergency room with pain in the right hip area. The pain has been getting progressively worse over a period of several months. X-rays of the lumbar spine, pelvis, and right femur showed evidence of sclerotic lesions in the L1 and S1 vertebral bodies as well as lytic appearing bone changes in the right pubic bone. There was no fracture reported. Further evaluation with bone scan on 05/25/2019 showed multiple areas of uptake including the calvarium, cervical spine, thoracic spine, ribs, lumbar spine, pelvis, sacrum, and both hips most consistent with diffuse metastatic disease. Also noted was right renal pelvic dilatation. I had seen her for a follow-up visit on 06/04/2019. Staging PET/CT on 06/09/2019 showed an intensely hypermetabolic left thyroid mass measuring 2.7 x 3.0 cm with SUV 16.9, appearance of which was felt to be most consistent with a primary thyroid malignancy. A right level III/IV cervical lymph node had elevated SUV of 8.0 and multiple mediastinal lymph nodes were FDG positive, consistent with metastases. And hepatic segment IVb lesion measuring 4.3 x 1.9 x 1.9 cm with SUV 5.9 appeared consistent with unifocal hepatic metastatic disease. A right paravertebral pleural implant at the right lung base measuring 2.0 x 1.7 cm had SUV 10.7. There was evidence of widespread osseous metastatic disease, as expected. I have reviewed that study with the radiologist. As none of the metastatic lesions were very accessible for biopsy, we opted to proceed with CT directed core needle biopsy of her right iliac bone lesion. Pathology showed metastatic adenocarcinoma most consistent with breast primary. The breast prognostic profile showed ER positive at 91% and MO positive at 5%. It was negative for overexpression of HER-2/alf, 0 by IHC and amplification ratio by FISH of 0.9 with 2.4 HER-2 copies/cell. With those findings, she was referred to Dr. Kenny. She underwent palliative radiation to the right hip and to the right rib cage, completed on 07/17/2019. Both sites were treated to a total dose of 3000 cGy. On 08/25/2019 she began cycle 1 of systemic therapy palbociclib 125 mg daily on a 21/28-day schedule together with letrozole 2.5 mg daily. She also started monthly denosumab injections for the metastatic bone involvement. As of 09/12/2019 the palbociclib was put on hold due to neutropenia. She then continued with cycle 2 on 10/03/2019 with the palbociclib dosage reduced to 125 mg every other day for 21 days. At her follow-up visit on 11/05/2019 she complained of severe fatigue and shortness of breath. Her CT pulmonary angiogram showed evidence of COPD, and there were osteoblastic changes consistent with metastatic disease. There was no evidence, though, for pulmonary embolism or other acute pathology. There had been some decline in the CA-27-29 level. With those findings, she continued treatment with palbociclib and letrozole, but with the palbociclib dosed at 100 mg daily on a 21/-day schedule. As of her follow-up in February 2020 her CA 27-29 level had further decreased to 180 U/mL compared to 375 in September 2019, and as of her follow-up visit in March 2020 she appeared stable clinically. At her follow-up visit on 05/21/2020 she appeared to be having difficulty breathing. On clinical evaluation I was concerned about the possibility of upper airway obstruction. 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 There was evidence for severe emphysema, but there were no pulmonary nodules noted and are no other acute findings. There did appear to be progression of osteoblastic metastatic disease within the spine and sternum. She had ENT consultation with Dr. Deleon on 05/26/2020. Her fiberoptic laryngoscopy showed evidence of vocal cord paralysis on the right. There apparently was no evidence for airway obstruction. He recommended referral to endocrinology for management of the goiter. A restaging PET/CT on 06/28/2020 showed questionable improvement in the right thyroid mass measuring 2.5 cm with SUV 16.0. There was improvement in the mediastinal adenopathy. The right paravertebral pleural implant was not significantly changed. There was improvement in the hepatic metastatic lesion. There was a mixed response of osseous metastatic disease with the pelvic lesion having become sclerotic and FDG negative but with new lesions noted at T11 and at T8. With those findings, she continued treatment with palbociclib/letrozole and she also continued monthly denosumab injections for the metastatic bone involvement. As of her follow-up visit on 10/20/2020 she appeared stable clinically. However, during continued follow-up there was a progressive increase in her CA 27-29 level, to 342 U/mL on 10/20/2020 and to 461 U/mL on 01/19/2021. 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 With that finding, I had recommended that she transition her therapy to fulvestrant in combination with alpelisib 300 mg daily. Her other medical illnesses include atherosclerotic cardiovascular disease, degenerative arthritis, osteoporosis, and hypothyroidism. She had evidence of a 3 cm infrarenal abdominal aortic aneurysm on CT angiogram in June 2018. That study also showed arterial stenosis had multiple sites including the proximal SMA, the right renal artery, and left renal artery. Extensive calcifications were noted through the common iliac arteries bilaterally. She underwent right carotid endarterectomy in 2017. She had undergone hysterectomy/BSO in 1994. She has a history of smoking 1 pack of cigarettes daily for close to 60 years. She cut down about a year ago. INTERIM HISTORY: Her restaging CT scans on 02/27/2021 showed osteoblastic metastatic involvement in the lower thoracic spine, lumbar spine, pelvis, sacrum, and hips. There is no evidence, though, of other metastatic disease. Her infrarenal abdominal aortic aneurysm appeared stable measuring 3.0 x 3.2 x 4.0 cm. She then began treatment with fulvestrant on 03/03/2021 and she also continued denosumab injections for the metastatic bone involvement. There was delay in getting started on the alpelisib, initially because she needed time for her blood counts to recover after stopping the palbociclib. As of 04/28/2020 her blood counts were adequate and she did have the medication available, but her treatment then had to be delayed because of stomatitis, which improved after treatment with acyclovir. She is seen now for a follow-up visit. She is feeling good generally, though she says her energy is not too good. She is doing housework. ECOG score is 1. Her appetite is just so-so. She has not been able to gain weight. She does not have fever, she does have some hot flashes. She sometimes has sore throat and she also has had some difficulty swallowing. She does not complain of cough. She does have shortness of breath and she has had some sharp pain in the substernal area, mainly at night. She has no GI or complaints. She has some pain and stiffness in her fingers. She has no other joint or bone pain. She occasionally has headache. She has orthostatic dysequilibrium. She has no numbness/paresthesia or other focal neurologic symptoms. Medications: Aspirin 1 Tablet (of 81 mg) Tablet Oral daily, Budesonide (0.5 mg/2mL) Suspension Inhalation b.i.d., Formoterol Fumarate (20 mcg/2mL) Nebulization solution Inhalation b.i.d., Hydrocodone-Acetaminophen 1 Tablet (of 5-325 mg) Tablet Oral q 6 hours PRN, Levothyroxine Sodium 1 Tablet (of 50 mcg) Oral daily, Piqray (300 MG Daily Dose) 1 Tablet Tablet Therapy Pack Oral daily, Pulmicort Suspension Inhalation b.i.d., Revefenacin (175 mcg/3mL) Solution Inhalation daily Allergies: Fluticasone Furoate Vital Signs: Performed on May 12, 2021 08:52 Height - 62.00 in Weight - 74.0 lbs (LOW) BSA - 1.25 sq.m BMI - 13.53 (LOW) Temperature - 97.0 F (LOW) Pulse - 95 /min Respiration - 18 /min BP - 129/76 mm(hg) O2 Sat - 95 % (LOW) Pain - 0 Fatigue - 0 Physical Examination: Constitutional - She appears somewhat frail generally, Eyes - Sclerae nonicteric. Conjunctivae clear, ENMT - No lesions noted in the oral cavity, Hematologic/Lymphatic - No cervical, clavicular, or axillary adenopathy, Respiratory - Lungs sound clear with diminished air movement bilaterally, Cardiovascular - Heart rhythm is regular. There is no murmur, gallop, or rub noted, Abdomen - Soft. There is mild tenderness in the upper abdomen. Liver and spleen are not enlarged. There is no abdominal mass or ascites noted and there is no inguinal adenopathy, Extremities - No edema, Neurologic - No focal neurologic deficits noted. Lab/Imaging: Test performed on May 12, 2021 08:10 Sodium 140 mmol/L Potassium 4.0 mmol/L Chloride 103 mmol/L CO2 27 mmol/L Anion Gap 14.0 BUN 20 mg/dL Creatinine 0.6 mg/dL Cr Clearance (Est) 40.95 mL/min Glucose 81 mg/dL Osmolality - Calculated 292 mOsm/kg Calcium 8.3 mg/dL Protein, Total 6.2 g/dL Albumin 4.2 g/dL Globulin 2.0 g/dL Bilirubin, Total 0.3 mg/dL ALT (SGPT) 15 U/L AST (SGOT) 22 U/L Alkaline Phosphatase 66 IU/L WBC 4.6 10 3/uL RBC 3.43 10 6/uL HGB 10.1 g/dL HCT 31.8 % MCV 92.7 fl MCH 29.4 pg MCHC 31.8 g/dL RDW 14.6 % Platelet Count 287 10 3/cmm MPV 9.2 fL Neutrophils 2.48 10 3/uL Lymphocytes 1.0 10 3/uL Monocytes 0.8 10 3/uL Eosinophils 0.2 10 3/uL Basophils 0.1 10 3/uL Neutrophil % 54.1 % Lymphocyte % 22.5 % Monocyte % 17.0 % Eosinophil % 4.6 % Basophils % 1.1 % NRBC % 0 % Test performed on Apr 28, 2021 08:08 TSH 5.50 uU/mL CA 15-3 279.1 Units/mL Problem List: 1. Grade 2 infiltrating ductal carcinoma of the right breast, ER/MO positive and HER-2/alf negative. Her disease was stage IIA (T2, N0, M0) at initial diagnosis in October 2008. She had progression to stage IV with multiple sites of metastatic involvement including extensive bony metastatic disease. CT directed core needle biopsy of a right iliac bone lesion on 06/26/2019 confirmed metastatic adenocarcinoma consistent with breast primary, ER/MO positive and HER-2/alf negative. On next generation sequencing by liquid biopsy, she was found to harbor a PIK3CA mutation. 2. She had PET/CT evidence an FDG avid left thyroid mass, and she also was found on CT to have evidence of a large substernal goiter. 3. Degenerative arthritis. 4. COPD. 5. Hypothyroidism. 6. Atherosclerotic cardiovascular disease including carotid stenosis and renal artery stenosis. 7. She has known abdominal aortic aneurysm. Problems Addressed with this Encounter and Plan: 1. Patient with grade 2 infiltrating ductal carcinoma of the right breast, ER/MO positive and HER-2/alf negative. Her disease was stage IIA (T2, N0, M0) at initial diagnosis in October 2008. She had progression to stage IV with multiple sites of metastatic involvement including extensive bony metastatic disease. CT directed core needle biopsy of a right iliac bone lesion on 06/26/2019 confirmed metastatic adenocarcinoma consistent with breast primary, ER/MO positive and HER-2/alf negative. On next generation sequencing by liquid biopsy, she was found to harbor a PIK3CA mutation. She initially underwent palliative radiation to the right hip and to the right rib cage, completed on 07/17/2019, both sites to a total dose of 3000 cGy. On 08/21/2019 she began systemic therapy with palbociclib 125 mg daily on a 21/28-day schedule together with letrozole 2.5 mg daily. She required a dose reduction in the palbociclib to 100 mg. However, she did have evidence of response with CA 27-29 level decreased to 180 U/mL compared to 375 U/mL in September 2019. Her restaging PET/CT on 07/03/2020 showed mixed response with some areas of improvement but with evidence of new bone lesions at T8 and T11 vertebral bodies. As she was not overtly symptomatic, she continued treatment with letrozole and palbociclib. Due to a further decline in her neutrophil count, she was given an additional reduction in the palbociclib dosage to 75 mg administered on a /-day schedule. As of her visit on 10/20/2020 had been a gradual increase in her CA 27-29 level, but she appeared stable clinically, and she continued treatment with letrozole in combination with palbociclib. As of her follow-up visit on 01/19/2021 there was further increase in the CA 27-29 level to 461 U/mL. She was then found on next generation sequencing by liquid biopsy to harbor a PIK3CA mutation. With that finding, she was recommended to transition her treatment to fulvestrant in combination with alpelisib. Her restaging CT scans on 02/27/2021 showed osteoblastic metastatic disease involving the lower thoracic and lumbar spine, pelvis, and both hips. There were no other sites of metastatic disease noted. She began treatment with fulvestrant on 03/03/2021. There has been delay in starting the alpelisib, but she now has the medication available and she has adequate recovery of her blood counts. As such, she begins treatment with alpelisib 300 mg daily. She is to call with any evidence of skin rash or with development of diarrhea. We will be monitoring her blood sugar. She will be scheduled for a follow-up visit in 2 weeks. 2. She has metastatic bone involvement, and she will be continuing supportive therapy with denosumab. Signed By: Paul Agrawal M.D. <<Signature on File>>
[2021-05-12 12:28] LABS: Iron 78 ug/dL (37-145); Percent Saturation 25.7 % (20-50); Total Iron Binding Capacity 303 mcg/dl; Unsaturated Iron Binding 225 ug/dL (112-347)
[2021-05-12 13:06] LABS: Vitamin B12 325 pg/mL (232-1245)
== END 2021-05-12 08:00 | disposition home or self-care (01) ==
LOC: ONCMED 08:01
PROVIDERS: PCP Family Medicine; Visit Provider Internal Medicine Medical Oncology
DX: Z51.11 Encounter for antineoplastic chemotherapy (principal); C50.911 Malignant neoplasm of unspecified site of right female breast; C79.51 Secondary malignant neoplasm of bone; Z17.0 Estrogen receptor positive status [ER+]; R21 Rash and other nonspecific skin eruption; R19.7 Diarrhea, unspecified; E04.8 Other specified nontoxic goiter; M19.90 Unspecified osteoarthritis, unspecified site; J44.9 Chronic obstructive pulmonary disease, unspecified; E03.9 Hypothyroidism, unspecified; I25.10 Atherosclerotic heart disease of native coronary artery without angina pectoris; I71.4 Abdominal aortic aneurysm, without rupture
CPT/HCPCS: 36415; 80053; 82607; 83540; 83550; 85025; 99215

== ENCOUNTER 2021-05-26 07:52 | Outpatient (CLI) | payer MEDICARE, MEDICAID, SELFPAY ==
[2021-05-26] MEDS: denosumab 120 mg SDV SUBCUT (09:12)
[2021-05-26] MEDS: fulvestrant 250 mg/5 mL Syringe 500 MG IM (09:14)
== END 2021-05-26 07:53 | disposition home or self-care (01) ==
LOC: ONCMED 07:54
PROVIDERS: PCP Family Medicine; Visit Provider Nurse Practitioner Family
DX: Z51.11 Encounter for antineoplastic chemotherapy (principal); C50.811 Malignant neoplasm of overlapping sites of right female breast; Z17.0 Estrogen receptor positive status [ER+]; C79.51 Secondary malignant neoplasm of bone; E04.1 Nontoxic single thyroid nodule; M19.90 Unspecified osteoarthritis, unspecified site; J44.9 Chronic obstructive pulmonary disease, unspecified; E03.9 Hypothyroidism, unspecified; I25.10 Atherosclerotic heart disease of native coronary artery without angina pectoris; I65.23 Occlusion and stenosis of bilateral carotid arteries; I70.1 Atherosclerosis of renal artery; I71.4 Abdominal aortic aneurysm, without rupture; Z79.818 Long term (current) use of other agents affecting estrogen receptors and estrogen levels; Z79.899 Other long term (current) drug therapy
CPT/HCPCS: 96372; 96402; 99215; J0897; J9395

== ENCOUNTER → 2021-06-09 11:31 | Outpatient (BNVA) | payer MEDICARE, MEDICAID, SELFPAY | PROVIDERS: PCP Family Medicine; Visit Provider Nurse Practitioner Family | DX: R30.0 Dysuria (principal) | CPT/HCPCS: 81000 ==

== ENCOUNTER 2021-06-11 09:30 | Outpatient (CLI) | payer MEDICARE, MEDICAID, SELFPAY ==
[2021-06-11 10:06] LABS: Basophils % 0.6 %; Eosinophils # 0.1 10^3/uL (0.0-0.8); Eosinophils % 1.5 %; Hematocrit 37.3 % (37.0-47.0); Hemoglobin 12.2 g/dL (11.5-15.3); Lymphocytes # 2.2 10^3/uL (0.8-4.8); Mean Corpuscular HGB Conc 32.7 g/dL (30.0-36.0); Mean Corpuscular Hemoglobin 29.8 pg (28.0-34.0); Mean Platelet Volume 9.4 fL (7.4-10.4); Monocytes # 1.2 10^3/uL (0.2-0.9); Monocytes % 17.5 %; Neutrophils % 49.3 %; Nucleated Red Blood Cells % 0 %; Platelet Count 217 10^3/cmm (130-400); Red Cell Distribution Width 13.3 % (12.1-15.1); White Blood Count 7.1 10^3/uL (4.0-10.0)
[2021-06-11 10:33] LABS: Alanine Aminotransferase 14 U/L (0-33); Albumin Level 4.3 g/dL (3.5-5.2); Alkaline Phosphatase 71 IU/L (35-105); Anion Gap 14.4 (5-19); Aspartate Amino Transferase 24 U/L (0-32); Blood Urea Nitrogen 35 mg/dL (8-23); Calcium 9.4 mg/dL (8.5-10.5); Carbon Dioxide 28 mmol/L (22-29); Chloride 101 mmol/L (98-107); Globulin 2.2 g/dL (1.3-4.6); Glucose 108 mg/dL (65-115); Osmolality Calculated 297 mOsm/kg (285-295); Potassium 4.4 mmol/L (3.5-5.1); Sodium 139 mmol/L (136-145); Thyroid Stimulating Hormone 3.23 uIU/mL (0.27-4.20); Total Bilirubin 0.2 mg/dL (0.15-1.2); Total Protein 6.5 g/dL (6.6-8.7)
--- NOTE | 2021-06-14 11:19 | ONC FU_ITS ---
Dr. Agrawal Patient Follow-Up Note Patient: Lorelei Saunders Unit #: [id number]: [id number] Dicatated By: Paul Agrawal M.D.Date of Visit:Jun 11, 2021 Onc Med Follow-up/Prog Note Chief Complaint: Breast cancer/bone metastases. History of Present Illness: This is a 76 year-old woman with grade 2 infiltrating ductal carcinoma of the right breast, ER/OH positive and HER-2/alf negative, stage IV, with biopsy proven metastatic bone involvement. Her breast cancer was stage IIA (T2, N0, M0) at initial diagnosis in October 2008. Her Oncotype DX showed a recurrence score of 16, which was low risk. Her treatment included lumpectomy and axillary sentinel lymph node biopsy followed by radiation to the right breast, which she completed in February 2009. She was given adjuvant hormonal therapy with anastrozole. It was stopped in October 2012 when she came in with worsening joint pain. Bone scan in November 2012 showed no evidence of metastatic disease. She received no further adjuvant therapy, as she had then failed to return for follow-up. On 05/12/2019 she was seen in the emergency room with pain in the right hip area. The pain has been getting progressively worse over a period of several months. X-rays of the lumbar spine, pelvis, and right femur showed evidence of sclerotic lesions in the L1 and S1 vertebral bodies as well as lytic appearing bone changes in the right pubic bone. There was no fracture reported. Further evaluation with bone scan on 05/25/2019 showed multiple areas of uptake including the calvarium, cervical spine, thoracic spine, ribs, lumbar spine, pelvis, sacrum, and both hips most consistent with diffuse metastatic disease. Also noted was right renal pelvic dilatation. I had seen her for a follow-up visit on 06/04/2019. Staging PET/CT on 06/09/2019 showed an intensely hypermetabolic left thyroid mass measuring 2.7 x 3.0 cm with SUV 16.9, appearance of which was felt to be most consistent with a primary thyroid malignancy. A right level III/IV cervical lymph node had elevated SUV of 8.0 and multiple mediastinal lymph nodes were FDG positive, consistent with metastases. And hepatic segment IVb lesion measuring 4.3 x 1.9 x 1.9 cm with SUV 5.9 appeared consistent with unifocal hepatic metastatic disease. A right paravertebral pleural implant at the right lung base measuring 2.0 x 1.7 cm had SUV 10.7. There was evidence of widespread osseous metastatic disease, as expected. I have reviewed that study with the radiologist. As none of the metastatic lesions were very accessible for biopsy, we opted to proceed with CT directed core needle biopsy of her right iliac bone lesion. Pathology showed metastatic adenocarcinoma most consistent with breast primary. The breast prognostic profile showed ER positive at 91% and OH positive at 5%. It was negative for overexpression of HER-2/alf, 0 by IHC and amplification ratio by FISH of 0.9 with 2.4 HER-2 copies/cell. With those findings, she was referred to Dr. Kenny. She underwent palliative radiation to the right hip and to the right rib cage, completed on 07/17/2019. Both sites were treated to a total dose of 3000 cGy. On 08/25/2019 she began cycle 1 of systemic therapy palbociclib 125 mg daily on a 21/28-day schedule together with letrozole 2.5 mg daily. She also started monthly denosumab injections for the metastatic bone involvement. As of 09/12/2019 the palbociclib was put on hold due to neutropenia. She then continued with cycle 2 on 10/03/2019 with the palbociclib dosage reduced to 125 mg every other day for 21 days. At her follow-up visit on 11/05/2019 she complained of severe fatigue and shortness of breath. Her CT pulmonary angiogram showed evidence of COPD, and there were osteoblastic changes consistent with metastatic disease. There was no evidence, though, for pulmonary embolism or other acute pathology. There had been some decline in the CA-27-29 level. With those findings, she continued treatment with palbociclib and letrozole, but with the palbociclib dosed at 100 mg daily on a 21/-day schedule. As of her follow-up in February 2020 her CA 27-29 level had further decreased to 180 U/mL compared to 375 in September 2019, and as of her follow-up visit in March 2020 she appeared stable clinically. At her follow-up visit on 05/21/2020 she appeared to be having difficulty breathing. On clinical evaluation I was concerned about the possibility of upper airway obstruction. 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 There was evidence for severe emphysema, but there were no pulmonary nodules noted and are no other acute findings. There did appear to be progression of osteoblastic metastatic disease within the spine and sternum. She had ENT consultation with Dr. Deleon on 05/26/2020. Her fiberoptic laryngoscopy showed evidence of vocal cord paralysis on the right. There apparently was no evidence for airway obstruction. He recommended referral to endocrinology for management of the goiter. A restaging PET/CT on 06/28/2020 showed questionable improvement in the right thyroid mass measuring 2.5 cm with SUV 16.0. There was improvement in the mediastinal adenopathy. The right paravertebral pleural implant was not significantly changed. There was improvement in the hepatic metastatic lesion. There was a mixed response of osseous metastatic disease with the pelvic lesion having become sclerotic and FDG negative but with new lesions noted at T11 and at T8. With those findings, she continued treatment with palbociclib/letrozole and she also continued monthly denosumab injections for the metastatic bone involvement. As of her follow-up visit on 10/20/2020 she appeared stable clinically. However, during continued follow-up there was a progressive increase in her CA 27-29 level, to 342 U/mL on 10/20/2020 and to 461 U/mL on 01/19/2021. 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 With that finding, I had recommended that she transition her therapy to fulvestrant in combination with alpelisib 300 mg daily. Her other medical illnesses include atherosclerotic cardiovascular disease, degenerative arthritis, osteoporosis, and hypothyroidism. She had evidence of a 3 cm infrarenal abdominal aortic aneurysm on CT angiogram in June 2018. That study also showed arterial stenosis had multiple sites including the proximal SMA, the right renal artery, and left renal artery. Extensive calcifications were noted through the common iliac arteries bilaterally. She underwent right carotid endarterectomy in 2017. She had undergone hysterectomy/BSO in 1994. She has a history of smoking 1 pack of cigarettes daily for close to 60 years. She cut down about a year ago. INTERIM HISTORY: Her restaging CT scans on 02/27/2021 showed osteoblastic metastatic involvement in the lower thoracic spine, lumbar spine, pelvis, sacrum, and hips. There is no evidence, though, of other metastatic disease. Her infrarenal abdominal aortic aneurysm appeared stable measuring 3.0 x 3.2 x 4.0 cm. She then began treatment with fulvestrant on 03/03/2021 and she also continued denosumab injections for the metastatic bone involvement. There was delay in getting started on the alpelisib, initially because she needed time for her blood counts to recover after stopping the palbociclib. As of 04/28/2020 her blood counts were adequate and she did have the medication available, but her treatment then had to be delayed because of stomatitis, which improved after treatment with acyclovir. On May 26, 2021 she returned for scheduled injections of fulvestrant and denosumab, and on June 02, 2021 she began treatment with alpelisib 250 mg daily. Her baseline CA 15-3 level from April 28, 2021 was 279.1 U/mL. She is seen for a follow-up visit. She has not been feeling very good. She says she has no energy, and her activity has been limited. ECOG score is 2. She also complains that her appetite is poor and that she has not been eating right. She has not had fever. She does have hot flashes and sweating, mainly at night. She has not had sore mouth or throat. She says her breathing has not been very good. She does not have cough and she does not complain of chest pain. She currently has no GI or complaints. She has been having some back pain. She does not complain of headache. She sometimes gets dizzy or lightheaded. She has no numbness/paresthesia or other focal neurologic symptoms. Medications: Aspirin 1 Tablet (of 81 mg) Tablet Oral daily, Banophen (25 mg) Tablet Oral at bedtime, Budesonide (0.5 mg/2mL) Suspension Inhalation b.i.d., Famotidine (20 mg) Tablet Oral b.i.d., Formoterol Fumarate (20 mcg/2mL) Nebulization solution Inhalation b.i.d., Hydrocodone-Acetaminophen 1 Tablet (of 5-325 mg) Tablet Oral q 6 hours PRN, Levothyroxine Sodium 1 Tablet (of 50 mcg) Oral daily, Loratadine (10 mg) Tablet Oral daily, Megestrol Acetate 5 mL (of 625 mg/5mL) Suspension Oral daily, Piqray (250 MG Daily Dose) (200 & 50 mg) Tablet Therapy Pack Oral daily, Pulmicort Suspension Inhalation b.i.d., Revefenacin (175 mcg/3mL) Solution Inhalation daily Allergies: Fluticasone Furoate Vital Signs: Performed on Jun 11, 2021 13:29 Height - 62.00 in Weight - 71.8 lbs (LOW) BSA - 1.24 sq.m BMI - 13.13 (LOW) Temperature - 98.6 F Pulse - 88 /min Respiration - 20 /min BP - 147/82 mm(hg) (HIGH) O2 Sat - 98 % Pain - 8 Fatigue - 5 Physical Examination: Constitutional - She appears somewhat frail generally, Eyes - Sclerae nonicteric. Conjunctivae clear, ENMT - No lesions noted in the oral cavity, Hematologic/Lymphatic - No cervical, clavicular, or axillary adenopathy, Respiratory - Lungs show harsh breath sounds on inspiration and expiration, consistent with upper airway restriction. There is generally diminished air movement bilaterally, Cardiovascular - Heart rhythm is regular. There is no murmur, gallop, or rub noted, Abdomen - Thin.. Liver and spleen are not enlarged. There is no abdominal mass or ascites noted and there is no inguinal adenopathy, Extremities - No edema, Neurologic - No focal neurologic deficits noted. Lab/Imaging: Test performed on Jun 11, 2021 09:55 Sodium 139 mmol/L TSH 3.23 uIU/mL Potassium 4.4 mmol/L Chloride 101 mmol/L CO2 28 mmol/L Anion Gap 14.4 BUN 35 mg/dL Creatinine 1.2 mg/dL Cr Clearance (Est) 19.87 mL/min Glucose 108 mg/dL Osmolality - Calculated 297 mOsm/kg Calcium 9.4 mg/dL Protein, Total 6.5 g/dL Albumin 4.3 g/dL Globulin 2.2 g/dL Bilirubin, Total 0.2 mg/dL ALT (SGPT) 14 U/L AST (SGOT) 24 U/L Alkaline Phosphatase 71 IU/L WBC 7.1 10 3/uL RBC 4.10 10 6/uL HGB 12.2 g/dL HCT 37.3 % MCV 91.0 fl MCH 29.8 pg MCHC 32.7 g/dL RDW 13.3 % Platelet Count 217 10 3/cmm MPV 9.4 fL Neutrophils 3.50 10 3/uL Lymphocytes 2.2 10 3/uL Monocytes 1.2 10 3/uL Eosinophils 0.1 10 3/uL Basophils 0.0 10 3/uL Neutrophil % 49.3 % Lymphocyte % 31.0 % Monocyte % 17.5 % Eosinophil % 1.5 % Basophils % 0.6 % NRBC % 0 % Problem List: 1. Grade 2 infiltrating ductal carcinoma of the right breast, ER/OH positive and HER-2/alf negative. Her disease was stage IIA (T2, N0, M0) at initial diagnosis in October 2008. She had progression to stage IV with multiple sites of metastatic involvement including extensive bony metastatic disease. CT directed core needle biopsy of a right iliac bone lesion on 06/26/2019 confirmed metastatic adenocarcinoma consistent with breast primary, ER/OH positive and HER-2/alf negative. On next generation sequencing by liquid biopsy, she was found to harbor a PIK3CA mutation. 2. She had PET/CT evidence an FDG avid left thyroid mass, and she also was found on CT to have evidence of a large substernal goiter. 3. Degenerative arthritis. 4. COPD. 5. Hypothyroidism. 6. Atherosclerotic cardiovascular disease including carotid stenosis and renal artery stenosis. 7. She has known abdominal aortic aneurysm. Problems Addressed with this Encounter and Plan: 1. Patient with grade 2 infiltrating ductal carcinoma of the right breast, ER/OH positive and HER-2/alf negative. Her disease was stage IIA (T2, N0, M0) at initial diagnosis in October 2008. She had progression to stage IV with multiple sites of metastatic involvement including extensive bony metastatic disease. CT directed core needle biopsy of a right iliac bone lesion on 06/26/2019 confirmed metastatic adenocarcinoma consistent with breast primary, ER/OH positive and HER-2/alf negative. On next generation sequencing by liquid biopsy, she was found to harbor a PIK3CA mutation. She initially underwent palliative radiation to the right hip and to the right rib cage, completed on 07/17/2019, both sites to a total dose of 3000 cGy. On 08/21/2019 she began systemic therapy with palbociclib 125 mg daily on a 21/28-day schedule together with letrozole 2.5 mg daily. She required a dose reduction in the palbociclib to 100 mg. However, she did have evidence of response with CA 27-29 level decreased to 180 U/mL compared to 375 U/mL in September 2019. Her restaging PET/CT on 07/03/2020 showed mixed response with some areas of improvement but with evidence of new bone lesions at T8 and T11 vertebral bodies. As she was not overtly symptomatic, she continued treatment with letrozole and palbociclib. Due to a further decline in her neutrophil count, she was given an additional reduction in the palbociclib dosage to 75 mg administered on a 21/28-day schedule. As of her visit on 10/20/2020 had been a gradual increase in her CA 27-29 level, but she appeared stable clinically, and she continued treatment with letrozole in combination with palbociclib. As of her follow-up visit on 01/19/2021 there was further increase in the CA 27-29 level to 461 U/mL. She was then found on next generation sequencing by liquid biopsy to harbor a PIK3CA mutation. With that finding, she was recommended to transition her treatment to fulvestrant in combination with alpelisib. Her restaging CT scans on 02/27/2021 showed osteoblastic metastatic disease involving the lower thoracic and lumbar spine, pelvis, and both hips. There were no other sites of metastatic disease noted. She began treatment with fulvestrant on 03/03/2021. There was a delay in starting the alpelisib, initially because her blood counts were low and subsequently due to development of oral stomatitis. However, on May 26, 2021 she returned for scheduled fulvestrant injection, and on June 02, 2021 she began alpelisib 250 mg daily. At this point she appears to be showing some decline in her activity tolerance, and she also has poor appetite. I will have her try megestrol for the appetite, initially at 5 mL daily. The dosage can be escalated as necessary. For now she continues alpelisib 250 mg daily. She will be scheduled for a follow-up visit in 2 weeks. 2. She has metastatic bone involvement, and she has continued supportive therapy with denosumab. Signed By: Paul Agrawal M.D. <<Signature on File>>
== END 2021-06-11 09:31 | disposition home or self-care (01) ==
PROVIDERS: Nurse Practitioner Family; PCP Family Medicine; Visit Provider Internal Medicine Medical Oncology
DX: C50.911 Malignant neoplasm of unspecified site of right female breast (principal); C79.51 Secondary malignant neoplasm of bone; J44.9 Chronic obstructive pulmonary disease, unspecified; E03.9 Hypothyroidism, unspecified; I71.4 Abdominal aortic aneurysm, without rupture; E04.9 Nontoxic goiter, unspecified; I65.29 Occlusion and stenosis of unspecified carotid artery; I70.1 Atherosclerosis of renal artery; Z79.899 Other long term (current) drug therapy; Z92.3 Personal history of irradiation
CPT/HCPCS: 36415; 80053; 84443; 85025; 99214

== ENCOUNTER 2021-06-23 08:49 | Outpatient (CLI) | payer MEDICARE, MEDICAID, SELFPAY ==
[2021-06-23 09:37] LABS: Basophils % 0.4 %; Eosinophils # 0.1 10^3/uL (0.0-0.8); Eosinophils % 1.2 %; Hematocrit 38.6 % (37.0-47.0); Hemoglobin 12.4 g/dL (11.5-15.3); Lymphocytes # 1.1 10^3/uL (0.8-4.8); Lymphocytes % 22.6 %; Mean Corpuscular HGB Conc 32.1 g/dL (30.0-36.0); Mean Corpuscular Hemoglobin 28.9 pg (28.0-34.0); Mean Platelet Volume 9.4 fL (7.4-10.4); Monocytes # 0.5 10^3/uL (0.2-0.9); Monocytes % 10.3 %; Neutrophils # 3.23 10^3/uL (1.8-7.7); Neutrophils % 65.3 %; Nucleated Red Blood Cells % 0 %; Platelet Count 199 10^3/cmm (130-400); Red Blood Count 4.29 10^6/uL (4.1-5.3); Red Cell Distribution Width 13.2 % (12.1-15.1)
[2021-06-23 10:07] LABS: Alanine Aminotransferase 17 U/L (0-33); Albumin Level 4.3 g/dL (3.5-5.2); Alkaline Phosphatase 65 IU/L (35-105); Anion Gap 14.8 (5-19); Aspartate Amino Transferase 30 U/L (0-32); Blood Urea Nitrogen 19 mg/dL (8-23); CA 15-3 292.9 U/mL (0-25); Calcium 9.4 mg/dL (8.5-10.5); Carbon Dioxide 28 mmol/L (22-29); Chloride 100 mmol/L (98-107); Globulin 2.7 g/dL (1.3-4.6); Glucose 99 mg/dL (65-115); Osmolality Calculated 290 mOsm/kg (285-295); Potassium 3.8 mmol/L (3.5-5.1); Sodium 139 mmol/L (136-145); Total Bilirubin 0.3 mg/dL (0.15-1.2)
[2021-06-23] MEDS: fulvestrant 250 mg/5 mL Syringe 500 MG IM (10:45)
[2021-06-23] MEDS: denosumab 120 mg SDV SUBCUT (10:50)
--- NOTE | 2021-06-24 07:49 | ONC FU_ITS ---
Aleja Trevino Progress Note Patient: Lorelei Saunders Unit #: [id number]: 1945 Dicatated By: Aleja Trevino N.P.Date of Visit:Jun 23, 2021 Onc MED Follow-up/Prog Note Chief Complaint: Breast cancer/bone metastases. History of Present Illness: This is a 76 year-old woman with grade 2 infiltrating ductal carcinoma of the right breast, ER/TX positive and HER-2/alf negative, stage IV, with biopsy proven metastatic bone involvement. Her breast cancer was stage IIA (T2, N0, M0) at initial diagnosis in October 2008. Her Oncotype DX showed a recurrence score of 16, which was low risk. Her treatment included lumpectomy and axillary sentinel lymph node biopsy followed by radiation to the right breast, which she completed in February 2009. She was given adjuvant hormonal therapy with anastrozole. It was stopped in October 2012 when she came in with worsening joint pain. Bone scan in November 2012 showed no evidence of metastatic disease. She received no further adjuvant therapy, as she had then failed to return for follow-up. On 05/12/2019 she was seen in the emergency room with pain in the right hip area. The pain has been getting progressively worse over a period of several months. X-rays of the lumbar spine, pelvis, and right femur showed evidence of sclerotic lesions in the L1 and S1 vertebral bodies as well as lytic appearing bone changes in the right pubic bone. There was no fracture reported. Further evaluation with bone scan on 05/25/2019 showed multiple areas of uptake including the calvarium, cervical spine, thoracic spine, ribs, lumbar spine, pelvis, sacrum, and both hips most consistent with diffuse metastatic disease. Also noted was right renal pelvic dilatation. Dr Agrawal had seen her for a follow-up visit on 06/04/2019. Staging PET/CT on 06/09/2019 showed an intensely hypermetabolic left thyroid mass measuring 2.7 x 3.0 cm with SUV 16.9, appearance of which was felt to be most consistent with a primary thyroid malignancy. A right level III/IV cervical lymph node had elevated SUV of 8.0 and multiple mediastinal lymph nodes were FDG positive, consistent with metastases. And hepatic segment IVb lesion measuring 4.3 x 1.9 x 1.9 cm with SUV 5.9 appeared consistent with unifocal hepatic metastatic disease. A right paravertebral pleural implant at the right lung base measuring 2.0 x 1.7 cm had SUV 10.7. There was evidence of widespread osseous metastatic disease, as expected. I have reviewed that study with the radiologist. As none of the metastatic lesions were very accessible for biopsy, we opted to proceed with CT directed core needle biopsy of her right iliac bone lesion. Pathology showed metastatic adenocarcinoma most consistent with breast primary. The breast prognostic profile showed ER positive at 91% and TX positive at 5%. It was negative for overexpression of HER-2/alf, 0 by IHC and amplification ratio by FISH of 0.9 with 2.4 HER-2 copies/cell. With those findings, she was referred to Dr. Kenny. She underwent palliative radiation to the right hip and to the right rib cage, completed on 07/17/2019. Both sites were treated to a total dose of 3000 cGy. On 08/25/2019 she began cycle 1 of systemic therapy palbociclib 125 mg daily on a 21/28-day schedule together with letrozole 2.5 mg daily. She also started monthly denosumab injections for the metastatic bone involvement. As of 09/12/2019 the palbociclib was put on hold due to neutropenia. She then continued with cycle 2 on 10/03/2019 with the palbociclib dosage reduced to 125 mg every other day for 21 days. At her follow-up visit on 11/05/2019 she complained of severe fatigue and shortness of breath. Her CT pulmonary angiogram showed evidence of COPD, and there were osteoblastic changes consistent with metastatic disease. There was no evidence, though, for pulmonary embolism or other acute pathology. There had been some decline in the CA-27-29 level. With those findings, she continued treatment with palbociclib and letrozole, but with the palbociclib dosed at 100 mg daily on a 21/28-day schedule. As of her follow-up in February 2020 her CA 27-29 level had further decreased to 180 U/mL compared to 375 in September 2019, and as of her follow-up visit in March 2020 she appeared stable clinically. At her follow-up visit on 05/21/2020 she appeared to be having difficulty breathing. On clinical evaluation Dr. Agrawal was concerned about the possibility of upper airway obstruction. 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 There was evidence for severe emphysema, but there were no pulmonary nodules noted and are no other acute findings. There did appear to be progression of osteoblastic metastatic disease within the spine and sternum. She had ENT consultation with Dr. Deleon on 05/26/2020. Her fiberoptic laryngoscopy showed evidence of vocal cord paralysis on the right. There apparently was no evidence for airway obstruction. He recommended referral to endocrinology for management of the goiter. A restaging PET/CT on 06/28/2020 showed questionable improvement in the right thyroid mass measuring 2.5 cm with SUV 16.0. There was improvement in the mediastinal adenopathy. The right paravertebral pleural implant was not significantly changed. There was improvement in the hepatic metastatic lesion. There was a mixed response of osseous metastatic disease with the pelvic lesion having become sclerotic and FDG negative but with new lesions noted at T11 and at T8. With those findings, she continued treatment with palbociclib/letrozole and she also continued monthly denosumab injections for the metastatic bone involvement. As of her follow-up visit on 10/20/2020 she appeared stable clinically. However, during continued follow-up there was a progressive increase in her CA 27-29 level, to 342 U/mL on 10/20/2020 and to 461 U/mL on 01/19/2021. 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 With that finding, I had recommended that she transition her therapy to fulvestrant in combination with alpelisib 300 mg daily. Her other medical illnesses include atherosclerotic cardiovascular disease, degenerative arthritis, osteoporosis, and hypothyroidism. She had evidence of a 3 cm infrarenal abdominal aortic aneurysm on CT angiogram in June 2018. That study also showed arterial stenosis had multiple sites including the proximal SMA, the right renal artery, and left renal artery. Extensive calcifications were noted through the common iliac arteries bilaterally. She underwent right carotid endarterectomy in 2017. She had undergone hysterectomy/BSO in 1994. She has a history of smoking 1 pack of cigarettes daily for close to 60 years. She cut down about a year ago. INTERIM HISTORY: Her restaging CT scans on 02/27/2021 showed osteoblastic metastatic involvement in the lower thoracic spine, lumbar spine, pelvis, sacrum, and hips. There is no evidence, though, of other metastatic disease. Her infrarenal abdominal aortic aneurysm appeared stable measuring 3.0 x 3.2 x 4.0 cm. She then began treatment with fulvestrant on 03/03/2021 and she also continued denosumab injections for the metastatic bone involvement. There was delay in getting started on the alpelisib, initially because she needed time for her blood counts to recover after stopping the palbociclib. As of 04/28/2020 her blood counts were adequate and she did have the medication available, but her treatment then had to be delayed because of stomatitis, which improved after treatment with acyclovir. On May 26, 2021 she returned for scheduled injections of fulvestrant and denosumab, and on June 02, 2021 she began treatment with alpelisib 250 mg daily. Her baseline CA 15-3 level from April 28, 2021 was 279.1 U/mL. She presents today for follow-up. She states she has been feeling well and has been tolerating the alpelisib 250 mg daily. She states her appetite has been great and that she eats all the time so therefore she has not been taking megestrol that was previously prescribed for appetite stimulation. She denies shortness of breath, cough, chest pain. No nausea vomiting. She has been having some diarrhea but it has been less than 4 times a day. No abdominal pain. No headaches or dizziness. Review Of Symptoms: See above. Past Medical History: Abdominal aortic aneurysm Breast cancer Carotid stenosis Degenerative arthritis Goiter Hypothyroidism Renal artery stenosis Osteoporosis in 2009 (Treated) Past Surgical History: Knee surgery Knot removal from back Right carotid endarterectomy in 2018 Right breast lumpectomy with axillary sentinel lymph node biopsy in 2008 Breast biopsy in 2008 Hysterectomy/bilateral salpingo-oophorectomy in 1994 Allergies: Fluticasone Furoate Medications: Albuterol Sulfate (108 (90 base) mcg/act) Aerosol Powder, Breath Activated Inhalation Take as Directed Aspirin 1 Tablet (of 81 mg) Tablet Oral daily Banophen (25 mg) Tablet Oral at bedtime Budesonide (0.5 mg/2mL) Suspension Inhalation b.i.d. Famotidine (20 mg) Tablet Oral b.i.d. Formoterol Fumarate (20 mcg/2mL) Nebulization solution Inhalation b.i.d. Hydrocodone-Acetaminophen 1 Tablet (of 5-325 mg) Tablet Oral q 6 hours PRN Levothyroxine Sodium 1 Tablet (of 50 mcg) Oral daily Loratadine (10 mg) Tablet Oral daily Megestrol Acetate 5 mL (of 625 mg/5mL) Suspension Oral daily Piqray (250 MG Daily Dose) (200 & 50 mg) Tablet Therapy Pack Oral daily Pulmicort Suspension Inhalation b.i.d. Revefenacin (175 mcg/3mL) Solution Inhalation daily Family History: Ms. Saunders's mother is : heart disease. Ms. Saunders's father is : lung cancer. Ms. Saunders has 3 brothers: 2 alive, 1 . Ms. Saunders's first brother's kidney cancer. Another brother's esophagus cancer. She has 2 sisters: 2 . Ms. Saunders's first sister's lung cancer. Her father and a sister of lung cancer. One brother had esophageal cancer and another brother was treated for kidney cancer. Her mother of heart attack. A son with a drug overdose. Social History: Ms. Saunders is . Ms. Saunders no longer smokes but had smoked 0.5 packs/day for 62 years. She is a former drinker. She has a history of smoking 1 pack of cigarettes daily for close to 60 years. She cut down about a year ago and she now has only minimal smoking. She had alcohol use in the past but she quit drinking at least 35 or 40 years ago. Physical Examination: Performed on Jun 23, 2021 11:02: Height - 62.00 in, Weight - 71.8 lbs, BSA - 1.24 sq.m, BMI - 13.13 (LOW), Temperature - 98.1 F (LOW), Pulse - 70 /min, Respiration - 20 /min, BP - 124/78 mm(hg), O2 Sat - 99 %, Pain - 0, and Fatigue - 6. Performance Status: 1 - No physically strenuous activity, but ambulatory and able to carry out light or sedentary work (e.g. office work, light house work). (ECOG) Constitutional Alert, cooperative, oriented. Mood and affect appropriate. Appears close to chronological age. Well nourished. Well developed. Head Normocephalic; no scars. Respiratory Lungs are clear to auscultation without rhonchi or wheezing. Cardiovascular Regular rate and rhythm of heart without murmurs, gallops or rubs. Abdomen Non-tender, non-distended, no masses, ascites or hepatosplenomegaly. Good bowel sounds. No guarding or rebound tenderness. Extremities No visible deformities, no cyanosis, clubbing or edema. Pulses 3+ and equal bilaterally. Musculoskeletal No tenderness or swelling, normal range of motion without obvious weakness. Psychiatric Alert and oriented times three. Coherent speech. Verbalizes understanding of our discussions today. Laboratory: Test performed on Jun 23, 2021 09:23 Sodium 139 mmol/L Potassium 3.8 mmol/L Chloride 100 mmol/L CO2 28 mmol/L Anion Gap 14.8 BUN 19 mg/dL Creatinine 1.2 mg/dL Cr Clearance (Est) 19.8700 mL/min Glucose 99 mg/dL Osmolality - Calculated 290 mOsm/kg Calcium 9.4 mg/dL Protein, Total 7.0 g/dL Albumin 4.3 g/dL Globulin 2.7 g/dL Bilirubin, Total 0.3 mg/dL ALT (SGPT) 17 U/L AST (SGOT) 30 U/L Alkaline Phosphatase 65 IU/L WBC 5.0 10 3/uL RBC 4.29 10 6/uL HGB 12.4 g/dL HCT 38.6 % MCV 90.0 fl MCH 28.9 pg MCHC 32.1 g/dL RDW 13.2 % Platelet Count 199 10 3/cmm MPV 9.4 fL Neutrophils 3.23 10 3/uL Lymphocytes 1.1 10 3/uL Monocytes 0.5 10 3/uL Eosinophils 0.1 10 3/uL Basophils 0.0 10 3/uL Neutrophil % 65.3 % Lymphocyte % 22.6 % Monocyte % 10.3 % Eosinophil % 1.2 % Basophils % 0.4 % NRBC % 0 % CA 15-3 292.9 U/mL Test performed on Jun 11, 2021 09:55 TSH 3.23 uIU/mL Test performed on May 12, 2021 08:10 Iron 78 mcg/dL Vitamin B12 325 pg/mL Iron Binding Capacity (TIBC) 303 mcg/dl % Iron Saturation 25.7 % UIBC 225 mcg/dL Test performed on Mar 31, 2021 10:51 NRBC 0.0 /100 WBC Impression: 1. Grade 2 infiltrating ductal carcinoma of the right breast, ER/TX positive and HER-2/alf negative. Her disease was stage IIA (T2, N0, M0) at initial diagnosis in October 2008. She had progression to stage IV with multiple sites of metastatic involvement including extensive bony metastatic disease. CT directed core needle biopsy of a right iliac bone lesion on 06/26/2019 confirmed metastatic adenocarcinoma consistent with breast primary, ER/TX positive and HER-2/alf negative. On next generation sequencing by liquid biopsy, she was found to harbor a PIK3CA mutation. 2. She had PET/CT evidence an FDG avid left thyroid mass, and she also was found on CT to have evidence of a large substernal goiter. 3. Degenerative arthritis. 4. COPD. 5. Hypothyroidism. 6. Atherosclerotic cardiovascular disease including carotid stenosis and renal artery stenosis. 7. She has known abdominal aortic aneurysm. Plan: 1. 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 Her disease was stage IIA (T2, N0, M0) at initial diagnosis in October 2008. She had progression to stage IV with multiple sites of metastatic involvement including extensive bony metastatic disease. CT directed core needle biopsy of a right iliac bone lesion on 06/26/2019 confirmed metastatic adenocarcinoma consistent with breast primary, ER/TX positive and HER-2/alf negative. On next generation sequencing by liquid biopsy, she was found to harbor a PIK3CA mutation. She initially underwent palliative radiation to the right hip and to the right rib cage, completed on 07/17/2019, both sites to a total dose of 3000 cGy. On 08/21/2019 she began systemic therapy with palbociclib 125 mg daily on a 21/28-day schedule together with letrozole 2.5 mg daily. She required a dose reduction in the palbociclib to 100 mg. However, she did have evidence of response with CA 27-29 level decreased to 180 U/mL compared to 375 U/mL in September 2019. Her restaging PET/CT on 07/03/2020 showed mixed response with some areas of improvement but with evidence of new bone lesions at T8 and T11 vertebral bodies. As she was not overtly symptomatic, she continued treatment with letrozole and palbociclib. Due to a further decline in her neutrophil count, she was given an additional reduction in the palbociclib dosage to 75 mg administered on a 21/28-day schedule. As of her visit on 10/20/2020 had been a gradual increase in her CA 27-29 level, but she appeared stable clinically, and she continued treatment with letrozole in combination with palbociclib. As of her follow-up visit on 01/19/2021 there was further increase in the CA 27-29 level to 461 U/mL. She was then found on next generation sequencing by liquid biopsy to harbor a PIK3CA mutation. With that finding, she was recommended to transition her treatment to fulvestrant in combination with alpelisib. Her restaging CT scans on 02/27/2021 showed osteoblastic metastatic disease involving the lower thoracic and lumbar spine, pelvis, and both hips. There were no other sites of metastatic disease noted. She began treatment with fulvestrant on 03/03/2021. There was a delay in starting the alpelisib, initially because her blood counts were low and subsequently due to development of oral stomatitis. However, on May 26, 2021 she returned for scheduled fulvestrant injection, and on June 02, 2021 she began alpelisib 250 mg daily. She presents today for follow-up. She states that she is feeling better and her activity has improved. Her appetite is also been good. She seems to be tolerating the alpelisib well. She is having periods of diarrhea but according to the patient it is less than four times a day. Because of this we will have her come back in 2 weeks to reevaluate the diarrhea. Her CA 15-3 was mildly elevated from 279.1 to 292.9. Since she has been on the Piqray less than a month, we will recheck this in 1 month to further evaluate. 2. She has metastatic bone involvement, and she has continued supportive therapy with denosumab. Signed By: Aleja Trevino N.P. <<Signature on File>>
== END 2021-06-23 08:50 | disposition home or self-care (01) ==
LOC: ONCMED 08:52
PROVIDERS: Internal Medicine Medical Oncology; PCP Family Medicine; Visit Provider Nurse Practitioner Family
DX: Z51.11 Encounter for antineoplastic chemotherapy (principal); C50.911 Malignant neoplasm of unspecified site of right female breast; C79.51 Secondary malignant neoplasm of bone; Z17.0 Estrogen receptor positive status [ER+]; E04.8 Other specified nontoxic goiter; J44.9 Chronic obstructive pulmonary disease, unspecified; E03.9 Hypothyroidism, unspecified; I70.1 Atherosclerosis of renal artery; I71.4 Abdominal aortic aneurysm, without rupture; Z79.899 Other long term (current) drug therapy
CPT/HCPCS: 36415; 80053; 85025; 86300; 96372; 96402; 99215; J0897; J9395

== ENCOUNTER 2021-07-07 08:11 | Outpatient (CLI) | payer MEDICARE, MEDICAID, SELFPAY ==
[2021-07-07 08:41] LABS: Basophils % 0.8 %; Eosinophils # 0.1 10^3/uL (0.0-0.8); Eosinophils % 2.3 %; Hematocrit 39.7 % (37.0-47.0); Hemoglobin 12.5 g/dL (11.5-15.3); Lymphocytes # 1.2 10^3/uL (0.8-4.8); Lymphocytes % 24.7 %; Mean Corpuscular HGB Conc 31.5 g/dL (30.0-36.0); Mean Corpuscular Hemoglobin 28.4 pg (28.0-34.0); Mean Corpuscular Volume 90.2 fl (81-99); Mean Platelet Volume 9.5 fL (7.4-10.4); Monocytes # 0.7 10^3/uL (0.2-0.9); Neutrophils # 2.76 10^3/uL (1.8-7.7); Neutrophils % 57.8 %; Nucleated Red Blood Cells % 0 %; Platelet Count 215 10^3/cmm (130-400); Red Cell Distribution Width 13.2 % (12.1-15.1); White Blood Count 4.8 10^3/uL (4.0-10.0)
[2021-07-07 09:06] LABS: Alanine Aminotransferase 16 U/L (0-33); Albumin Level 4.2 g/dL (3.5-5.2); Alkaline Phosphatase 64 IU/L (35-105); Anion Gap 15.2 (5-19); Aspartate Amino Transferase 28 U/L (0-32); Blood Urea Nitrogen 27 mg/dL (8-23); Calcium 9.6 mg/dL (8.5-10.5); Carbon Dioxide 27 mmol/L (22-29); Chloride 102 mmol/L (98-107); Globulin 2.9 g/dL (1.3-4.6); Glucose 87 mg/dL (65-115); Osmolality Calculated 294 mOsm/kg (285-295); Potassium 4.2 mmol/L (3.5-5.1); Sodium 140 mmol/L (136-145); Total Bilirubin 0.3 mg/dL (0.15-1.2); Total Protein 7.1 g/dL (6.6-8.7)
[2021-07-07 09:30] LABS: CA 15-3 330.5 U/mL (0-25)
--- NOTE | 2021-07-07 19:56 | ONC FU_ITS ---
Dr. Agrawal Patient Follow-Up Note Patient: Lorelei Saunders Unit #: [id number]: [id number] Dicatated By: Paul Agrawal M.D.Date of Visit:Jul 07, 2021 Onc Med Follow-up/Prog Note Chief Complaint: Breast cancer/bone metastases. History of Present Illness: This is a 76 year-old woman with grade 2 infiltrating ductal carcinoma of the right breast, ER/NV positive and HER-2/alf negative, stage IV, with biopsy proven metastatic bone involvement. Her breast cancer was stage IIA (T2, N0, M0) at initial diagnosis in October 2008. Her Oncotype DX showed a recurrence score of 16, which was low risk. Her treatment included lumpectomy and axillary sentinel lymph node biopsy followed by radiation to the right breast, which she completed in February 2009. She was given adjuvant hormonal therapy with anastrozole. It was stopped in October 2012 when she came in with worsening joint pain. Bone scan in November 2012 showed no evidence of metastatic disease. She received no further adjuvant therapy, as she had then failed to return for follow-up. On 05/12/2019 she was seen in the emergency room with pain in the right hip area. The pain has been getting progressively worse over a period of several months. X-rays of the lumbar spine, pelvis, and right femur showed evidence of sclerotic lesions in the L1 and S1 vertebral bodies as well as lytic appearing bone changes in the right pubic bone. There was no fracture reported. Further evaluation with bone scan on 05/25/2019 showed multiple areas of uptake including the calvarium, cervical spine, thoracic spine, ribs, lumbar spine, pelvis, sacrum, and both hips most consistent with diffuse metastatic disease. Also noted was right renal pelvic dilatation. I had seen her for a follow-up visit on 06/04/2019. Staging PET/CT on 06/09/2019 showed an intensely hypermetabolic left thyroid mass measuring 2.7 x 3.0 cm with SUV 16.9, appearance of which was felt to be most consistent with a primary thyroid malignancy. A right level III/IV cervical lymph node had elevated SUV of 8.0 and multiple mediastinal lymph nodes were FDG positive, consistent with metastases. And hepatic segment IVb lesion measuring 4.3 x 1.9 x 1.9 cm with SUV 5.9 appeared consistent with unifocal hepatic metastatic disease. A right paravertebral pleural implant at the right lung base measuring 2.0 x 1.7 cm had SUV 10.7. There was evidence of widespread osseous metastatic disease, as expected. I have reviewed that study with the radiologist. As none of the metastatic lesions were very accessible for biopsy, we opted to proceed with CT directed core needle biopsy of her right iliac bone lesion. Pathology showed metastatic adenocarcinoma most consistent with breast primary. The breast prognostic profile showed ER positive at 91% and NV positive at 5%. It was negative for overexpression of HER-2/alf, 0 by IHC and amplification ratio by FISH of 0.9 with 2.4 HER-2 copies/cell. With those findings, she was referred to Dr. Kenny. She underwent palliative radiation to the right hip and to the right rib cage, completed on 07/17/2019. Both sites were treated to a total dose of 3000 cGy. On 08/25/2019 she began cycle 1 of systemic therapy palbociclib 125 mg daily on a 21/28-day schedule together with letrozole 2.5 mg daily. She also started monthly denosumab injections for the metastatic bone involvement. As of 09/12/2019 the palbociclib was put on hold due to neutropenia. She then continued with cycle 2 on 10/03/2019 with the palbociclib dosage reduced to 125 mg every other day for 21 days. At her follow-up visit on 11/05/2019 she complained of severe fatigue and shortness of breath. Her CT pulmonary angiogram showed evidence of COPD, and there were osteoblastic changes consistent with metastatic disease. There was no evidence, though, for pulmonary embolism or other acute pathology. There had been some decline in the CA-27-29 level. With those findings, she continued treatment with palbociclib and letrozole, but with the palbociclib dosed at 100 mg daily on a 21/-day schedule. As of her follow-up in February 2020 her CA 27-29 level had further decreased to 180 U/mL compared to 375 in September 2019, and as of her follow-up visit in March 2020 she appeared stable clinically. At her follow-up visit on 05/21/2020 she appeared to be having difficulty breathing. On clinical evaluation I was concerned about the possibility of upper airway obstruction. 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 There was evidence for severe emphysema, but there were no pulmonary nodules noted and are no other acute findings. There did appear to be progression of osteoblastic metastatic disease within the spine and sternum. She had ENT consultation with Dr. Deleon on 05/26/2020. Her fiberoptic laryngoscopy showed evidence of vocal cord paralysis on the right. There apparently was no evidence for airway obstruction. He recommended referral to endocrinology for management of the goiter. A restaging PET/CT on 06/28/2020 showed questionable improvement in the right thyroid mass measuring 2.5 cm with SUV 16.0. There was improvement in the mediastinal adenopathy. The right paravertebral pleural implant was not significantly changed. There was improvement in the hepatic metastatic lesion. There was a mixed response of osseous metastatic disease with the pelvic lesion having become sclerotic and FDG negative but with new lesions noted at T11 and at T8. With those findings, she continued treatment with palbociclib/letrozole and she also continued monthly denosumab injections for the metastatic bone involvement. As of her follow-up visit on 10/20/2020 she appeared stable clinically. However, during continued follow-up there was a progressive increase in her CA 27-29 level, to 342 U/mL on 10/20/2020 and to 461 U/mL on 01/19/2021. 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 With that finding, I had recommended that she transition her therapy to fulvestrant in combination with alpelisib 300 mg daily. Her other medical illnesses include atherosclerotic cardiovascular disease, degenerative arthritis, osteoporosis, and hypothyroidism. She had evidence of a 3 cm infrarenal abdominal aortic aneurysm on CT angiogram in June 2018. That study also showed arterial stenosis had multiple sites including the proximal SMA, the right renal artery, and left renal artery. Extensive calcifications were noted through the common iliac arteries bilaterally. She underwent right carotid endarterectomy in 2017. She had undergone hysterectomy/BSO in 1994. She has a history of smoking 1 pack of cigarettes daily for close to 60 years. She cut down about a year ago. INTERIM HISTORY: Her restaging CT scans on 02/27/2021 showed osteoblastic metastatic involvement in the lower thoracic spine, lumbar spine, pelvis, sacrum, and hips. There is no evidence, though, of other metastatic disease. Her infrarenal abdominal aortic aneurysm appeared stable measuring 3.0 x 3.2 x 4.0 cm. She then began treatment with fulvestrant on 03/03/2021 and she also continued denosumab injections for the metastatic bone involvement. There was delay in getting started on the alpelisib, initially because she needed time for her blood counts to recover after stopping the palbociclib. As of 04/28/2020 her blood counts were adequate and she did have the medication available, but her treatment then had to be delayed because of stomatitis, which improved after treatment with acyclovir. On May 26, 2021 she returned for scheduled injections of fulvestrant and denosumab, and on June 02, 2021 she began treatment with alpelisib 250 mg daily. Her baseline CA 15-3 level from April 28, 2021 was 279.1 U/mL. As of her follow-up visit on 06/11/2021 she had reported some decline in her activity tolerance and in her appetite, but she appeared to be tolerating the alpelisib with acceptable toxicity. She continued the alpelisib at 250 mg daily together with fulvestrant 500 mg. She returned on 06/23/2021 for her scheduled injections of fulvestrant and denosumab. She is seen for a follow-up visit. She has been feeling pretty good generally. She says her energy is getting a little better. She is able to do light work. Her appetite also is better. Her weight has stabilized. She has not had fever. She does have some hot flashes and sweating. She complains that her gums have been sore lately. She has not had sore throat or difficulty swallowing. She does not complain of cough. She says her breathing is not very good. She has not had chest pain. She has no GI complaints other than occasional diarrhea, which she manages adequately with Imodium. She has frequent urination. She has no significant joint or bone pain. She does not complain of headache. She does have some orthostatic dysequilibrium. She has no focal neurologic symptoms. Medications: Albuterol Sulfate (108 (90 base) mcg/act) Aerosol Powder, Breath Activated Inhalation Take as Directed, Aspirin 1 Tablet (of 81 mg) Tablet Oral daily, Banophen (25 mg) Tablet Oral at bedtime, Budesonide (0.5 mg/2mL) Suspension Inhalation daily, Famotidine (20 mg) Tablet Oral b.i.d., Formoterol Fumarate (20 mcg/2mL) Nebulization solution Inhalation b.i.d., Hydrocodone-Acetaminophen 1 Tablet (of 5-325 mg) Tablet Oral q 6 hours PRN, Levothyroxine Sodium 1 Tablet (of 50 mcg) Oral daily, Loratadine (10 mg) Tablet Oral daily, Piqray (250 MG Daily Dose) (200 & 50 mg) Tablet Therapy Pack Oral daily, Revefenacin (175 mcg/3mL) Solution Inhalation daily Allergies: Fluticasone Furoate Vital Signs: Performed on Jul 07, 2021 11:35 Height - 62.00 in Weight - 71.4 lbs (LOW) BSA - 1.23 sq.m BMI - 13.06 (LOW) Temperature - 97.4 F (LOW) Pulse - 92 /min Respiration - 18 /min BP - 166/83 mm(hg) (HIGH) O2 Sat - 97 % Pain - 0 Fatigue - 4 Physical Examination: Constitutional - She appears somewhat frail generally, Eyes - Sclerae nonicteric. Conjunctivae clear, ENMT - No lesions noted in the oral cavity, Hematologic/Lymphatic - No cervical, clavicular, or axillary adenopathy, Respiratory - Lungs show slightly coarse upper airway sounds on inspiration and expiration. There is some decrease in air movement bilaterally, Cardiovascular - Heart rhythm is regular. There is no murmur, gallop, or rub noted, Abdomen - Thin. Liver and spleen are not enlarged. There is no abdominal mass or ascites noted and there is no inguinal adenopathy, Extremities - No edema, Neurologic - No focal neurologic deficits noted. Lab/Imaging: Test performed on Jul 07, 2021 08:34 Sodium 140 mmol/L Potassium 4.2 mmol/L Chloride 102 mmol/L CO2 27 mmol/L Anion Gap 15.2 BUN 27 mg/dL Creatinine 1.0 mg/dL Cr Clearance (Est) 23.71 mL/min Glucose 87 mg/dL Osmolality - Calculated 294 mOsm/kg Calcium 9.6 mg/dL Protein, Total 7.1 g/dL Albumin 4.2 g/dL Globulin 2.9 g/dL Bilirubin, Total 0.3 mg/dL ALT (SGPT) 16 U/L AST (SGOT) 28 U/L Alkaline Phosphatase 64 IU/L WBC 4.8 10 3/uL RBC 4.40 10 6/uL HGB 12.5 g/dL HCT 39.7 % MCV 90.2 fl MCH 28.4 pg MCHC 31.5 g/dL RDW 13.2 % Platelet Count 215 10 3/cmm MPV 9.5 fL Neutrophils 2.76 10 3/uL Lymphocytes 1.2 10 3/uL Monocytes 0.7 10 3/uL Eosinophils 0.1 10 3/uL Basophils 0.0 10 3/uL Neutrophil % 57.8 % Lymphocyte % 24.7 % Monocyte % 14.0 % Eosinophil % 2.3 % Basophils % 0.8 % NRBC % 0 % CA 15-3 330.5 U/mL Problem List: 1. Grade 2 infiltrating ductal carcinoma of the right breast, ER/NV positive and HER-2/alf negative. Her disease was stage IIA (T2, N0, M0) at initial diagnosis in October 2008. She had progression to stage IV with multiple sites of metastatic involvement including extensive bony metastatic disease. CT directed core needle biopsy of a right iliac bone lesion on 06/26/2019 confirmed metastatic adenocarcinoma consistent with breast primary, ER/NV positive and HER-2/alf negative. On next generation sequencing by liquid biopsy, she was found to harbor a PIK3CA mutation. 2. She had PET/CT evidence an FDG avid left thyroid mass, and she also was found on CT to have evidence of a large substernal goiter. 3. Degenerative arthritis. 4. COPD. 5. Hypothyroidism. 6. Atherosclerotic cardiovascular disease including carotid stenosis and renal artery stenosis. 7. She has known abdominal aortic aneurysm. Problems Addressed with this Encounter and Plan: Patient with grade 2 infiltrating ductal carcinoma of the right breast, ER/NV positive and HER-2/alf negative. Her disease was stage IIA (T2, N0, M0) at initial diagnosis in October 2008. She had progression to stage IV with multiple sites of metastatic involvement including extensive bony metastatic disease. CT directed core needle biopsy of a right iliac bone lesion on 06/26/2019 confirmed metastatic adenocarcinoma consistent with breast primary, ER/NV positive and HER-2/alf negative. On next generation sequencing by liquid biopsy, she was found to harbor a PIK3CA mutation. She initially underwent palliative radiation to the right hip and to the right rib cage, completed on 07/17/2019, both sites to a total dose of 3000 cGy. On 08/21/2019 she began systemic therapy with palbociclib 125 mg daily on a 21/28-day schedule together with letrozole 2.5 mg daily. She required a dose reduction in the palbociclib to 100 mg. However, she did have evidence of response with CA 27-29 level decreased to 180 U/mL compared to 375 U/mL in September 2019. Her restaging PET/CT on 07/03/2020 showed mixed response with some areas of improvement but with evidence of new bone lesions at T8 and T11 vertebral bodies. As she was not overtly symptomatic, she continued treatment with letrozole and palbociclib. Due to a further decline in her neutrophil count, she was given an additional reduction in the palbociclib dosage to 75 mg administered on a 21/28-day schedule. As of her visit on 10/20/2020 had been a gradual increase in her CA 27-29 level, but she appeared stable clinically, and she continued treatment with letrozole in combination with palbociclib. As of her follow-up visit on 01/19/2021 there was further increase in the CA 27-29 level to 461 U/mL. She was then found on next generation sequencing by liquid biopsy to harbor a PIK3CA mutation. With that finding, she was recommended to transition her treatment to fulvestrant in combination with alpelisib. Her restaging CT scans on 02/27/2021 showed osteoblastic metastatic disease involving the lower thoracic and lumbar spine, pelvis, and both hips. There were no other sites of metastatic disease noted. She began treatment with fulvestrant on 03/03/2021. There was a delay in starting the alpelisib, initially because her blood counts were low and subsequently due to development of oral stomatitis. However, on May 26, 2021 she returned for scheduled fulvestrant injection, and on June 02, 2021 she began alpelisib 250 mg daily. She reported some decreased activity tolerance and in her appetite after initially starting the alpelisib. Her appetite has improved somewhat with Megace. Overall, she appears to be tolerating her treatment well. There has been some gradual increase in her CA 15-3 level. There has been no evidence of symptomatic disease progression. For now she continues the alpelisib at 250 mg daily. She returns in 2 weeks for injections of fulvestrant and denosumab. I will tentatively plan a follow-up visit in 6 weeks. Signed By: Paul Agrawal M.D. <<Signature on File>>
== END 2021-07-07 08:12 | disposition home or self-care (01) ==
PROVIDERS: Internal Medicine Medical Oncology; PCP Family Medicine; Visit Provider Nurse Practitioner Family
DX: C50.911 Malignant neoplasm of unspecified site of right female breast (principal); C79.51 Secondary malignant neoplasm of bone; Z17.0 Estrogen receptor positive status [ER+]; E04.8 Other specified nontoxic goiter; J44.9 Chronic obstructive pulmonary disease, unspecified; E03.9 Hypothyroidism, unspecified; I70.1 Atherosclerosis of renal artery; I71.4 Abdominal aortic aneurysm, without rupture; Z79.899 Other long term (current) drug therapy
CPT/HCPCS: 36415; 80053; 85025; 86300; 99214

== ENCOUNTER → 2021-07-16 09:31 | Outpatient (BNVA) | payer MEDICARE, MEDICAID, SELFPAY | PROVIDERS: PCP Family Medicine; Visit Provider Internal Medicine Pulmonary Disease | DX: J44.9 Chronic obstructive pulmonary disease, unspecified (principal); C41.9 Malignant neoplasm of bone and articular cartilage, unspecified; C50.911 Malignant neoplasm of unspecified site of right female breast; E04.9 Nontoxic goiter, unspecified; F17.200 Nicotine dependence, unspecified, uncomplicated; J38.01 Paralysis of vocal cords and larynx, unilateral; R06.02 Shortness of breath; R06.09 Other forms of dyspnea; E03.9 Hypothyroidism, unspecified; Z85.3 Personal history of malignant neoplasm of breast | CPT/HCPCS: 99214 ==

== ENCOUNTER 2021-07-21 12:05 | Outpatient (CLI) | payer MEDICARE, MEDICAID, SELFPAY ==
[2021-07-21] MEDS: denosumab 120 mg SDV SUBCUT (12:20)
[2021-07-21] MEDS: fulvestrant 250 mg/5 mL Syringe 500 MG IM (12:24)
[2021-07-21 12:39] LABS: Basophils % 0.8 %; Eosinophils # 0.1 10^3/uL (0.0-0.8); Eosinophils % 1.9 %; Hematocrit 38.2 % (37.0-47.0); Lymphocytes # 1.6 10^3/uL (0.8-4.8); Lymphocytes % 42.4 %; Mean Corpuscular HGB Conc 31.4 g/dL (30.0-36.0); Mean Corpuscular Volume 89.3 fl (81-99); Mean Platelet Volume 9.4 fL (7.4-10.4); Monocytes # 0.4 10^3/uL (0.2-0.9); Monocytes % 9.5 %; Neutrophils % 45.1 %; Nucleated Red Blood Cells % 0 %; Platelet Count 226 10^3/cmm (130-400); Red Blood Count 4.28 10^6/uL (4.1-5.3); Red Cell Distribution Width 13.2 % (12.1-15.1); White Blood Count 3.8 10^3/uL (4.0-10.0)
[2021-07-21 13:12] LABS: Alanine Aminotransferase 12 U/L (0-33); Albumin Level 4.4 g/dL (3.5-5.2); Alkaline Phosphatase 62 IU/L (35-105); Anion Gap 13.7 (5-19); Aspartate Amino Transferase 24 U/L (0-32); Blood Urea Nitrogen 20 mg/dL (8-23); Calcium 9.4 mg/dL (8.5-10.5); Carbon Dioxide 29 mmol/L (22-29); Chloride 101 mmol/L (98-107); Glucose 109 mg/dL (65-115); Osmolality Calculated 293 mOsm/kg (285-295); Potassium 3.7 mmol/L (3.5-5.1); Sodium 140 mmol/L (136-145); Total Bilirubin 0.2 mg/dL (0.15-1.2); Total Protein 7.4 g/dL (6.6-8.7)
[2021-07-21 13:43] LABS: CA 15-3 375.3 U/mL (0-25)
== END 2021-07-21 12:06 | disposition home or self-care (01) ==
LOC: ONCMED 12:07
PROVIDERS: Nurse Practitioner Family; PCP Family Medicine; Visit Provider Nurse Practitioner
DX: Z51.11 Encounter for antineoplastic chemotherapy (principal); C50.411 Malignant neoplasm of upper-outer quadrant of right female breast; Z17.0 Estrogen receptor positive status [ER+]; C79.51 Secondary malignant neoplasm of bone; D70.1 Agranulocytosis secondary to cancer chemotherapy; T45.1X5A Adverse effect of antineoplastic and immunosuppressive drugs, initial encounter; M81.0 Age-related osteoporosis without current pathological fracture; Z79.818 Long term (current) use of other agents affecting estrogen receptors and estrogen levels; Z79.899 Other long term (current) drug therapy
CPT/HCPCS: 80053; 85025; 86300; 96372; 96402; J0897; J9395

== ENCOUNTER 2021-08-15 12:40 | Emergency (ER) | payer MEDICARE, MEDICAID, SELFPAY ==
[2021-08-15 12:53] VITALS: BP 112/86; PULSE 91; RESP 18; TEMP 36.4; O2SAT 98; BMI 12.0
--- NOTE | 2021-08-15 14:17 | ED_ITS ---
HPI - Weakness General: Chief complaint: Weakness Stated complaint: not feeling well Time Seen by Provider: 08/15/21 13:58 Source: patient Mode of arrival: ambulatory Limitations: no limitations History of Present Illness: This patient presents to our emergency department [place] by family members today because she is feels weak. When she is asked to elaborate she says she just did not feel like she has any energy. She states that she thinks this is progressed over the past week or so. She denies any chest pain, change in her breathing pattern, nausea, vomiting, diarrhea. She denies any fevers or dysuria. She has a history of breast cancer treated with radiation and lumpectomy and apparently has some bony metastasis by her history that is being followed and treated with oral agents by oncology. She does admit to a history of being tired and fatigued in the past. She states she is lost w eight over the past number of months to years. She states that she sometimes feels like she cannot swallow well. She denies any known exposure to infectious disease, syncope etc. She states she is sleeping well. She apparently has an appointment with oncology on Tuesday as well as additional imaging scheduled later this coming week. She denies any falls syncope etc. When asked she thinks is because of her medication she takes. When further questioned she admits that she has been taking it for many months. MD Complaint: generalized weakness Location: generalized Relieving factors: none Exacerbating factors: none Associated symptoms: Denies chest pain, chills, confusion, melena, easy bruising, fever(s), headache(s), nausea, syncope or vomiting Review of Systems Const: Reports: change in weight and fatigue; Denies: fever(s) or chills Eyes: Denies: change in vision or blurry vision ENMT: Denies: throat pain or odynophagia Card: Denies: chest pain, palpitations, irregular heart rhythm, lightheadedness, syncope or pre-syncope Resp: Denies: dyspnea, productive cough, non-productive cough or wheezing GI: Denies: abdominal pain, nausea, vomiting, hematemesis, change in bowel habits or melena : Denies: flank pain, difficulty voiding, urinary urgency or urinary hesitancy Musc: Denies: neck pain, back pain, extremity pain or extremity swelling Skin/Breast: Denies: rash or pruritus Neuro: Denies: headache(s), frequent falls, dizziness, confusion or Slurred speech present Psych: Denies: anxiety Endo: Denies: polyuria or polydipsia Zaid/Lymph: Denies: easy bruising or easy bleeding PFSH ED PFSH: Medical History AAA (abdominal aortic aneurysm) without rupture Carotid stenosis, bilateral Hypothyroidism Surgical History H/O abdominal hysterectomy History of back surgery lower History of breast biopsy History of heart artery stent History of hysterectomy History of knee surgery left History of shoulder surgery left Family History Mother CAD (coronary artery disease) Myocardial infarction Father Cancer Social History Smoking and tobacco status: former smoker Quit status (tobacco): has quit using tobacco Year quit tobacco: 05/2020 [id number] Second hand smoke exposure: No Smoking risk assessment/counseling performed?: Yes Alcohol intake: never Lives independently: Yes Household members: none Marital status: / Current occupational status: retired Pets and animals: Yes History of recent travel: No Current gender identity: Female Special karen needs: No Physical Exam Narrative: EXAM NARRATIVE: Very pleasant and interactive elderly female who appears very thin but in no acute distress. Const: COMMON NORMALS: no acute distress, patient oriented x3 and alert GENERAL APPEARANCE: frail appearing NUTRITIONAL APPEARANCE: overweight ORIENTATION/CONSCIOUSNESS: Yes awake HENMT: COMMON NORMALS: normocephalic, atraumatic, Normal nasal mucous membranes and turbinates present and moist oral mucous membranes HEAD & SCALP: normocephalic and atraumatic; no scalp tenderness and no Temporal artery tenderness present FACE & SINUS: normal facial exam NOSE: Normal nasal mucous membranes and turbinates present Eye: COMMON NORMALS: Equal, round and reactive pupils present, conjunctivae normal and no scleral icterus CONJUNCTIVA: Yes conjunctivae normal PUPIL: Yes Equal, round and reactive pupils present Neck/C-Spine: COMMON NORMALS: full ROM, no lymphadenopathy, supple and no JVD Chest: COMMONS NORMALS: normal inspection of the chest Resp: COMMON NORMALS: normal respiratory effort, No retractions and No use of accessory muscles AUSCULTATION: diminished lung sounds (at bases) Cardio: COMMON NORMALS: no JVD, regular rate, regular rhythm and Peripheral pulses 2+ throughout RATE: regular rate RHYTHM: regular rhythm HEART SOUNDS: Murmur heart sound present (3/6 LSB) PERIPHERAL PULSES: Peripheral pulses 2+ throughout GI: COMMON NORMALS: Normal to inspection, nondistended, normoactive bowel sounds present, Soft to palpation, non-tender, no masses and no bruits INSPECTION: Yes normal to inspection PALPATION: Yes Soft to palpation : COMMON NORMALS: Yes no CVA tenderness BLADDER/KIDNEY EXAM: Yes no CVA tenderness Back/Pelvis: COMMON NORMALS: no CVA tenderness, thoracic and lumbar spine normal to inspection and no thoracic nor lumbar tenderness Extremity: COMMON NORMALS: normal to inspection, full ROM, capillary refill normal, no joint enlargement, no calf tenderness and no pedal edema NARRATIVE EXTREMITY EXAM: Thin extremities with decreased muscle bulk and mass but no other abnormality. Neuro: COMMON NORMALS: patient oriented x3, moves all extremities, no focal motor deficits and no sensory deficits noted SENSORIUM/ORIENTATION: Yes alert SPEECH: speech normal Psych: COMMON NORMALS: mental status grossly normal Skin: COMMON NORMALS: no rashes or lesions noted, turgor normal and no petechiae GENERAL SKIN EXAM: no rashes or lesions noted and turgor normal Course ED course: Patient with a history of cancer as well as other chronic medical problems presents because she has felt more fatigued over the past few days. Sh Reevaluation(s): Reevaluation #1: Initial troponin is elevated. We will go ahead and evaluate resting EKG and run serial troponins. Always an occult potential etiology to fatigue in the elder ly. Reevaluation #2: She remains stable, pain-free and no new or focal findings on reevaluation. Discussed current findings with both she and her family. Given her 9 elevation in her troponin lack of symptoms and normal EKG I feel that this is not likely represent ACS or ongoing ischemia. She does have hematuria but apparently that is been recent chronic change for her. She has no bacteria fever or other findings to suggest infection at this time. I shared that there does not appear to be an ongoing emergency medical condition and that much of her symptoms complex are related to her chronic illness in conjunction with her cancer. I feel that she is stable at this time to be followed up by oncology this coming Tuesday but she should return to the emergency department for any worsening or persistent symptoms. This was acknowledged by both she and her family. Time: 18:09 Vital Signs: Vital signs: Vital Signs Temperature 97.6 F 08/15/21 12:53 Pulse Rate 68 08/15/21 14:45 Respiratory Rate 18 08/15/21 14:45 Blood Pressure 170/93 08/15/21 14:45 Pulse Oximetry 98 08/15/21 14:45 MDM - Weakness Medical Decision Making e displayed no stigmata of acute illness although she did have frailty and muscle wasting and other findings suggestive of her chronic illness. Initial troponin obtained was over the cutoff however repeat troponin at 2 hours did not change and in fact fell. This combined with her presentation certainly does not suggest ACS or other worrisome condition at this time. No other acute findings today to give a ready explanation to her chronic and progressive fatigue. She is stable to be discharged with return precautions and close follow-up. Lab Data : 08/15/21 14:40 08/15/21 14:40 Laboratory Results WBC 4.3 10^3/uL (4.0-10.0) 08/15/21 14:40 RBC 4.63 10^6/uL (4.1-5.3) 08/15/21 14:40 Hgb 13.4 g/dL (11.5-15.3) 08/15/21 14:40 Hct 40.5 % (37.0-47.0) 08/15/21 14:40 MCV 87.5 fl (81-99) 08/15/21 14:40 MCH 28.9 pg (28.0-34.0) 08/15/21 14:40 MCHC 33.1 g/dL (30.0-36.0) 08/15/21 14:40 RDW 13.6 % (12.1-15.1) 08/15/21 14:40 Plt Count 203 10^3/cmm (130-400) 08/15/21 14:40 MPV 9.7 fL (7.4-10.4) 08/15/21 14:40 Neut % (Auto) 52.0 % 08/15/21 14:40 Lymph % (Auto) 32.6 % 08/15/21 14:40 Harris % (Auto) 11.7 % 08/15/21 14:40 Eos % (Auto) 2.3 % 08/15/21 14:40 Baso % (Auto) 1.2 % 08/15/21 14:40 Neut # (Auto) 2.21 10^3/uL (1.8-7.7) 08/15/21 14:40 Lymph # (Auto) 1.4 10^3/uL (0.8-4.8) 08/15/21 14:40 Harris # (Auto) 0.5 10^3/uL (0.2-0.9) 08/15/21 14:40 Eos # (Auto) 0.1 10^3/uL (0.0-0.8) 08/15/21 14:40 Baso # (Auto) 0.1 10^3/uL (0.0-0.1) 08/15/21 14:40 Nucleated RBC % (auto) 0 % 08/15/21 14:40 Nucleated RBCs # 0.0 /100WBC 08/15/21 14:40 Sodium 140 mmol/L (136-145) 08/15/21 14:40 Potassium 3.9 mmol/L (3.5-5.1) 08/15/21 14:40 Chloride 99 mmol/L (98-107) 08/15/21 14:40 Carbon Dioxide 30 mmol/L (22-29) H 08/15/21 14:40 Anion Gap 14.9 (5-19) 08/15/21 14:40 BUN 19 mg/dL (8-23) 08/15/21 14:40 Creatinine 1.2 mg/dL (0.5-0.9) H 08/15/21 14:40 GFR Calculation Not Reportable 08/15/21 14:40 Glucose 121 mg/dL (65-115) H 08/15/21 14:40 Calculated Osmolality 294 mOsm/kg (285-295) 08/15/21 14:40 Calcium 9.0 mg/dL (8.5-10.5) 08/15/21 14:40 Total Bilirubin 0.3 mg/dL (0.15-1.2) 08/15/21 14:40 AST 35 U/L (0-32) H 08/15/21 14:40 ALT 20 U/L (0-33) 08/15/21 14:40 Alkaline Phosphatase 61 IU/L (35-105) 08/15/21 14:40 Troponin T Gen 5 ng/L 29 ng/L (0-10) H 08/15/21 14:40 Troponin T 120 Minute 28.00 ng/L (0-10) H 08/15/21 16:43 Delta Troponin T -1.00 ABS# (0-10) L 08/15/21 16:43 Total Protein 7.1 g/dL (6.6-8.7) 08/15/21 14:40 Albumin 4.8 g/dL (3.5-5.2) 08/15/21 14:40 Globulin 2.3 g/dL (1.3-4.6) 08/15/21 14:40 TSH 1.65 uIU/mL (0.27-4.20) 08/15/21 14:40 Urine Color Yellow (Yellow) 08/15/21 14:50 Urine Appearance Hazy (CLEAR) A 08/15/21 14:50 Urine pH 5 (5-7) 08/15/21 14:50 Ur Specific [place] 1.020 (1.005-1.030) 08/15/21 14:50 Urine Protein 1+ (Negative) H 08/15/21 14:50 Urine Glucose (UA) Norm (Normal) 08/15/21 14:50 Urine Ketones Negative (Negative) 08/15/21 14:50 Urine Blood 3+ (Negative) H 08/15/21 14:50 Urine Nitrate Negative (Negative) 08/15/21 14:50 Urine Bilirubin Neg (Negative) 08/15/21 14:50 Urine Urobilinogen Norm mg/dL (Negative) 08/15/21 14:50 Ur Leukocyte Esterase Negative (Negative) 08/15/21 14:50 Urine RBC 40-50 /hpf (0-2) H 08/15/21 14:50 Urine WBC 0-4 /hpf (0-5) H 08/15/21 14:50 Ur Squamous Epith Cells 0-4 /hpf (0-5) H 08/15/21 14:50 Amorphous Sediment Not Reportable 08/15/21 14:50 Urine Bacteria Trace /hpf (NONE) 08/15/21 14:50 EKG Data EKG 1: EKG interpretation time: 16:38 Interpretation: EKG obtained at this time reveals sinus rhythm ventricular rate of 82 bpm. WV interval and QRS duration are normal. QTc is normal as well. No evidence of acute ST-T wave changes at this time. No additional tracings in the system. Discharge Plan Discharge Patient Disposition: Home Clinical Impression: Fatigue, Metastatic bone cancer Condition: Stable Prescriptions: No Action guaifenesin [Mucinex] 600 mg tablet extended release 12hr 600 mg PO Q12H PRN (Reason: congestion) Qty: 20 0RF loratadine [Allergy Relief (loratadine)] 10 mg tablet 10 mg PO DAILY PRN (Reason: allergy symptoms) 0RF levothyroxine 50 mcg capsule 50 mcg PO QDAY Qty: 30 11RF cholecalciferol (vitamin D3) 25 mcg (1,000 unit) capsule 50 mcg PO DAILY 0RF ipratropium-albuterol 0.5 mg-3 mg(2.5 mg base)/3 mL solution for nebulization 3 ml inhalation Q4H PRN (Reason: wheezing) Qty: 90 3RF azelastine 205.5 mcg (0.15 %) spray,non-aerosol 1 spray intranasal BID Qty: 30 3RF Rx Instructions: administer into each nostril albuterol sulfate 90 mcg/actuation HFA aerosol inhaler 2 puff INHALATION Q6H PRN (Reason: Cough) Qty: 8.5 2RF diphenhydramine HCl [Banophen] 25 mg capsule 25 mg PO .at hs PRN0RF famotidine 20 mg tablet 20 mg PO DAILY 0RF Piqray 200 mg/day (200 mg x 1) tablet 200 mg PO DAILY 0RF Rx Instructions: with one 50 mg tab hydrocodone-acetaminophen 5-325 mg tablet 1 tab PO Q6H PRN (Reason: pain) 77 Days Qty: 120 0RF budesonide [Pulmicort] 0.5 mg/2 mL suspension for nebulization 0.5 mg inhalation BID Qty: 60 5RF Yupelri 175 mcg/3 mL solution for nebulization 175 mcg inhalation DAILY Qty: 90 5RF Perforomist 20 mcg/2 mL solution for nebulization 2 ml inhalation BID Qty: 120 5RF aspirin 81 mg Tablet,Chewable 81 mg PO DAILY 0RF Discharge Orders: Discharge ED (Routine); Ordered 08/15/21 Ordered By: Dewayne Gale Referrals: Greg Ash, [Primary Care Provider] - Discharge Diet: Usual diet Discharge Activity: Resume usual activity Activity Restrictions/Additional Instructions: Continue your usual medications. Follow-up with your oncology doctor on Tuesday as scheduled. If you develop any new, worsening or other concerning symptoms return to this or the nearest emergency department. Coding Level of Care Code ED [place] Manager for Chg 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
[2021-08-15 14:45] VITALS: BP 170/93; PULSE 68; RESP 18; O2SAT 98
[2021-08-15 14:57] LABS: Basophils # 0.1 10^3/uL (0.0-0.1); Basophils % 1.2 %; Eosinophils # 0.1 10^3/uL (0.0-0.8); Eosinophils % 2.3 %; Hematocrit 40.5 % (37.0-47.0); Hemoglobin 13.4 g/dL (11.5-15.3); Lymphocytes # 1.4 10^3/uL (0.8-4.8); Lymphocytes % 32.6 %; Mean Corpuscular HGB Conc 33.1 g/dL (30.0-36.0); Mean Corpuscular Hemoglobin 28.9 pg (28.0-34.0); Mean Corpuscular Volume 87.5 fl (81-99); Mean Platelet Volume 9.7 fL (7.4-10.4); Monocytes # 0.5 10^3/uL (0.2-0.9); Monocytes % 11.7 %; Neutrophils # 2.21 10^3/uL (1.8-7.7); Nucleated Red Blood Cells % 0 %; Platelet Count 203 10^3/cmm (130-400); Red Blood Count 4.63 10^6/uL (4.1-5.3); Red Cell Distribution Width 13.6 % (12.1-15.1); White Blood Count 4.3 10^3/uL (4.0-10.0)
[2021-08-15 15:28] LABS: Troponin T (5th) Once 29 ng/L (0-10)
[2021-08-15 15:28] LABS: Add Urine Culture? Yes; Add Urine Microscopic? YES; Bacteria Urine TRACE /hpf; Bilirubin Urine Neg (Negative); Blood Urine 3+ (Negative); Glucose Urine UA Norm (Normal); Ketones Urine Negative (Negative); Leukocyte Esterase Urine Negative (Negative); Nitrate Urine Negative (Negative); Protein Urine 1+ (Negative); RBC Urine 40-50 /hpf (0-2); Squamous Epithelial Cell Urine 0-4 /hpf (0-5); Urine Appearance Hazy (CLEAR); Urine Color Yellow (Yellow); Urobilinogen Urine Norm (Negative); WBC Urine 0-4 /hpf (0-5); pH Urine 5 (5-7)
[2021-08-15 15:38] LABS: Alanine Aminotransferase 20 U/L (0-33); Albumin Level 4.8 g/dL (3.5-5.2); Alkaline Phosphatase 61 IU/L (35-105); Anion Gap 14.9 (5-19); Aspartate Amino Transferase 35 U/L (0-32); Blood Urea Nitrogen 19 mg/dL (8-23); Carbon Dioxide 30 mmol/L (22-29); Chloride 99 mmol/L (98-107); Globulin 2.3 g/dL (1.3-4.6); Glucose 121 mg/dL (65-115); Osmolality Calculated 294 mOsm/kg (285-295); Potassium 3.9 mmol/L (3.5-5.1); Sodium 140 mmol/L (136-145); Thyroid Stimulating Hormone 1.65 uIU/mL (0.27-4.20); Total Bilirubin 0.3 mg/dL (0.15-1.2); Total Protein 7.1 g/dL (6.6-8.7)
--- NOTE | 2021-08-15 15:42 | ECG_ITS ---
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 Measurements Intervals [place] Rate: 82 P: 79 PA: 159 QRS: -8 QRSD: 73 T: 81 QT: 382 QTc: 448 Interpretive Statements SINUS RHYTHM POSSIBLE RIGHT ATRIAL ENLARGEMENT [0.25mV P-WAVE] NONSPECIFIC T-WAVE ABNORMALITY No previous ECG available for comparison Electronically Signed On 08-16-2021 19:28:12 CDT by Frank Ball M.D. [email or web address]
[2021-08-15 18:21] VITALS: BP 151/107; PULSE 76; RESP 20; O2SAT 98
== END 2021-08-15 18:22 | disposition home or self-care (01) ==
PROVIDERS: Emergency Provider Emergency Medicine; PCP Family Medicine
DX: R53.83 Other fatigue (principal); C79.51 Secondary malignant neoplasm of bone; I65.23 Occlusion and stenosis of bilateral carotid arteries; E03.9 Hypothyroidism, unspecified
CPT/HCPCS: 80053; 81001; 84443; 84484; 85025; 87086; 93005; 99284

== ENCOUNTER 2021-08-18 10:57 | Outpatient (CLI) | payer MEDICARE, MEDICAID, SELFPAY ==
[2021-08-18 11:39] LABS: Basophils % 0.8 %; Eosinophils # 0.1 10^3/uL (0.0-0.8); Eosinophils % 1.1 %; Hemoglobin 13.2 g/dL (11.5-15.3); Lymphocytes # 1.1 10^3/uL (0.8-4.8); Lymphocytes % 23.1 %; Mean Corpuscular HGB Conc 32.2 g/dL (30.0-36.0); Mean Corpuscular Hemoglobin 28.7 pg (28.0-34.0); Mean Corpuscular Volume 89.1 fl (81-99); Mean Platelet Volume 9.8 fL (7.4-10.4); Monocytes # 0.5 10^3/uL (0.2-0.9); Monocytes % 10.2 %; Neutrophils # 3.03 10^3/uL (1.8-7.7); Neutrophils % 64.4 %; Nucleated Red Blood Cells % 0 %; Platelet Count 198 10^3/cmm (130-400); Red Cell Distribution Width 13.4 % (12.1-15.1); White Blood Count 4.7 10^3/uL (4.0-10.0)
[2021-08-18 12:17] LABS: Alanine Aminotransferase 19 U/L (0-33); Albumin Level 4.5 g/dL (3.5-5.2); Alkaline Phosphatase 57 IU/L (35-105); Anion Gap 17.1 (5-19); Aspartate Amino Transferase 41 U/L (0-32); Blood Urea Nitrogen 17 mg/dL (8-23); Calcium 8.9 mg/dL (8.5-10.5); Carbon Dioxide 29 mmol/L (22-29); Chloride 99 mmol/L (98-107); Glucose 105 mg/dL (65-115); Osmolality Calculated 292 mOsm/kg (285-295); Potassium 5.1 mmol/L (3.5-5.1); Sodium 140 mmol/L (136-145); Total Bilirubin 0.4 mg/dL (0.15-1.2); Total Protein 7.5 g/dL (6.6-8.7)
[2021-08-18 12:44] LABS: CA 15-3 384.4 U/mL (0-25)
--- NOTE | 2021-08-18 19:39 | ONC FU_ITS ---
Aleja Trevino Progress Note Patient: Lorelei Saunders Unit #: [id number]: 1945 Dicatated By: Aleja Trevino N.P.Date of Visit:Aug 18, 2021 Onc MED Follow-up/Prog Note Chief Complaint: Breast cancer/bone metastases. History of Present Illness: This is a 76 year-old woman with grade 2 infiltrating ductal carcinoma of the right breast, ER/IN positive and HER-2/alf negative, stage IV, with biopsy proven metastatic bone involvement. Her breast cancer was stage IIA (T2, N0, M0) at initial diagnosis in October 2008. Her Oncotype DX showed a recurrence score of 16, which was low risk. Her treatment included lumpectomy and axillary sentinel lymph node biopsy followed by radiation to the right breast, which she completed in February 2009. She was given adjuvant hormonal therapy with anastrozole. It was stopped in October 2012 when she came in with worsening joint pain. Bone scan in November 2012 showed no evidence of metastatic disease. She received no further adjuvant therapy, as she had then failed to return for follow-up. On 05/12/2019 she was seen in the emergency room with pain in the right hip area. The pain has been getting progressively worse over a period of several months. X-rays of the lumbar spine, pelvis, and right femur showed evidence of sclerotic lesions in the L1 and S1 vertebral bodies as well as lytic appearing bone changes in the right pubic bone. There was no fracture reported. Further evaluation with bone scan on 05/25/2019 showed multiple areas of uptake including the calvarium, cervical spine, thoracic spine, ribs, lumbar spine, pelvis, sacrum, and both hips most consistent with diffuse metastatic disease. Also noted was right renal pelvic dilatation. Dr. Agrawal had seen her for a follow-up visit on 06/04/2019. Staging PET/CT on 06/09/2019 showed an intensely hypermetabolic left thyroid mass measuring 2.7 x 3.0 cm with SUV 16.9, appearance of which was felt to be most consistent with a primary thyroid malignancy. A right level III/IV cervical lymph node had elevated SUV of 8.0 and multiple mediastinal lymph nodes were FDG positive, consistent with metastases. And hepatic segment IVb lesion measuring 4.3 x 1.9 x 1.9 cm with SUV 5.9 appeared consistent with unifocal hepatic metastatic disease. A right paravertebral pleural implant at the right lung base measuring 2.0 x 1.7 cm had SUV 10.7. There was evidence of widespread osseous metastatic disease, as expected. Dr. Agrawal reviewed that study with the radiologist. As none of the metastatic lesions were very accessible for biopsy, we opted to proceed with CT directed core needle biopsy of her right iliac bone lesion. Pathology showed metastatic adenocarcinoma most consistent with breast primary. The breast prognostic profile showed ER positive at 91% and IN positive at 5%. It was negative for overexpression of HER-2/alf, 0 by IHC and amplification ratio by FISH of 0.9 with 2.4 HER-2 copies/cell. With those findings, she was referred to Dr. Kenny. She underwent palliative radiation to the right hip and to the right rib cage, completed on 07/17/2019. Both sites were treated to a total dose of 3000 cGy. On 08/25/2019 she began cycle 1 of systemic therapy palbociclib 125 mg daily on a 21/28-day schedule together with letrozole 2.5 mg daily. She also started monthly denosumab injections for the metastatic bone involvement. As of 09/12/2019 the palbociclib was put on hold due to neutropenia. She then continued with cycle 2 on 10/03/2019 with the palbociclib dosage reduced to 125 mg every other day for 21 days. At her follow-up visit on 11/05/2019 she complained of severe fatigue and shortness of breath. Her CT pulmonary angiogram showed evidence of COPD, and there were osteoblastic changes consistent with metastatic disease. There was no evidence, though, for pulmonary embolism or other acute pathology. There had been some decline in the CA-27-29 level. With those findings, she continued treatment with palbociclib and letrozole, but with the palbociclib dosed at 100 mg daily on a 21/28-day schedule. As of her follow-up in February 2020 her CA 27-29 level had further decreased to 180 U/mL compared to 375 in September 2019, and as of her follow-up visit in March 2020 she appeared stable clinically. At her follow-up visit on 05/21/2020 she appeared to be having difficulty breathing. On clinical evaluation Dr. Agrawal was concerned about the possibility of upper airway obstruction. 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 There was evidence for severe emphysema, but there were no pulmonary nodules noted and are no other acute findings. There did appear to be progression of osteoblastic metastatic disease within the spine and sternum. She had ENT consultation with Dr. Deleon on 05/26/2020. Her fiberoptic laryngoscopy showed evidence of vocal cord paralysis on the right. There apparently was no evidence for airway obstruction. He recommended referral to endocrinology for management of the goiter. A restaging PET/CT on 06/28/2020 showed questionable improvement in the right thyroid mass measuring 2.5 cm with SUV 16.0. There was improvement in the mediastinal adenopathy. The right paravertebral pleural implant was not significantly changed. There was improvement in the hepatic metastatic lesion. There was a mixed response of osseous metastatic disease with the pelvic lesion having become sclerotic and FDG negative but with new lesions noted at T11 and at T8. With those findings, she continued treatment with palbociclib/letrozole and she also continued monthly denosumab injections for the metastatic bone involvement. As of her follow-up visit on 10/20/2020 she appeared stable clinically. However, during continued follow-up there was a progressive increase in her CA 27-29 level, to 342 U/mL on 10/20/2020 and to 461 U/mL on 01/19/2021. 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 With that finding, Dr. Agrawal had recommended that she transition her therapy to fulvestrant in combination with alpelisib 300 mg daily. Her other medical illnesses include atherosclerotic cardiovascular disease, degenerative arthritis, osteoporosis, and hypothyroidism. She had evidence of a 3 cm infrarenal abdominal aortic aneurysm on CT angiogram in June 2018. That study also showed arterial stenosis had multiple sites including the proximal SMA, the right renal artery, and left renal artery. Extensive calcifications were noted through the common iliac arteries bilaterally. She underwent right carotid endarterectomy in 2017. She had undergone hysterectomy/BSO in 1994. She has a history of smoking 1 pack of cigarettes daily for close to 60 years. She cut down about a year ago. INTERIM HISTORY: Her restaging CT scans on 02/27/2021 showed osteoblastic metastatic involvement in the lower thoracic spine, lumbar spine, pelvis, sacrum, and hips. There is no evidence, though, of other metastatic disease. Her infrarenal abdominal aortic aneurysm appeared stable measuring 3.0 x 3.2 x 4.0 cm. She then began treatment with fulvestrant on 03/03/2021 and she also continued denosumab injections for the metastatic bone involvement. There was delay in getting started on the alpelisib, initially because she needed time for her blood counts to recover after stopping the palbociclib. As of 04/28/2020 her blood counts were adequate and she did have the medication available, but her treatment then had to be delayed because of stomatitis, which improved after treatment with acyclovir. On May 26, 2021 she returned for scheduled injections of fulvestrant and denosumab, and on June 02, 2021 she began treatment with alpelisib 250 mg daily. Her baseline CA 15-3 level from April 28, 2021 was 279.1 U/mL. As of her follow-up visit on 06/11/2021 she had reported some decline in her activity tolerance and in her appetite, but she appeared to be tolerating the alpelisib with acceptable toxicity. She continued the alpelisib at 250 mg daily together with fulvestrant 500 mg. She returned on 06/23/2021 for her scheduled injections of fulvestrant and denosumab. Patient presents today for follow-up. She states she is having extreme fatigue. Her appetite has not been good. She has had a weight loss of approximately 5 pounds in the past month. She denies sinus drainage or mouth sores. She is experiencing more shortness of breath with activity and she has audible wheezing. She does have inhalers that she uses for this. She denies chest pain. She denies any GI or problems. She states she has arthritis pain. Her blood pressure is elevated today in the clinic with a manual cuff it was 178/96. She denies headaches or blurred vision. She is not taking anything for her blood pressure. She is requesting that she not get the fulvestrant injections because they hurt and she becomes very anxious at the thought of getting them. Review Of Symptoms: See above. Past Medical History: Abdominal aortic aneurysm Breast cancer Carotid stenosis Degenerative arthritis Goiter Hypothyroidism Renal artery stenosis Osteoporosis in 2009 (Treated) Past Surgical History: Knee surgery Knot removal from back Right carotid endarterectomy in 2018 Right breast lumpectomy with axillary sentinel lymph node biopsy in 2008 Breast biopsy in 2008 Hysterectomy/bilateral salpingo-oophorectomy in 1994 Allergies: Fluticasone Furoate Medications: Albuterol Sulfate (108 (90 base) mcg/act) Aerosol Powder, Breath Activated Inhalation Take as Directed Aspirin 1 Tablet (of 81 mg) Tablet Oral daily Banophen (25 mg) Tablet Oral at bedtime Budesonide (0.5 mg/2mL) Suspension Inhalation daily Famotidine (20 mg) Tablet Oral b.i.d. Formoterol Fumarate (20 mcg/2mL) Nebulization solution Inhalation b.i.d. Hydrocodone-Acetaminophen 1 Tablet (of 5-325 mg) Tablet Oral q 6 hours PRN Levothyroxine Sodium 1 Tablet (of 50 mcg) Oral daily Loratadine (10 mg) Tablet Oral daily Piqray (250 MG Daily Dose) (200 & 50 mg) Tablet Therapy Pack Oral daily Family History: Ms. Saunders's mother is : heart disease. Ms. Saunders's father is : lung cancer. Ms. Saunders has 3 brothers: 2 alive, 1 . Ms. Saunders's first brother's kidney cancer. Another brother's esophagus cancer. She has 2 sisters: 2 . Ms. Saunders's first sister's lung cancer. Her father and a sister of lung cancer. One brother had esophageal cancer and another brother was treated for kidney cancer. Her mother of heart attack. A son with a drug overdose. Social History: Ms. Saunders is . Ms. Saunders no longer smokes but had smoked 0.5 packs/day for 62 years. She is a former drinker. She has a history of smoking 1 pack of cigarettes daily for close to 60 years. She cut down about a year ago and she now has only minimal smoking. She had alcohol use in the past but she quit drinking at least 35 or 40 years ago. Physical Examination: Performed on Aug 18, 2021 15:52: Height - 62.00 in, BP - 178/96 mm(hg) (HIGH), Performed on Aug 18, 2021 15:52: Height - 62.00 in, BP - 177/126 mm(hg) (HIGH), Performed on Aug 18, 2021 15:51: Height - 62.00 in, Weight - 66.2 lbs (LOW), BSA - 1.19 sq.m, BMI - 12.11 (LOW), Temperature - 97.6 F (LOW), Pulse - 111 /min (HIGH), Respiration - 20 /min, BP - 185/122 mm(hg) (HIGH), O2 Sat - 98 %, Pain - 0, and Fatigue - 8. Performance Status: 1 - No physically strenuous activity, but ambulatory and able to carry out light or sedentary work (e.g. office work, light house work). (ECOG) Constitutional Alert, cooperative, oriented. Mood and affect appropriate. Head Normocephalic; no scars. Respiratory Wheezing bilateral lung batres Cardiovascular Regular rate and rhythm of heart without murmurs, gallops or rubs. Abdomen Non-tender, non-distended, no masses, ascites or hepatosplenomegaly. Good bowel sounds. No guarding or rebound tenderness. Extremities No visible deformities, no cyanosis, clubbing or edema. Pulses 3+ and equal bilaterally. Musculoskeletal No tenderness or swelling, normal range of motion without obvious weakness. Psychiatric Alert and oriented times three. Coherent speech. Verbalizes understanding of our discussions today. Laboratory: Test performed on Aug 18, 2021 11:15 Sodium 140 mmol/L Potassium 5.1 mmol/L Chloride 99 mmol/L CO2 29 mmol/L Anion Gap 17.1 BUN 17 mg/dL Creatinine 1.2 mg/dL Cr Clearance (Est) 18.3200 mL/min Glucose 105 mg/dL Osmolality - Calculated 292 mOsm/kg Calcium 8.9 mg/dL Protein, Total 7.5 g/dL Albumin 4.5 g/dL Globulin 3.0 g/dL Bilirubin, Total 0.4 mg/dL ALT (SGPT) 19 U/L AST (SGOT) 41 U/L Alkaline Phosphatase 57 IU/L WBC 4.7 10 3/uL RBC 4.60 10 6/uL HGB 13.2 g/dL HCT 41.0 % MCV 89.1 fl MCH 28.7 pg MCHC 32.2 g/dL RDW 13.4 % Platelet Count 198 10 3/cmm MPV 9.8 fL Neutrophils 3.03 10 3/uL Lymphocytes 1.1 10 3/uL Monocytes 0.5 10 3/uL Eosinophils 0.1 10 3/uL Basophils 0.0 10 3/uL Neutrophil % 64.4 % Lymphocyte % 23.1 % Monocyte % 10.2 % Eosinophil % 1.1 % Basophils % 0.8 % NRBC % 0 % CA 15-3 384.4 U/mL Test performed on Jun 11, 2021 09:55 TSH 3.23 uIU/mL Test performed on May 12, 2021 08:10 Iron 78 mcg/dL Vitamin B12 325 pg/mL Iron Binding Capacity (TIBC) 303 mcg/dl % Iron Saturation 25.7 % UIBC 225 mcg/dL Test performed on Mar 31, 2021 10:51 NRBC 0.0 /100 WBC Impression: 1. Grade 2 infiltrating ductal carcinoma of the right breast, ER/IN positive and HER-2/alf negative. Her disease was stage IIA (T2, N0, M0) at initial diagnosis in October 2008. She had progression to stage IV with multiple sites of metastatic involvement including extensive bony metastatic disease. CT directed core needle biopsy of a right iliac bone lesion on 06/26/2019 confirmed metastatic adenocarcinoma consistent with breast primary, ER/IN positive and HER-2/alf negative. On next generation sequencing by liquid biopsy, she was found to harbor a PIK3CA mutation. 2. She had PET/CT evidence an FDG avid left thyroid mass, and she also was found on CT to have evidence of a large substernal goiter. 3. Degenerative arthritis. 4. COPD. 5. Hypothyroidism. 6. Atherosclerotic cardiovascular disease including carotid stenosis and renal artery stenosis. 7. She has known abdominal aortic aneurysm. Plan: Patient with grade 2 infiltrating ductal carcinoma of the right breast, ER/IN positive and HER-2/alf negative. Her disease was stage IIA (T2, N0, M0) at initial diagnosis in October 2008. She had progression to stage IV with multiple sites of metastatic involvement including extensive bony metastatic disease. CT directed core needle biopsy of a right iliac bone lesion on 06/26/2019 confirmed metastatic adenocarcinoma consistent with breast primary, ER/IN positive and HER-2/alf negative. On next generation sequencing by liquid biopsy, she was found to harbor a PIK3CA mutation. She initially underwent palliative radiation to the right hip and to the right rib cage, completed on 07/17/2019, both sites to a total dose of 3000 cGy. On 08/21/2019 she began systemic therapy with palbociclib 125 mg daily on a 21/28-day schedule together with letrozole 2.5 mg daily. She required a dose reduction in the palbociclib to 100 mg. However, she did have evidence of response with CA 27-29 level decreased to 180 U/mL compared to 375 U/mL in September 2019. Her restaging PET/CT on 07/03/2020 showed mixed response with some areas of improvement but with evidence of new bone lesions at T8 and T11 vertebral bodies. As she was not overtly symptomatic, she continued treatment with letrozole and palbociclib. Due to a further decline in her neutrophil count, she was given an additional reduction in the palbociclib dosage to 75 mg administered on a 21/28-day schedule. As of her visit on 10/20/2020 had been a gradual increase in her CA 27-29 level, but she appeared stable clinically, and she continued treatment with letrozole in combination with palbociclib. As of her follow-up visit on 01/19/2021 there was further increase in the CA 27-29 level to 461 U/mL. She was then found on next generation sequencing by liquid biopsy to harbor a PIK3CA mutation. With that finding, she was recommended to transition her treatment to fulvestrant in combination with alpelisib. Her restaging CT scans on 02/27/2021 showed osteoblastic metastatic disease involving the lower thoracic and lumbar spine, pelvis, and both hips. There were no other sites of metastatic disease noted. She began treatment with fulvestrant on 03/03/2021. There was a delay in starting the alpelisib, initially because her blood counts were low and subsequently due to development of oral stomatitis. However, on May 26, 2021 she returned for scheduled fulvestrant injection, and on June 02, 2021 she began alpelisib 250 mg daily. On follow-up today patient reports increased fatigue and decreased appetite. She is currently on Megace. She has had a 5 pound weight loss. Her CA 15-3 is increased to 384.4. She has had a gradual increase in her tumor markers. She is requesting not to have the Faslodex injections any longer due to them being so painful. Because her CA 15-3 has been been increasing we will stop the Faslodex and also stop her Piqray. She will have a follow-up with Dr. Agrawal in 2 to 3 weeks to determine further course of treatment. Patient is very hypertensive today. She will be started on a low-dose lisinopril at 10 mg p.o. daily. She was instructed to monitor her blood pressure and bring readings with her when she returns to next visit. Signed By: Aleja Trevino N.Adrian. <<Signature on File>>
== END 2021-08-18 10:58 | disposition home or self-care (01) ==
PROVIDERS: PCP Family Medicine; Visit Provider Nurse Practitioner Family
DX: C50.411 Malignant neoplasm of upper-outer quadrant of right female breast (principal); Z17.0 Estrogen receptor positive status [ER+]; C79.51 Secondary malignant neoplasm of bone; I10 Essential (primary) hypertension; R97.8 Other abnormal tumor markers; Z87.891 Personal history of nicotine dependence; Z79.899 Other long term (current) drug therapy; Z92.21 Personal history of antineoplastic chemotherapy; Z92.3 Personal history of irradiation
CPT/HCPCS: 36415; 80053; 85025; 86300; 99215

== ENCOUNTER 2021-08-20 09:55 | Outpatient (CLI) | payer MEDICARE, MEDICAID, SELFPAY ==
--- NOTE | 2021-08-20 10:00 | CT_ITS ---
WS: [id number] CT CHEST WITHOUT INTRAVENOUS CONTRAST HISTORY: metastatic breast Ca - now with worsening dyspnea TECHNIQUE: Contiguous 5 mm axial imaging performed on the thorax. Coronal and sagittal reformats are submitted. All CT scans at [facility] use at least one of these dose optimization techniques: automated exposure control; mA and/or kV adjustment per patient size (includes targeted exams where dose is matched to clinical indication); or iterative reconstruction. CONTRAST: None DLP: 284.55 mGy.cm COMPARISON: 05/21/2020, 11/05/2019 Lungs and central airway: Hyperexpanded lungs. Chronic changes of emphysema. There are a few very min imal changes within the lungs since the prior study. Very subtle area of groundglass attenuation and spiculation in the RIGHT lower lobe. There are 2 areas of groundglass attenuation which are new. Ther e is enhancement additional 5 mm nodule in the central LEFT upper lobe which is stable since 0. Pleura: New mild pleural thickening along the posterior RIGHT lung. No effusions. Heart and pericardium: Normal size heart. Mediastinum and heather: No lymph nodes are identified but these would be very difficult to exclude as t here is very little fat the structures within the mediastinum. Vessels: Ectatic atherosclerotic aorta. Calcification involving the origin of the great vessels. Pulm onary artery appears normal size. Chest wall and lower neck: No soft tissue masses. Upper abdomen: New 1.6 cm low-attenuation mass along these anterior liver near the falciform ligament . This was not present on 05/21/2020. No adrenal abnormality identified. Osseous structures: Patient has known osteoblastic metastatic bone disease which continues to progres s since 05/21/2020. CT/CT chest wo con [id number] IMPRESSION: 1. Severe emphysema. 2. New very subtle, nonspecific areas of groundglass attenuation in the RIGHT lower lobe. Early metastatic sites should be considered. Follow-up CT recommend ed. 3. Progression of osteoblastic metastatic bone disease since 05/21/2020. 4. New low-attenuation nodule in the anterior liver measures 1.6 cm. Concernin g but not diagnostic for metastatic disease. Recommend evaluation with ultrasou nd. 5. New very subtle pleural thickening in the posterior RIGHT thorax. No discre te nodule at this time.
== END 2021-08-20 09:56 | disposition home or self-care (01) ==
LOC: RAD 09:56
PROVIDERS: PCP Family Medicine; Visit Provider Internal Medicine Pulmonary Disease
DX: J44.9 Chronic obstructive pulmonary disease, unspecified (principal); R06.00 Dyspnea, unspecified; R91.1 Solitary pulmonary nodule; C79.51 Secondary malignant neoplasm of bone; C79.81 Secondary malignant neoplasm of breast
CPT/HCPCS: 71250

== ENCOUNTER 2021-08-24 13:10 | Outpatient (CLI) | payer MEDICARE, MEDICAID, SELFPAY ==
--- NOTE | 2021-08-24 13:30 | USCV_ITS ---
Lorelei Saunders Age: 76 Gender: F : 1945 Exam Date: 08/24/2021 13:33 Ordering Phys: Connor Maya MD Technologist: Dejuan Beckford Exam Location: [facility] [place] Indication: dyspnea BP: 134 / 80 HR: 92 Rhythm: Sinus Technical Quality: Adequate MEASUREMENTS (Male / Female) Normal Values 2D ECHO LV Diastolic Diameter PLAX 2.5 cm 4.2 - 5.9 / 3.9 - 5.3 cm LV Systolic Diameter PLAX 1.6 cm IVS Diastolic Thickness 1.3 cm 0.6 - 1.0 / 0.6 - 0.9 cm IVS Systolic Thickness 1.7 cm LVPW Diastolic Thickness 1.5 cm 0.6 - 1.0 / 0.6 - 0.9 cm LVPW Systolic Thickness 1.5 cm LVOT Diameter 2.0 cm LV Ejection Fraction 2D Teich 70.0 % LV Ejection Fraction MOD 2C 60.1 % LV Ejection Fraction 2C AL 63.9 % LA Diameter 2.2 cm LA Width 2.6 cm LA Height 2.5 cm RA Width 3.1 cm RA Height 2.7 cm Aorta at Sinotubular Diameter 2.5 cm M-MODE Aortic Annulus Diameter 2.6 cm MV E Point Septal Separation 0.3 cm DOPPLER AV Peak Velocity 115.0 cm/s LVOT Peak Velocity 101.0 cm/s AV Area Cont Eq vti 3.4 cm squared AV Area Cont Eq pk 2.8 cm squared MV Area PHT 4.1 cm squared Mitral E to A Ratio 0.6 MV E' Velocity 38.0 cm/s Mitral E to LV E' Lateral Ratio 10.0 TR Peak Velocity 258.2 cm/s TR Peak Gradient 26.7 mmHg TR Mean Velocity 183.8 cm/s TR Mean Gradient 14.6 mmHg TR Velocity Time Integral 53.6 cm Right Atrial Pressure 3.0 mmHg Pulmonary Artery Systolic Pressu 29.7 mmHg RV Acceleration Time 0.1 s RV Ejection Time 0.3 s RV AcT/ET 0.4 FINDINGS Left Ventricle Normal left ventricular size. LV systolic function is normal with EF of 60-65%. No regional wall motion abnormalities. Grade 1 diastolic dysfunction. Moderate left ventricular hypertropy Right Ventricle The right ventricle is normal in size and function. Right Atrium The right atrium is normal in size. Left Atrium The left atrium is normal in size. Mitral Valve Moderate to severe mitral annular calcification without significant stenosis or prolapse. There is trace mitral regurgitation. Aortic Valve Aortic valve is thickened without significant stenosis. There is no aortic regurgitation. Tricuspid Valve Structurally normal tricuspid valve without significant stenosis. Mild tricuspid regurgitation. Pulmonary artery systolic pressure is normal. Pulmonic Valve Structurally normal pulmonic valve without significant stenosis. There is trace pulmonic regurgitation. Pericardium Normal pericardium without effusion. Aorta Normal ascending aorta dimension. CONCLUSIONS LV systolic function is normla with EF of 60-65% Grade 1 diastolic dysfunction. Moderate left ventricular hypertropy Moderate to severe mitral annular calcification without significant stenosis or prolapse. There is trace mitral regurgitation. Mild tricuspid regurgitation. There is trace pulmonic regurgitation. No comparison studies are available Frank Ball MD (Electronically Signed) Final Date: 24 Aug 2021 16:03 S
== END 2021-08-24 13:11 | disposition home or self-care (01) ==
LOC: RAD 13:13
PROVIDERS: PCP Family Medicine; Visit Provider Internal Medicine Pulmonary Disease
DX: J44.9 Chronic obstructive pulmonary disease, unspecified (principal); R06.09 Other forms of dyspnea; R06.00 Dyspnea, unspecified; I51.7 Cardiomegaly; I07.1 Rheumatic tricuspid insufficiency
CPT/HCPCS: 93306

== ENCOUNTER 2021-09-22 14:00 | Oncology outpatient (recurring) (ONCR) | payer MEDICARE, MEDICAID, SELFPAY ==
[2021-08-31 14:20] LABS: Basophils # 0.1 10^3/uL (0.0-0.1); Basophils % 1.2 %; Eosinophils # 0.1 10^3/uL (0.0-0.8); Hematocrit 32.7 % (37.0-47.0); Hemoglobin 10.6 g/dL (11.5-15.3); Lymphocytes # 1.1 10^3/uL (0.8-4.8); Lymphocytes % 21.1 %; Mean Corpuscular HGB Conc 32.4 g/dL (30.0-36.0); Mean Corpuscular Hemoglobin 28.8 pg (28.0-34.0); Mean Corpuscular Volume 88.9 fl (81-99); Mean Platelet Volume 9.6 fL (7.4-10.4); Monocytes # 0.6 10^3/uL (0.2-0.9); Monocytes % 12.7 %; Neutrophils % 62.4 %; Nucleated Red Blood Cells % 0 %; Platelet Count 358 10^3/cmm (130-400); Red Blood Count 3.68 10^6/uL (4.1-5.3); Red Cell Distribution Width 13.6 % (12.1-15.1)
[2021-08-31 14:46] LABS: Alanine Aminotransferase 14 U/L (0-33); Albumin Level 3.8 g/dL (3.5-5.2); Alkaline Phosphatase 63 IU/L (35-105); Anion Gap 15.2 (5-19); Aspartate Amino Transferase 27 U/L (0-32); Blood Urea Nitrogen 16 mg/dL (8-23); Calcium 9.1 mg/dL (8.5-10.5); Carbon Dioxide 25 mmol/L (22-29); Chloride 101 mmol/L (98-107); Globulin 2.9 g/dL (1.3-4.6); Glucose 94 mg/dL (65-115); Osmolality Calculated 285 mOsm/kg (285-295); Potassium 4.2 mmol/L (3.5-5.1); Sodium 137 mmol/L (136-145); Total Bilirubin 0.2 mg/dL (0.15-1.2); Total Protein 6.7 g/dL (6.6-8.7)
[2021-08-31 15:11] LABS: CA 15-3 390.1 U/mL (0-25)
== END 2021-09-22 23:59 | disposition home or self-care (01) ==
PROVIDERS: PCP Family Medicine; Visit Provider Internal Medicine Medical Oncology
DX: Z53.9 Procedure and treatment not carried out, unspecified reason (principal)
CPT/HCPCS: 80053; 85025; 86300; 99214; 99215; 99999

== ENCOUNTER 2021-09-22 16:36 | Emergency (ER) | payer MEDICARE, MEDICAID, SELFPAY ==
[2021-09-22 17:10] VITALS: BP 110/81; PULSE 110; RESP 19; TEMP 36.3; O2SAT 99; BMI 11.9
[2021-09-22 17:46] VITALS: BP 187/115; PULSE 108; RESP 20; O2SAT 100
[2021-09-22] MEDS: ondansetron 2 mg/ML SDV 2 mL 4 MG IVP (17:51)
[2021-09-22] MEDS: sodium chloride 0.9% 1,000 ML 999 ML IV ×2 (17:51→19:20)
--- NOTE | 2021-09-22 18:29 | ED_ITS ---
HPI - Nausea/Vomiting/Diarrhea General: Chief complaint: Nausea/Vomiting/Diarrhea Stated complaint: doesn't feel good, not eating Time Seen by Provider: 09/22/21 17:29 Source: patient Mode of arrival: ambulatory Limitations: no limitations History of Present Illness: 76-year-old female with a history of breast cancer with metastases patient has been a longtime smoker she states that she just started chemotherapy this week. States that since she started she has had difficulty eating or drinking is felt very nauseous she states she has been having dry heaving denies any actual vomiting. Denies any worsening improving factors. Associated nausea: Yes Associated symtoms: Reports nausea; Denies chest pain, dysuria or headache(s) Review of Systems Const: Denies: fever(s), chills, body aches or change in appetite Eyes: Denies: blurry vision or eye discomfort ENMT: Denies: throat pain or dental pain Card: Denies: chest pain Resp: Denies: dyspnea GI: Reports: nausea and vomiting : Denies: dysuria Musc: Denies: neck pain or back pain Skin/Breast: Denies: rash Neuro: Denies: headache(s) Psych: Denies: depression Zaid/Lymph: Denies: easy bruising All/Imm: Denies: urticaria PFSH ED PFSH: Medical History AAA (abdominal aortic aneurysm) without rupture Carotid stenosis, bilateral Chronic dyspnea COPD (chronic obstructive pulmonary disease) Hypothyroidism Malignant neoplasm of upper-outer quadrant of right female breast 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 Vocal cord paralysis, unilateral complete Surgical History History of back surgery lower History of breast biopsy History of heart artery stent History of hysterectomy History of knee surgery left History of right-sided carotid endarterectomy History of shoulder surgery left Status post right breast lumpectomy (~11/2008) right breast lumpectomy with axillary sentinel lymph node biopsy Family History Mother CAD (coronary artery disease) Myocardial infarction Father Cancer Other Hyperlipidemia Hypertension Denies family history of Diabetes Clotting disorder Dementia Psychiatric illness Chronic kidney disease (CKD) Suicide Anesthesia complication Bleeding disorder Lung disease Stroke Social History Smoking and tobacco status: former smoker Quit status (tobacco): has quit using tobacco Year quit tobacco: 05/2020 60yrhx Second hand smoke exposure: No Smoking risk assessment/counseling performed?: Yes Alcohol intake: never Lives independently: Yes Household members: none Marital status: / Current occupational status: retired Pets and animals: Yes History of recent travel: No Current gender identity: Female Special karen needs: No Physical Exam Const: COMMON NORMALS: patient oriented x3 GENERAL APPEARANCE: frail appearing HENMT: COMMON NORMALS: normocephalic and atraumatic HEAD & SCALP: normocephalic and atraumatic Eye: COMMON NORMALS: Equal, round and reactive pupils present and EOMs intact bilaterally PUPIL: Yes Equal, round and reactive pupils present Neck/C-Spine: COMMON NORMALS: full ROM and supple Chest: COMMONS NORMALS: normal inspection of the chest and normal palpation of entire chest wall Resp: COMMON NORMALS: normal respiratory effort, No retractions, No use of accessory muscles and clear to auscultation bilaterally AUSCULTATION: clear to auscultation bilaterally Cardio: COMMON NORMALS: regular rate, regular rhythm and No murmurs present (Cardio) RATE: regular rate RHYTHM: regular rhythm GI: COMMON NORMALS: Normal to inspection, nondistended, normoactive bowel sounds present, Soft to palpation, non-tender and no masses PALPATION: Yes Soft to palpation Extremity: COMMON NORMALS: normal to inspection and full ROM Neuro: COMMON NORMALS: patient oriented x3, moves all extremities and no focal motor deficits Psych: COMMON NORMALS: mental status grossly normal, Normal thought process present and cooperative THOUGHT PROCESS: Normal thought process present Skin: COMMON NORMALS: no rashes or lesions noted and no wounds GENERAL SKIN EXAM: no rashes or lesions noted Course Vital Signs: Vital signs: Vital Signs Temperature 97.3 F L 09/22/21 17:10 Pulse Rate 92 09/22/21 19:40 Respiratory Rate 20 H 09/22/21 19:40 Blood Pressure 138/63 09/22/21 19:40 Pulse Oximetry 99 09/22/21 19:40 MDM - Nausea/Vomiting/Diarrhea Medical Decision Making Patient presents with nausea vomiting likely from her chemotherapy patient's blood work here is normal she feels improved after Zofran she is stable for discharge is to follow-up PCP and return if worsening understand agree to plan. Lab Data : 09/22/21 18:24 09/22/21 18:24 Laboratory Results WBC 4.0 10^3/uL (4.0-10.0) 09/22/21 18:24 Corrected WBC Cancelled 09/22/21 17:45 RBC 3.94 10^6/uL (4.1-5.3) L 09/22/21 18:24 Hgb 11.4 g/dL (11.5-15.3) L 09/22/21 18:24 Hct 35.7 % (37.0-47.0) L 09/22/21 18:24 MCV 90.6 fl (81-99) 09/22/21 18:24 MCH 28.9 pg (28.0-34.0) 09/22/21 18: MCHC 31.9 g/dL (30.0-36.0) 09/22/21 18: RDW 15.3 % (12.1-15.1) H 09/22/21 18:24 Plt Count 278 10^3/cmm (130-400) 09/22/21 18:24 MPV 8.9 fL (7.4-10.4) 09/22/21 18:24 Gran % Cancelled 09/22/21 17:45 Neut % (Auto) 60.8 % 09/22/21 18:24 Lymph % (Auto) 24.1 % 09/22/21 18:24 [place] % (Auto) 14.3 % 09/22/21 18:24 Eos % (Auto) 0.0 % 09/22/21 18:24 Baso % (Auto) 0.5 % 09/22/21 18:24 Neut # (Auto) 2.42 10^3/uL (1.8-7.7) 09/22/21 18: Lymph # (Auto) 1.0 10^3/uL (0.8-4.8) 09/22/21 18:24 [place] # (Auto) 0.6 10^3/uL (0.2-0.9) 09/22/21 18:24 Eos # (Auto) 0.0 10^3/uL (0.0-0.8) 09/22/21 18:24 Baso # (Auto) 0.0 10^3/uL (0.0-0.1) 09/22/21 18:24 Absolute Gran (auto) Cancelled 09/22/21 17:45 Nucleated RBC % (auto) 0 % 09/22/21 18:24 Nucleated RBCs # 0.0 /100WBC 09/22/21 18:24 Sodium 135 mmol/L (136-145) L 09/22/21 18:24 Potassium 3.9 mmol/L (3.5-5.1) 09/22/21 18:24 Chloride 100 mmol/L (98-107) 09/22/21 18:24 Carbon Dioxide 25 mmol/L (22-29) 09/22/21 18:24 Anion Gap 13.9 (5-19) 09/22/21 18:24 BUN 20 mg/dL (8-23) 09/22/21 18:24 Creatinine 0.5 mg/dL (0.5-0.9) 09/22/21 18:24 GFR Calculation Not Reportable 09/22/21 18:24 Glucose 92 mg/dL (65-115) 09/22/21 18:24 Calculated Osmolality 282 mOsm/kg (285-295) L 09/22/21 18:24 Calcium 8.5 mg/dL (8.5-10.5) 09/22/21 18:24 Total Bilirubin 0.4 mg/dL (0.15-1.2) 09/22/21 18:24 AST 23 U/L (0-32) 09/22/21 18:24 ALT 14 U/L (0-33) 09/22/21 18:24 Alkaline Phosphatase 67 IU/L (35-105) 09/22/21 18:24 Total Protein 6.5 g/dL (6.6-8.7) L 09/22/21 18:24 Albumin 4.0 g/dL (3.5-5.2) 09/22/21 18:24 Globulin 2.5 g/dL (1.3-4.6) 09/22/21 18:24 Lipase 83 U/L (13-60) H 09/22/21 18:24 Discharge Plan Discharge Patient Disposition: Home Clinical Impression: Malignant neoplasm of upper-outer quadrant of right female breast Qualifiers: Estrogen receptor status: unspecified Qualified Code(s): C50.411 - Malignant neoplasm of upper-outer quadrant of right female breast Vomiting Qualifiers: Vomiting type: unspecified Nausea presence: with nausea Qualified Code(s): R11.2 - Nausea with vomiting, unspecified Condition: Stable Prescriptions: New ondansetron 4 mg tablet,disintegrating 4 mg PO Q6H PRN (Reason: nausea and vomiting) Qty: 14 0RF No Action loratadine [Allergy Relief (loratadine)] 10 mg tablet 10 mg PO DAILY PRN (Reason: allergy symptoms) 0RF levothyroxine 50 mcg capsule 50 mcg PO QDAY Qty: 30 11RF cholecalciferol (vitamin D3) 25 mcg (1,000 unit) capsule 50 mcg PO DAILY PRN0RF diphenhydramine HCl [Banophen] 25 mg capsule 25 mg PO .at hs PRN0RF famotidine 20 mg tablet 20 mg PO DAILY 0RF hydrocodone-acetaminophen 5-325 mg tablet 1 tab PO Q6H PRN (Reason: pain) 77 Days Qty: 120 0RF aspirin 81 mg Tablet,Chewable 81 mg PO DAILY 0RF Discharge Orders: Discharge ED (Routine); Ordered 09/22/21 Ordered By: Bella Martinez Referrals: Greg Ash DO [Primary Care Provider] - 1-3 days Discharge Diet: Advance as tolerated Discharge Activity: Resume usual activity Patient Instructions: Acute Nausea and Vomiting (ED) Coding Level of Care Code 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
[2021-09-22 18:47] LABS: Basophils % 0.5 %; Hematocrit 35.7 % (37.0-47.0); Hemoglobin 11.4 g/dL (11.5-15.3); Lymphocytes % 24.1 %; Mean Corpuscular HGB Conc 31.9 g/dL (30.0-36.0); Mean Corpuscular Hemoglobin 28.9 pg (28.0-34.0); Mean Corpuscular Volume 90.6 fl (81-99); Mean Platelet Volume 8.9 fL (7.4-10.4); Monocytes # 0.6 10^3/uL (0.2-0.9); Monocytes % 14.3 %; Neutrophils # 2.42 10^3/uL (1.8-7.7); Neutrophils % 60.8 %; Nucleated Red Blood Cells % 0 %; Platelet Count 278 10^3/cmm (130-400); Red Blood Count 3.94 10^6/uL (4.1-5.3); Red Cell Distribution Width 15.3 % (12.1-15.1)
[2021-09-22 19:08] LABS: Alanine Aminotransferase 14 U/L (0-33); Alkaline Phosphatase 67 IU/L (35-105); Anion Gap 13.9 (5-19); Aspartate Amino Transferase 23 U/L (0-32); Blood Urea Nitrogen 20 mg/dL (8-23); Calcium 8.5 mg/dL (8.5-10.5); Carbon Dioxide 25 mmol/L (22-29); Chloride 100 mmol/L (98-107); Globulin 2.5 g/dL (1.3-4.6); Glucose 92 mg/dL (65-115); Lipase 83 U/L (13-60); Osmolality Calculated 282 mOsm/kg (285-295); Potassium 3.9 mmol/L (3.5-5.1); Sodium 135 mmol/L (136-145); Total Bilirubin 0.4 mg/dL (0.15-1.2); Total Protein 6.5 g/dL (6.6-8.7)
[2021-09-22] MEDS: labetalol 5 mg/mL SDV 20mL 10 MG IVP (19:23)
[2021-09-22 19:40] VITALS: BP 138/63; PULSE 92; RESP 20; O2SAT 99
[2021-09-22 20:14] VITALS: BP 156/82; PULSE 94; RESP 18; O2SAT 94
== END 2021-09-22 20:16 | disposition home or self-care (01) ==
PROVIDERS: Emergency Provider Emergency Medicine; PCP Family Medicine
DX: C50.411 Malignant neoplasm of upper-outer quadrant of right female breast (principal); R11.2 Nausea with vomiting, unspecified; Z79.82 Long term (current) use of aspirin; Z79.899 Other long term (current) drug therapy
CPT/HCPCS: 80053; 83690; 85025; 87040; 96361; 96374; 96375; 99284; J2405; J3490; J7030

== ENCOUNTER 2021-10-13 11:30 | Oncology outpatient (recurring) (ONCR) | payer MEDICARE, MEDICAID, SELFPAY ==
[2021-09-29 11:49] LABS: Basophils % 0.2 %; Eosinophils % 0.5 %; Hematocrit 33.4 % (37.0-47.0); Hemoglobin 10.5 g/dL (11.5-15.3); Lymphocytes # 1.3 10^3/uL (0.8-4.8); Mean Corpuscular HGB Conc 31.4 g/dL (30.0-36.0); Mean Corpuscular Hemoglobin 29.2 pg (28.0-34.0); Mean Platelet Volume 8.7 fL (7.4-10.4); Monocytes # 0.6 10^3/uL (0.2-0.9); Monocytes % 14.8 %; Neutrophils # 2.07 10^3/uL (1.8-7.7); Nucleated Red Blood Cells % 0 %; Platelet Count 264 10^3/cmm (130-400); Red Blood Count 3.59 10^6/uL (4.1-5.3); Red Cell Distribution Width 15.2 % (12.1-15.1); White Blood Count 4.1 10^3/uL (4.0-10.0)
[2021-09-29 12:17] LABS: Alanine Aminotransferase 13 U/L (0-33); Albumin Level 4.3 g/dL (3.5-5.2); Alkaline Phosphatase 63 IU/L (35-105); Anion Gap 13.9 (5-19); Aspartate Amino Transferase 26 U/L (0-32); Blood Urea Nitrogen 26 mg/dL (8-23); Calcium 9.4 mg/dL (8.5-10.5); Carbon Dioxide 29 mmol/L (22-29); Chloride 99 mmol/L (98-107); Globulin 2.7 g/dL (1.3-4.6); Glucose 88 mg/dL (65-115); Osmolality Calculated 290 mOsm/kg (285-295); Potassium 3.9 mmol/L (3.5-5.1); Sodium 138 mmol/L (136-145); Total Bilirubin 0.3 mg/dL (0.15-1.2)
[2021-09-29 14:32] LABS: CA 15-3 391.4 U/mL (0-25)
[2021-10-13 11:51] LABS: Basophils % 0.4 %; Eosinophils % 0.2 %; Hematocrit 35.3 % (37.0-47.0); Hemoglobin 11.6 g/dL (11.5-15.3); Lymphocytes # 1.1 10^3/uL (0.8-4.8); Lymphocytes % 20.1 %; Mean Corpuscular HGB Conc 32.9 g/dL (30.0-36.0); Mean Corpuscular Hemoglobin 30.1 pg (28.0-34.0); Mean Corpuscular Volume 91.5 fl (81-99); Mean Platelet Volume 8.7 fL (7.4-10.4); Monocytes # 0.6 10^3/uL (0.2-0.9); Monocytes % 11.7 %; Nucleated Red Blood Cells % 0 %; Platelet Count 246 10^3/cmm (130-400); Red Blood Count 3.86 10^6/uL (4.1-5.3); Red Cell Distribution Width 16.8 % (12.1-15.1); White Blood Count 5.2 10^3/uL (4.0-10.0)
[2021-10-13 12:08] LABS: Alanine Aminotransferase 13 U/L (0-33); Albumin Level 4.5 g/dL (3.5-5.2); Alkaline Phosphatase 72 IU/L (35-105); Anion Gap 13.9 (5-19); Aspartate Amino Transferase 29 U/L (0-32); Blood Urea Nitrogen 30 mg/dL (8-23); Calcium 9.3 mg/dL (8.5-10.5); Carbon Dioxide 27 mmol/L (22-29); Chloride 100 mmol/L (98-107); Globulin 2.7 g/dL (1.3-4.6); Glucose 116 mg/dL (65-115); Osmolality Calculated 291 mOsm/kg (285-295); Potassium 3.9 mmol/L (3.5-5.1); Sodium 137 mmol/L (136-145); Total Bilirubin 0.3 mg/dL (0.15-1.2); Total Protein 7.2 g/dL (6.6-8.7)
[2021-10-13] MEDS: denosumab 120 mg SDV SUBCUT (13:54)
[2021-10-13 14:33] LABS: Glucose Urine UA Norm (Normal); Ketones Urine 1+ (Negative); Urine Appearance Clear (CLEAR); Urine Color Yellow (Yellow); pH Urine 6 (5-7)
[2021-10-13 14:34] LABS: Add Urine Microscopic? YES; Bilirubin Urine Neg (Negative); Blood Urine 3+ (Negative); Leukocyte Esterase Urine Negative (Negative); Nitrate Urine Negative (Negative); Protein Urine 1+ (Negative); Urobilinogen Urine Norm (Negative)
[2021-10-13 14:35] LABS: Add Urine Culture? Yes; Bacteria Urine 1+ /hpf; Squamous Epithelial Cell Urine 0-4 /hpf (0-5)
== END 2021-10-22 23:59 | disposition home or self-care (01) ==
PROVIDERS: Nurse Practitioner Family; PCP Family Medicine; Visit Provider Internal Medicine Medical Oncology
DX: Z51.11 Encounter for antineoplastic chemotherapy (principal); C50.411 Malignant neoplasm of upper-outer quadrant of right female breast; Z17.0 Estrogen receptor positive status [ER+]; C79.51 Secondary malignant neoplasm of bone
CPT/HCPCS: 80053; 81001; 85025; 86300; 87086; 96372; 96402; 99214; J0897

== ENCOUNTER 2021-11-10 11:30 | Oncology outpatient (recurring) (ONCR) | payer MEDICARE, MEDICAID, SELFPAY ==
[2021-10-28 12:30] LABS: Basophils % 0.2 %; Eosinophils % 0.7 %; Hemoglobin 12.2 g/dL (11.5-15.3); Lymphocytes % 24.5 %; Mean Corpuscular HGB Conc 33.9 g/dL (30.0-36.0); Mean Corpuscular Hemoglobin 31.1 pg (28.0-34.0); Mean Corpuscular Volume 91.8 fl (81-99); Monocytes # 0.6 10^3/uL (0.2-0.9); Monocytes % 15.4 %; Neutrophils # 2.43 10^3/uL (1.8-7.7); Neutrophils % 58.5 %; Nucleated Red Blood Cells % 0 %; Platelet Count 239 10^3/cmm (130-400); Red Blood Count 3.92 10^6/uL (4.1-5.3); Red Cell Distribution Width 17.8 % (12.1-15.1); White Blood Count 4.2 10^3/uL (4.0-10.0)
[2021-10-28 12:45] LABS: Alanine Aminotransferase 15 U/L (0-33); Albumin Level 4.1 g/dL (3.5-5.2); Alkaline Phosphatase 72 IU/L (35-105); Aspartate Amino Transferase 35 U/L (0-32); Blood Urea Nitrogen 27 mg/dL (8-23); Calcium 9.4 mg/dL (8.5-10.5); Carbon Dioxide 28 mmol/L (22-29); Chloride 96 mmol/L (98-107); Globulin 2.8 g/dL (1.3-4.6); Glucose 90 mg/dL (65-115); Osmolality Calculated 285 mOsm/kg (285-295); Sodium 135 mmol/L (136-145); Total Bilirubin 0.4 mg/dL (0.15-1.2); Total Protein 6.9 g/dL (6.6-8.7)
[2021-10-28 13:29] LABS: CA 15-3 553.9 U/mL (0-25)
[2021-11-10] MEDS: denosumab 120 mg SDV SUBCUT (13:39)
[2021-11-10 13:44] VITALS: BP 102/54; PULSE 66; RESP 18; TEMP 36.5
== END 2021-11-22 23:59 | disposition home or self-care (01) ==
PROVIDERS: PCP Family Medicine; Visit Provider Internal Medicine Medical Oncology
DX: Z51.11 Encounter for antineoplastic chemotherapy; C50.811 Malignant neoplasm of overlapping sites of right female breast; C79.51 Secondary malignant neoplasm of bone
CPT/HCPCS: 36415; 80053; 85025; 86300; 96372; 99214; J0897

== ENCOUNTER 2021-11-19 06:46 | Day surgery (SDC) | payer MEDICARE, MEDICAID, SELFPAY ==
[2021-11-17 10:38] VITALS: BMI 11.1
--- NOTE | 2021-11-19 | SCC_ITS ---
Procedure done: Port-A-Cath placement into the right internal jugular vein with intraoperative ultrasound and fluoroscopy interpretation. 4.8 seconds of fluoroscopic guidance, for a cumulative dose of 0.17 mGy, was provided to Dr. Ng by the radiology department. C-arm images of the chest were saved for the patient's permanent record. ANDREW
[2021-11-19 07:07] VITALS: BP 176/104; PULSE 101; RESP 16; TEMP 36.9; O2SAT 97
--- NOTE | 2021-11-19 07:16 | ANES.PREANE2 ---
Pre-Anesthetic Assessment Height/Weight: Height 1.57 m Weight 27.669 kg Temp Pulse Resp BP Pulse Ox O2 Del Method 98.4 F 101 H 16 176/104 97 11/19/21 07:07 11/19/21 07:07 11/19/21 07:07 11/19/21 07:07 11/19/21 07:07 11/19/21 07:07 Operation Date: 11/19/21 08:10 Proposed Procedures p Portacath Placement [id number](Not Applicable) - Francesco Ng MD Familial anesthetic complications: None Was Beta Justin taken within 24 hours: N/A Was Clonidine taken within 24 hours: N/A Last intake: Intake Last Liquid Date 11/18/21 Last Liquid Time 22:00 Last Solid Date 11/18/21 Last Solid Time 22:00 Social No alcohol and No tobacco former smoker Exam alert, oriented x 3 and regular rate & rhythm Inspiratory and expiratory stridor eminating from Upper airway narrowing Airway Comments: Comments: Severe deviation of larynx to the right and narrowing d/t thyroid goiter - contacting radiology to determine diameter of narrowest area unilateral vocal cord paraslysis Pulmonary Chronic Obstructive Pulmonary Disease severe emphysema CV/HEM Hypertension AAA Metabolic cachexia Neuropsych R ICA stenosis s/p apparent CEA, L ICA stenosis Anesthetic Plan ASA status: 4 Anesthesia: MAC Risk of > 500 ml blood loss (7ml/kg in children): No Medications/Allergies Home Medications Medication Instructions Recorded Confirmed Last Taken Type aspirin 81 mg chewable tablet 81 mg PO DAILY 06/25/19 11/19/21 11/18/21 History diphenhydramine HCl 25 mg capsule 25 mg PO .at hs PRN Sleep 06/03/21 11/17/21 09/02/21 10:29 History (Banophen) levothyroxine 50 mcg capsule 50 mcg PO QDAY #30 caps 07/01/21 11/19/21 11/18/21 Rx ondansetron 4 mg disintegrating 4 mg PO Q6H PRN nausea and 09/22/21 11/17/21 Unknown Rx tablet vomiting #14 tabs hydrocodone 5 mg-acetaminophen 325 1 tab PO Q6H PRN pain 11 weeks 10/13/21 11/19/21 11/18/21 Rx mg tablet #120 tabs lisinopril 10 mg tablet 10 mg PO DAILY PRN Blood Pressure 10/28/21 11/17/21 Unknown History multivitamin 1 tab PO DAILY 11/10/21 11/19/21 11/18/21 History Allergies Allergy/AdvReac Type Severity Reaction Status Date / Time fluticasone Allergy Intermediate itching Verified 11/17/21 10:36 [facility] Anesthesia Medical History AAA (abdominal aortic aneurysm) without rupture Carotid stenosis, bilateral Chronic dyspnea COPD (chronic obstructive pulmonary disease) Degenerative arthritis Hypothyroidism Metastatic breast cancer Osteoporosis, unspecified 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 Vocal cord paralysis, unilateral complete Surgical History History of back surgery lower History of breast biopsy History of heart artery stent History of hysterectomy History of knee surgery left History of right-sided carotid endarterectomy History of shoulder surgery left Status post right breast lumpectomy (~11/2008) right breast lumpectomy with axillary sentinel lymph node biopsy Family History Mother CAD (coronary artery disease) Myocardial infarction Father Cancer Brother CAD (coronary artery disease) Other Hyperlipidemia Hypertension Denies family history of Diabetes Clotting disorder Dementia Psychiatric illness Chronic kidney disease (CKD) Suicide Anesthesia complication Bleeding disorder Lung disease Stroke Social History Smoking and tobacco status: former smoker Quit status (tobacco): has quit using tobacco Year quit tobacco: 05/2020 58yrhx Second hand smoke exposure: No Smoking risk assessment/counseling performed?: Yes Alcohol intake: never Lives independently: Yes Household members: none Marital status: / Current occupational status: retired Pets and animals: Yes History of recent travel: No Current gender identity: Female Special karen needs: No Data Anesthesia Cardiac Studies: Echocardiogram 08/24/21
[2021-11-19] MEDS: sodium chloride 0.9% 1,000 ML 30 ML IV (07:30)
--- NOTE | 2021-11-19 07:57 | SC_ITS ---
WS: [id number] Exam: C-arm FL for CVA [id number] Date/Time of Exam: 11/19/2021 7:57 AM Reason For Exam: PORT PLACMENT Single anterior posterior Limited C-arm image of the right chest is submitted for evaluation. The image depicts a right-sided Port-A-Cath in place most likely ending in the region of the lower on e third of the SVC. The visualized right lung is fully expanded. No other significant finding on this limited study.
--- NOTE | 2021-11-19 07:59 | W.PM.OPSUD ---
Surgery/Procedure H&P Update DATE OF PROCEDURE: November 19, 2021 DATE H&P PERFORMED: 11/10/21 H&P UPDATE INFORMATION: No changes to prior documentation PREOP DIAGNOSIS: Metastatic breast cancer, desiring Port-A-Cath placement. PLANNED PROCEDURE: Operation Date: 11/19/21 08:10 Proposed Procedures p Portacath Placement [id number](Not Applicable) - Francesco Ng MD
[2021-11-19] MEDS: lidocaine 1% INJ 20 mL SUBCUT (08:35)
[2021-11-19] MEDS: heparin, porcine 1,000 unit/mL INJ 10 mL 10000 UNIT INJECTION (08:35)
--- NOTE | 2021-11-19 08:59 | PM.OP ---
Operative Report Date of procedure: November 19, 2021 Pre-op diagnosis: Preop Diagnosis Metastatic breast cancer, desiring Port-A-Cath placement. Post-op diagnosis: Same. Procedure done: Port-A-Cath placement into the right internal jugular vein with intraoperative ultrasound and fluoroscopy interpretation. Specimens removed/disposition: None. Surgeon: General Surgery Francesco Ng MD Anesthesia: MAC Estimated blood loss (mL): 5 Complications: None. Procedure: The patient was brought to the Operating Room and was placed in a supine position on the operating room table. A monitored anesthetic was induced. The shoulders were extended by means of a posterior shoulder roll. The anterior surface of the chest and neck were prepped and draped in a sterile fashion. Ultrasound was utilized to identify the right internal jugular vein and carotid artery just above the level of the clavicle. 1% lidocaine was used to anesthetize a small area at the base of the neck over the internal jugular vein. The right internal jugular vein was accessed on the first pass with a needle and syringe as evidenced by the return of dark nonpulsatile blood. The J-wire was passed down the needle and the needle was removed. The C-arm was positioned and showed the wire extending down the vena cava. A site just inferiorly on the chest wall was anesthetized using a combination of 1% lidocaine and 0.5% bupivacaine with 1:200,000 parts of epinephrine. A transverse incision was made and an inferior pocket was created in the subcutaneous layer using cautery in preparation for port placement. The Port-A-Cath tubing was passed from the incision through the subcutaneous layer, over the top of the clavicle to the exit point of the J-wire. The tubing was attached to the port and was cut to an appropriate length. The introducer and sheath were passed over the J-wire, and the introducer and J-wire were removed. The Port-A-Cath tubing was passed down the sheath, which was torn away. The C-arm was positioned and showed good placement of the Port-A-Cath tubing tip in the superior vena cava. The port aspirated easily and flushed well with hep flush solution. The port was sewn in place with some interrupted sutures of 3-0 PDS. The transverse incision was closed at the dermis using a single inverted suture of 3-0 Vicryl and the skin was approximated using a running subcuticular suture of 4-0 Vicryl. The small incision above the clavicle at the previous insertion site of the J wire was closed using a single inverted suture of 4-0 Vicryl. Benzoin and Steri-Strips were placed over the incisions and a sterile bandage followed. The patient was taken to the recovery area in stable condition postoperatively. INTRAOPERATIVE FLUOROSCOPY interpretation: FINDINGS: Intraoperative fluoroscopic images of a Port-A-Cath placement were reviewed. An initial image reveals a J-wire entering the right internal jugular vein and extending down the vena cava. Subsequent images reveal a Port-A-Cath on that side of the chest with its tubing tip in good location in the superior vena cava. No obvious pneumothorax is identified.
[2021-11-19 09:05] VITALS: BP 185/94; PULSE 102; RESP 14; TEMP 36.6; O2SAT 98
[2021-11-19 09:10] VITALS: BP 195/101; PULSE 100; RESP 16; O2SAT 99
[2021-11-19 09:15] VITALS: BP 184/99; PULSE 98; RESP 16; TEMP 36.2; O2SAT 95
[2021-11-19 09:21] VITALS: BP 155/106; PULSE 97; RESP 16; TEMP 37.1; O2SAT 91
[2021-11-19 09:46] VITALS: BP 178/94; PULSE 92; RESP 18; O2SAT 95
--- NOTE | 2021-11-19 09:48 | PC.NURSE ---
pt family gave pt her own blood pressure med and pain pill
--- NOTE | 2021-11-19 12:53 | ANE.PACU2 ---
Inpatient post-anesthesia follow up: Airway intact: Yes Vital signs: Temperature 98.8 F Pulse Rate 92 Respiratory Rate 18 Blood Pressure 178/94 Pulse Oximetry 95 Oxygen Delivery Me thod Room Air Oxygen Flow Rate Fraction of Inspir ed Oxygen Hydration adequate: Yes Nausea and vomiting: No Pain level: 1 Mental status: Baseline
== END 2021-11-19 10:05 | disposition home or self-care (01) ==
PROVIDERS: Visit Provider Surgery
PROC: (CPT 36561; principal; 2021-11-19 08:05)
DX: C50.919 Malignant neoplasm of unspecified site of unspecified female breast (principal); J43.9 Emphysema, unspecified; I10 Essential (primary) hypertension; Z79.82 Long term (current) use of aspirin; M81.0 Age-related osteoporosis without current pathological fracture; Z87.891 Personal history of nicotine dependence
CPT/HCPCS: 36561; 77001; C1788; J1644; J2250; J2704; J3010; J7030

== ENCOUNTER 2021-12-23 09:00 | Oncology outpatient (recurring) (ONCR) | payer MEDICARE, MEDICAID, SELFPAY ==
[2021-12-01 09:45] LABS: Basophils % 0.3 %; Eosinophils % 0.6 %; Hematocrit 34.9 % (37.0-47.0); Hemoglobin 11.3 g/dL (11.5-15.3); Lymphocytes # 1.1 10^3/uL (0.8-4.8); Lymphocytes % 16.6 %; Mean Corpuscular HGB Conc 32.4 g/dL (30.0-36.0); Mean Corpuscular Hemoglobin 30.6 pg (28.0-34.0); Mean Corpuscular Volume 94.6 fl (81-99); Mean Platelet Volume 9.4 fL (7.4-10.4); Monocytes # 0.6 10^3/uL (0.2-0.9); Monocytes % 8.2 %; Neutrophils # 5.07 10^3/uL (1.8-7.7); Neutrophils % 73.7 %; Nucleated Red Blood Cells % 0 %; Platelet Count 303 10^3/cmm (130-400); Red Blood Count 3.69 10^6/uL (4.1-5.3); Red Cell Distribution Width 14.7 % (12.1-15.1); White Blood Count 6.9 10^3/uL (4.0-10.0)
[2021-12-01 10:20] LABS: Alanine Aminotransferase 21 U/L (0-33); Albumin Level 4.1 g/dL (3.5-5.2); Alkaline Phosphatase 83 IU/L (35-105); Anion Gap 12.5 (5-19); Aspartate Amino Transferase 49 U/L (0-32); Blood Urea Nitrogen 22 mg/dL (8-23); Calcium 9.9 mg/dL (8.5-10.5); Carbon Dioxide 32 mmol/L (22-29); Chloride 97 mmol/L (98-107); Globulin 2.5 g/dL (1.3-4.6); Glucose 106 mg/dL (65-115); Lipase 123 U/L (13-60); Osmolality Calculated 288 mOsm/kg (285-295); Potassium 4.5 mmol/L (3.5-5.1); Sodium 137 mmol/L (136-145); Total Bilirubin 0.2 mg/dL (0.15-1.2); Total Protein 6.6 g/dL (6.6-8.7)
[2021-12-01 10:42] LABS: CA 15-3 669.6 U/mL (0-25)
[2021-12-01] MEDS: sodium chloride 0.9% 250 ML 75 ML IV (12:21)
[2021-12-01] MEDS: ondansetron 2 mg/ML SDV 2 mL 8 MG IVP (12:22)
[2021-12-09 09:37] LABS: Basophils % 0.5 %; Eosinophils # 0.1 10^3/uL (0.0-0.8); Eosinophils % 1.4 %; Hematocrit 35.1 % (37.0-47.0); Hemoglobin 11.3 g/dL (11.5-15.3); Lymphocytes % 28.2 %; Mean Corpuscular HGB Conc 32.2 g/dL (30.0-36.0); Mean Corpuscular Hemoglobin 30.2 pg (28.0-34.0); Mean Corpuscular Volume 93.9 fl (81-99); Mean Platelet Volume 9.4 fL (7.4-10.4); Monocytes # 0.4 10^3/uL (0.2-0.9); Monocytes % 11.1 %; Neutrophils # 2.16 10^3/uL (1.8-7.7); Neutrophils % 58.5 %; Nucleated Red Blood Cells % 0 %; Platelet Count 326 10^3/cmm (130-400); Red Blood Count 3.74 10^6/uL (4.1-5.3); Red Cell Distribution Width 14.3 % (12.1-15.1); White Blood Count 3.7 10^3/uL (4.0-10.0)
[2021-12-09 09:58] LABS: Alanine Aminotransferase 21 U/L (0-33); Albumin Level 3.7 g/dL (3.5-5.2); Alkaline Phosphatase 75 U/L (35-105); Aspartate Amino Transferase 39 U/L (0-32); Blood Urea Nitrogen 25 mg/dL (8-23); Calcium 8.8 mg/dL (8.5-10.5); Carbon Dioxide 25 mmol/L (22-29); Chloride 103 mmol/L (98-107); Globulin 2.9 g/dL (1.3-4.6); Glucose 127 mg/dL (65-115); Osmolality Calculated 294 mOsm/kg (285-295); Sodium 139 mmol/L (136-145); Total Bilirubin 0.2 mg/dL (0.15-1.2); Total Protein 6.6 g/dL (6.6-8.7)
[2021-12-09 09:59] LABS: Anion Gap 14.9 (5-19); Potassium 3.9 mmol/L (3.5-5.1)
[2021-12-09] MEDS: sodium chloride 0.9% 250 ML 75 ML IV (11:16)
[2021-12-09] MEDS: ondansetron 2 mg/ML SDV 2 mL 8 MG IVP (11:17)
[2021-12-16 08:56] VITALS: BMI 10.8
[2021-12-16 09:00] LABS: Eosinophils % 1.3 %; Hematocrit 34.7 % (37.0-47.0); Hemoglobin 11.4 g/dL (11.5-15.3); Lymphocytes # 0.9 10^3/uL (0.8-4.8); Lymphocytes % 28.9 %; Mean Corpuscular HGB Conc 32.9 g/dL (30.0-36.0); Mean Corpuscular Volume 94.3 fl (81-99); Mean Platelet Volume 9.2 fL (7.4-10.4); Monocytes # 0.4 10^3/uL (0.2-0.9); Monocytes % 11.1 %; Neutrophils # 1.79 10^3/uL (1.8-7.7); Neutrophils % 56.7 %; Nucleated Red Blood Cells % 0 %; Platelet Count 331 10^3/cmm (130-400); Red Blood Count 3.68 10^6/uL (4.1-5.3); Red Cell Distribution Width 14.6 % (12.1-15.1); White Blood Count 3.2 10^3/uL (4.0-10.0)
[2021-12-16 09:26] LABS: Alanine Aminotransferase 20 U/L (0-33); Albumin Level 3.9 g/dL (3.5-5.2); Alkaline Phosphatase 83 U/L (35-105); Anion Gap 12.3 (5-19); Aspartate Amino Transferase 34 U/L (0-32); Blood Urea Nitrogen 16 mg/dL (8-23); Calcium 8.8 mg/dL (8.5-10.5); Carbon Dioxide 32 mmol/L (22-29); Chloride 97 mmol/L (98-107); Globulin 2.8 g/dL (1.3-4.6); Glucose 119 mg/dL (65-115); Osmolality Calculated 284 mOsm/kg (285-295); Potassium 5.3 mmol/L (3.5-5.1); Sodium 136 mmol/L (136-145); Total Bilirubin 0.3 mg/dL (0.15-1.2); Total Protein 6.7 g/dL (6.6-8.7)
[2021-12-16] MEDS: sodium chloride 0.9% 250 ML 75 ML IV (11:43)
[2021-12-16] MEDS: ondansetron 2 mg/ML SDV 2 mL 8 MG IVP (11:44)
[2021-12-16] MEDS: dexamethasone 10 mg/mL INJ 12 MG IV (11:49)
[2021-12-23 09:56] LABS: Alanine Aminotransferase 16 U/L (0-33); Alkaline Phosphatase 87 U/L (35-105); Anion Gap 11.9 (5-19); Aspartate Amino Transferase 28 U/L (0-32); Blood Urea Nitrogen 21 mg/dL (8-23); Calcium 8.8 mg/dL (8.5-10.5); Carbon Dioxide 30 mmol/L (22-29); Chloride 103 mmol/L (98-107); Globulin 2.1 g/dL (1.3-4.6); Glucose 163 mg/dL (65-115); Osmolality Calculated 299 mOsm/kg (285-295); Potassium 3.9 mmol/L (3.5-5.1); Sodium 141 mmol/L (136-145); Total Bilirubin 0.2 mg/dL (0.15-1.2); Total Protein 6.1 g/dL (6.6-8.7)
[2021-12-23 10:10] LABS: Basophils # 0.1 10^3/uL (0.0-0.1); Basophils % 1.1 %; Eosinophils % 0.9 %; Hematocrit 33.3 % (37.0-47.0); Hemoglobin 10.7 g/dL (11.5-15.3); Lymphocytes % 22.4 %; Mean Corpuscular HGB Conc 32.1 g/dL (30.0-36.0); Mean Corpuscular Hemoglobin 30.7 pg (28.0-34.0); Mean Corpuscular Volume 95.7 fl (81-99); Mean Platelet Volume 9.5 fL (7.4-10.4); Monocytes # 0.3 10^3/uL (0.2-0.9); Monocytes % 6.9 %; Neutrophils # 2.92 10^3/uL (1.8-7.7); Neutrophils % 66.9 %; Nucleated Red Blood Cells % 0 %; Platelet Count 336 10^3/cmm (130-400); Red Blood Count 3.48 10^6/uL (4.1-5.3); Red Cell Distribution Width 15.3 % (12.1-15.1); White Blood Count 4.4 10^3/uL (4.0-10.0)
[2021-12-23 10:18] LABS: CA 15-3 522.2 U/mL (0-25)
== END 2021-12-23 23:59 | disposition home or self-care (01) ==
PROVIDERS: Nurse Practitioner; Nurse Practitioner Family; PCP Family Medicine; Visit Provider Internal Medicine Medical Oncology
DX: Z51.11 Encounter for antineoplastic chemotherapy (principal); C79.51 Secondary malignant neoplasm of bone; Z17.0 Estrogen receptor positive status [ER+]
CPT/HCPCS: 36591; 80053; 83690; 85025; 86300; 96367; 96375; 96413; 99214; 99215; J1100; J2405; J7050; J9264

== ENCOUNTER 2022-01-19 11:00 | Oncology outpatient (recurring) (ONCR) | payer MEDICARE, MEDICAID, SELFPAY ==
[2021-12-30 08:39] LABS: Basophils % 0.6 %; Eosinophils % 0.7 %; Hematocrit 32.3 % (37.0-47.0); Hemoglobin 10.1 g/dL (11.5-15.3); Lymphocytes # 0.9 10^3/uL (0.8-4.8); Mean Corpuscular HGB Conc 31.3 g/dL (30.0-36.0); Mean Corpuscular Hemoglobin 30.1 pg (28.0-34.0); Mean Corpuscular Volume 96.4 fl (81-99); Mean Platelet Volume 9.1 fL (7.4-10.4); Monocytes # 0.8 10^3/uL (0.2-0.9); Monocytes % 15.3 %; Neutrophils # 3.63 10^3/uL (1.8-7.7); Neutrophils % 66.7 %; Nucleated Red Blood Cells % 0 %; Platelet Count 259 10^3/cmm (130-400); Red Blood Count 3.35 10^6/uL (4.1-5.3); Red Cell Distribution Width 15.1 % (12.1-15.1); White Blood Count 5.4 10^3/uL (4.0-10.0)
[2021-12-30 09:23] LABS: Alanine Aminotransferase 20 U/L (0-33); Albumin Level 3.7 g/dL (3.5-5.2); Alkaline Phosphatase 122 U/L (35-105); Anion Gap 10.3 (5-19); Aspartate Amino Transferase 46 U/L (0-32); Blood Urea Nitrogen 18 mg/dL (8-23); Calcium 8.7 mg/dL (8.5-10.5); Carbon Dioxide 31 mmol/L (22-29); Chloride 102 mmol/L (98-107); Globulin 2.3 g/dL (1.3-4.6); Glucose 95 mg/dL (65-115); Osmolality Calculated 290 mOsm/kg (285-295); Potassium 4.3 mmol/L (3.5-5.1); Sodium 139 mmol/L (136-145); Total Bilirubin 0.2 mg/dL (0.15-1.2)
[2021-12-30 10:46] LABS: CA 15-3 513.7 U/mL (0-25)
[2022-01-12 08:30] VITALS: BMI 11.2
[2022-01-12 08:47] LABS: Basophils % 0.5 %; Eosinophils % 0.3 %; Hematocrit 35.3 % (37.0-47.0); Hemoglobin 11.3 g/dL (11.5-15.3); Lymphocytes # 0.9 10^3/uL (0.8-4.8); Mean Corpuscular Hemoglobin 30.5 pg (28.0-34.0); Mean Corpuscular Volume 95.1 fl (81-99); Mean Platelet Volume 9.2 fL (7.4-10.4); Monocytes # 0.7 10^3/uL (0.2-0.9); Neutrophils # 4.85 10^3/uL (1.8-7.7); Neutrophils % 74.7 %; Nucleated Red Blood Cells % 0 %; Platelet Count 300 10^3/cmm (130-400); Red Blood Count 3.71 10^6/uL (4.1-5.3); Red Cell Distribution Width 14.6 % (12.1-15.1); White Blood Count 6.5 10^3/uL (4.0-10.0)
[2022-01-12 08:58] LABS: Alanine Aminotransferase 23 U/L (0-33); Albumin Level 3.7 g/dL (3.5-5.2); Alkaline Phosphatase 119 U/L (35-105); Anion Gap 12.9 (5-19); Aspartate Amino Transferase 39 U/L (0-32); Blood Urea Nitrogen 20 mg/dL (8-23); Calcium 8.8 mg/dL (8.5-10.5); Carbon Dioxide 31 mmol/L (22-29); Chloride 95 mmol/L (98-107); Globulin 2.7 g/dL (1.3-4.6); Glucose 136 mg/dL (65-115); Osmolality Calculated 285 mOsm/kg (285-295); Potassium 3.9 mmol/L (3.5-5.1); Sodium 135 mmol/L (136-145); Total Bilirubin 0.3 mg/dL (0.15-1.2); Total Protein 6.4 g/dL (6.6-8.7)
[2022-01-12] MEDS: ondansetron 2 mg/ML SDV 2 mL 8 MG IVP (09:45)
[2022-01-12] MEDS: sodium chloride 0.9% 250 ML 75 ML IV (09:45)
[2022-01-12 11:32] VITALS: BP 118/75; PULSE 87; RESP 18; TEMP 36.5; O2SAT 98
[2022-01-19 11:21] VITALS: BMI 11.3
[2022-01-19 11:25] LABS: Basophils % 0.7 %; Eosinophils % 0.7 %; Hemoglobin 10.3 g/dL (11.5-15.3); Lymphocytes # 0.8 10^3/uL (0.8-4.8); Lymphocytes % 18.4 %; Mean Corpuscular HGB Conc 32.2 g/dL (30.0-36.0); Mean Corpuscular Hemoglobin 30.5 pg (28.0-34.0); Mean Corpuscular Volume 94.7 fl (81-99); Mean Platelet Volume 9.2 fL (7.4-10.4); Monocytes # 0.3 10^3/uL (0.2-0.9); Monocytes % 7.7 %; Neutrophils # 3.12 10^3/uL (1.8-7.7); Neutrophils % 70.7 %; Nucleated Red Blood Cells % 0 %; Platelet Count 320 10^3/cmm (130-400); Red Blood Count 3.38 10^6/uL (4.1-5.3); Red Cell Distribution Width 14.3 % (12.1-15.1); White Blood Count 4.4 10^3/uL (4.0-10.0)
[2022-01-19 11:49] LABS: Alanine Aminotransferase 40 U/L (0-33); Albumin Level 3.3 g/dL (3.5-5.2); Alkaline Phosphatase 132 U/L (35-105); Anion Gap 10.9 (5-19); Aspartate Amino Transferase 43 U/L (0-32); Blood Urea Nitrogen 23 mg/dL (8-23); Calcium 8.7 mg/dL (8.5-10.5); Carbon Dioxide 33 mmol/L (22-29); Chloride 100 mmol/L (98-107); Globulin 2.5 g/dL (1.3-4.6); Glucose 154 mg/dL (65-115); Osmolality Calculated 297 mOsm/kg (285-295); Potassium 3.9 mmol/L (3.5-5.1); Sodium 140 mmol/L (136-145); Total Bilirubin 0.2 mg/dL (0.15-1.2); Total Protein 5.8 g/dL (6.6-8.7)
[2022-01-19] MEDS: ondansetron 2 mg/ML SDV 2 mL 8 MG IVP (12:17)
[2022-01-19] MEDS: sodium chloride 0.9% 250 ML 75 ML IV (12:17)
[2022-01-19 14:20] VITALS: BP 111/68; PULSE 88; RESP 18; TEMP 36.9; O2SAT 95
== END 2022-01-22 23:59 | disposition home or self-care (01) ==
PROVIDERS: PCP Family Medicine; Visit Provider Internal Medicine Medical Oncology
DX: C50.811 Malignant neoplasm of overlapping sites of right female breast (principal); Z17.0 Estrogen receptor positive status [ER+]; Z79.52 Long term (current) use of systemic steroids; Z79.899 Other long term (current) drug therapy; Z51.11 Encounter for antineoplastic chemotherapy
CPT/HCPCS: 36591; 80053; 85025; 86300; 96367; 96375; 96413; 99214; J1100; J2405; J7050; J9264

== ENCOUNTER 2022-02-09 09:00 | Oncology outpatient (recurring) (ONCR) | payer MEDICARE, MEDICAID, SELFPAY ==
[2022-01-26 08:43] LABS: Basophils % 0.6 %; Eosinophils % 1.2 %; Hematocrit 32.3 % (37.0-47.0); Hemoglobin 10.3 g/dL (11.5-15.3); Lymphocytes # 0.8 10^3/uL (0.8-4.8); Lymphocytes % 24.5 %; Mean Corpuscular HGB Conc 31.9 g/dL (30.0-36.0); Mean Corpuscular Hemoglobin 30.1 pg (28.0-34.0); Mean Corpuscular Volume 94.4 fl (81-99); Mean Platelet Volume 9.1 fL (7.4-10.4); Monocytes # 0.3 10^3/uL (0.2-0.9); Monocytes % 9.9 %; Neutrophils # 2.15 10^3/uL (1.8-7.7); Neutrophils % 62.6 %; Nucleated Red Blood Cells % 0 %; Platelet Count 339 10^3/cmm (130-400); Red Blood Count 3.42 10^6/uL (4.1-5.3); Red Cell Distribution Width 14.8 % (12.1-15.1); White Blood Count 3.4 10^3/uL (4.0-10.0)
[2022-01-26 09:11] LABS: Alanine Aminotransferase 31 U/L (0-33); Albumin Level 3.9 g/dL (3.5-5.2); Alkaline Phosphatase 115 U/L (35-105); Aspartate Amino Transferase 30 U/L (0-32); Blood Urea Nitrogen 24 mg/dL (8-23); Calcium 8.9 mg/dL (8.5-10.5); Carbon Dioxide 30 mmol/L (22-29); Chloride 101 mmol/L (98-107); Globulin 2.4 g/dL (1.3-4.6); Glucose 139 mg/dL (65-115); Osmolality Calculated 296 mOsm/kg (285-295); Sodium 140 mmol/L (136-145); Total Bilirubin 0.3 mg/dL (0.15-1.2); Total Protein 6.3 g/dL (6.6-8.7)
[2022-01-26 09:14] LABS: Anion Gap 12.9 (5-19); Potassium 3.9 mmol/L (3.5-5.1)
[2022-01-26] MEDS: sodium chloride 0.9% 250 ML 75 ML IV (09:45)
[2022-01-26] MEDS: ondansetron 2 mg/ML SDV 2 mL 8 MG IVP (09:46)
[2022-01-26 10:58] VITALS: BP 109/64; PULSE 74; RESP 18; TEMP 36.6; O2SAT 98
[2022-02-09 09:56] LABS: Basophils % 0.7 %; Eosinophils % 0.4 %; Hematocrit 33.7 % (37.0-47.0); Hemoglobin 10.9 g/dL (11.5-15.3); Lymphocytes # 0.5 10^3/uL (0.8-4.8); Lymphocytes % 9.2 %; Mean Corpuscular HGB Conc 32.3 g/dL (30.0-36.0); Mean Corpuscular Hemoglobin 29.5 pg (28.0-34.0); Mean Corpuscular Volume 91.3 fl (81-99); Mean Platelet Volume 8.9 fL (7.4-10.4); Monocytes # 0.7 10^3/uL (0.2-0.9); Monocytes % 13.3 %; Neutrophils # 4.18 10^3/uL (1.8-7.7); Nucleated Red Blood Cells % 0 %; Platelet Count 315 10^3/cmm (130-400); Red Blood Count 3.69 10^6/uL (4.1-5.3); Red Cell Distribution Width 14.8 % (12.1-15.1); White Blood Count 5.6 10^3/uL (4.0-10.0)
[2022-02-09 10:28] LABS: Alanine Aminotransferase 17 U/L (0-33); Albumin Level 3.5 g/dL (3.5-5.2); Alkaline Phosphatase 127 U/L (35-105); Aspartate Amino Transferase 45 U/L (0-32); Blood Urea Nitrogen 22 mg/dL (8-23); Carbon Dioxide 27 mmol/L (22-29); Chloride 98 mmol/L (98-107); Globulin 3.1 g/dL (1.3-4.6); Glucose 196 mg/dL (65-115); Osmolality Calculated 293 mOsm/kg (285-295); Sodium 137 mmol/L (136-145); Total Bilirubin 0.3 mg/dL (0.15-1.2); Total Protein 6.6 g/dL (6.6-8.7)
[2022-02-09 10:49] LABS: CA 15-3 622.6 U/mL (0-25)
[2022-02-09] MEDS: sodium chlor 0.9% + KCl 40 mEq 40 MEQ/1,000 ML BAG 500 MEQ IV (11:20)
[2022-02-09 13:45] VITALS: BP 159/97; PULSE 94; RESP 21; TEMP 36.6; O2SAT 99
--- NOTE | 2022-02-09 15:01 | PC.NURSE ---
Patient did not receive treatment today per Dr Baez office visit . She did have K+ infusion 40meq over 2 hours per port a cath access with slight complaint of shortness of breath with oxygen applied for short time with oxygen level at 94% for 10 minutes. She did leave after the infusion with family with no issues.[id number]
== END 2022-02-22 23:59 | disposition home or self-care (01) ==
PROVIDERS: PCP Family Medicine; Visit Provider Internal Medicine Medical Oncology
DX: C50.811 Malignant neoplasm of overlapping sites of right female breast; Z17.0 Estrogen receptor positive status [ER+]; C79.51 Secondary malignant neoplasm of bone; R63.0 Anorexia; Z68.1 Body mass index [BMI] 19.9 or less, adult; R11.0 Nausea; E86.0 Dehydration; Z79.818 Long term (current) use of other agents affecting estrogen receptors and estrogen levels; Z79.891 Long term (current) use of opiate analgesic; Z79.899 Other long term (current) drug therapy
CPT/HCPCS: 80053; 85025; 86300; 96365; 96367; 96375; 96413; 96415; 99214; 99215; J1100; J2405; J7050; J9264

== ENCOUNTER 2022-02-23 09:04 | Oncology outpatient (recurring) (ONCR) | payer MEDICARE, MEDICAID, SELFPAY | END 2022-03-24 23:59 | disposition home or self-care (01) | LOC: ONCMED 09:04 | PROVIDERS: PCP Family Medicine; Visit Provider Internal Medicine Medical Oncology | DX: C50.811 Malignant neoplasm of overlapping sites of right female breast (principal); Z17.0 Estrogen receptor positive status [ER+]; C79.51 Secondary malignant neoplasm of bone; R53.0 Neoplastic (malignant) related fatigue; R63.0 Anorexia; Z68.1 Body mass index [BMI] 19.9 or less, adult; R11.0 Nausea; Z79.818 Long term (current) use of other agents affecting estrogen receptors and estrogen levels; Z79.899 Other long term (current) drug therapy; Z92.21 Personal history of antineoplastic chemotherapy; R97.8 Other abnormal tumor markers | CPT/HCPCS: 99214; 99215 ==

== ENCOUNTER 2022-03-09 15:50 | Outpatient (CLI) | payer OTHER, SELFPAY ==
[2022-03-09 16:30] LABS: SARS Covid-2 Antigen negative (Negative)
== END 2022-03-09 15:51 | disposition home or self-care (01) ==
PROVIDERS: PCP Family Medicine; Visit Provider Internal Medicine
DX: Z12.31 Encounter for screening mammogram for malignant neoplasm of breast (principal)
CPT/HCPCS: 87426